=== PATIENT | male | born 1950 | race Caucasian/White ===

== ENCOUNTER 2024-06-23 07:50 | Day surgery (SDC) | payer MEDICARE, SELFPAY ==
--- NOTE | 2024-06-23 | HP_ITS ---
PREOPERATIVE HISTORY AND PHYSICAL ? Date:? 06/22/2024 ? HISTORY:? The patient is a 74-year-old white male with complaints of declining vision out of his left eye.? He states that this has been an ongoing issue over the last 2-3 years, since he had prior cataract surgery and it has been noticed.? He describes the severity as moderate in nature, gradually worsening in a progressive fashion over that time frame.? Notes his distance and near is affected.? Road signs at a distance have become more difficult.? Additionally, night time driving has become more difficult with the headlights creating glare and halos.? ? PAST OCULAR HISTORY:? Includes status post cataract extraction with intraocular lens placement for the right eye. ? PAST MEDICAL HISTORY:? A history of tremor and Parkinson?s. ? SOCIAL HISTORY:? Denies tobacco, alcohol or recreational drug abuse. ? SYSTEMIC MEDICATIONS:? Include B12, tramadol, carbidopa levodopa, Require, Alprazolam. ? ALLERGIES TO MEDICATIONS:? Denies. ? REVIEW OF SYSTEMS:? No pertinent positives. ? PHYSICAL EXAM: ? GENERAL:? In general, he is awake, alert and oriented x3, well developed, well nourished, with a resting tremor.? ? HEART:? Regular rate and rhythm. ? LUNGS:? Clear bilaterally. ? ABDOMEN:? Soft, non-tender, non-distended. ? EXTREMITIES:? No pitting edema. ? OPHTHALMIC EXAM:? Revealed a visual acuity of 20/60 bilaterally that glared to 20/200 bilaterally.? Pupils motility, muscle balance and confrontational visual johnson within normal limits bilaterally.??? Slit lamp exam revealed blepharitis with a severe decrease in tear film bilaterally.? Conjunctiva, cornea, anterior chamber and iris were within normal limits bilaterally.? Lens status demonstrated a well centered posterior chamber intraocular lens in the right eye and 3+ nuclear sclerosis, 2+ cortical changes and 1+ PSC in the left eye. ? FUNDUS EXAM:? Revealed good view with good dilation bilaterally.? Optic discs, macula, vessels, periphery and vitreous were within normal limits bilaterally.? ? ASSESSMENT AND PLAN:? Visually significant cataract, left eye.? After the risks, benefits, and alternatives as well as expectations were delivered to the patient, he elected to go forward with cataract removal.? He understands those risks to include but not limited to infection, bleeding, loss of vision or loss of the eye itself.? Secondly, he understands that postoperatively he is likely to require spectacle correction for her best visual acuity.? Finally, a complete ophthalmic exam was performed and there was not determined to be any other source of vision decline other than that of cataract.? ? After understanding all risks as well as expectations, he elected to go forward with the procedure as listed above and will be doing so in the near future. SCAR
--- NOTE | 2024-06-23 | OP_ITS ---
OPERATION DATE: 06/23/2024 SURGEON: Sage Strauss D.O. PREOPERATIVE DIAGNOSIS: Nuclear sclerotic cataract left eye POSTOPERATIVE DIAGNOSIS: Nuclear sclerotic cataract left eye. PROCEDURE NAME: Cataract extraction with intraocular lens placement of the left eye. ANESTHESIA: Topical ESTIMATED BLOOD LOSS: Zero. COMPLICATIONS: None. PROCEDURE: The patient was brought to the Operating Room in supine position. After proper identification, the left eye was prepped and draped in a sterile ophthalmic fashion. A paracentesis was created at the 5 o'clock position. Approximately 1 cc of unpreserved Xylocaine was injected into the anterior chamber followed by Amvisc Plus. Using a 2.6 mm Keratome blade, a clear corneal incision was created at the 2 o'clock limbus. A cystotome was then used to begin a curvilinear capsulorrhexis that was continued for 360 degrees with the Utrata forceps. BSS on a 26 gauge cannula was injected beneath the anterior capsule to hydrodissect as well as hydrodelineate the lens. After ensuring mobility, phacoemulsification was performed in a [id number]-type fashion. After all nuclear material had been removed from the eye, IA was introduced and all residual cortical material was cleaned up. Additional Amvisc Plus was injected into the posterior bag and a lens model MX60, 20.5 diopters was injected and dialed into position. After ensuring centration, IA was re- introduced into the anterior chamber and all residual Amvisc Plus was removed from the eye. BSS on a 30 gauge cannula was injected into the stroma of both the clear corneal incision as well as paracentesis to hydrate the wounds. Additional BSS was injected into the anterior chamber to pressurize the eye at approximately 20 to 22 mmHg by finger tension. 0.1 cc of antibiotic was injected into the anterior chamber, and Weck-Martita sponges were used to check the wounds to be watertight. One drop of apraclonidine and one drop of prednisolone acetate were placed into the eye and a shield was placed over top. The patient was sent to the postoperative area in satisfactory condition to follow up the following day for postoperative care. SCAR
[2024-06-23 08:03] VITALS: BP 105/73; PULSE 81; O2SAT 98
[2024-06-23] MEDS: DIAZEPAM 5 MG TABLET PO (08:08)
[2024-06-23] MEDS: TROPICAMIDE 1% OP SOL 300 DROP/15 ML BOTTLE OP ×4 (08:09→08:38)
[2024-06-23] MEDS: CYCLOPENTOLATE HCL 1% OP SOL 40 DROP/2 ML BOTTLE OP ×4 (08:09→08:38)
[2024-06-23] MEDS: PHENYLEPHRINE HCL 2.5% OP SOL 40 DROP/2 ML BOTTLE OP ×4 (08:09→08:38)
[2024-06-23] MEDS: BESIFLOXACIN HCL 100 DROP DROPS.SUSP OP ×4 (08:09→08:38)
[2024-06-23] MEDS: BETADINE POVIDONE-IODINE 5% OP SOL 30 ML BOTTLE OP (09:33)
[2024-06-23] MEDS: PROPARACAINE HCL 0.5% 300 DROP/15 ML BOTTLE OP (09:33)
[2024-06-23] MEDS: LIDOCAINE 2% JELLY 10 ML TOPICAL (09:33)
[2024-06-23 09:41] VITALS: BP 113/73; PULSE 66; O2SAT 95
[2024-06-23 09:46] VITALS: BP 116/69; PULSE 63; O2SAT 98
[2024-06-23] MEDS: APRACLONIDINE HCL 0.5% SOL 100 DROP/5 ML BOTTLE OP (09:48)
[2024-06-23] MEDS: LIDOCAINE HCL 1% PF 20 MG/2 ML VIAL INJ (09:49)
[2024-06-23] MEDS: PHENYLEPHRINE/KETOROLAC 1-0.3% ML VIAL 4 ML IRR (09:49)
[2024-06-23] MEDS: HYALURONATE SODIUM 16 MG/ML SYRINGE OP (09:49)
[2024-06-23] MEDS: TETRACAINE HCL 0.5% OP SOL 80 DROP/4 ML BOTTLE OP (09:50)
[2024-06-23] MEDS: PREDNISOLONE ACETATE OP 1% SUSP 100 DROPS/5 ML 1 DROP OP (09:50)
[2024-06-23] MEDS: CEFUROXIME SODIUM 750 MG, 0.9 % SODIUM CHLORIDE 16.3 ML OP (09:51)
== END 2024-06-23 10:14 | disposition home or self-care (01) ==
LOC: SURGOUT 07:52
PROVIDERS: Visit Provider Ophthalmology
PROC: (CPT 66984; principal; 2024-06-23 09:00)
DX: H25.12 Age-related nuclear cataract, left eye (principal); G20.A1 Parkinson's disease without dyskinesia, without mention of fluctuations
CPT/HCPCS: 66984; J0697; V2630

== ENCOUNTER 2025-07-17 19:13 | Emergency (ER) | payer MEDICARE, SELFPAY ==
--- OUTSIDE RECORDS SUMMARY | 2025-06-29 10:13 | XMS_ITS ---
Author Name Auto Generated Organization [facility] Care Team Providers [employer]ing [employer] Finance Instructor Name Role Phone URBANO BRO Attending Unavailable URBANO BRO Attending Unavailable URBANO BRO Attending Unavailable Kellie, CHANNEL MARKETING SPECIALIST Radha L Attending Unavailable Kellie, CHANNEL MARKETING SPECIALIST Radha L Attending Unavailable Kellie, CHANNEL MARKETING SPECIALIST Radha L Attending Unavailable Kellie, CHANNEL MARKETING SPECIALIST Radha L Attending Unavailable Kellie, CHANNEL MARKETING SPECIALIST Radha L Attending Unavailable Kellie, CHANNEL MARKETING SPECIALIST Radha L Attending Unavailable Kellie, CHANNEL MARKETING SPECIALIST Radha L Attending Unavailable Kellie, CHANNEL MARKETING SPECIALIST Radha L Attending Unavailable Kellie, CHANNEL MARKETING SPECIALIST Radha L Admitting Unavailable Kellie, CHANNEL MARKETING SPECIALIST Radha L Attending Unavailable Kellie, CHANNEL MARKETING SPECIALIST Radha L Admitting Unavailable Kellie, CHANNEL MARKETING SPECIALIST Radha L Attending Unavailable Kellie, CHANNEL MARKETING SPECIALIST Radha L Admitting Unavailable Kellie, CHANNEL MARKETING SPECIALIST Radha L Attending Unavailable Kellie, CHANNEL MARKETING SPECIALIST Radha L Admitting Unavailable Kellie, CHANNEL MARKETING SPECIALIST Radha L Attending Unavailable MARTIN LAMAR Attending Unavailable PROBLEMS DATE TYPE CONDITION / CODE ATTENDING STATUS [facility] 03/02/2025 Active Parkinson's dise ase without dyskinesia or fluctuating manifestations (HCC) / G20.A1(ICD-10) MARTIN LAMAR Active [facility] 03/02/2025 Active Disturbance in s leep behavior / G47.9(ICD-10) MARTIN LAMAR Active [facility] 03/02/2025 Active Chronic prescrip tion benzodiazepine use / Z79.899(ICD-10) MARTIN LAMAR Active [facility] PROCEDURES No Procedure Records Found RESULTS REMINDERS Observed: 06/30/2025 1:10 PM Status: C Source: [facility] Reminders From: Radha Poole To: [facility] - Clinical; Sent: 06/30/2025 13:10:26 EDT Show up: 06/30/2025 13:10:00 EDT Subject: Ambulatory Reminder Due Date/Time: 07/01/2025 13:09:00 EDT prostate cancer screen lab was just slightly elevated. I would like to repeat that lab in 3 months when he comes back to office for follow up appointment Results: Date Result Name Ind Value Ref Range 06/29/2025 10:57 WBC 7.6 E9/L (4.0 - 11.0) 06/29/2025 10:57 RBC 5.2 E12/L (4.3 - 5.9) 06/29/2025 10:57 HGB 16.0 gm/dL (13.5 - 17.5) 06/29/2025 10:57 Hct 46.9 % (37.7 - 49.0) 06/29/2025 10:57 MCV 90.0 fL (80.0 - 100.0) 06/29/2025 10:57 MCH 30.7 pg (27.0 - 34.0) 06/29/2025 10:57 MCHC 34.1 gm/dL (31.4 - 36.0) 06/29/2025 10:57 RDW 13.8 % (10.9 - 14.2) 06/29/2025 10:57 Platelet (L) 145.0 E9/L (150.0 - 500.0) 06/29/2025 10:57 MPV 10.6 fL (6.4 - 10.8) 06/29/2025 10:57 Neutro Auto 68.4 % (36.0 - 75.0) 06/29/2025 10:57 Lymph Auto 20.6 % (14.0 - 50.0) 06/29/2025 10:57 [place] Auto 8.7 % (4.0 - 14.0) 06/29/2025 10:57 Eos Auto 1.7 % (0.0 - 8.0) 06/29/2025 10:57 Basophil Auto 0.6 % (0.0 - 2.0) 06/29/2025 10:57 Neutro Absolute 5.2 E9/L (2.0 - 7.5) 06/29/2025 10:57 Lymph Absolute 1.6 E9/L (1.0 - 4.0) 06/29/2025 10:57 [place] Absolute 0.7 E9/L (0.2 - 1.0) 06/29/2025 10:57 Eos Absolute 0.1 E9/L (0.0 - 0.5) 06/29/2025 10:57 Basophil Absolute 0.0 E9/L (0.0 - 0.2) 06/29/2025 10:57 Glucose Lvl 98 mg/dL (55 - 199) 06/29/2025 10:57 BUN (H) 22 mg/dL (5 - 21) 06/29/2025 10:57 Creatinine 1.0 mg/dL (0.5 - 1.3) 06/29/2025 10:57 eGFR 79 mL/min/1.73 m2 (>=59 - ) 06/29/2025 10:57 BUN/Creat Ratio (H) 22 (10 - 20) 06/29/2025 10:57 Sodium Lvl 139 mmol/L (135 - 145) 06/29/2025 10:57 Potassium Lvl 4.5 mmol/L (3.5 - 5.3) 06/29/2025 10:57 Chloride 108 mmol/L (101 - 111) 06/29/2025 10:57 CO2 25 mmol/L (21 - 31) 06/29/2025 10:57 AGAP 11 mEq/L (6 - 16) 06/29/2025 10:57 Calcium Lvl 9.6 mg/dL (8.9 - 11.1) 06/29/2025 10:57 Alk Phos 57 Int._Unit/L (21 - 98) 06/29/2025 10:57 ALT (L) 4 Int._Unit/L (6 - 46) 06/29/2025 10:57 AST 21 Int._Unit/L (5 - 43) 06/29/2025 10:57 Total Protein 7.1 gm/dL (6.0 - 7.8) 06/29/2025 10:57 Albumin Lvl 4.8 gm/dL (3.3 - 5.0) 06/29/2025 10:57 Globulin 2.3 gm/dL (1.4 - 4.0) 06/29/2025 10:57 A/G Ratio 2.1 (1.1 - 2.2) 06/29/2025 10:57 Bili Total 1.0 mg/dL (0.0 - 1.1) 06/29/2025 10:57 TSH 0.99 mcIU/mL (0.34 - 5.60) 06/29/2025 10:57 Vitamin B12 Lvl 444 pg/mL (50 - 1,500) 06/29/2025 10:57 PSA Scrn Tot. (H) 3.9 ng/mL (0.1 - 3.5) left message to return our call, relay below message Patient notified with a clear understanding. CBC W/ AUTO DIFF Collected: 10:57 AM Status: F Source: [facility] TYPE CODE TESTS RESULT OUT OF RANGE REFERENCE UNITS LAB [id number](LOINC) WBC 7.6 Normal 4.0-11.0 E9/L Result Comment: Peripheral s mear review performed. LAB [id number](LOINC) RBC 5.2 Normal 4.3-5.9 E12/L LAB [id number](LOINC) HGB 16.0 Normal 13.5-17.5 gm/dL LAB [id number](LOINC) Hct 46.9 Normal 37.7-49.0 % LAB [id number](LOINC) RDW 13.8 Normal 10.9-14.2 % LAB [id number](LOINC) MCH 30.7 Normal 27.0-34.0 pg LAB [id number](LOINC) MCHC 34.1 Normal 31.4-36.0 gm/dL LAB [id number](LOINC) MCV 90.0 Normal 80.0-100.0 fL LAB [id number](LOINC) MPV 10.6 Normal 6.4-10.8 fL LAB [id number](LOINC) Platelet 145.0 Low 150.0-500.0 E9/ L LAB [id number](LOINC) Neutro Auto 68.4 Normal 36.0-75.0 % LAB [id number](LOINC) Lymph Auto 20.6 Normal 14.0-50.0 % LAB [id number](LOINC) [place] Auto 8.7 Normal 4.0-14.0 % LAB [id number](LOINC) Eos Auto 1.7 Normal 0.0-8.0 % LAB [id number](LOINC) Basophil Auto 0.6 Normal 0.0-2.0 % LAB [id number](LOINC) Neutro Absolute 5.2 Normal 2.0-7.5 E9/L LAB [id number](LOINC) Lymph Absolute 1.6 Normal 1.0-4.0 E9/L LAB [id number](LOINC) [place] Absolute 0.7 Normal 0.2-1.0 E9 /L LAB [id number](LOINC) Eos Absolute 0.1 Normal 0.0-0.5 E9/ L LAB [id number](LOINC) Basophil Absolute 0.0 Normal 0.0-0.2 E9/L Performed By: #### [id number] # ### [facility] [address] [place] [address] PSA SCREEN, TOTAL Collected: 5 10:57 AM Status: F Source: [facility] TYPE CODE TESTS RESULT OUT OF RANGE REFERENCE UNITS LAB [id number](LOINC) PSA Scrn Tot. 3.9 High 0.1-3.5 ng/mL Result Comment: The concentr ation of PSA determined by different manufacturers can vary due to differences in assay methods and reagent specificity. Values obtained from different assay methods cannot be used interchangeably. The methodology used for this result was chemiluminescence using [employer]'s Access Hybritech PSA reagent. Performed By: #### [id number] #### [facility] [address] [place] [address] TSH Collected: 5 10:57 AM Status: F Source: [facility] TYPE CODE TESTS RESULT OUT OF RANGE REFERENCE UNITS LAB [id number](LOINC) TSH 0.99 Normal 0.34-5.60 mcIU/m L Performed By: #### [id number] # ### [facility] [address] [place] [address] VIT B12 Collected: 10:57 AM Status: F Source: [facility] TYPE CODE TESTS RESULT OUT OF RANGE REFERENCE UNITS LAB [id number]([facility]) Vitamin B12 Lvl 444 Normal 50-1500 pg/mL Performed By: #### [id number] # ### [facility] [address] [place] [address] EGFR Collected: 10:57 AM Status: F Source: [facility] TYPE CODE TESTS RESULT OUT OF RANGE REFERENCE UNITS LAB [id number]([facility]) eGFR 79 Normal >=59 mL/min/1 .7 3 m2 Performed By: #### [id number] #### [facility] [address] [place] [address] CMP Collected: 06/29/2025 10:57 AM Status: F Source: [facility] TYPE CODE TESTS RESULT OUT OF RANGE REFERENCE UNITS LAB [id number]([facility]) Glucose Lvl 98 Normal 55-199 mg/d L LAB [id number]([facility]) BUN 22 High 5-21 mg/dL LAB [id number]([facility]) Creatinine 1.0 Normal 0.5-1.3 mg/dL LAB [id number](INC) Calcium Lvl 9.6 Normal 8.9-11.1 mg/ dL LAB [id number](INC) Sodium Lvl 139 Normal 135-145 mmol/ L LAB [id number](INC) Potassium Lvl 4.5 Normal 3.5-5.3 mm ol/L LAB [id number](INC) Chloride 108 Normal 101-111 mmol/L LAB [id number]([facility]) CO2 25 Normal 21-31 mmol/L LAB [id number]([facility]) Alk Phos 57 Normal 21-98 Int._Un it /L LAB 25438337(INC) Bili Total 1.0 Normal 0.0-1.1 mg/dL LAB [id number](INC) Albumin Lvl 4.8 Normal 3.3-5.0 gm/d L LAB [id number](INC) Total Protein 7.1 Normal 6.0-7.8 gm /dL LAB [id number](LOINC) ALT 4 Low 6-46 Int._Uni t /L LAB [id number](LOINC) AST 21 Normal 5-43 Int._Uni t /L LAB [id number](LOINC) BUN/Creat Ratio 22 High 10-20 No Units LAB [id number](LOINC) AGAP 11 Normal 6-16 mEq/L LAB [id number](LOINC) Globulin 2.3 Normal 1.4-4.0 gm/dL LAB [id number](LOINC) A/G Ratio 2.1 Normal 1.1-2.2 Performed By: #### [id number] # ### [facility] [address] [place] [address] FAMILY MEDICINE OFFICE/CLINI C NOTE Observed: 06/29/2025 9:27 AM Status: F Source: [facility] Family Medicine Office/Clini c Note HPI Staff Quinten is a 75 year old male presenting with 3 month f/u Taking Alprazolam for anxiety/insomnia/tremors Follow up for Mental Status: Medication adherence- Yes, takes medication as prescribed Medication refill needed: _ Suicidal thoughts-Not at this time Most recent SHADI: 7 Most recent PHQ: 11 Helps a little bit He has been taking NyQuil with Alprazolam seems to help better Refills needed: none at this time History of Present Illness pt presents today for 3 month follow up Review of Systems PHQ Score Initial Depression Screen Score: 4 SCORE Detailed Depression Screen Score: 7 Total Depression Screen Score: 11 Physical Exam Vitals & Measurements T: 36.4 ???C(Temporal Artery) HR: 76(Peripheral) RR: 18 BP: 96/68 SpO2: 98% HT: 67 in HT: 169.0 cm WT: 142.198 lb WT: 64.5 kg BMI: 22.58 General: alert, no acute distress ENMT: oral mucosa moist, no pharyngeal erythema or exudate Cardiovascular: regular rate and rhythm, normal peripheral perfusion Respiratory: Lungs CTA, respirations non labored Extremities: no deformity, no trauma Neurological: oriented x 4, LOC appropriate for age, CN II-XII intact, motor strength equal & normal bilaterally, speech normal Assessment/Plan 1. Generalized anxiety disorder (F41.1: Generalized anxiety disorder) doing well with the increase of alprazolam to BID. med agreement and UDS are up to date. RTC 3 months Ordered: CBC w/ Auto Diff Comprehensive Metabolic Panel PSA Screen, Total Thyroid Stimulating Hormone Vitamin B12 Level 2. Fatigue (R53.83: Other fatigue) will check labs today Ordered: CBC w/ Auto Diff Comprehensive Metabolic Panel PSA Screen, Total Thyroid Stimulating Hormone Vitamin B12 Level 3. Insomnia (G47.00: Insomnia, unspecified) continue current regimine Ordered: CBC w/ Auto Diff Comprehensive Metabolic Panel PSA Screen, Total Thyroid Stimulating Hormone Vitamin B12 Level 4. Prostate cancer screening (Z12.5: Encounter for screening for malignant neoplasm of prostate) PSA ordered Ordered: CBC w/ Auto Diff Comprehensive Metabolic Panel PSA Screen, Total Thyroid Stimulating Hormone Vitamin B12 Level 5. BMI 23.0-23.9, adult (Z68.23: Body mass index [BMI] 23.0-23.9, adult) samples of ensure provided Orders: alprazolam, 1 mg = 1 tab(s), Oral, BID, PRN for anxiety, # 60 tab(s), Refills(s) 0, Pharmacy: [facility], 169, cm, 03/29/25 11:10:00 EDT, Height/Length Dosing, 66.4, kg, 03/29/25 11:10:00 EDT, Weight Dosing alprazolam, 1 mg = 1 tab(s), Oral, BID, PRN for anxiety, # 60 tab(s), Refills(s) 0, Pharmacy: [facility], 169, cm, 06/29/25 9:57:00 EDT, Height/Length Dosing, 64.5, kg, 06/29/25 9:57:00 EDT, Weight Dosing Follow-up No qualifying data available Problem List/Past Medical History Ongoing BMI 23.0-23.9, adult Fatigue Generalized anxiety disorder Insomnia Long-term current use of opiate analgesic drug Parkinson's disease Prostate cancer screening Pure hypercholesterolemia Slow transit constipation Thrombocytopenia Tubular adenoma of colon Weakness Historical No qualifying data Procedure/Surgical History Colonoscopy (12/17/2022), Cataract Extraction with IOL placement - OD. (02/24/2017), Colonoscopy (02/20/2011), Vasectomy. Medications alprazolam 1 mg Tab, 1 mg= 1 tab(s), Oral, BID, PRN carbidopa-levodopa 25 mg-100 mg Tab, 1 tab(s), Oral, TID LORazepam 0.5 mg Tab, See Instructions LORazepam 0.5 mg Tab, See Instructions organic helena Benito Stool Softener, 100 mg, Oral, Daily ropinirole 0.25 mg Tab, 0.25 mg= 1 tab(s), Oral, TID Allergies No Known Allergies No Known Medication Allergies Social History Alcohol - Denies Alcohol Use, 11/18/2022 Never, 12/22/2024 Substance Abuse - Denies Substance Abuse, 11/18/2022 Never, 12/22/2024 Tobacco - No Risk, 12/23/2023 Never (less than 100 in lifetime) Tobacco Use:., 06/29/2025 Family History Brain tumor: Sister. Cardiac arrest: Mother. Heart disease: Brother. Primary malignant neoplasm of lung: Father. Immunizations Vaccine Date Status Comments zoster vaccine, inactivated 01/22/2025 Recorded influenza virus vaccine, inactivated - Not Given Patient Refuses influenza virus vaccine, inactivated - Not Given Patient Refuses SARS-CoV-2 (COVID-19) mRNA BNT-162b2 vax 10/06/2021 Recorded SARS-CoV-2 (COVID-19) mRNA BNT-162b2 vax 01/20/2021 Recorded SARS-CoV-2 (COVID-19) mRNA BNT-162b2 vax 12/28/2020 Recorded 2022-11-18: TPV65 pneumococcal 13-valent vaccine 09/20/2020 Recorded Result Comment: Electronical ly Signed By: Radha Poole\.br\Date and Time Signed: 06/29/25 10:26 EDT AMBULATORY VISIT SUMMARY Observed: 06/29 9:27 AM Status: F Source: [facility] Ambulatory Visit Summary QUINTEN HUITRON :1950 Visit Date:06/29/2025 Ambulatory Visit Instructions Your Diagnosis Generalized anxiety disorder Fatigue Insomnia Prostate cancer screening BMI 23.0-23.9, adult Your Care Team Attending Physician - Radha Poole Primary Care Physician - Radha Poole This Is Your Medications List Non-Formulary Medication (organic limartha mendez) alprazolam (alprazolam 1 mg Tab) carbidopa-levodopa (carbidopa-levodopa 25 mg-100 mg Tab) docusate (Benito Stool Softener) lorazepam (LORazepam 0.5 mg Tab) lorazepam (LORazepam 0.5 mg Tab) ropinirole (ropinirole 0.25 mg Tab) Procedures Performed Colonoscopy (12/17/2022), Cataract Extraction with IOL placement - OD. (02/24/2017), Colonoscopy (02/20/2011), Vasectomy. Discharge Vitals Temperature (Temporal Artery) 36.4 ???C Heart Rate (Peripheral) 76 Respiratory Rate 18 Blood Pressure 96/68 Height 169.0 cm Height 67 in Weight 64.5 kg Weight 142.198 lb BMI 22.58 What to do next Scheduled Follow-Up Appointments 2024 10:20 AM EST With: Radha Poole Where: [address] [address]- Thursday2025 11:00 AM EDT With: Where: [address] [address]- Medications What How Much When Why Instructions New alprazolam (alprazolam 1 mg Tab) 1 Tablets By Mouth 2 times a day as needed for for anxiety Pickup at [facility] Unchanged carbidopa-levodopa (carbidopa-levodopa 25 mg-100 mg Tab) 1 Tablets By Mouth 3 times a day Unchanged docusate (Benito Stool Softener) 100 Milligram By Mouth Every day Unchanged lorazepam (LORazepam 0.5 mg Tab) See instructions Insomnia 3 tab(s) 30 minutes prior to procedure or appointment Unchanged lorazepam (LORazepam 0.5 mg Tab) See instructions Insomnia 3 tab(s) 30 minutes prior to procedure or appointment Unchanged Non-Formulary Medication (organic lions louis) Unchanged ropinirole (ropinirole 0.25 mg Tab) 1 Tablets By Mouth 3 times a day Pharmacy Information [facility]: [address] [place], [place] [id number] [phone] Allergies No Known Allergies No Known Medication Allergies Problems Ongoing - Any problem that you are currently receiving treatment for. BMI 23.0-23.9, adult Fatigue Generalized anxiety disorder Insomnia Long-term current use of opiate analgesic drug Parkinson's disease Prostate cancer screening Pure hypercholesterolemia Slow transit constipation Thrombocytopenia Tubular adenoma of colon Weakness Patient Survey You may receive a survey via text or e-mail asking about your office visit. Please share your experience with us by completing your survey. We appreciate your feedback and thank you for choosing us for your care. Patient Portal You may access all of your results and other medical record information on our secure patient portal. If you are not signed up for this yet, please contact [employer] at [phone] to get signed up today. Language Information Language assistance services are available as needed. AMBULATORY VISIT SUMMARY Observed: 03/29 10:53 AM Status: F Source: [facility] Ambulatory Visit Summary QUINTEN HUITRON :1950 Visit Date:03/29/2025 Ambulatory Visit Instructions Your Diagnosis BMI 23.0-23.9, adult Your Care Team Attending Physician - Radha Poole Primary Care Physician - Radha Poole This Is Your Medications List Non-Formulary Medication (organic lions louis) alprazolam (alprazolam 1 mg Tab) carbidopa-levodopa (carbidopa-levodopa 25 mg-100 mg Tab) docusate (Benito Stool Softener) lorazepam (LORazepam 0.5 mg Tab) lorazepam (LORazepam 0.5 mg Tab) psyllium (Metamucil 3.4 g/5.2 g oral powder) ropinirole (ropinirole 0.25 mg Tab) Procedures Performed Colonoscopy (12/17/2022), Cataract Extraction with IOL placement - OD. (02/24/2017), Colonoscopy (02/20/2011), Vasectomy. Discharge Vitals Heart Rate (Peripheral) 73 Respiratory Rate 16 Blood Pressure 110/68 Height 169 cm Height 67 in Weight 66.4 kg Weight 146.387 lb BMI 23.25 What to do next Scheduled Follow-Up Appointments 2024 9:40 AM EDT With: Radha Poole Where: [facility] [address]- Thursday2025 11:00 AM EDT With: Where: [address] [address]- Medications What How Much When Why Instructions Unchanged alprazolam (alprazolam 1 mg Tab) 1 Tablets By Mouth 2 times a day as needed for for anxiety Unchanged carbidopa-levodopa (carbidopa-levodopa 25 mg-100 mg Tab) 1 Tablets By Mouth 3 times a day Unchanged docusate (Benito Stool Softener) 100 Milligram By Mouth Every day Unchanged lorazepam (LORazepam 0.5 mg Tab) 1.5 Milligram As Directed prn Unchanged lorazepam (LORazepam 0.5 mg Tab) See instructions Insomnia 3 tab(s) 30 minutes prior to procedure or appointment Unchanged Non-Formulary Medication (organic lions louis) Unchanged psyllium (Metamucil 3.4 g/ 5.2 g oral powder) 1.7 Gram By Mouth 3 times a day as needed for for constipation Unchanged ropinirole (ropinirole 0.25 mg Tab) 1 Tablets By Mouth 3 times a day Allergies No Known Allergies No Known Medication Allergies Problems Ongoing - Any problem that you are currently receiving treatment for. BMI 23.0-23.9, adult Fatigue Generalized anxiety disorder Insomnia Long-term current use of opiate analgesic drug Parkinson's disease Pure hypercholesterolemia Slow transit constipation Thrombocytopenia Tubular adenoma of colon Weakness Patient Survey You may receive a survey via text or e-mail asking about your office visit. Please share your experience with us by completing your survey. We appreciate your feedback and thank you for choosing us for your care. FAMILY MEDICINE OFFICE/CLINI C NOTE Observed: 03/29/2025 10:53 AM Status: F Source: [facility] Medicine Office/Clini c Note HPI Staff 3mth fu to Insomnia, Anxiety. Alprazolam BID PRN and Lorazepam PRN therapy. Recent of son. Sleeping 6-7 hours very little appetite History of Present Illness pt presents for 3 month follow up Review of Systems PHQ Score Initial Depression Screen Score: 0 SCORE Physical Exam Vitals & Measurements HR: 73(Peripheral) RR: 16 BP: 110/68 SpO2: 94% HT: 169 cm HT: 67 in WT: 146.387 lb WT: 66.4 kg BMI: 23.25 General: alert, no acute distress ENMT: oral mucosa moist, no pharyngeal erythema or exudate Cardiovascular: regular rate and rhythm, normal peripheral perfusion Respiratory: Lungs CTA, respirations non labored Extremities: no deformity, no trauma Neurological: oriented x 4, LOC appropriate for age, CN II-XII intact, motor strength equal & normal bilaterally, speech normal Assessment/Plan 1. Insomnia (G47.00: Insomnia, unspecified) pt is taking alprazolam BID for anxiety/insomnia/tremors. medication agreement up to date. will do drug screen at next visit. denies needs. RTC 3 months Ordered: lorazepam, See Instructions, 3 tab(s) 30 minutes prior to procedure or appointment, # 21 tab(s), Refills(s) 0, Pharmacy: [facility], 169, cm, 03/29/25 11:10:00 EDT, Height/Length Dosing, 66.4, kg, 03/29/25 11:10:00 EDT, Weight Dosing lorazepam, See Instructions, 3 tab(s) 30 minutes prior to procedure or appointment, # 12 tab(s), Refills(s) 0, Pharmacy: [facility], 169, cm, 12/22/24 14:54:00 EST, Height/Length Dosing, 67.5, kg, 12/22/24 14:54:00 EST, Weight Dosing 2. Generalized anxiety disorder (F41.1: Generalized anxiety disorder) see above 3. BMI 23.0-23.9, adult (Z68.23: Body mass index [BMI] 23.0-23.9, adult) BMI education given Ordered: 1126F Pain severity quantified; no pain present Current tobacco non-user 1036F Depression Screening Negative 3352F Functional status assessed 1170F Medication list documented in medical record 1159F Most recent diastolic blood pressure <80 mm Hg 3078F Patient screen for fall risk: no falls in last year or 1 fall with no injury in last year 1101F Systolic BP <130 mm Hg (Most Recent) 3074F Follow-up No qualifying data available Problem List/Past Medical History Ongoing BMI 23.0-23.9, adult Fatigue Generalized anxiety disorder Insomnia Long-term current use of opiate analgesic drug Parkinson's disease Pure hypercholesterolemia Slow transit constipation Thrombocytopenia Tubular adenoma of colon Weakness Historical No qualifying data Procedure/Surgical History Colonoscopy (12/17/2022), Cataract Extraction with IOL placement - OD. (02/24/2017), Colonoscopy (02/20/2011), Vasectomy. Medications alprazolam 1 mg Tab, 1 mg= 1 tab(s), Oral, BID, PRN carbidopa-levodopa 25 mg-100 mg Tab, 1 tab(s), Oral, TID LORazepam 0.5 mg Tab, 1.5 mg, As Directed LORazepam 0.5 mg Tab, See Instructions Metamucil 3.4 g/5.2 g oral powder, 1.7 gm, Oral, TID, PRN organic lions louis Benito Stool Softener, 100 mg, Oral, Daily ropinirole 0.25 mg Tab, 0.25 mg= 1 tab(s), Oral, TID Allergies No Known Allergies No Known Medication Allergies Social History Alcohol - Denies Alcohol Use, 11/18/2022 Never, 12/22/2024 Substance Abuse - Denies Substance Abuse, 11/18/2022 Never, 12/22/2024 Tobacco - No Risk, 12/23/2023 Never (less than 100 in lifetime) Tobacco Use:., 03/29/2025 Family History Brain tumor: Sister. Cardiac arrest: Mother. Heart disease: Brother. Primary malignant neoplasm of lung: Father. Immunizations Vaccine Date Status Comments zoster vaccine, inactivated 01/22/2025 Recorded influenza virus vaccine, inactivated - Not Given Patient Refuses influenza virus vaccine, inactivated - Not Given Patient Refuses SARS-CoV-2 (COVID-19) mRNA BNT-162b2 vax 10/06/2021 Recorded SARS-CoV-2 (COVID-19) mRNA BNT-162b2 vax 01/20/2021 Recorded SARS-CoV-2 (COVID-19) mRNA BNT-162b2 vax 12/28/2020 Recorded 2022-11-18: TPV65 pneumococcal 13-valent vaccine 09/20/2020 Recorded Result Comment: Electronical ly Signed By: Radha Poole\.br\Date and Time Signed: 03/29/25 15:29 EDT PRE-VISIT PLANNING Observed: 03/21/2025 2:04 PM Status: C Source: [facility] Pre-Visit Planning From: Carmen Fortune RN To: Radha Poole; Sent: 03/21/2025 14:04:30 EDT Subject: Pre-Visit Planning Due Date/Time: 03/21/2025 14:04:00 EDT Caller Name: QUINTEN HUITRON; Caller Number: Kari , Nayan Kevin Garcia, *Based on your response below, can you please update the chronic problem list and address during this visit if appropriate?* During a pre-visit planning chart review, I noted the following documentation in the medical record: Problem list: Anxiety (Anxiety disorder, unspecified) Home medications- Alprazolam, Lorazepam 06/10/2024 office note-BOB 03/30/24- Increased Xanax to .5 mg (Med agreement updated) taking this to help him sleep Neurologist said he can not take the ativan prior to appointments they are not sure why 09/09/2024 office note-Quinten is a 74 year old male presenting with 3 month followup to taking Xanax QHS & prior to Neuro appts. Pt states he is still taking the Ativan before dental appts )once every 3m) States the Xanax does not work for his tremors prior to appt. Does take the Xanax prior to bed. Would like to discuss possible stronger. States he needs refill of lorazepam. 09/28/2024 office note-They have questions for the Alprazolam not working either, patient says the dose is not strong enough 2. Anxiety (F41.9: Anxiety disorder, unspecified) will order lorazepam 3 times 30 minutes prior to dental procedures. they will call 2 weeks prior to next dental visit for refill. 12/22/2024 office note- 2. Anxiety (F41.9: Anxiety disorder, unspecified) pt feels if he takes alprazolam at lunch time it help with his anxiety and tremors. will order it to be taken BID. 12/22/2024 office note- 3. Anxiety (F41.9: Anxiety disorder, unspecified) Patient takes alprazolam daily as directed, voices effectiveness of medication. SHADI-7 screening completed today with a score of 2. Follows with PCP as directed for management and symptom control. Denies any suicidal ideations at this time. Education provided, stress management and relaxation techniques reviewed. Will continue to follow with PCP and communicate any changes of increased anxiety. Reviewed additional signs/symptoms to monitor for and report to provider. Based on your medical judgment, can you please further specify the anxiety listed on the problem list? Anxiety with depression ??? Generalized anxiety disorder ??? Generalized anxiety with panic attacks ??? Anxiety reaction ??? Specified NEC ??? Other (Please Specify): I can update the problem list with your specified response if you would like. In responding to this request, please exercise your independent professional judgement. The fact that a question is asked does not imply that any particular answer is desired or expected. If you have any questions, please feel free to contact me at extension [phone]. Thank you! ARTIS Caba, RN, CCM, CCDS, CCDS-O CDI Alteration Specialist [place] [address] P: [phone] F: [phone] [email or web address] From: Radha Poole To: Devika AMARO, Carmen; Sent: 03/22/2025 11:40:20 EDT Subject: RE: Pre-Visit Planning Caller Name: QUINTEN HUITRON; Caller Number: Kari , M He was a no show today. But Generalized anxiety disorder, tremors and insomnia PROGRESS Observed: 03/02/2025 9:41 AM Status: COMPLETED Source: [facility] ID: [id number] Author: MARTIN LAMAR, DO Service: ? Author Type: Physician Type: Progress Notes Filed: 03/09/2025 14:57 Note Text: [facility] - NEW PATIENT EVALUATION Recording using ambient AI software for draft documentation of the visit was discussed with the patient/authorized tax representative; all questions welcomed and answered. Patient/authorized tax representative agreed to proceed I had the pleasure of evaluating Mr. Huitron in our clinic today. He is a 74 year old male who presents for evaluation of since . Subjective HISTORY OF PRESENT ILLNESS: Quinten is a 74-year-old male with a history of Parkinson's disease presenting for evaluation of tremors. He is accompanied by his , who provides additional history. Quinten was diagnosed with Parkinson's disease 8-9 years ago, with initial symptoms of tremors in the left hand. He was started on carbidopa-levodopa (Sinemet) by his neurologist, Dr. Wali Esparza, and later managed by Dr. Mann Bro. His current regimen includes Sinemet, one tablet three times daily, and Requip, 0.5 mg three times daily, taken at 8-9 AM, 12-1 PM, and 5-6 PM. He also takes alprazolam nightly for sleep. He reports that the medications were initially effective but have become less so over time. He has not increased his Sinemet dosage beyond three tablets daily, as advised by his neurologist. He experiences sleepiness in the afternoons, which he attributes to Requip, but does not report hallucinations or impulse control issues. He has not experienced any falls and continues to drive and perform daily activities. Quinten does not endorse hallucinations or impulse control issues. He has not experienced any falls and continues to drive and perform daily activities. He does not endorse any issues with tripping or balance. He experiences difficulty with fine motor tasks, which has impacted his ability to engage in hobbies such as working in his shop. He does not exercise regularly but occasionally uses a stationary bike and hand weights. He has not participated in physical therapy for Parkinson's disease. 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 He takes alprazolam nightly for sleep and occasionally uses cough medicine to aid sleep. He reports a decreased appetite and has been using nutritional supplements like Ensure to maintain his weight. He has expressed interest in less invasive procedures for tremor management, such as ultrasound, but is hesitant about invasive treatments. He is currently taking a supplement called Lion's Louis, which he believes has been beneficial. Past Diagnostic Results: Imaging and labs not discussed. Movement Disorders Medications Schedule - as of the start of the visit: Medications 8-9A 12-1P 5-6P Sinemet 25/100 1 1 1 Requip 0.5mg 1 1 1 Questionnaires ALLERGIES Not on File Current Outpatient Medications Medication Sig LORazepam (ATIVAN) 0.5 mg Take 0.5 mg by mouth as directed. TAKE 3 TABLETS BY MOUTH 30 MINUTES prior to procedure or appointmen OTC NUTRITIONAL SUPPLEMENT Take 1 capsule by mouth once daily. Lo[place] [place] Vitamin 1 capsule per mouth daily. carbidopa-levodopa (SINEMET 25-100) 25-100 mg per tablet Take 2 tablets by mouth three times a day. No current facility-administered medications for this visit. Past Medical and Surgical History: has no past medical history on file. has no past surgical history on file. Social History Tobacco Use Smoking status: Never Passive exposure: Never Smokeless tobacco: Never Substance Use Topics Alcohol use: Never Drug use: Never Family History: family history is not on file. Objective Vital Signs: BP 104/62 (BP Site: Left Arm, BP Position: Sitting, BP Cuff Size: Regular Adult) Pulse 60 Orthostatic Vitals: None for this encounter No LMP for male patient. There is no height or weight on file to calculate BMI. - Neurological: - Coordination: Mild dysmetria on uvazqe-ai-[id number] testing. - Motor: Rigidity noted. - Strength: - Arms: - Deltoids: Left: 4/5, Right: 4/5 - Biceps: Left: 4/5, Right: 4/5 - Triceps: Left: 4/5, Right: 4/5 - Wrist extensors: Left: 4/5, Right: 4/5 - Wrist flexors: Left: 4/5, Right: 4/5 - Dorsal interossei: Left: 4/5, Right: 4/5 - Lower Extremities: - Hip Flexors: Left: 4/5, Right: 4/5 - Hip Extensors: Left: 4/5, Right: 4/5 - Knee Flexion: Left: 4/5, Right: 4/5 - Knee Extension: Left: 4/5, Right: 4/5 - Ankle Dorsiflexion: Left: 4/5, Right: 4/5 - Ankle Plantarflexion: Left: 4/5, Right: 4/5 - Gait: Decreased arm swing, shuffling steps, difficulty with turns, decreased balance on the left side. Movement Disorders Scales Performed: MDS-UPDRS Motor subscale condition of exam Medication Off/On/Naiive ON Time of UPDRS 1001 Time of Last Medication Last Medication Taken DBS Right DBS Left MDS-UPDRS Motor subscale scores Speech 0-Normal. No speech problems. Facial Expression 2-Mild. In addition to decreased eye-blink frequency, Masked facies present in the lower face as well, namely fewer movements around the mouth, such as less spontaneous smiling, but lips not parted. Rigidity Neck 3-Moderate. Rigidity detected without the activation maneuver. Full range of motion is achieved with effort. Rigidity Right Upper Extremity 2-Mild. Rigidity detected without the activation maneuver, but full range of motion is easily achieved. Rigidity Left Upper Extremity 2-Mild. Rigidity detected without the activation maneuver, but full range of motion is easily achieved. Rigidity Right Lower Extremity 2-Mild. Rigidity detected without the activation maneuver, but full range of motion is easily achieved. Rigidity Left Lower Extremity 2-Mild. Rigidity detected without the activation maneuver, but full range of motion is easily achieved. Finger Taps Right 2-Mild. a) 3 to 5 interruptions during tapping, b) mild slowing, c) the amplitude decrements midway in the 10-tap sequence. Finger Taps Left 3-Moderate. a) more than 5 interruptions during tapping or at least one longer arrest (freeze) in ongoing movement, b) moderate slowing, c) the amplitude decrements starting after the 1st tap. Hand Movements Right 2-Mild. a) 3 to 5 interruptions during the movements, b) mild slowing, c) the amplitude decrements midway in the task. Hand Movements Left 2-Mild. a) 3 to 5 interruptions during the movements, b) mild slowing, c) the amplitude decrements midway in the task. Arm Movements Right 2-Mild. a) 3 to 5 interruptions during the movements, b) mild slowing, c) the amplitude decrements midway in the sequence. Arm Movements Left 3-Moderate. a) more than 5 interruptions during the movement or at least one longer arrest (freeze) in ongoing movement, b) moderate slowing, c) the amplitude decrements starting after the 1st supination-pronation sequence. Toe Taps Right 3-Moderate. a) more than 5 interruptions during the tapping movements or at least one longer arrest (freeze) in ongoing movement, b) moderate slowing, c) the amplitude decrements starting after the first tap. Toe Taps Left 3-Moderate. a) more than 5 interruptions during the tapping movements or at least one longer arrest (freeze) in ongoing movement, b) moderate slowing, c) the amplitude decrements starting after the first tap. Leg Agility Right 3-Moderate. a) more than 5 interruptions during the movement or at least one longer arrest (freeze) in ongoing movement, b) moderate slowing in speed, c) amplitude decrements after the first tap. Leg Agility Left 4-Severe. Cannot or can only barely perform the task because of slowing, interruptions or decrements. Arise From Chair 0-Normal. No problems. Able to arise quickly without hesitation. Gait 1-Slight. Independent walking with minor gait impairment. Gait Freezing 0-Normal. No freezing. Posture Stability 3-Moderate. Stands safely, but with absence of postural response, falls if not caught by examiner. Posture 1-Slight. Not quite erect, but posture could be normal for older person. Body Bradykinesia 1-Slight. Slight global slowness and poverty of spontaneous movements. Postural Tremor Hand Right 0-Normal. No tremor. Postural Tremor Hand Left 1-Slight. Tremor is present but less than 1cm in amplitude. Kinetic Tremor Right 1-Slight. Tremor is present but less than 1cm in amplitude. Kinetic Tremor Left 0-Normal. No tremor. Rest Tremor Amplitude Right Upper Extremity 1-Slight. < 1 cm in maximal amplitude. Rest Tremor Amplitude Left Upper Extremity 2-Mild. > 1 cm but < 3 cm in maximal amplitude. Rest Tremor Amplitude Right Lower Extremity 0-Normal. No tremor. Rest Tremor Amplitude Left Lower Extremity 0-Normal. No tremor. Rest Tremor Amplitude Lip/Jaw 1-Slight. < 1 cm in maximal amplitude. Rest Tremor Constancy 4-Severe. Tremor at rest is present > 75% of the entire examination period. MDS-UPDRS Motor subscale totals Left Total 22 Right Total 18 Midline Total 12 Tremor Total / 10 10 PIGD Total / 3 4 Overall Total 56 Change Better/Worse % Change Compared to Last Filed Total Assessment and Plan: Assessment Mr. Huitron is a 74 year old year old male with IPD (idiopathic Parkinson's disease) The following are the current problems noted and addressed during this visit: Parkinson's disease without dyskinesia or fluctuating manifestations (hcc) (primary encounter diagnosis) Disturbance in sleep behavior Chronic prescription benzodiazepine use Plan 03/02/2025 Visit: 1. Parkinson's disease without dyskinesia or fluctuating manifestations (HCC) (G20.A1) - Diagnosed 8-9 years ago, initially presenting with tremors in the left hand. - Currently on Sinemet (carbidopa-levodopa) 1 tablet TID and Requip 0.5 mg TID. - Sinemet dosage increased to 2 tablets TID; advised to take on an empty stomach, 30 minutes before or 60 minutes after meals. - Gradual tapering of Requip, reducing by one pill every two weeks. - Discussed Deep Brain Stimulation (DBS) as a more effective and less invasive long-term treatment option compared to ultrasound thalamotomy. - Referral to physical therapy for Parkinson's-specific exercises, including the big method. - Follow-up in 6 months to assess response to medication adjustments and physical therapy. 2. Disturbance in sleep behavior (G47.9) - Experiencing sleep disturbances, possibly related to Parkinson's disease. - Discontinue alprazolam; gradual tapering recommended, taking every other day for a couple of weeks. - Initiate melatonin for sleep regulation. - Advised against using cough medicine for sleep. 3. Chronic prescription benzodiazepine use (Z79.899) - Currently using alprazolam for sleep. - Discussed risks of chronic benzodiazepine use, including addiction and potential side effects. - Gradual tapering plan initiated to discontinue use. Updated Movement Disorders Medication Schedule: Medications 8-9A 12-1P 5-6P 1hr before bed Sinemet 25/100 2 2 2 0 melatonin 5mg 0 0 0 1 Return at or around: 09/02/25 Martin Lamar DO Senior Staff Neurologist - [facility] CNOV Observed: 03/02/2025 9:00 AM Status: COMPLETED Source: [facility] Office Visit (NRESAV) QUINTEN [id number]) 1950 M Date Time Provider Department 03/02/25 9:00 AM MARTIN LAMAR NRESAV During your visit today, we recorded the following information about you: Pulse Blood pressure 60/minute 104/62 Martin Lamar, DO 03/09/2025 2:57 PM Signed [facility] - NEW PATIENT EVALUATION Recording using Acrolinx software for draft documentation of the visit was discussed with the patient/authorized tax representative; all questions welcomed and answered. Patient/authorized tax representative agreed to proceed I had the pleasure of evaluating Mr. Huitron in our clinic today. He is a 74 year old male who presents for evaluation of since . Subjective HISTORY OF PRESENT ILLNESS: Quinten is a 74-year-old male with a history of Parkinson's disease presenting for evaluation of tremors. He is accompanied by his , who provides additional history. Quinten was diagnosed with Parkinson's disease 8-9 years ago, with initial symptoms of tremors in the left hand. He was started on carbidopa-levodopa (Sinemet) by his neurologist, Dr. Wali Esparza, and later managed by Dr. Mann Bro. His current regimen includes Sinemet, one tablet three times daily, and Requip, 0.5 mg three times daily, taken at 8-9 AM, 12-1 PM, and 5-6 PM. He also takes alprazolam nightly for sleep. He reports that the medications were initially effective but have become less so over time. He has not increased his Sinemet dosage beyond three tablets daily, as advised by his neurologist. He experiences sleepiness in the afternoons, which he attributes to Requip, but does not report hallucinations or impulse control issues. He has not experienced any falls and continues to drive and perform daily activities. Quinten does not endorse hallucinations or impulse control issues. He has not experienced any falls and continues to drive and perform daily activities. He does not endorse any issues with tripping or balance. He experiences difficulty with fine motor tasks, which has impacted his ability to engage in hobbies such as working in his shop. He does not exercise regularly but occasionally uses a stationary bike and hand weights. He has not participated in physical therapy for Parkinson's disease. 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 He takes alprazolam nightly for sleep and occasionally uses cough medicine to aid sleep. He reports a decreased appetite and has been using nutritional supplements like Ensure to maintain his weight. He has expressed interest in less invasive procedures for tremor management, such as ultrasound, but is hesitant about invasive treatments. He is currently taking a supplement called [employer], which he believes has been beneficial. Past Diagnostic Results: Imaging and labs not discussed. Movement Disorders Medications Schedule - as of the start of the visit: Medications 8-9A 12-1P 5-6P Sinemet 25/100 1 1 1 Requip 0.5mg 1 1 1 Questionnaires ALLERGIES Not on File Current Outpatient Medications Medication Sig LORazepam (ATIVAN) 0.5 mg Take 0.5 mg by mouth as directed. TAKE 3 TABLETS BY MOUTH 30 MINUTES prior to procedure or appointmen OTC NUTRITIONAL SUPPLEMENT Take 1 capsule by mouth once daily. [employer] [place] Vitamin 1 capsule per mouth daily. carbidopa-levodopa (SINEMET 25-100) 25-100 mg per tablet Take 2 tablets by mouth three times a day. No current facility-administered medications for this visit. Past Medical and Surgical History: has no past medical history on file. has no past surgical history on file. Social History Tobacco Use Smoking status: Never Passive exposure: Never Smokeless tobacco: Never Substance Use Topics Alcohol use: Never Drug use: Never Family History: family history is not on file. Objective Vital Signs: BP 104/62 (BP Site: Left Arm, BP Position: Sitting, BP Cuff Size: Regular Adult) Pulse 60 Orthostatic Vitals: None for this encounter No LMP for male patient. There is no height or weight on file to calculate BMI. - Neurological: - Coordination: Mild dysmetria on [id number] testing. - Motor: Rigidity noted. - Strength: - Arms: - Deltoids: Left: 4/5, Right: 4/5 - Biceps: Left: 4/5, Right: 4/5 - Triceps: Left: 4/5, Right: 4/5 - Wrist extensors: Left: 4/5, Right: 4/5 - Wrist flexors: Left: 4/5, Right: 4/5 - Dorsal interossei: Left: 4/5, Right: 4/5 - Lower Extremities: - Hip Flexors: Left: 4/5, Right: 4/5 - Hip Extensors: Left: 4/5, Right: 4/5 - Knee Flexion: Left: 4/5, Right: 4/5 - Knee Extension: Left: 4/5, Right: 4/5 - Ankle Dorsiflexion: Left: 4/5, Right: 4/5 - Ankle Plantarflexion: Left: 4/5, Right: 4/5 - Gait: Decreased arm swing, shuffling steps, difficulty with turns, decreased balance on the left side. Movement Disorders Scales Performed: MDS-UPDRS Motor subscale condition of exam Medication Off/On/Naiive ON Time of UPDRS 1001 Time of Last Medication Last Medication Taken DBS Right DBS Left MDS-UPDRS Motor subscale scores Speech 0-Normal. No speech problems. Facial Expression 2-Mild. In addition to decreased eye-blink frequency, Masked facies present in the lower face as well, namely fewer movements around the mouth, such as less spontaneous smiling, but lips not parted. Rigidity Neck 3-Moderate. Rigidity detected without the activation maneuver. Full range of motion is achieved with effort. Rigidity Right Upper Extremity 2-Mild. Rigidity detected without the activation maneuver, but full range of motion is easily achieved. Rigidity Left Upper Extremity 2-Mild. Rigidity detected without the activation maneuver, but full range of motion is easily achieved. Rigidity Right Lower Extremity 2-Mild. Rigidity detected without the activation maneuver, but full range of motion is easily achieved. Rigidity Left Lower Extremity 2-Mild. Rigidity detected without the activation maneuver, but full range of motion is easily achieved. Finger Taps Right 2-Mild. a) 3 to 5 interruptions during tapping, b) mild slowing, c) the amplitude decrements midway in the 10-tap sequence. Finger Taps Left 3-Moderate. a) more than 5 interruptions during tapping or at least one longer arrest (freeze) in ongoing movement, b) moderate slowing, c) the amplitude decrements starting after the 1st tap. Hand Movements Right 2-Mild. a) 3 to 5 interruptions during the movements, b) mild slowing, c) the amplitude decrements midway in the task. Hand Movements Left 2-Mild. a) 3 to 5 interruptions during the movements, b) mild slowing, c) the amplitude decrements midway in the task. Arm Movements Right 2-Mild. a) 3 to 5 interruptions during the movements, b) mild slowing, c) the amplitude decrements midway in the sequence. Arm Movements Left 3-Moderate. a) more than 5 interruptions during the movement or at least one longer arrest (freeze) in ongoing movement, b) moderate slowing, c) the amplitude decrements starting after the 1st supination-pronation sequence. Toe Taps Right 3-Moderate. a) more than 5 interruptions during the tapping movements or at least one longer arrest (freeze) in ongoing movement, b) moderate slowing, c) the amplitude decrements starting after the first tap. Toe Taps Left 3-Moderate. a) more than 5 interruptions during the tapping movements or at least one longer arrest (freeze) in ongoing movement, b) moderate slowing, c) the amplitude decrements starting after the first tap. Leg Agility Right 3-Moderate. a) more than 5 interruptions during the movement or at least one longer arrest (freeze) in ongoing movement, b) moderate slowing in speed, c) amplitude decrements after the first tap. Leg Agility Left 4-Severe. Cannot or can only barely perform the task because of slowing, interruptions or decrements. Arise From Chair 0-Normal. No problems. Able to arise quickly without hesitation. Gait 1-Slight. Independent walking with minor gait impairment. Gait Freezing 0-Normal. No freezing. Posture Stability 3-Moderate. Stands safely, but with absence of postural response, falls if not caught by examiner. Posture 1-Slight. Not quite erect, but posture could be normal for older person. Body Bradykinesia 1-Slight. Slight global slowness and poverty of spontaneous movements. Postural Tremor Hand Right 0-Normal. No tremor. Postural Tremor Hand Left 1-Slight. Tremor is present but less than 1cm in amplitude. Kinetic Tremor Right 1-Slight. Tremor is present but less than 1cm in amplitude. Kinetic Tremor Left 0-Normal. No tremor. Rest Tremor Amplitude Right Upper Extremity 1-Slight. < 1 cm in maximal amplitude. Rest Tremor Amplitude Left Upper Extremity 2-Mild. > 1 cm but < 3 cm in maximal amplitude. Rest Tremor Amplitude Right Lower Extremity 0-Normal. No tremor. Rest Tremor Amplitude Left Lower Extremity 0-Normal. No tremor. Rest Tremor Amplitude Lip/Jaw 1-Slight. < 1 cm in maximal amplitude. Rest Tremor Constancy 4-Severe. Tremor at rest is present > 75% of the entire examination period. MDS-UPDRS Motor subscale totals Left Total 22 Right Total 18 Midline Total 12 Tremor Total / 10 10 PIGD Total / 3 4 Overall Total 56 Change Better/Worse % Change Compared to Last Filed Total Assessment and Plan: Assessment Mr. Huitron is a 74 year old year old male with IPD (idiopathic Parkinson's disease) The following are the current problems noted and addressed during this visit: Parkinson's disease without dyskinesia or fluctuating manifestations (hcc) (primary encounter diagnosis) Disturbance in sleep behavior Chronic prescription benzodiazepine use Plan 03/02/2025 Visit: 1. Parkinson's disease without dyskinesia or fluctuating manifestations (HCC) (G20.A1) - Diagnosed 8-9 years ago, initially presenting with tremors in the left hand. - Currently on Sinemet (carbidopa-levodopa) 1 tablet TID and Requip 0.5 mg TID. - Sinemet dosage increased to 2 tablets TID; advised to take on an empty stomach, 30 minutes before or 60 minutes after meals. - Gradual tapering of Requip, reducing by one pill every two weeks. - Discussed Deep Brain Stimulation (DBS) as a more effective and less invasive long-term treatment option compared to ultrasound thalamotomy. - Referral to physical therapy for Parkinson's-specific exercises, including the big method. - Follow-up in 6 months to assess response to medication adjustments and physical therapy. 2. Disturbance in sleep behavior (G47.9) - Experiencing sleep disturbances, possibly related to Parkinson's disease. - Discontinue alprazolam; gradual tapering recommended, taking every other day for a couple of weeks. - Initiate melatonin for sleep regulation. - Advised against using cough medicine for sleep. 3. Chronic prescription benzodiazepine use (Z79.899) - Currently using alprazolam for sleep. - Discussed risks of chronic benzodiazepine use, including addiction and potential side effects. - Gradual tapering plan initiated to discontinue use. Updated Movement Disorders Medication Schedule: Medications 8-9A 12-1P 5-6P 1hr before bed Sinemet 25/100 2 2 2 0 melatonin 5mg 0 0 0 1 Return at or around: 09/02/25 Martin Lamar DO Senior Staff Neurologist - [facility] Martin Lamar DO 03/02/2025 10:13 AM Addendum 2 weeks 8- 12-1P 5-6P Sinemet 25/100 2 1 1 Requip 0.5mg 0 1 1 2 weeks 8- 12-1P 5-6P Sinemet 25/100 2 2 1 Requip 0.5mg 0 0 1 Continue 12-1P 5-6P Sinemet 25/100 2 2 2 Wean off XANAX Take one(1) tablet every other day for 2 weeks and then STOP! Allergies As of Date: 03/02/2025 (Not on File) Date Reviewed: 03/02/2025 Reviewed by: Soila Moulton LPN - Fully Assessed Reason for Visit: New Patient Evaluation [154] New Patient [172] Tremor [758] Gait Problem [139] Primary Visit Diagnosis:Parkinson's disease without dyskinesia or fluctuating manifestations (HCC) [G20.A1] Other Visit Diagnoses:Disturbance in sleep behavior [G47.9] Chronic prescription benzodiazepine use [Z79.899] Order(s):CONSULT TO PHYSICAL THERAPY [9015] Order #: [id number]: 1 FUTURE PROVIDER ORDERED FOLLOW UP [[id number]] Order #: [id number]: 1 FUTURE carbidopa-levodopa (SINEMET 25-100) 25-100 mg per tabletTake 2 tablets by mouth three times a day.Disp: 540 tabletRfl: 3 Prescriptions as of 03/09/2025 - LORazepam (ATIVAN) 0.5 mg Take 0.5 mg by mouth as directed. TAKE 3 TABLETS BY MOUTH 30 MINUTES prior to procedure or appointmen - OTC NUTRITIONAL SUPPLEMENT Take 1 capsule by mouth once daily. [place] Vitamin 1 capsule per mouth daily. - carbidopa-levodopa (SINEMET 25-100) 25-100 mg per tablet Take 2 tablets by mouth three times a day. Problem List As Of Date: 03/02/2025 (None) Other instructions from your clinician: 2 weeks 8- 12-1P 5-6P Sinemet 25/100 2 1 1 Requip 0.5mg 0 1 1 2 weeks 8- 12-1P 5-6P Sinemet 25/100 2 2 1 Requip 0.5mg 0 0 1 Continue - 12-1P 5-6P Sinemet 25/100 2 2 2 Wean off XANAX Take one(1) tablet every other day for 2 weeks and then STOP! Prescriptions ordered this encounter Disp Refills Start End CARBIDOPA 25 MG-LEVODOPA 100 MG TABL* 540 * 3 03/02/2025 03/02/2026 Route: ORAL Sig: Take 2 tablets by mouth three times a day. Medications Discontinued During This Encounter Prescriptions - rOPINIRole (REQUIP) 0.5 mg tablet (Discontinued) Take 0.5 mg by mouth three times a day. - ALPRAZolam (XANAX) 1 mg tablet (Discontinued) Take 1 mg by mouth two times a day as needed. - carbidopa-levodopa (SINEMET 25-100) 25-100 mg per tablet (Discontinued) Take 2 tablets by mouth three times a day. Level of Service: OFFICE/OUTPATIENT [facility] 30 MINUTES [76123] Additional E/M codes: VISIT CPLX INHERENT EANDM ASSOC WITH MED * Disposition: Return in about 6 months (around 09/02/2025). Follow-up and Disposition History for Encounter Date Provider Department Center 03/02/2025 [id number] LAMAR TNRESAV Rej Encounter Status:Closed by MARTIN LAMAR on 03/09/25 LIPID PANEL Collected: 11:14 AM Status: F Source: [facility] TYPE CODE TESTS RESULT OUT OF RANGE REFERENCE UNITS LAB 2092-([facility]) CHOLESTEROL:M CNC:PT:SER/PL :QN: 185 Normal 120-200 mg/dL LAB 2084-([facility]) CHOLESTEROL.I N HDL:MCNC:PT:S ER/PLAS:QN: 33 Unknown mg/dL Result Comment: '>= 60 LOW R ISK' '<= 40 HIGH RISK' LAB 2088-([facility]) CHOLESTEROL.I N LDL:MCNC:PT:S ER/PLAS:QN: 135 High <=129 mg/dL [facility] TRIGLYCERIDE: MCNC:PT:SER/P LAS:QN: 175 High <=149 mg/dL [facility] 03786[facility] CHOLESTEROL.I N VLDL:MCNC:PT: SER/PLAS:QN:C ALCULATED 35 Normal 7-40 mg/dL Performed By: #### [id number] # ### [facility] [address] [place] [address] AMBULATORY VISIT SUMMARY Observed: 12/22 3:59 PM Status: F Source: [facility] Ambulatory Visit Summary QUINTEN HUITRON :1950 Visit Date:12/22/2024 Ambulatory Visit Instructions Your Diagnosis Encounter for subsequent annual wellness visit (AWV) in Medicare patient Pure hypercholesterolemia Anxiety Advanced directives, counseling/discussion Flu vaccine refused Your Care Team Attending Physician - Radha Poole Primary Care Physician - Radha Poole This Is Your Medications List Non-Formulary Medication (organic [place]) alprazolam (alprazolam 1 mg Tab) carbidopa-levodopa (carbidopa-levodopa 25 mg-100 mg Tab) docusate (Benito Stool Softener) lorazepam (LORazepam 0.5 mg Tab) lorazepam (LORazepam 0.5 mg Tab) psyllium (Metamucil 3.4 g/5.2 g oral powder) ropinirole (ropinirole 0.25 mg Tab) Procedures Performed Colonoscopy (12/17/2022), Cataract Extraction with IOL placement - OD. (02/24/2017), Colonoscopy (02/20/2011), Vasectomy. Discharge Vitals Heart Rate (Peripheral) 60 Respiratory Rate 18 Blood Pressure 116/84 Height 169 cm Height 67 in Weight 67.53 kg Weight 148.878 lb BMI 23.64 What to do next Scheduled Follow-Up Appointments Thursday 10:00 AM EDT With: Where: [address] [address]- Thursday 9:40 AM EDT With: Radha Poole Where: [address] [address]- Thursday2025 11:00 AM EDT With: Where: [address] [address]- You Need to Complete the Following Lipid Panel, Blood, Routine collect, 12/22/24, Order for future visit, Lab Collect, Pure hypercholesterolemia, Required & Missing, Print Label By Order Location Medications What How Much When Why Instructions Changed alprazolam (alprazolam 1 mg Tab) 1 Tablets By Mouth 2 times a day as needed for for anxiety Changed lorazepam (LORazepam 0.5 mg Tab) 1.5 Milligram As Directed prn Changed lorazepam (LORazepam 0.5 mg Tab) See instructions Insomnia 3 tab(s) 30 minutes prior to procedure or appointment Unchanged carbidopa-levodopa (carbidopa-levodopa 25 mg-100 mg Tab) 1 Tablets By Mouth 3 times a day Unchanged docusate (Benito Stool Softener) 100 Milligram By Mouth Every day Unchanged Non-Formulary Medication (organic [place]) Unchanged psyllium (Metamucil 3.4 g/ 5.2 g oral powder) 1.7 Gram By Mouth 3 times a day as needed for for constipation Unchanged ropinirole (ropinirole 0.25 mg Tab) 1 Tablets By Mouth 3 times a day Medications and Immunizations Administered Not Given influenza virus vaccine, inactivated, Patient Refuses Allergies No Known Allergies No Known Medication Allergies Problems Ongoing - Any problem that you are currently receiving treatment for. Anxiety BMI 23.0-23.9, adult Fatigue Insomnia Long-term current use of opiate analgesic drug Parkinson's disease Pure hypercholesterolemia Slow transit constipation Thrombocytopenia Tubular adenoma of colon Weakness Patient Survey You may receive a survey via text or e-mail asking about your office visit. Please share your experience with us by completing your survey. We appreciate your feedback and thank you for choosing us for your care. Education Materials Preventive Care 65 Years and Older, Male Preventive care refers to lifestyle choices and visits with your health care provider that can promote health and wellness. Preventive care visits are also called wellness exams. What can I expect for my preventive care visit? Counseling During your preventive care visit, your health care provider may ask about your: ??? Medical history, including: ? Past medical problems. ? Family medical history. ? History of falls. ??? Current health, including: ? Emotional well-being. ? Home life and relationship well-being. ? Sexual activity. ? Memory and ability to understand (cognition). ??? Lifestyle, including: ? Alcohol, nicotine or tobacco, and drug use. ? Access to firearms. ? Diet, exercise, and sleep habits. ? Work and work environment. ? Sunscreen use. ? Safety issues such as seatbelt and bike helmet use. Physical exam Your health care provider will check your: ??? Height and weight. These may be used to calculate your BMI (body mass index). BMI is a measurement that tells if you are at a healthy weight. ??? Waist circumference. This measures the distance around your waistline. This measurement also tells if you are at a healthy weight and may help predict your risk of certain diseases, such as type 2 diabetes and high blood pressure. ??? Heart rate and blood pressure. ??? Body temperature. ??? Skin for abnormal spots. What immunizations do I need? Vaccines are usually given at various ages, according to a schedule. Your health care provider will recommend vaccines for you based on your age, medical history, and lifestyle or other factors, such as travel or where you work. What tests do I need? Screening Your health care provider may recommend screening tests for certain conditions. This may include: ??? Lipid and cholesterol levels. ??? Diabetes screening. This is done by checking your blood sugar (glucose) after you have not eaten for a while (fasting). ??? Hepatitis C test. ??? Hepatitis B test. ??? HIV (human immunodeficiency virus) test. ??? STI (sexually transmitted infection) testing, if you are at risk. ??? Lung cancer screening. ??? Colorectal cancer screening. ??? Prostate cancer screening. ??? Abdominal aortic aneurysm (AAA) screening. You may need this if you are a current or former smoker. Talk with your health care provider about your test results, treatment options, and if necessary, the need for more tests. Follow these instructions at home: Eating and drinking ??? Eat a diet that includes fresh fruits and vegetables, whole grains, lean protein, and low-fat dairy products. Limit your intake of foods with high amounts of sugar, saturated fats, and salt. ??? Take vitamin and mineral supplements as recommended by your health care provider. ??? Do not drink alcohol if your health care provider tells you not to drink. ??? If you drink alcohol: ? Limit how much you have to 0???2 drinks a day. ? Know how much alcohol is in your drink. In the [place] one drink equals one 12 oz bottle of beer (355 mL), one 5 oz glass of wine (148 mL), or one 1??? oz glass of hard liquor (44 mL). Lifestyle ??? Reading your teeth every morning and night with fluoride toothpaste. Floss one time each day. ??? Exercise for at least 30 minutes 5 or more days each week. ??? Do not use any products that contain nicotine or tobacco. These products include cigarettes, chewing tobacco, and vaping devices, such as e-cigarettes. If you need help quitting, ask your health care provider. ??? Do not use drugs. ??? If you are sexually active, practice safe sex. Use a condom or other form of protection to prevent STIs. ??? Take aspirin only as told by your health care provider. Make sure that you understand how much to take and what form to take. Work with your health care provider to find out whether it is safe and beneficial for you to take aspirin daily. ??? Ask your health care provider if you need to take a cholesterol-lowering medicine (statin). ??? Find healthy ways to manage stress, such as: ? Meditation, yoga, or listening to music. ? Journaling. ? Talking to a trusted person. ? Spending time with friends and family. Safety ??? Always wear your seat belt while driving or riding in a vehicle. ??? Do not drive: ? If you have been drinking alcohol. Do not ride with someone who has been drinking. ? When you are tired or distracted. ? While texting. ? If you have been using any mind-altering substances or drugs. ??? Wear a helmet and other protective equipment during sports activities. ??? If you have firearms in your house, make sure you follow all gun safety procedures. ??? Minimize exposure to UV radiation to reduce your risk of skin cancer. What's next? Visit your health care provider once a year for an annual wellness visit. ??? Ask your health care provider how often you should have your eyes and teeth checked. ??? Stay up to date on all vaccines. This information is not intended to replace advice given to you by your health care provider. Make sure you discuss any questions you have with your health care provider. Document Revised: 04/02/2022 Document Reviewed: 04/02/2022 Elsevier Patient Education ??? 2023 [employer] Preventive Care 65 Years and Older, Male Preventive care refers to lifestyle choices and visits with your health care provider that can promote health and wellness. Preventive care visits are also called wellness exams. What can I expect for my preventive care visit? Counseling During your preventive care visit, your health care provider may ask about your: ??? Medical history, including: ? Past medical problems. ? Family medical history. ? History of falls. ??? Current health, including: ? Emotional well-being. ? Home life and relationship well-being. ? Sexual activity. ? Memory and ability to understand (cognition). ??? Lifestyle, including: ? Alcohol, nicotine or tobacco, and drug use. ? Access to firearms. ? Diet, exercise, and sleep habits. ? Work and work environment. ? Sunscreen use. ? Safety issues such as seatbelt and bike helmet use. Physical exam Your health care provider will check your: ??? Height and weight. These may be used to calculate your BMI (body mass index). BMI is a measurement that tells if you are at a healthy weight. ??? Waist circumference. This measures the distance around your waistline. This measurement also tells if you are at a healthy weight and may help predict your risk of certain diseases, such as type 2 diabetes and high blood pressure. ??? Heart rate and blood pressure. ??? Body temperature. ??? Skin for abnormal spots. What immunizations do I need? Vaccines are usually given at various ages, according to a schedule. Your health care provider will recommend vaccines for you based on your age, medical history, and lifestyle or other factors, such as travel or where you work. What tests do I need? Screening Your health care provider may recommend screening tests for certain conditions. This may include: ??? Lipid and cholesterol levels. ??? Diabetes screening. This is done by checking your blood sugar (glucose) after you have not eaten for a while (fasting). ??? Hepatitis C test. ??? Hepatitis B test. ??? HIV (human immunodeficiency virus) test. ??? STI (sexually transmitted infection) testing, if you are at risk. ??? Lung cancer screening. ??? Colorectal cancer screening. ??? Prostate cancer screening. ??? Abdominal aortic aneurysm (AAA) screening. You may need this if you are a current or former smoker. Talk with your health care provider about your test results, treatment options, and if necessary, the need for more tests. Follow these instructions at home: Eating and drinking ??? Eat a diet that includes fresh fruits and vegetables, whole grains, lean protein, and low-fat dairy products. Limit your intake of foods with high amounts of sugar, saturated fats, and salt. ??? Take vitamin and mineral supplements as recommended by your health care provider. ??? Do not drink alcohol if your health care provider tells you not to drink. ??? If you drink alcohol: ? Limit how much you have to 0???2 drinks a day. ? Know how much alcohol is in your drink. In the [place] one drink equals one 12 oz bottle of beer (355 mL), one 5 oz glass of wine (148 mL), or one 1??? oz glass of hard liquor (44 mL). Lifestyle ??? Reading your teeth every morning and night with fluoride toothpaste. Floss one time each day. ??? Exercise for at least 30 minutes 5 or more days each week. ??? Do not use any products that contain nicotine or tobacco. These products include cigarettes, chewing tobacco, and vaping devices, such as e-cigarettes. If you need help quitting, ask your health care provider. ??? Do not use drugs. ??? If you are sexually active, practice safe sex. Use a condom or other form of protection to prevent STIs. ??? Take aspirin only as told by your health care provider. Make sure that you understand how much to take and what form to take. Work with your health care provider to find out whether it is safe and beneficial for you to take aspirin daily. ??? Ask your health care provider if you need to take a cholesterol-lowering medicine (statin). ??? Find healthy ways to manage stress, such as: ? Meditation, yoga, or listening to music. ? Journaling. ? Talking to a trusted person. ? Spending time with friends and family. Safety ??? Always wear your seat belt while driving or riding in a vehicle. ??? Do not drive: ? If you have been drinking alcohol. Do not ride with someone who has been drinking. ? When you are tired or distracted. ? While texting. ? If you have been using any mind-altering substances or drugs. ??? Wear a helmet and other protective equipment during sports activities. ??? If you have firearms in your house, make sure you follow all gun safety procedures. ??? Minimize exposure to UV radiation to reduce your risk of skin cancer. What's next? Visit your health care provider once a year for an annual wellness visit. ??? Ask your health care provider how often you should have your eyes and teeth checked. ??? Stay up to date on all vaccines. This information is not intended to replace advice given to you by your health care provider. Make sure you discuss any questions you have with your health care provider. Document Revised: 04/02/2022 Document Reviewed: 04/02/2022 [employer] Patient Education ??? 2023 [employer]. Healthy Eating, Adult Healthy eating may help you get and keep a healthy body weight, reduce the risk of chronic disease, and live a long and productive life. It is important to follow a healthy eating pattern. Your nutritional and calorie needs should be met mainly by different nutrient-rich foods. What are tips for following this plan? Reading food labels ??? Read labels and choose the following: ? Reduced or low sodium products. ? Juices with 100% fruit juice. ? Foods with low saturated fats (<3 g per serving) and high polyunsaturated and monounsaturated fats. ? Foods with whole grains, such as whole wheat, cracked wheat, brown rice, and wild rice. ? Whole grains that are fortified with folic acid. This is recommended for females who are or who want to become . ??? Read labels and do not eat or drink the following: ? Foods or drinks with added sugars. These include foods that contain brown sugar, corn sweetener, corn syrup, dextrose, fructose, glucose, high-fructose corn syrup, honey, invert sugar, lactose, malt syrup, maltose, molasses, raw sugar, sucrose, trehalose, or turbinado sugar. ? Limit your intake of added sugars to less than 10% of your total daily calories. Do not eat more than the following amounts of added sugar per day: ??? 6 teaspoons (25 g) for females. ??? 9 teaspoons (38 g) for males. ? Foods that contain processed or refined starches and grains. ? Refined grain products, such as white flour, degermed cornmeal, white bread, and white rice. Shopping ??? Choose nutrient-rich snacks, such as vegetables, whole fruits, and nuts. Avoid high-calorie and high-sugar snacks, such as potato chips, fruit snacks, and candy. ??? Use oil-based dressings and spreads on foods instead of solid fats such as butter, margarine, sour cream, or cream cheese. ??? Limit pre-made sauces, mixes, and instant products such as flavored rice, instant noodles, and ready-made pasta. ??? Try more plant-protein sources, such as tofu, tempeh, black beans, edamame, lentils, nuts, and seeds. ??? Explore eating plans such as the Mediterranean diet or vegetarian diet. ??? Try heart-healthy dips made with beans and healthy fats like hummus and guacamole. Vegetables go great with these. Cooking ??? Use oil to saut??? or stir-owen foods instead of solid fats such as butter, margarine, or lard. ??? Try baking, boiling, grilling, or broiling instead of frying. ??? Remove the fatty part of meats before cooking. ??? Steam vegetables in water or broth. Meal planning ??? At meals, imagine dividing your plate into fourths: ? One-half of your plate is fruits and vegetables. ? One-fourth of your plate is whole grains. ? One-fourth of your plate is protein, especially lean meats, poultry, eggs, tofu, beans, or nuts. ??? Include low-fat dairy as part of your daily diet. Lifestyle ??? Choose healthy options in all settings, including home, work, school, restaurants, or stores. ??? Prepare your food safely: ? Wash your hands after handling raw meats. ? Where you prepare food, keep surfaces clean by regularly washing with hot, soapy water. ? Keep raw meats separate from wxmja-nz-jxw foods, such as fruits and vegetables. ? associate biological sales, meat, poultry, and eggs to the recommended temperature. Get a food thermometer. ? Store foods at safe temperatures. In general: ? Keep cold foods at 40???F (4.4???C) or below. ? Keep hot foods at 140???F (60???C) or above. ? Keep your freezer at 0???F (-17.8???C) or below. ? Foods are not safe to eat if they have been between the temperatures of 40???140???F (4.4???60???C) for more than 2 hours. What foods should I eat? Fruits Aim to eat 1?2??? cups of fresh, canned (in natural juice), or frozen fruits each day. One cup of fruit equals 1 small apple, 1 large banana, 8 large strawberries, 1 cup (237 g) canned fruit, ??? cup (82 g) dried fruit, or 1 cup (240 mL) 100% juice. Vegetables Aim to eat 2???4 cups of fresh and frozen vegetables each day, including different varieties and colors. One cup of vegetables equals 1 cup (91 g) broccoli or cauliflower florets, 2 medium carrots, 2 cups (150 g) raw, leafy greens, 1 large tomato, 1 large paiz pepper, 1 large sweet potato, or 1 medium white potato. Grains Aim to eat 5???10 ounce-equivalents of whole grains each day. Examples of 1 ounce-equivalent of grains include 1 slice of bread, 1 cup (40 g) ngarz-bl-svq cereal, 3 cups (24 g) popcorn, or ??? cup (93 g) cooked rice. Meats and other proteins Try to eat 5???7 ounce-equivalents of protein each day. Examples of 1 ounce-equivalent of protein include 1 egg, ??? oz nuts (12 almonds, 24 pistachios, or 7 walnut halves), 1/4 cup (90 g) cooked beans, 6 tablespoons (90 g) hummus or 1 tablespoon (16 g) peanut butter. A cut of meat or fish that is the size of a deck of cards is about 3???4 ounce-equivalents (85 g). ??? Of the protein you eat each week, try to have at least 8 sounce (227 g) of seafood. This is about 2 servings per week. This includes salmon, trout, mcfarlane, sardines, and anchovies. Dairy Aim to eat 3 cup-equivalents of fat-free or low-fat dairy each day. Examples of 1 cup-equivalent of dairy include 1 cup (240 mL) milk, 8 ounces (250 g) yogurt, 1??? ounces (44 g) natural cheese, or 1 cup (240 mL) fortified soy milk. Fats and oils ??? Aim for about 5 teaspoons (21 g) of fats and oils per day. Choose monounsaturated fats, such as canola and olive oils, mayonnaise made with olive oil or avocado oil, avocados, peanut butter, and most nuts, or polyunsaturated fats, such as sunflower, corn, and soybean oils, walnuts, pine nuts, sesame seeds, sunflower seeds, and flaxseed. Beverages ??? Aim for 6 eight-ounce glasses of water per day. Limit coffee to 3???5 eight- ounce cups per day. ??? Limit caffeinated beverages that have added calories, such as soda and energy drinks. ??? If you drink alcohol: ? Limit how much you have to: ? 0???1 drink a day if you are female. ? 0???2 drinks a day if you are male. ? Know how much alcohol is in your drink. In the [place] one drink is one 12 oz bottle of beer (355 mL), one 5 oz glass of wine (148 mL), or one 1??? oz glass of hard liquor (44 mL). Seasoning and other foods ??? Try not to add too much salt to your food. Try using herbs and spices instead of salt. ??? Try not to add sugar to food. This information is based on [place] nutrition guidelines. To learn more, visit [employer] ASAplate.gov. Exact amounts may vary. You may need different amounts. This information is not intended to replace advice given to you by your health care provider. Make sure you discuss any questions you have with your health care provider. Document Revised: 07/06/2023 Document Reviewed: 07/06/2023 [employer] Patient Education ??? 2023 [employer] Managing Anxiety, Adult After being diagnosed with anxiety, you may be relieved to know why you have felt or behaved a certain way. You may also feel overwhelmed about the treatment ahead and what it will mean for your life. With care and support, you can manage your anxiety. How to manage lifestyle changes Understanding the difference between stress and anxiety Although stress can play a role in anxiety, it is not the same as anxiety. Stress is your body's reaction to life changes and events, both good and bad. Stress is often caused by something external, such as a deadline, test, or competition. It normally goes away after the event has ended and will last just a few hours. But, stress can be ongoing and can lead to more than just stress. Anxiety is caused by something internal, such as imagining a terrible outcome or worrying that something will go wrong that will greatly upset you. Anxiety often does not go away even after the event is over, and it can become a long-term (chronic) worry. Lowering stress and anxiety Talk with your health care provider or a counselor to learn more about lowering anxiety and stress. They may suggest tension-reduction techniques, such as: ??? Music. Spend time creating or listening to music that you enjoy and that inspires you. ??? Mindfulness-based meditation. Practice being aware of your normal breaths while not trying to control your breathing. It can be done while sitting or walking. ??? Centering prayer. Focus on a word, phrase, or sacred image that means something to you and brings you peace. ??? Deep breathing. Expand your stomach and inhale slowly through your nose. Hold your breath for 3???5 seconds. Then breathe out slowly, letting your stomach muscles relax. ??? Self-talk. Learn to notice and spot thought patterns that lead to anxiety reactions. Change those patterns to thoughts that feel peaceful. ??? Muscle relaxation. Take time to tense muscles and then relax them. Choose a tension-reduction technique that fits your lifestyle and personality. These techniques take time and practice. Set aside 5???15 minutes a day to do them. Specialized therapists can offer counseling and training in these techniques. The training to help with anxiety may be covered by some insurance plans. Other things you can do to manage stress and anxiety include: ??? Keeping a stress diary. This can help you learn what triggers your reaction and then learn ways to manage your response. ??? Thinking about how you react to certain situations. You may not be able to control everything, but you can control your response. ??? Making time for activities that help you relax and not feeling guilty about spending your time in this way. ??? Doing visual imagery. This involves imagining or creating mental pictures to help you relax. ??? Practicing yoga. Through yoga poses, you can lower tension and relax. Medicines Medicines for anxiety include: ??? Antidepressant medicines. These are usually prescribed for long-term daily control. ??? Anti-anxiety medicines. These may be added in severe cases, especially when panic attacks occur. When used together, medicines, psychotherapy, and tension-reduction techniques may be the most effective treatment. Relationships Relationships can play a big part in helping you recover. Spend more time connecting with trusted friends and family members. Think about going to couples counseling if you have a partner, taking family education classes, or going to family therapy. Therapy can help you and others better understand your anxiety. How to recognize changes in your anxiety Everyone responds differently to treatment for anxiety. Recovery from anxiety happens when symptoms lessen and stop interfering with your daily life at home or work. This may mean that you will start to: ??? Have better concentration and focus. Worry will interfere less in your daily thinking. ??? Sleep better. ??? Be less irritable. ??? Have more energy. ??? Have improved memory. Try to recognize when your condition is getting worse. Contact your provider if your symptoms interfere with home or work and you feel like your condition is not improving. Follow these instructions at home: Activity ??? Exercise. Adults should: ? Exercise for at least 150 minutes each week. The exercise should increase your heart rate and make you sweat (moderate-intensity exercise). ? Do strengthening exercises at least twice a week. ??? Get the right amount and quality of sleep. Most adults need 7???9 hours of sleep each night. Lifestyle ??? Eat a healthy diet that includes plenty of vegetables, fruits, whole grains, low-fat dairy products, and lean protein. ? Do not eat a lot of foods that are high in fats, added sugars, or salt (sodium). ??? Make choices that simplify your life. ??? Do not use any products that contain nicotine or tobacco. These products include cigarettes, chewing tobacco, and vaping devices, such as e-cigarettes. If you need help quitting, ask your provider. ??? Avoid caffeine, alcohol, and certain acre-lwf-tdhgcsx cold medicines. These may make you feel worse. Ask your pharmacist which medicines to avoid. General instructions ??? Take eibn-cou-incxwij and prescription medicines only as told by your provider. ??? Keep all follow-up visits. This is to make sure you are managing your anxiety well or if you need more support. Where to find support You can get help and support from: ??? Self-help groups. ??? Online and community organizations. ??? A trusted spiritual leader. ??? Couples counseling. ??? Family education classes. ??? Family therapy. Where to find more information You may find that joining a support group helps you deal with your anxiety. The following sources can help you find counselors or support groups near you: ??? Mental Health [place]: mentalhealthamerica.net ??? Anxiety and Depression Association of [place] (ADAA): adaa.org ??? National [place] on Mental Illness (GRADY): grady.org Contact a health care provider if: ??? You have a hard time staying focused or finishing tasks. ??? You spend many hours a day feeling worried about everyday life. ??? You are very tired because you cannot stop worrying. ??? You start to have headaches or often feel tense. ??? You have chronic nausea or diarrhea. Get help right away if: ??? Your heart feels like it is racing. ??? You have shortness of breath. ??? You have thoughts of hurting yourself or others. Get help right away if you feel like you may hurt yourself or others, or have thoughts about taking your own life. Go to your nearest emergency room or: ??? Call 691. ??? Call the National Suicide Prevention Lifeline at or 988. This is open 24 hours a day. ??? Text the Crisis Text Line at 503740. This information is not intended to replace advice given to you by your health care provider. Make sure you discuss any questions you have with your health care provider. Document Revised: 07/14/2023 Document Reviewed: 01/26/2022 [employer] Patient Education ??? 2023 [employer]. High Cholesterol High cholesterol is a condition in which the blood has high levels of a white, waxy substance similar to fat (cholesterol). The liver makes all the cholesterol that the body needs. The human body needs small amounts of cholesterol to help build cells. A person gets extra or excess cholesterol from the food that he or she eats. The blood carries cholesterol from the liver to the rest of the body. If you have high cholesterol, deposits (plaques) may build up on the ching of your arteries. Arteries are the blood vessels that carry blood away from your heart. These plaques make the arteries narrow and stiff. Cholesterol plaques increase your risk for heart attack and stroke. Work with your health care provider to keep your cholesterol levels in a healthy range. What increases the risk? The following factors may make you more likely to develop this condition: ??? Eating foods that are high in animal fat (saturated fat) or cholesterol. ??? Being overweight. ??? Not getting enough exercise. ??? A family history of high cholesterol (familial hypercholesterolemia). ??? Use of tobacco products. ??? Having diabetes. What are the signs or symptoms? In most cases, high cholesterol does not usually cause any symptoms. In severe cases, very high cholesterol levels can cause: ??? Fatty bumps under the skin (xanthomas). ??? A white or howell ring around the black center (pupil) of the eye. How is this diagnosed? This condition may be diagnosed based on the results of a blood test. ??? If you are older than 20 years of age, your health care provider may check your cholesterol levels every 4???6 years. ??? You may be checked more often if you have high cholesterol or other risk factors for heart disease. The blood test for cholesterol measures: ??? Bad cholesterol, or LDL cholesterol. This is the main type of cholesterol that causes heart disease. The desired level is less than 100 mg/dL (2.59 mmol/L). ??? Good cholesterol, or HDL cholesterol. HDL helps protect against heart disease by cleaning the arteries and carrying the LDL to the liver for processing. The desired level for HDL is 60 mg/dL (1.55 mmol/L) or higher. ??? Triglycerides. These are fats that your body can store or burn for energy. The desired level is less than 150 mg/dL (1.69 mmol/L). ??? Total cholesterol. This measures the total amount of cholesterol in your blood and includes LDL, HDL, and triglycerides. The desired level is less than 200 mg/dL (5.17 mmol/L). How is this treated? Treatment for high cholesterol starts with lifestyle changes, such as diet and exercise. ??? Diet changes. You may be asked to eat foods that have more fiber and less saturated fats or added sugar. ??? Lifestyle changes. These may include regular exercise, maintaining a healthy weight, and quitting use of tobacco products. ??? Medicines. These are given when diet and lifestyle changes have not worked. You may be prescribed a statin medicine to help lower your cholesterol levels. Follow these instructions at home: Eating and drinking ??? Eat a healthy, balanced diet. This diet includes: ? Daily servings of a variety of fresh, frozen, or canned fruits and vegetables. ? Daily servings of whole grain foods that are rich in fiber. ? Foods that are low in saturated fats and trans fats. These include poultry and fish without skin, lean cuts of meat, and low-fat dairy products. ? A variety of fish, especially oily fish that contain omega-3 fatty acids. Aim to eat fish at least 2 times a week. ??? Avoid foods and drinks that have added sugar. ??? Use healthy cooking methods, such as roasting, grilling, broiling, baking, poaching, steaming, and stir-frying. Do not owen your food except for stir-frying. ??? If you drink alcohol: ? Limit how much you have to: ? 0???1 drink a day for women who are not . ? 0???2 drinks a day for men. ? Know how much alcohol is in a drink. In the [place] one drink equals one 12 oz bottle of beer (355 mL), one 5 oz glass of wine (148 mL), or one 1??? oz glass of hard liquor (44 mL). Lifestyle ??? Get regular exercise. Aim to exercise for a total of 150 minutes a week. Increase your activity level by doing activities such as gardening, walking, and taking the stairs. ??? Do not use any products that contain nicotine or tobacco. These products include cigarettes, chewing tobacco, and vaping devices, such as e-cigarettes. If you need help quitting, ask your health care provider. General instructions ??? Take xach-exa-jnbcvsp and prescription medicines only as told by your health care provider. ??? Keep all follow-up visits. This is important. Where to find more information ??? [place] Heart Association: www.heart.org ??? National Heart, Lung, and Blood [place]: www.nhlbi.nih.gov Contact a health care provider if: ??? You have trouble achieving or maintaining a healthy diet or weight. ??? You are starting an exercise program. ??? You are unable to stop smoking. Get help right away if: ??? You have chest pain. ??? You have trouble breathing. ??? You have discomfort or pain in your jaw, neck, back, shoulder, or arm. ??? You have any symptoms of a stroke. BE FAST is an easy way to remember the main warning signs of a stroke: ? B - Balance. Signs are dizziness, sudden trouble walking, or loss of balance. ? E - Eyes. Signs are trouble seeing or a sudden change in vision. ? F - Face. Signs are sudden weakness or numbness of the face, or the face or eyelid drooping on one side. ? A - Arms. Signs are weakness or numbness in an arm. This happens suddenly and usually on one side of the body. ? S - Speech. Signs are sudden trouble speaking, slurred speech, or trouble understanding what people say. ? T - Time. Time to call emergency services. Write down what time symptoms started. ??? You have other signs of a stroke, such as: ? A sudden, severe headache with no known cause. ? Nausea or vomiting. ? Seizure. These symptoms may represent a serious problem that is an emergency. Do not wait to see if the symptoms will go away. Get medical help right away. Call your local emergency services (911 in the [place] Do not drive yourself to the hospital. Summary ??? Cholesterol plaques increase your risk for heart attack and stroke. Work with your health care provider to keep your cholesterol levels in a healthy range. ??? Eat a healthy, balanced diet, get regular exercise, and maintain a healthy weight. ??? Do not use any products that contain nicotine or tobacco. These products include cigarettes, chewing tobacco, and vaping devices, such as e-cigarettes. ??? Get help right away if you have any symptoms of a stroke. This information is not intended to replace advice given to you by your health care provider. Make sure you discuss any questions you have with your health care provider. Document Revised: 05/08/2023 Document Reviewed: 12/09/2021 [employer] Patient Education ??? 2023 [employer] Heart Attack A heart attack occurs when blood and oxygen supply to the heart is cut off. A heart attack can cause damage to the heart that cannot be fixed. A heart attack is also called a myocardial infarction, or MT. If you think you are having a heart attack, do not wait to see if the symptoms will go away. Get medical help right away. What are the causes? This condition may be caused by: ??? A fatty substance (plaque) in the blood vessels (arteries). This can block the flow of blood to the heart. ??? A blood clot in the blood vessels that go to the heart. The blood clot blocks blood flow. ??? An abnormal heartbeat. ??? Some diseases, such as problems in red blood cells (anemia)orproblems in breathing (respiratory failure). ??? Tightening (spasm) of a blood vessel that cuts off blood to the heart. ??? A tear in a blood vessel of the heart. Other causes may include: ??? Using drugs such as cocaine or methamphetamine. ??? Low blood pressure. What increases the risk? Aging. The risk gets higher as you get older. ??? Having a personal or family history of chest pain, heart attack, stroke, or narrowing of the arteries in the legs, arms, head, or stomach (peripheral vascular disease). ??? Having taken chemotherapy or immune-suppressing medicines. ??? Being male. ??? Being overweight or obese. ??? Having any of these conditions: ? High blood pressure. ? High cholesterol. ? Diabetes. ??? Making lifestyle choices such as: ? Drinking too much alcohol. ? Not getting regular exercise. ? Smoking. What are the signs or symptoms? Chest pain. It may feel like: ? Crushing or squeezing. ? Tightness, pressure, fullness, or heaviness. ??? Pain in the arm, neck, jaw, back, or upper body. ??? Heartburn. ??? Upset stomach (indigestion). ??? Shortness of breath. ??? Feeling like you may vomit (nauseous). ??? Cold sweats. ??? Sudden light-headedness, dizziness, or passing out. ??? Feeling tired. How is this treated? A heart attack must be treated as soon as possible. Treatment may include: ??? Medicines to: ? Break up or dissolve blood clots. ? Thin your blood and help prevent blood clots. ? Treat blood pressure. ? Improve blood flow to the heart. ? Reduce pain. ? Reduce cholesterol. ??? Procedures to widen a blocked artery and keep it open. ??? Open heart surgery. ??? Making your heart strong again (cardiac rehabilitation) through exercise, education, and counseling. Follow these instructions at home: Medicines ??? Take hgtz-hgg-hsqhmxx and prescription medicines only as told by your doctor. ??? Do not take these medicines unless your doctor says it is okay: ? NSAIDs, such as ibuprofen, naproxen, or celecoxib. ? Any vitamins or supplements. ? Hormone replacement therapy that has estrogen with or without progestin. ??? If you are taking blood thinners: ? Talk with your doctor before taking any medicines that have aspirin or NSAIDs, such as ibuprofen. ? Take medicines exactly as told. Take them at the same time each day. ? Avoid doing things that could hurt or bruise you. Take action to prevent falls. ? Wear an alert bracelet or carry a card that shows you are taking blood thinners. Lifestyle ??? Do not smoke or use any products that contain nicotine or tobacco. If you need help quitting, ask your doctor. ??? Avoid secondhand smoke. ??? Exercise regularly. Ask your doctor about a cardiac rehab program. ??? Eat heart-healthy foods. Your doctor will tell you what foods to eat. ??? Stay at a healthy weight. ??? Learn ways to lower your stress level. ??? Do not use illegal drugs. Alcohol use ??? Do not drink alcohol if: ? Your doctor tells you not to drink. ? You are , may be , or are planning to become . ??? If you drink alcohol: ? Limit how much you have to: ? 0???1 drink a day for women. ? 0???2 drinks a day for men. ? Know how much alcohol is in your drink. In the [place] one drink equals one 12 oz bottle of beer (355 mL), one 5 oz glass of wine (148 mL), or one 1??? oz glass of hard liquor (44 mL). General instructions ??? Work with your doctor to treat other problems you may have, such as diabetes or high blood pressure. ??? Get screened for depression. Get treatment if needed. ??? Keep your vaccines up to date. Get the flu shot (influenza vaccine) every year. ??? Keep all follow-up visits. Contact a doctor if: ??? You feel very sad. ??? You have trouble doing your daily activities. ??? You get light-headed or dizzy. Get help right away if: ??? You have sudden, unexplained discomfort in your chest, arms, back, neck, jaw, or upper body. ??? You have shortness of breath. ??? You have sudden sweating or clammy skin. ??? You feel like you may vomit or you vomit. ??? You feel tired or weak. ??? You feel your heart beating fast. ??? You feel your heart skipping beats. ??? You have blood pressure that is higher than 180/120. These symptoms may be an emergency. Get help right away. Call your local emergency services (911 in the [place] ??? Do not wait to see if the symptoms will go away. ??? Do not drive yourself to the hospital. Summary ??? A heart attack occurs when blood and oxygen supply to the heart is cut off. ??? Do not take NSAIDs unless your doctor says it is okay. ??? Do not smoke. Avoid secondhand smoke. ??? Exercise regularly. Ask your doctor about a cardiac rehab program. This information is not intended to replace advice given to you by your health care provider. Make sure you discuss any questions you have with your health care provider. Document Revised: 03/27/2022 Document Reviewed: 03/27/2022 [employer] Patient Education ??? 2023 [employer]. FAMILY MEDICINE OFFICE/CLINI C NOTE Observed: 12/22/2024 3:58 PM Status: F Source: [facility] Family Medicine Office/Clini c Note Chief Complaint Subsequent Medicare Wellness Review of Systems PHQ Score Initial Depression Screen Score: 1 SCORE Physical Exam Vitals & Measurements HR: 60(Peripheral) RR: 18 BP: 116/84 SpO2: 97% HT: 169 cm HT: 67 in WT: 67.53 kg WT: 148.878 lb BMI: 23.64 Assessment/Plan 1. Encounter for subsequent annual wellness visit (AWV) in Medicare patient (Z00.00: Encounter for general adult medical examination without abnormal findings) The patient was given a customized and personalized print out of all the current AHRQ USPSTF???s recommendations for preventative services and all current CDC recommended immunizations, relevant risk recommendations and the following patient brochures were given. Reviewed Medicare Prevention Services checklist. CDC-Falls Prevention and home safety screening reviewed. Patient denies any falls in last 12 months, voices no worry about falling. Exhibits no problems with sitting, standing or ambulation. Patient aware with keeping walk way area free of clutter to prevent tripping and/or falling. [place] Advance Directives reviewed. See #4. Patient denies any problems with ADL???s and Instrumental ADL???s. Cognitive screening completed with memory and clock face drawing. No deficits noted. Immunization record reviewed, discussed Shingrix vaccine with educational handout and availability. 2 COVID vaccines have been administered, with 1 Booster received. Allergies and medications reviewed and up to date. No concerns with taking medication as prescribed. Reviewed OTC medications, medication list up to date. Blood tests were reviewed: Discussed what tests need to be updated. Labs were ordered, will have completed prior to next PCP visit. Labs to be completed with [facility]. No concerns with bowel/ bladder. Colonoscopy last completed 12/17/[address] Nill. Repeat 5 years. Reviewed pain symptoms: Patient denies pain. Reviewed all outside providers that patient follows. Last visit summary notes available in chart and/or have been requested. Patient declines any signs or symptoms of depression at this time. 8 minutes spent with screening and documentation. PHQ2 screening score 1. Patient denies alcohol use. 8 minutes spent with screening and documentation. Audit score 0. Follow up scheduled with PCP, today after AWV AWV has been scheduled, 12/26/2025 Medicare provides yearly screening for alcohol and depression concerns. This is completed during our Medicare wellness visit for those who do not have a current diagnosis of depression or concerns with alcohol use. I spent a total of 17 minutes on this date of service which included preparing to see the patient, face to face patient care, completing clinical documentation, obtaining and/or reviewing separately obtained history, counseling and educating the patient with handouts. Explanations were provided with reviewing questionnaires. AUDIT risk assessment screening completed, risk score 0 with patient denying concerns with use. Completed PHQ-2 risk assessment for depression with risk score 1, negative findings. Patient has been reminded to notify the provider if there would be a change or concerns with symptoms with fear, unable to sleep, worrying too much or feeling down and/or sad with lost of interest with daily activities. Will continue to monitor with screening yearly during Medicare wellness visits. 2. Pure hypercholesterolemia (E78.00: Pure hypercholesterolemia, unspecified) Reviewed healthy lifestyle with low fat diet and exercise regimen. When you are overweight our body produces more lipids. Risk also increases with family history of hyperlipidemia and with monitoring alcohol use and avoid smoking. Pt voices understanding with importance of monitoring dietary intake to reduce risk factors associated with CVA. Taking statin medications daily as directed. Will continue to follow up with office visits with updated labs as directed. 3. Anxiety (F41.9: Anxiety disorder, unspecified) Patient takes alprazolam daily as directed, voices effectiveness of medication. SHADI-7 screening completed today with a score of 2. Follows with PCP as directed for management and symptom control. Denies any suicidal ideations at this time. Education provided, stress management and relaxation techniques reviewed. Will continue to follow with PCP and communicate any changes of increased anxiety. Reviewed additional signs/symptoms to monitor for and report to provider. 4. Advanced directives, counseling/discussion (Z71.89: Other specified counseling) Spent 15 minutes with patient. An explanation of [employer] PLANNING for end of life reviewed. Discussion included handout Planning for Important Health Care Decisions with explanations regarding different decisions to discuss with their chosen representatives. Explained the role each tax representative would play, encouraged patient to select 2 people with one being the primary and the other for an alternate. Discussed importance of reviewing forms with his family so that they are aware of his decision. This would be the time to implement plans to ensure specific wishes are honored and if there would be questions from the family these could be discussed for a better understanding. Patient does voice understanding that these forms would be effective if the patient is unable to speak, types of medical care and desired comfort level that is preferred to improve care at the end of life . Reminded patient the these forms may be revoked at any time and in any manner. Offer to assist patient with completing these forms during today's visit. Patient would like to take home and discuss with family before completing. Reminded patient upon completion to bring copy into the office and we will scan them into their medical chart. Once scanned into medical chart, forms are returned to patient and reminded to give a copy to selected representatives. ID card provided for patient to fill out with their name as well as their representatives information. Check off which forms they have in place and where they have it on file. 5. Flu vaccine refused (Z28.21: Immunization not carried out because of patient refusal) Influenza vaccines declined with today's visit. Advised all appropriate vaccines available in office if ever she may chose. Follow-up No qualifying data available Patient Education Preventive Care 65 Years and Older, Male Preventive Care 65 Years and Older, Male Healthy Eating, Adult Managing Anxiety, Adult High Cholesterol Heart Attack, Lhgs-nd-Ommk Problem List/Past Medical History Ongoing Anxiety BMI 23.0-23.9, adult Fatigue Insomnia Long-term current use of opiate analgesic drug Parkinson's disease Pure hypercholesterolemia Slow transit constipation Thrombocytopenia Tubular adenoma of colon Weakness Historical No qualifying data Procedure/Surgical History Colonoscopy (12/17/2022), Cataract Extraction with IOL placement - OD. (02/24/2017), Colonoscopy (02/20/2011), Vasectomy. Medications alprazolam 1 mg Tab, 1 mg= 1 tab(s), Oral, BID, PRN carbidopa-levodopa 25 mg-100 mg Tab, 1 tab(s), Oral, TID LORazepam 0.5 mg Tab, 1.5 mg, As Directed LORazepam 0.5 mg Tab, See Instructions Metamucil 3.4 g/5.2 g oral powder, 1.7 gm, Oral, TID, PRN organic helena Benito Stool Softener, 100 mg, Oral, Daily ropinirole 0.25 mg Tab, 0.25 mg= 1 tab(s), Oral, TID Allergies No Known Allergies No Known Medication Allergies Social History Alcohol - Denies Alcohol Use, 11/18/2022 Never, 12/22/2024 Substance Abuse - Denies Substance Abuse, 11/18/2022 Never, 12/22/2024 Tobacco - No Risk, 12/23/2023 Never (less than 100 in lifetime) Tobacco Use:., 12/22/2024 Family History Brain tumor: Sister. Cardiac arrest: Mother. Heart disease: Brother. Primary malignant neoplasm of lung: Father. Immunizations Vaccine Date Status Comments influenza virus vaccine, inactivated - Not Given Patient Refuses influenza virus vaccine, inactivated - Not Given Patient Refuses SARS-CoV-2 (COVID-19) mRNA BNT-162b2 vax 10/06/2021 Recorded SARS-CoV-2 (COVID-19) mRNA BNT-162b2 vax 01/20/2021 Recorded SARS-CoV-2 (COVID-19) mRNA BNT-162b2 vax 12/28/2020 Recorded 2022-11-18: TPV65 pneumococcal 13-valent vaccine 09/20/2020 Recorded Result Comment: Electronical ly Signed By: Radha Poole\.br\Date and Time Signed: 12/26/24 13:04 EDT\.br\Electronically Co-Signed By: Ling Champagne\.br\Date and Time Co-Signed: 12/22/24 15:58 EST PATIENT EDUCATION Observed: 12/22/2024 3:57 PM Status: C Source: [facility] Patient Education Preventive Care 65 Years and Older, Male Preventive care refers to lifestyle choices and visits with your health care provider that can promote health and wellness. Preventive care visits are also called wellness exams. What can I expect for my preventive care visit? Counseling During your preventive care visit, your health care provider may ask about your: ??? Medical history, including: ? Past medical problems. ? Family medical history. ? History of falls. ??? Current health, including: ? Emotional well-being. ? Home life and relationship well-being. ? Sexual activity. ? Memory and ability to understand (cognition). ??? Lifestyle, including: ? Alcohol, nicotine or tobacco, and drug use. ? Access to firearms. ? Diet, exercise, and sleep habits. ? Work and work environment. ? Sunscreen use. ? Safety issues such as seatbelt and bike helmet use. Physical exam Your health care provider will check your: ??? Height and weight. These may be used to calculate your BMI (body mass index). BMI is a measurement that tells if you are at a healthy weight. ??? Waist circumference. This measures the distance around your waistline. This measurement also tells if you are at a healthy weight and may help predict your risk of certain diseases, such as type 2 diabetes and high blood pressure. ??? Heart rate and blood pressure. ??? Body temperature. ??? Skin for abnormal spots. What immunizations do I need? Vaccines are usually given at various ages, according to a schedule. Your health care provider will recommend vaccines for you based on your age, medical history, and lifestyle or other factors, such as travel or where you work. What tests do I need? Screening Your health care provider may recommend screening tests for certain conditions. This may include: ??? Lipid and cholesterol levels. ??? Diabetes screening. This is done by checking your blood sugar (glucose) after you have not eaten for a while (fasting). ??? Hepatitis C test. ??? Hepatitis B test. ??? HIV (human immunodeficiency virus) test. ??? STI (sexually transmitted infection) testing, if you are at risk. ??? Lung cancer screening. ??? Colorectal cancer screening. ??? Prostate cancer screening. ??? Abdominal aortic aneurysm (AAA) screening. You may need this if you are a current or former smoker. Talk with your health care provider about your test results, treatment options, and if necessary, the need for more tests. Follow these instructions at home: Eating and drinking ??? Eat a diet that includes fresh fruits and vegetables, whole grains, lean protein, and low-fat dairy products. Limit your intake of foods with high amounts of sugar, saturated fats, and salt. ??? Take vitamin and mineral supplements as recommended by your health care provider. ??? Do not drink alcohol if your health care provider tells you not to drink. ??? If you drink alcohol: ? Limit how much you have to 0?2 drinks a day. ? Know how much alcohol is in your drink. In the [place] one drink equals one 12 oz bottle of beer (355 mL), one 5 oz glass of wine (148 mL), or one 1? oz glass of hard liquor (44 mL). Lifestyle ??? Reading your teeth every morning and night with fluoride toothpaste. Floss one time each day. ??? Exercise for at least 30 minutes 5 or more days each week. ??? Do not use any products that contain nicotine or tobacco. These products include cigarettes, chewing tobacco, and vaping devices, such as e-cigarettes. If you need help quitting, ask your health care provider. ??? Do not use drugs. ??? If you are sexually active, practice safe sex. Use a condom or other form of protection to prevent STIs. ??? Take aspirin only as told by your health care provider. Make sure that you understand how much to take and what form to take. Work with your health care provider to find out whether it is safe and beneficial for you to take aspirin daily. ??? Ask your health care provider if you need to take a cholesterol-lowering medicine (statin). ??? Find healthy ways to manage stress, such as: ? Meditation, yoga, or listening to music. ? Journaling. ? Talking to a trusted person. ? Spending time with friends and family. Safety ??? Always wear your seat belt while driving or riding in a vehicle. ??? Do not drive: ? If you have been drinking alcohol. Do not ride with someone who has been drinking. ? When you are tired or distracted. ? While texting. ? If you have been using any mind-altering substances or drugs. ??? Wear a helmet and other protective equipment during sports activities. ??? If you have firearms in your house, make sure you follow all gun safety procedures. ??? Minimize exposure to UV radiation to reduce your risk of skin cancer. What's next? Visit your health care provider once a year for an annual wellness visit. ??? Ask your health care provider how often you should have your eyes and teeth checked. ??? Stay up to date on all vaccines. This information is not intended to replace advice given to you by your health care provider. Make sure you discuss any questions you have with your health care provider. Document Revised: 04/02/2022 Document Reviewed: 04/02/2022 [employer] Patient Education ? 2023 [employer].Emergency Medicine Heart Attack A heart attack occurs when blood and oxygen supply to the heart is cut off. A heart attack can cause damage to the heart that cannot be fixed. A heart attack is also called a myocardial infarction, or MT. If you think you are having a heart attack, do not wait to see if the symptoms will go away. Get medical help right away. What are the causes? This condition may be caused by: ??? A fatty substance (plaque) in the blood vessels (arteries). This can block the flow of blood to the heart. ??? A blood clot in the blood vessels that go to the heart. The blood clot blocks blood flow. ??? An abnormal heartbeat. ??? Some diseases, such as problems in red blood cells (anemia)orproblems in breathing (respiratory failure). ??? Tightening (spasm) of a blood vessel that cuts off blood to the heart. ??? A tear in a blood vessel of the heart. Other causes may include: ??? Using drugs such as cocaine or methamphetamine. ??? Low blood pressure. What increases the risk? Aging. The risk gets higher as you get older. ??? Having a personal or family history of chest pain, heart attack, stroke, or narrowing of the arteries in the legs, arms, head, or stomach (peripheral vascular disease). ??? Having taken chemotherapy or immune-suppressing medicines. ??? Being male. ??? Being overweight or obese. ??? Having any of these conditions: ? High blood pressure. ? High cholesterol. ? Diabetes. ??? Making lifestyle choices such as: ? Drinking too much alcohol. ? Not getting regular exercise. ? Smoking. What are the signs or symptoms? Chest pain. It may feel like: ? Crushing or squeezing. ? Tightness, pressure, fullness, or heaviness. ??? Pain in the arm, neck, jaw, back, or upper body. ??? Heartburn. ??? Upset stomach (indigestion). ??? Shortness of breath. ??? Feeling like you may vomit (nauseous). ??? Cold sweats. ??? Sudden light-headedness, dizziness, or passing out. ??? Feeling tired. How is this treated? A heart attack must be treated as soon as possible. Treatment may include: ??? Medicines to: ? Break up or dissolve blood clots. ? Thin your blood and help prevent blood clots. ? Treat blood pressure. ? Improve blood flow to the heart. ? Reduce pain. ? Reduce cholesterol. ??? Procedures to widen a blocked artery and keep it open. ??? Open heart surgery. ??? Making your heart strong again (cardiac rehabilitation) through exercise, education, and counseling. Follow these instructions at home: Medicines ??? Take dznq-jen-pvgjhrd and prescription medicines only as told by your doctor. ??? Do not take these medicines unless your doctor says it is okay: ? NSAIDs, such as ibuprofen, naproxen, or celecoxib. ? Any vitamins or supplements. ? Hormone replacement therapy that has estrogen with or without progestin. ??? If you are taking blood thinners: ? Talk with your doctor before taking any medicines that have aspirin or NSAIDs, such as ibuprofen. ? Take medicines exactly as told. Take them at the same time each day. ? Avoid doing things that could hurt or bruise you. Take action to prevent falls. ? Wear an alert bracelet or carry a card that shows you are taking blood thinners. Lifestyle ??? Do not smoke or use any products that contain nicotine or tobacco. If you need help quitting, ask your doctor. ??? Avoid secondhand smoke. ??? Exercise regularly. Ask your doctor about a cardiac rehab program. ??? Eat heart-healthy foods. Your doctor will tell you what foods to eat. ??? Stay at a healthy weight. ??? Learn ways to lower your stress level. ??? Do not use illegal drugs. Alcohol use ??? Do not drink alcohol if: ? Your doctor tells you not to drink. ? You are , may be , or are planning to become . ??? If you drink alcohol: ? Limit how much you have to: ? 0?1 drink a day for women. ? 0?2 drinks a day for men. ? Know how much alcohol is in your drink. In the [place] one drink equals one 12 oz bottle of beer (355 mL), one 5 oz glass of wine (148 mL), or one 1? oz glass of hard liquor (44 mL). General instructions ??? Work with your doctor to treat other problems you may have, such as diabetes or high blood pressure. ??? Get screened for depression. Get treatment if needed. ??? Keep your vaccines up to date. Get the flu shot (influenza vaccine) every year. ??? Keep all follow-up visits. Contact a doctor if: ??? You feel very sad. ??? You have trouble doing your daily activities. ??? You get light-headed or dizzy. Get help right away if: ??? You have sudden, unexplained discomfort in your chest, arms, back, neck, jaw, or upper body. ??? You have shortness of breath. ??? You have sudden sweating or clammy skin. ??? You feel like you may vomit or you vomit. ??? You feel tired or weak. ??? You feel your heart beating fast. ??? You feel your heart skipping beats. ??? You have blood pressure that is higher than 180/120. These symptoms may be an emergency. Get help right away. Call your local emergency services (911 in the [place] ??? Do not wait to see if the symptoms will go away. ??? Do not drive yourself to the hospital. Summary ??? A heart attack occurs when blood and oxygen supply to the heart is cut off. ??? Do not take NSAIDs unless your doctor says it is okay. ??? Do not smoke. Avoid secondhand smoke. ??? Exercise regularly. Ask your doctor about a cardiac rehab program. This information is not intended to replace advice given to you by your health care provider. Make sure you discuss any questions you have with your health care provider. Document Revised: 03/27/2022 Document Reviewed: 03/27/2022 Elsevier Patient Education ? 2023 [employer].Mental and Behavioral Health Managing Anxiety, Adult After being diagnosed with anxiety, you may be relieved to know why you have felt or behaved a certain way. You may also feel overwhelmed about the treatment ahead and what it will mean for your life. With care and support, you can manage your anxiety. How to manage lifestyle changes Understanding the difference between stress and anxiety Although stress can play a role in anxiety, it is not the same as anxiety. Stress is your body's reaction to life changes and events, both good and bad. Stress is often caused by something external, such as a deadline, test, or competition. It normally goes away after the event has ended and will last just a few hours. But, stress can be ongoing and can lead to more than just stress. Anxiety is caused by something internal, such as imagining a terrible outcome or worrying that something will go wrong that will greatly upset you. Anxiety often does not go away even after the event is over, and it can become a long-term (chronic) worry. Lowering stress and anxiety Talk with your health care provider or a counselor to learn more about lowering anxiety and stress. They may suggest tension-reduction techniques, such as: ??? Music. Spend time creating or listening to music that you enjoy and that inspires you. ??? Mindfulness-based meditation. Practice being aware of your normal breaths while not trying to control your breathing. It can be done while sitting or walking. ??? Centering prayer. Focus on a word, phrase, or sacred image that means something to you and brings you peace. ??? Deep breathing. Expand your stomach and inhale slowly through your nose. Hold your breath for 3?5 seconds. Then breathe out slowly, letting your stomach muscles relax. ??? Self-talk. Learn to notice and spot thought patterns that lead to anxiety reactions. Change those patterns to thoughts that feel peaceful. ??? Muscle relaxation. Take time to tense muscles and then relax them. Choose a tension-reduction technique that fits your lifestyle and personality. These techniques take time and practice. Set aside 5?15 minutes a day to do them. Specialized therapists can offer counseling and training in these techniques. The training to help with anxiety may be covered by some insurance plans. Other things you can do to manage stress and anxiety include: ??? Keeping a stress diary. This can help you learn what triggers your reaction and then learn ways to manage your response. ??? Thinking about how you react to certain situations. You may not be able to control everything, but you can control your response. ??? Making time for activities that help you relax and not feeling guilty about spending your time in this way. ??? Doing visual imagery. This involves imagining or creating mental pictures to help you relax. ??? Practicing yoga. Through yoga poses, you can lower tension and relax. Medicines Medicines for anxiety include: ??? Antidepressant medicines. These are usually prescribed for long-term daily control. ??? Anti-anxiety medicines. These may be added in severe cases, especially when panic attacks occur. When used together, medicines, psychotherapy, and tension-reduction techniques may be the most effective treatment. Relationships Relationships can play a big part in helping you recover. Spend more time connecting with trusted friends and family members. Think about going to couples counseling if you have a partner, taking family education classes, or going to family therapy. Therapy can help you and others better understand your anxiety. How to recognize changes in your anxiety Everyone responds differently to treatment for anxiety. Recovery from anxiety happens when symptoms lessen and stop interfering with your daily life at home or work. This may mean that you will start to: ??? Have better concentration and focus. Worry will interfere less in your daily thinking. ??? Sleep better. ??? Be less irritable. ??? Have more energy. ??? Have improved memory. Try to recognize when your condition is getting worse. Contact your provider if your symptoms interfere with home or work and you feel like your condition is not improving. Follow these instructions at home: Activity ??? Exercise. Adults should: ? Exercise for at least 150 minutes each week. The exercise should increase your heart rate and make you sweat (moderate-intensity exercise). ? Do strengthening exercises at least twice a week. ??? Get the right amount and quality of sleep. Most adults need 7?9 hours of sleep each night. Lifestyle ??? Eat a healthy diet that includes plenty of vegetables, fruits, whole grains, low-fat dairy products, and lean protein. ? Do not eat a lot of foods that are high in fats, added sugars, or salt (sodium). ??? Make choices that simplify your life. ??? Do not use any products that contain nicotine or tobacco. These products include cigarettes, chewing tobacco, and vaping devices, such as e-cigarettes. If you need help quitting, ask your provider. ??? Avoid caffeine, alcohol, and certain rkyv-mht-jqwuxko cold medicines. These may make you feel worse. Ask your pharmacist which medicines to avoid. General instructions ??? Take vrtz-aqw-ctbnquz and prescription medicines only as told by your provider. ??? Keep all follow-up visits. This is to make sure you are managing your anxiety well or if you need more support. Where to find support You can get help and support from: ??? Self-help groups. ??? Online and community organizations. ??? A trusted spiritual leader. ??? Couples counseling. ??? Family education classes. ??? Family therapy. Where to find more information You may find that joining a support group helps you deal with your anxiety. The following sources can help you find counselors or support groups near you: ??? Mental Health [place]: mentalhealthamerica.net ??? Anxiety and Depression Association of [place] (ADAA): adaa.org ??? National [place] on Mental Illness (GRADY): grady.org Contact a health care provider if: ??? You have a hard time staying focused or finishing tasks. ??? You spend many hours a day feeling worried about everyday life. ??? You are very tired because you cannot stop worrying. ??? You start to have headaches or often feel tense. ??? You have chronic nausea or diarrhea. Get help right away if: ??? Your heart feels like it is racing. ??? You have shortness of breath. ??? You have thoughts of hurting yourself or others. Get help right away if you feel like you may hurt yourself or others, or have thoughts about taking your own life. Go to your nearest emergency room or: ??? Call 911. ??? Call the National Suicide Prevention Lifeline at or 618. This is open 24 hours a day. ??? Text the Crisis Text Line at 623262. This information is not intended to replace advice given to you by your health care provider. Make sure you discuss any questions you have with your health care provider. Document Revised: 07/14/2023 Document Reviewed: 01/26/2022 [employer] Patient Education ? 2023 [employer]Nutrition Healthy Eating, Adult Healthy eating may help you get and keep a healthy body weight, reduce the risk of chronic disease, and live a long and productive life. It is important to follow a healthy eating pattern. Your nutritional and calorie needs should be met mainly by different nutrient-rich foods. What are tips for following this plan? Reading food labels ??? Read labels and choose the following: ? Reduced or low sodium products. ? Juices with 100% fruit juice. ? Foods with low saturated fats (<3 g per serving) and high polyunsaturated and monounsaturated fats. ? Foods with whole grains, such as whole wheat, cracked wheat, brown rice, and wild rice. ? Whole grains that are fortified with folic acid. This is recommended for females who are or who want to become . ??? Read labels and do not eat or drink the following: ? Foods or drinks with added sugars. These include foods that contain brown sugar, corn sweetener, corn syrup, dextrose, fructose, glucose, high-fructose corn syrup, honey, invert sugar, lactose, malt syrup, maltose, molasses, raw sugar, sucrose, trehalose, or turbinado sugar. ? Limit your intake of added sugars to less than 10% of your total daily calories. Do not eat more than the following amounts of added sugar per day: ??? 6 teaspoons (25 g) for females. ??? 9 teaspoons (38 g) for males. ? Foods that contain processed or refined starches and grains. ? Refined grain products, such as white flour, degermed cornmeal, white bread, and white rice. Shopping ??? Choose nutrient-rich snacks, such as vegetables, whole fruits, and nuts. Avoid high-calorie and high-sugar snacks, such as potato chips, fruit snacks, and candy. ??? Use oil-based dressings and spreads on foods instead of solid fats such as butter, margarine, sour cream, or cream cheese. ??? Limit pre-made sauces, mixes, and instant products such as flavored rice, instant noodles, and ready-made pasta. ??? Try more plant-protein sources, such as tofu, tempeh, black beans, edamame, lentils, nuts, and seeds. ??? Explore eating plans such as the Mediterranean diet or vegetarian diet. ??? Try heart-healthy dips made with beans and healthy fats like hummus and guacamole. Vegetables go great with these. Cooking ??? Use oil to saut? or stir-owen foods instead of solid fats such as butter, margarine, or lard. ??? Try baking, boiling, grilling, or broiling instead of frying. ??? Remove the fatty part of meats before cooking. ??? Steam vegetables in water or broth. Meal planning ??? At meals, imagine dividing your plate into fourths: ? One-half of your plate is fruits and vegetables. ? One-fourth of your plate is whole grains. ? One-fourth of your plate is protein, especially lean meats, poultry, eggs, tofu, beans, or nuts. ??? Include low-fat dairy as part of your daily diet. Lifestyle ??? Choose healthy options in all settings, including home, work, school, restaurants, or stores. ??? Prepare your food safely: ? Wash your hands after handling raw meats. ? Where you prepare food, keep surfaces clean by regularly washing with hot, soapy water. ? Keep raw meats separate from esxfl-hf-ufe foods, such as fruits and vegetables. ? associate biological sales, meat, poultry, and eggs to the recommended temperature. Get a food thermometer. ? Store foods at safe temperatures. In general: ? Keep cold foods at 40?F (4.4?C) or below. ? Keep hot foods at 140?F (60?C) or above. ? Keep your freezer at 0?F (-17.8?C) or below. ? Foods are not safe to eat if they have been between the temperatures of 40?140?F (4.4?60?C) for more than 2 hours. What foods should I eat? Fruits Aim to eat 1??2? cups of fresh, canned (in natural juice), or frozen fruits each day. One cup of fruit equals 1 small apple, 1 large banana, 8 large strawberries, 1 cup (237 g) canned fruit, ? cup (82 g) dried fruit, or 1 cup (240 mL) 100% juice. Vegetables Aim to eat 2?4 cups of fresh and frozen vegetables each day, including different varieties and colors. One cup of vegetables equals 1 cup (91 g) broccoli or cauliflower florets, 2 medium carrots, 2 cups (150 g) raw, leafy greens, 1 large tomato, 1 large paiz pepper, 1 large sweet potato, or 1 medium white potato. Grains Aim to eat 5?10 ounce-equivalents of whole grains each day. Examples of 1 ounce-equivalent of grains include 1 slice of bread, 1 cup (40 g) vcvzu-cx-jsi cereal, 3 cups (24 g) popcorn, or ? cup (93 g) cooked rice. Meats and other proteins Try to eat 5?7 ounce-equivalents of protein each day. Examples of 1 ounce- equivalent of protein include 1 egg, ? oz nuts (12 almonds, 24 pistachios, or 7 walnut halves), 1/4 cup (90 g) cooked beans, 6 tablespoons (90 g) hummus or 1 tablespoon (16 g) peanut butter. A cut of meat or fish that is the size of a deck of cards is about 3?4 ounce-equivalents (85 g). ??? Of the protein you eat each week, try to have at least 8 sounce (227 g) of seafood. This is about 2 servings per week. This includes salmon, trout, mcfarlane, sardines, and anchovies. Dairy Aim to eat 3 cup-equivalents of fat-free or low-fat dairy each day. Examples of 1 cup-equivalent of dairy include 1 cup (240 mL) milk, 8 ounces (250 g) yogurt, 1? ounces (44 g) natural cheese, or 1 cup (240 mL) fortified soy milk. Fats and oils ??? Aim for about 5 teaspoons (21 g) of fats and oils per day. Choose monounsaturated fats, such as canola and olive oils, mayonnaise made with olive oil or avocado oil, avocados, peanut butter, and most nuts, or polyunsaturated fats, such as sunflower, corn, and soybean oils, walnuts, pine nuts, sesame seeds, sunflower seeds, and flaxseed. Beverages ??? Aim for 6 eight-ounce glasses of water per day. Limit coffee to 3?5 eight- ounce cups per day. ??? Limit caffeinated beverages that have added calories, such as soda and energy drinks. ??? If you drink alcohol: ? Limit how much you have to: ? 0?1 drink a day if you are female. ? 0?2 drinks a day if you are male. ? Know how much alcohol is in your drink. In the [place] one drink is one 12 oz bottle of beer (355 mL), one 5 oz glass of wine (148 mL), or one 1? oz glass of hard liquor (44 mL). Seasoning and other foods ??? Try not to add too much salt to your food. Try using herbs and spices instead of salt. ??? Try not to add sugar to food. This information is based on [place] nutrition guidelines. To learn more, visit [email or web address]. Exact amounts may vary. You may need different amounts. This information is not intended to replace advice given to you by your health care provider. Make sure you discuss any questions you have with your health care provider. Document Revised: 07/06/2023 Document Reviewed: 07/06/2023 [employer] Patient Education ? 2023 [employer].High Cholesterol High cholesterol is a condition in which the blood has high levels of a white, waxy substance similar to fat (cholesterol). The liver makes all the cholesterol that the body needs. The human body needs small amounts of cholesterol to help build cells. A person gets extra or excess cholesterol from the food that he or she eats. The blood carries cholesterol from the liver to the rest of the body. If you have high cholesterol, deposits (plaques) may build up on the ching of your arteries. Arteries are the blood vessels that carry blood away from your heart. These plaques make the arteries narrow and stiff. Cholesterol plaques increase your risk for heart attack and stroke. Work with your health care provider to keep your cholesterol levels in a healthy range. What increases the risk? The following factors may make you more likely to develop this condition: ??? Eating foods that are high in animal fat (saturated fat) or cholesterol. ??? Being overweight. ??? Not getting enough exercise. ??? A family history of high cholesterol (familial hypercholesterolemia). ??? Use of tobacco products. ??? Having diabetes. What are the signs or symptoms? In most cases, high cholesterol does not usually cause any symptoms. In severe cases, very high cholesterol levels can cause: ??? Fatty bumps under the skin (xanthomas). ??? A white or howell ring around the black center (pupil) of the eye. How is this diagnosed? This condition may be diagnosed based on the results of a blood test. ??? If you are older than 20 years of age, your health care provider may check your cholesterol levels every 4?6 years. ??? You may be checked more often if you have high cholesterol or other risk factors for heart disease. The blood test for cholesterol measures: ??? Bad cholesterol, or LDL cholesterol. This is the main type of cholesterol that causes heart disease. The desired level is less than 100 mg/dL (2.59 mmol/L). ??? Good cholesterol, or HDL cholesterol. HDL helps protect against heart disease by cleaning the arteries and carrying the LDL to the liver for processing. The desired level for HDL is 60 mg/dL (1.55 mmol/L) or higher. ??? Triglycerides. These are fats that your body can store or burn for energy. The desired level is less than 150 mg/dL (1.69 mmol/L). ??? Total cholesterol. This measures the total amount of cholesterol in your blood and includes LDL, HDL, and triglycerides. The desired level is less than 200 mg/dL (5.17 mmol/L). How is this treated? Treatment for high cholesterol starts with lifestyle changes, such as diet and exercise. ??? Diet changes. You may be asked to eat foods that have more fiber and less saturated fats or added sugar. ??? Lifestyle changes. These may include regular exercise, maintaining a healthy weight, and quitting use of tobacco products. ??? Medicines. These are given when diet and lifestyle changes have not worked. You may be prescribed a statin medicine to help lower your cholesterol levels. Follow these instructions at home: Eating and drinking ??? Eat a healthy, balanced diet. This diet includes: ? Daily servings of a variety of fresh, frozen, or canned fruits and vegetables. ? Daily servings of whole grain foods that are rich in fiber. ? Foods that are low in saturated fats and trans fats. These include poultry and fish without skin, lean cuts of meat, and low-fat dairy products. ? A variety of fish, especially oily fish that contain omega-3 fatty acids. Aim to eat fish at least 2 times a week. ??? Avoid foods and drinks that have added sugar. ??? Use healthy cooking methods, such as roasting, grilling, broiling, baking, poaching, steaming, and stir-frying. Do not owen your food except for stir- frying. ??? If you drink alcohol: ? Limit how much you have to: ? 0?1 drink a day for women who are not . ? 0?2 drinks a day for men. ? Know how much alcohol is in a drink. In the [place] one drink equals one 12 oz bottle of beer (355 mL), one 5 oz glass of wine (148 mL), or one 1? oz glass of hard liquor (44 mL). Lifestyle ??? Get regular exercise. Aim to exercise for a total of 150 minutes a week. Increase your activity level by doing activities such as gardening, walking, and taking the stairs. ??? Do not use any products that contain nicotine or tobacco. These products include cigarettes, chewing tobacco, and vaping devices, such as e-cigarettes. If you need help quitting, ask your health care provider. General instructions ??? Take jerv-cum-agpfcwo and prescription medicines only as told by your health care provider. ??? Keep all follow-up visits. This is important. Where to find more information ??? [place] [employer]: www.heart.org ??? National Heart, Lung, and Blood [place]: www.nhlbi.nih.gov Contact a health care provider if: ??? You have trouble achieving or maintaining a healthy diet or weight. ??? You are starting an exercise program. ??? You are unable to stop smoking. Get help right away if: ??? You have chest pain. ??? You have trouble breathing. ??? You have discomfort or pain in your jaw, neck, back, shoulder, or arm. ??? You have any symptoms of a stroke. BE FAST is an easy way to remember the main warning signs of a stroke: ? B - Balance. Signs are dizziness, sudden trouble walking, or loss of balance. ? E - Eyes. Signs are trouble seeing or a sudden change in vision. ? F - Face. Signs are sudden weakness or numbness of the face, or the face or eyelid drooping on one side. ? A - Arms. Signs are weakness or numbness in an arm. This happens suddenly and usually on one side of the body. ? S - Speech. Signs are sudden trouble speaking, slurred speech, or trouble understanding what people say. ? T - Time. Time to call emergency services. Write down what time symptoms started. ??? You have other signs of a stroke, such as: ? A sudden, severe headache with no known cause. ? Nausea or vomiting. ? Seizure. These symptoms may represent a serious problem that is an emergency. Do not wait to see if the symptoms will go away. Get medical help right away. Call your local emergency services (911 in the [place] Do not drive yourself to the hospital. Summary ??? Cholesterol plaques increase your risk for heart attack and stroke. Work with your health care provider to keep your cholesterol levels in a healthy range. ??? Eat a healthy, balanced diet, get regular exercise, and maintain a healthy weight. ??? Do not use any products that contain nicotine or tobacco. These products include cigarettes, chewing tobacco, and vaping devices, such as e-cigarettes. ??? Get help right away if you have any symptoms of a stroke. This information is not intended to replace advice given to you by your health care provider. Make sure you discuss any questions you have with your health care provider. Document Revised: 05/08/2023 Document Reviewed: 12/09/2021 Elsevier Patient Education ? 2023 [employer]Preventive Health Preventive Care 65 Years and Older, Male Preventive care refers to lifestyle choices and visits with your health care provider that can promote health and wellness. Preventive care visits are also called wellness exams. What can I expect for my preventive care visit? Counseling During your preventive care visit, your health care provider may ask about your: ??? Medical history, including: ? Past medical problems. ? Family medical history. ? History of falls. ??? Current health, including: ? Emotional well-being. ? Home life and relationship well-being. ? Sexual activity. ? Memory and ability to understand (cognition). ??? Lifestyle, including: ? Alcohol, nicotine or tobacco, and drug use. ? Access to firearms. ? Diet, exercise, and sleep habits. ? Work and work environment. ? Sunscreen use. ? Safety issues such as seatbelt and bike helmet use. Physical exam Your health care provider will check your: ??? Height and weight. These may be used to calculate your BMI (body mass index). BMI is a measurement that tells if you are at a healthy weight. ??? Waist circumference. This measures the distance around your waistline. This measurement also tells if you are at a healthy weight and may help predict your risk of certain diseases, such as type 2 diabetes and high blood pressure. ??? Heart rate and blood pressure. ??? Body temperature. ??? Skin for abnormal spots. What immunizations do I need? Vaccines are usually given at various ages, according to a schedule. Your health care provider will recommend vaccines for you based on your age, medical history, and lifestyle or other factors, such as travel or where you work. What tests do I need? Screening Your health care provider may recommend screening tests for certain conditions. This may include: ??? Lipid and cholesterol levels. ??? Diabetes screening. This is done by checking your blood sugar (glucose) after you have not eaten for a while (fasting). ??? Hepatitis C test. ??? Hepatitis B test. ??? HIV (human immunodeficiency virus) test. ??? STI (sexually transmitted infection) testing, if you are at risk. ??? Lung cancer screening. ??? Colorectal cancer screening. ??? Prostate cancer screening. ??? Abdominal aortic aneurysm (AAA) screening. You may need this if you are a current or former smoker. Talk with your health care provider about your test results, treatment options, and if necessary, the need for more tests. Follow these instructions at home: Eating and drinking ??? Eat a diet that includes fresh fruits and vegetables, whole grains, lean protein, and low-fat dairy products. Limit your intake of foods with high amounts of sugar, saturated fats, and salt. ??? Take vitamin and mineral supplements as recommended by your health care provider. ??? Do not drink alcohol if your health care provider tells you not to drink. ??? If you drink alcohol: ? Limit how much you have to 0?2 drinks a day. ? Know how much alcohol is in your drink. In the [place] one drink equals one 12 oz bottle of beer (355 mL), one 5 oz glass of wine (148 mL), or one 1? oz glass of hard liquor (44 mL). Lifestyle ??? Reading your teeth every morning and night with fluoride toothpaste. Floss one time each day. ??? Exercise for at least 30 minutes 5 or more days each week. ??? Do not use any products that contain nicotine or tobacco. These products include cigarettes, chewing tobacco, and vaping devices, such as e-cigarettes. If you need help quitting, ask your health care provider. ??? Do not use drugs. ??? If you are sexually active, practice safe sex. Use a condom or other form of protection to prevent STIs. ??? Take aspirin only as told by your health care provider. Make sure that you understand how much to take and what form to take. Work with your health care provider to find out whether it is safe and beneficial for you to take aspirin daily. ??? Ask your health care provider if you need to take a cholesterol-lowering medicine (statin). ??? Find healthy ways to manage stress, such as: ? Meditation, yoga, or listening to music. ? Journaling. ? Talking to a trusted person. ? Spending time with friends and family. Safety ??? Always wear your seat belt while driving or riding in a vehicle. ??? Do not drive: ? If you have been drinking alcohol. Do not ride with someone who has been drinking. ? When you are tired or distracted. ? While texting. ? If you have been using any mind-altering substances or drugs. ??? Wear a helmet and other protective equipment during sports activities. ??? If you have firearms in your house, make sure you follow all gun safety procedures. ??? Minimize exposure to UV radiation to reduce your risk of skin cancer. What's next? Visit your health care provider once a year for an annual wellness visit. ??? Ask your health care provider how often you should have your eyes and teeth checked. ??? Stay up to date on all vaccines. This information is not intended to replace advice given to you by your health care provider. Make sure you discuss any questions you have with your health care provider. Document Revised: 04/02/2022 Document Reviewed: 04/02/2022 [employer] Patient Education ? 2023 [employer]. FAMILY MEDICINE OFFICE/CLINI C NOTE Observed: 12/22/2024 3:38 PM Status: F Source: [facility] Medicine Office/Clini c Note HPI Staff Quinten is a 74 year old male presenting for 3 month follow up BOB 09/28/24 D/c lorazepam and restarted alprazolam 1mg Insomnia: pt states he is sleeping very well no refill needed at this time History of Present Illness pt presents today for 3 month follow up med check Physical Exam General: alert, no acute distress ENMT: oral mucosa moist, no pharyngeal erythema or exudate Cardiovascular: regular rate and rhythm, normal peripheral perfusion Respiratory: Lungs CTA, respirations non labored Extremities: no deformity, no trauma Neurological: oriented x 4, LOC appropriate for age, CN II-XII intact, motor strength equal & normal bilaterally, speech normal Assessment/Plan 1. Insomnia (G47.00: Insomnia, unspecified) pt doing well with taking alprazolam before bed. denies needs. RTC 3 months Ordered: lorazepam, See Instructions, 3 tab(s) 30 minutes prior to procedure or appointment, # 12 tab(s), Refills(s) 0, Pharmacy: [id number], 169, cm, 12/22/24 14:54:00 EST, Height/Length Dosing, 67.5, kg, 12/22/24 14:54:00 EST, Weight Dosing 2. Anxiety (F41.9: Anxiety disorder, unspecified) pt feels if he takes alprazolam at lunch time it help with his anxiety and tremors. will order it to be taken BID. 3. BMI 23.0-23.9, adult (Z68.23: Body mass index [BMI] 23.0-23.9, adult) BMI education Orders: alprazolam, See Instructions, PRN for anxiety, 1 tab(s) Oral at bedtime and as needed for anxiety, # 40 tab(s), Refills(s) 0, Pharmacy: [id number], 169, cm, 09/28/24 10:16:00 EST, Height/Length Dosing, 65.7, kg, 09/28/24 10:16:00 EST, Weight Dosing alprazolam, 1 mg = 1 tab(s), Oral, BID, PRN for anxiety, # 60 tab(s), Refills(s) 0, Pharmacy: [id number], 169, cm, 12/22/24 14:54:00 EST, Height/Length Dosing, 67.5, kg, 12/22/24 14:54:00 EST, Weight Dosing Lipid Panel Follow-up No qualifying data available Problem List/Past Medical History Ongoing Anxiety BMI 23.0-23.9, adult Fatigue Insomnia Long-term current use of opiate analgesic drug Parkinson's disease Pure hypercholesterolemia Slow transit constipation Thrombocytopenia Tubular adenoma of colon Weakness Historical No qualifying data Procedure/Surgical History Colonoscopy (12/17/2022), Cataract Extraction with IOL placement - OD. (02/24/2017), Colonoscopy (02/20/2011), Vasectomy. Medications alprazolam 1 mg Tab, 1 mg= 1 tab(s), Oral, BID, PRN carbidopa-levodopa 25 mg-100 mg Tab, 1 tab(s), Oral, TID LORazepam 0.5 mg Tab, 1.5 mg, As Directed LORazepam 0.5 mg Tab, See Instructions Metamucil 3.4 g/5.2 g oral powder, 1.7 gm, Oral, TID, PRN organic helena Benito Stool Softener, 100 mg, Oral, Daily ropinirole 0.25 mg Tab, 0.25 mg= 1 tab(s), Oral, TID Allergies No Known Allergies No Known Medication Allergies Social History Alcohol - Denies Alcohol Use, 11/18/2022 Never, 12/22/2024 Substance Abuse - Denies Substance Abuse, 11/18/2022 Never, 12/22/2024 Tobacco - No Risk, 12/23/2023 Never (less than 100 in lifetime) Tobacco Use:., 12/22/2024 Family History Brain tumor: Sister. Cardiac arrest: Mother. Heart disease: Brother. Primary malignant neoplasm of lung: Father. Immunizations Vaccine Date Status Comments influenza virus vaccine, inactivated - Not Given Patient Refuses influenza virus vaccine, inactivated - Not Given Patient Refuses SARS-CoV-2 (COVID-19) mRNA BNT-162b2 vax 10/06/2021 Recorded SARS-CoV-2 (COVID-19) mRNA BNT-162b2 vax 01/20/2021 Recorded SARS-CoV-2 (COVID-19) mRNA BNT-162b2 vax 12/28/2020 Recorded 2022-11-18: [id number] pneumococcal 13-valent vaccine 09/20/2020 Recorded Result Comment: Electronical ly Signed By: Radha Poole\.br\Date and Time Signed: 12/22/24 15:38 EST AMBULATORY VISIT SUMMARY Observed: 12/22 3:34 PM Status: F Source: [facility] Ambulatory Visit Summary QUINTEN HUITRON :1950 Visit Date:12/22/2024 Ambulatory Visit Instructions Your Diagnosis Insomnia Your Care Team Attending Physician - Radha Poole Primary Care Physician - Radha Poole This Is Your Medications List Non-Formulary Medication (organic lions louis) alprazolam (alprazolam 1 mg Tab) carbidopa-levodopa (carbidopa-levodopa 25 mg-100 mg Tab) docusate (Benito Stool Softener) lorazepam (LORazepam 0.5 mg Tab) psyllium (Metamucil 3.4 g/5.2 g oral powder) ropinirole (ropinirole 0.25 mg Tab) Procedures Performed Colonoscopy (12/17/2022), Cataract Extraction with IOL placement - OD. (02/24/2017), Colonoscopy (02/20/2011), Vasectomy. What to do next Scheduled Follow-Up Appointments Thursday 10:00 AM EDT With: Where: [address] [id number]- Thursday 9:40 AM EDT With: Radha Poole Where: [address] [id number]- [id number] 11:00 AM EDT With: Where: [address] [id number]- You Need to Complete the Following Lipid Panel, Blood, Routine collect, 12/22/24, Order for future visit, Lab Collect, Pure hypercholesterolemia, Required & Missing, Print Label By Order Location Medications What How Much When Instructions New alprazolam (alprazolam 1 mg Tab) 1 Tablets By Mouth 2 times a day as needed for for anxiety Pickup at [facility] Unchanged carbidopa-levodopa (carbidopa-levodopa 25 mg-100 mg Tab) 1 Tablets By Mouth 3 times a day Unchanged docusate (Benito Stool Softener) 100 Milligram By Mouth Every day Unchanged lorazepam (LORazepam 0.5 mg Tab) 1.5 Milligram As Directed prn Unchanged Non-Formulary Medication (organic lions louis) Unchanged psyllium (Metamucil 3.4 g/ 5.2 g oral powder) 1.7 Gram By Mouth 3 times a day as needed for for constipation Unchanged ropinirole (ropinirole 0.25 mg Tab) 1 Tablets By Mouth 3 times a day Pharmacy Information [id number]: [address] [place], [place] [id number] [phone] Allergies No Known Allergies No Known Medication Allergies Problems Ongoing - Any problem that you are currently receiving treatment for. Anxiety BMI 23.0-23.9, adult Fatigue Insomnia Long-term current use of opiate analgesic drug Parkinson's disease Pure hypercholesterolemia Slow transit constipation Thrombocytopenia Tubular adenoma of colon Weakness Patient Survey You may receive a survey via text or e-mail asking about your office visit. Please share your experience with us by completing your survey. We appreciate your feedback and thank you for choosing us for your care. PHU Observed: 11/17/2024 12:00 AM Status: COMPLETED Source: [facility] Telephone ([id number]) QUINTEN HUITRON ([id number]) 1950 M Date Time Provider Department 11/17/24 MARIAH [id number] During your visit today, we recorded the following information about you: Paula Franklin 11/17/2024 12:02 PM Signed Patient has been referred from an outside provider for DBS evaluation clinic. Medical records need to be triaged. Records have been uploaded to the chart under scanned documents. Ayaan Paula RN 11/17/2024 1:12 PM Signed Triaged, based off available medical records, diagnosis looks relatively new and consult with movement disorders recommended. 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 Last night he did not to sleep until 6 am this morning woke up 7 a.m. They have questions for the Alprazolam not working either, patient says the dose is not strong enough History of Present Illness pt presents today with continued insomnia, anxiety. Review of Systems PHQ Score Initial Depression Screen Score: 1 SCORE Physical Exam Vitals & Measurements T: 36.7 ???C(Oral) HR: 78(Peripheral) RR: 18 BP: 116/74 SpO2: 97% HT: 67 in HT: 169.0 cm WT: 65.7 kg WT: 144.844 lb BMI: 23 General: alert, no acute distress ENMT: oral mucosa moist, no pharyngeal erythema or exudate Cardiovascular: regular rate and rhythm, normal peripheral perfusion Respiratory: Lungs CTA, respirations non labored Extremities: no deformity, no trauma Neurological: oriented x 4, LOC appropriate for age, CN II-XII intact, motor strength equal & normal bilaterally, speech normal tremors Assessment/Plan 1. Insomnia (G47.00: Insomnia, unspecified) at last visit patient stated the alprazolam was not helping his sleep issue. we discontinued that, and started lorazepam at bedtime and as needed for dental procedures. pt states the lorazepam is not helping his sleep at all. it has made it worse. will d/c lorazepam at bedtime. and restart alprazolam 1mg at bedtime and as needed for anxiety. new medication agreement signed in office today. RTC 3 months 2. Anxiety (F41.9: Anxiety disorder, unspecified) will order lorazepam 3 times 30 minutes prior to dental procedures. they will call 2 weeks prior to next dental visit for refill. 3. Non-smoker (Z78.9: Other specified health status) continue not smking Ordered: Body Mass Index (BMI) documented 3008F Current tobacco non-user 1036F Depression Screening Negative 3352F Influenza immunization status assessed 1030F Most recent diastolic blood pressure <80 mm Hg 3078F Patient screen for fall risk: no falls in last year or 1 fall with no injury in last year 1101F Systolic BP <130 mm Hg (Most Recent) 3074F 4. BMI 23.0-23.9, adult (Z68.23: Body mass index [BMI] 23.0-23.9, adult) BMI education Ordered: Body Mass Index (BMI) documented 3008F Current tobacco non-user 1036F Depression Screening Negative 3352F Influenza immunization status assessed 1030F Most recent diastolic blood pressure <80 mm Hg 3078F Patient screen for fall risk: no falls in last year or 1 fall with no injury in last year 1101F Systolic BP <130 mm Hg (Most Recent) 3074F Orders: alprazolam, See Instructions, PRN for anxiety, 1 tab(s) Oral at bedtime and as needed for anxiety, # 40 tab(s), Refills(s) 0, Pharmacy: [facility], 169, cm, 09/28/24 10:16:00 EST, Height/Length Dosing, 65.7, kg, 09/28/24 10:16:00 EST, Weight Dosing lorazepam, See Instructions, 3 tabs 30 minutes prior to procedure., # 6 tab(s), Refills(s) 0, Pharmacy: [facility], 169, cm, 09/28/24 10:16:00 EST, Height/Length Dosing, 65.7, kg, 09/28/24 10:16:00 EST, Weight Dosing lorazepam, 0.5 mg = 1 tab(s), Oral, Bedtime, also can be taken 30 minutes prior to procedure, # 40 tab(s), Refills(s) 0, Pharmacy: [facility], 169, cm, 09/09/24 11:27:00 EST, Height/Length Dosing, 66, kg, 09/09/24 11:27:00 EST, Weight Dosing Follow-up No qualifying data available Problem List/Past Medical History Ongoing Anxiety BMI 23.0-23.9, adult BMI 24.0-24.9, adult Fatigue Insomnia Long-term current use of opiate analgesic drug Parkinson's disease Pure hypercholesterolemia Slow transit constipation Thrombocytopenia Tubular adenoma of colon Weakness Historical No qualifying data Procedure/Surgical History Colonoscopy (12/17/2022), Cataract Extraction with IOL placement - OD. (02/24/2017), Colonoscopy (02/20/2011), Vasectomy. Medications alprazolam 1 mg Tab, See Instructions, PRN carbidopa-levodopa 25 mg-100 mg Tab, 1 tab(s), Oral, TID LORazepam 0.5 mg Tab, See Instructions Metamucil 3.4 g/5.2 g oral powder, 1.7 gm, Oral, TID, PRN Benito Stool Softener, 100 mg, Oral, Daily ropinirole 0.25 mg Tab, 0.25 mg= 1 tab(s), Oral, TID Allergies No Known Allergies No Known Medication Allergies Social History Alcohol - Denies Alcohol Use, 11/18/2022 Never., 09/28/2024 Substance Abuse - Denies Substance Abuse, 11/18/2022 Never., 09/28/2024 Tobacco - No Risk, 12/23/2023 Never (less than 100 in lifetime) Tobacco Use:., 09/28/2024 Family History Brain tumor: Sister. Cardiac arrest: Mother. Heart disease: Brother. Primary malignant neoplasm of lung: Father. Immunizations Vaccine Date Status Comments influenza virus vaccine, inactivated - Not Given Patient Refuses SARS-CoV-2 (COVID-19) mRNA BNT-162b2 vax 10/06/2021 Recorded SARS-CoV-2 (COVID-19) mRNA BNT-162b2 vax 01/20/2021 Recorded SARS-CoV-2 (COVID-19) mRNA BNT-162b2 vax 12/28/2020 Recorded 2022-11-18: TPV65 pneumococcal 13-valent vaccine 09/20/2020 Recorded Result Comment: Electronical ly Signed By: Radha Poole\.br\Date and Time Signed: 09/28/24 12:56 EST AMBULATORY VISIT SUMMARY Observed: 09/28 10:59 AM Status: F Source: [facility] Ambulatory Visit Summary QUINTEN HUITRON :1950 Visit Date:09/28/2024 Ambulatory Visit Instructions Your Diagnosis Non-smoker BMI 23.0-23.9, adult Your Care Team Attending Physician - Radha Poole Primary Care Physician - Radha Poole This Is Your Medications List carbidopa-levodopa (carbidopa-levodopa 25 mg-100 mg Tab) docusate (Benito Stool Softener) lorazepam (LORazepam 0.5 mg Tab) psyllium (Metamucil 3.4 g/5.2 g oral powder) ropinirole (ropinirole 0.25 mg Tab) Procedures Performed Colonoscopy (12/17/2022), Cataract Extraction with IOL placement - OD. (02/24/2017), Colonoscopy (02/20/2011), Vasectomy. Discharge Vitals Temperature (Oral) 36.7 ???C Heart Rate (Peripheral) 78 Respiratory Rate 18 Blood Pressure 116/74 Height 169.0 cm Height 67 in Weight 65.7 kg Weight 144.844 lb BMI 23 What to do next Scheduled Follow-Up Appointments 2024 2:30 PM EST With: Where: [address] [address]- 2024 3:20 PM EST With: Radha Poole Where: [address] [address]- Medications What How Much When Instructions Unchanged carbidopa-levodopa (carbidopa-levodopa 25 mg-100 mg Tab) 1 Tablets By Mouth 3 times a day Unchanged docusate (Benito Stool Softener) 100 Milligram By Mouth Every day Unchanged lorazepam (LORazepam 0.5 mg Tab) 1 Tablets By Mouth At bedtime also can be taken 30 minutes prior to procedure Unchanged psyllium (Metamucil 3.4 g/ 5.2 g oral powder) 1.7 Gram By Mouth 3 times a day as needed for for constipation Unchanged ropinirole (ropinirole 0.25 mg Tab) 1 Tablets By Mouth 3 times a day Allergies No Known Allergies No Known Medication Allergies Problems Ongoing - Any problem that you are currently receiving treatment for. BMI 23.0-23.9, adult BMI 24.0-24.9, adult Fatigue Insomnia Long-term current use of opiate analgesic drug Parkinson's disease Pure hypercholesterolemia Slow transit constipation Thrombocytopenia Tubular adenoma of colon Weakness Patient Survey You may receive a survey via text or e-mail asking about your office visit. Please share your experience with us by completing your survey. We appreciate your feedback and thank you for choosing us for your care. FAMILY MEDICINE OFFICE/CLINI C NOTE Observed: 09/09/2024 12:42 PM Status: F Source: [facility] Medicine Office/Clini c Note Chief Complaint follow up meds HPI Staff Quinten is a 74 year old male presenting with 3 month followup to taking Xanax QHS & prior to Neuro appts. Pt states he is still taking the Ativan before dental appts )once every 3m) States the Xanax does not work for his tremors prior to appt. Does take the Xanax prior to bed. Would like to discuss possible stronger. States he needs refill of lorazepam. Updated Med agreement signed today. History of Present Illness pt presents today for 3 month follow up. Review of Systems PHQ Score Initial Depression Screen Score: 0 SCORE Physical Exam Vitals & Measurements T: 36.8 ???C(Tympanic) HR: 81(Peripheral) RR: 18 BP: 110/70 SpO2: 99% HT: 67 in HT: 169 cm WT: 65.95 kg WT: 145.395 lb BMI: 23.09 General: alert, no acute distress ENMT: oral mucosa moist, no pharyngeal erythema or exudate Cardiovascular: regular rate and rhythm, normal peripheral perfusion Respiratory: Lungs CTA, respirations non labored Extremities: no deformity, no trauma Neurological: oriented x 4, LOC appropriate for age, CN II-XII intact, motor strength equal & normal bilaterally, speech normal Assessment/Plan 1. Insomnia (G47.00: Insomnia, unspecified) pt still having trouble sleeping is asking to increase Xanax. discussed stopping Xanax and just taking the Ativan at bedtime. pt is agreeable to this plan. all question answered. RTC 3 months 2. Parkinson's disease (G20.A1: Parkinson's disease without dyskinesia, without mention of fluctuations) followed by neurology 3. BMI 23.0-23.9, adult (Z68.23: Body mass index [BMI] 23.0-23.9, adult) BMI education given 4. Non-smoker (Z78.9: Other specified health status) continue not smoking Orders: lorazepam, 0.5 mg = 1 tab(s), Oral, Bedtime, also can be taken 30 minutes prior to procedure, # 40 tab(s), Refills(s) 0, Pharmacy: [facility], 169, cm, 09/09/24 11:27:00 EST, Height/Length Dosing, 66, kg, 09/09/24 11:27:00 EST, Weight Dosing lorazepam, See Instructions, TAKE 3 TABLETS BY MOUTH 30 MINUTES PRIOR TO PROCEDURE, # 6 tab(s), Refills(s) 0, Pharmacy: [facility], 169, cm, 06/10/24 8:35:00 EDT, Height/Length Dosing, 61.9, kg, 06/10/24 8:35:00 EDT, Weight Dosing Follow-up No qualifying data available Problem List/Past Medical History Ongoing BMI 23.0-23.9, adult BMI 24.0-24.9, adult Fatigue Insomnia Long-term current use of opiate analgesic drug Parkinson's disease Pure hypercholesterolemia Slow transit constipation Thrombocytopenia Tubular adenoma of colon Weakness Historical No qualifying data Procedure/Surgical History Colonoscopy (12/17/2022), Cataract Extraction with IOL placement - OD. (02/24/2017), Colonoscopy (02/20/2011), Vasectomy. Medications carbidopa-levodopa 25 mg-100 mg Tab, 1 tab(s), Oral, TID entacapone 200 mg Tab LORazepam 0.5 mg Tab, 0.5 mg= 1 tab(s), Oral, Bedtime Metamucil 3.4 g/5.2 g oral powder, 1.7 gm, Oral, TID, PRN Benito Stool Softener, 100 mg, Oral, Daily ropinirole 0.25 mg Tab, 0.25 mg= 1 tab(s), Oral, TID Allergies No Known Allergies No Known Medication Allergies Social History Alcohol - Denies Alcohol Use, 11/18/2022 Household alcohol concerns: No., 12/23/2023 Substance Abuse - Denies Substance Abuse, 11/18/2022 Tobacco - No Risk, 12/23/2023 Never (less than 100 in lifetime) Tobacco Use:. Never Smokeless Tobacco Use:. Cigarettes, Household tobacco concerns: No. Yes, 09/09/2024 Family History Brain tumor: Sister. Cardiac arrest: Mother. Heart disease: Brother. Primary malignant neoplasm of lung: Father. Immunizations Vaccine Date Status Comments influenza virus vaccine, inactivated - Not Given Patient Refuses SARS-CoV-2 (COVID-19) mRNA BNT-162b2 vax 10/06/2021 Recorded SARS-CoV-2 (COVID-19) mRNA BNT-162b2 vax 01/20/2021 Recorded SARS-CoV-2 (COVID-19) mRNA BNT-162b2 vax 12/28/2020 Recorded 2022-11-18: TPV65 pneumococcal 13-valent vaccine 09/20/2020 Recorded Result Comment: Electronical ly Signed By: Radha Poole\.nichole\Date and Time Signed: 09/09/24 12:42 EST ALLERGIES DATE TYPE / CODE NAME / CODE REACTION SEVERITY SOURCE [id number](SNOME D CT) No Known Allergies [facility] [id number](SNOME D CT) No Known Medication Allergies [facility] ENCOUNTERS ADMIT/DISCHARGE ACCOUNT NUMBER ADMITTING ENCOUNTER CLASS LOCATION SOURCE 06/29/2025 [id number] Kellie, CHANNEL MARKETING SPECIALIST Radha L Ambulatory [facility] 06/29/2025/06/29/20 [id number] Kellie, CHANNEL MARKETING SPECIALIST Radha L Ambulatory FTBuilding :[facility] 06/29/2025/06/29/20 [id number] Ambulatory [place]FT [facility] 03/29/2025/03/29/20 25 [id number] Ambulatory FT [facility] [place] : [id number] [facility] 03/22/2025/03/22/20 25 [id number] Ambulatory FT [facility] [place]:FT [facility] 03/02/2025/03/02/20 [id number] [facility] 12/26/2024 [id number] Kellie, CHANNEL MARKETING SPECIALIST Radha L Ambulatory FTBuilding :[facility] 12/26/2024/12/27/19 25 [id number] Kellie, CHANNEL MARKETING SPECIALIST Radha L Ambulatory FTBuilding :[facility] 12/26/2024/12/27/19 [id number] Ambulatory FT [facility] [place]:FT [facility] 12/22/2024/12/23/19 25 [id number] Ambulatory FT [facility] [place]:FT [facility] : [id number] [facility] 12/22/2024/12/23/19 25 [id number] Ambulatory FT [facility] [place]:FT [facility] 11/16/2024/11/16/19 25 [id number] Ambulatory Building:[facility] 09/28/2024/09/28/20 24 [id number] Ambulatory FT [facility] [place]:FT [facility] [place] : [id number] [facility] 09/26/2024/09/26/20 24 [id number] Ambulatory Building:[facility] 09/09/2024/09/09/20 24 [id number] Ambulatory FT SANTOSH Marino ding:SCOTT Garcia : CD:[id number] [facility] 08/31/2024/08/31/20 24 [id number] Ambulatory Building:[facility] EPIC PAYERS ENCOUNTER GUARANTOR PAYER SUBSCRIBER SOURCE 06/29/2025 QUINTEN PANDEYLuis Miguel: N MAIN STTel: ~([phone] (HP) Primary Insurance:HUMANAPolicy Number: [id number] Date:[id number] [address]HE: [facility]/29/2025 QUINTEN PANDEYB: N MAIN STTel: ~([phone] (HP) Primary Insurance:HUMANAPolicy Number: [id number] Date:[id number] [address]HX: QUINTEN SUAREZ [facility] 06/29/2025 QUINTEN PANDEYB: [id number] N MAIN STTel: ~([phone] (HP) Primary Insurance:HUMANAPolicy Number: [id number] Date:8995-78-17OO [address] [address]DX: QUINTEN SUAREZ [facility] 03/29/2025 QUINTEN PANDEYB: [id number] N MAIN STTel: ~([phone] (HP) Primary Insurance:HUMANAPolicy Number: [id number] Date:4046-42-18DF [address] [address]FG: [facility] M [facility] 03/22/2025 QUINTEN RAYA: N MAIN STTel: ~([phone] (HP) Primary Insurance:HUMANAPolicy Number: [id number] Date:2997-77-94IQ [address] [address]KH: QUINTEN SUAREZ [facility] 03/02/2025 Primary Insurance:HUMANA MEDICARE PPOPolicy Number: [id number] Date:[id number] Name:Hector RAYA: [id number] [place] [address] [facility] 12/26/2024 QUINTEN RAYA: N MAIN STTel: ~([phone] (HP) Primary Insurance:HUMANAPolicy Number: [id number] Date:5611-61-50HK [address] [address]CC: QUINTEN SUAREZ [facility] 12/26/2024 QUINTEN PANDEYB: N MAIN STTel: ~([phone] (HP) Primary Insurance:HUMANAPolicy Number: [id number] Date:[id number] [address]LP: QUINTEN SUAREZ [facility] 12/22/2024 QUINTEN PANDEYB: N MAIN STTel: ~([phone] (HP) Primary Insurance:HUMANAPolicy Number: [id number] Date:3829-98-39KI [address] [address]NE: QUINTEN SUAREZ [facility] 12/22/2024 QUINTEN PANDEYB: [id number] N MAIN STTel: ~([phone] (HP) Primary Insurance:HUMANAPolicy Number: [id number] Date:0375-14-63VE [address] [address]OF: QUINTEN SUAREZ [facility] 11/16/2024 QUINTEN PANDEYB: [place] [address]Nsz: (HP) Primary Insurance:HUMANA MEDICARE ADVANTAGEPolicy Number: [id number] Date:2023-10-19 QUINTEN PANDEYB: [id number] NGinny [facility] [address] [facility] 09/28/2024 QUINTEN PANDEYB: N MAIN STTel: ~([phone] (HP) Primary Insurance:HUMANAPolicy Number: [id number] Date:1022-07-68BK [address] [address]UU: [facility] 09/26/2024 QUINTEN PANDEYB: NGinny [facility] [place]MarisLA [place], [place] [address]Qkk: (HP) Primary Insurance:HUMANA MEDICARE ADVANTAGEPolicy Number: [id number] Date:2023-10-19 QUINTEN PANDEYB: [id number] [place] [address] [facility] 09/09/2024 QUINTEN PANDEYB: N MAIN STTel: ~[phone] (HP) Primary Insurance:HUMANAPolicy Number: [id number] Date:[id number] [address]QB: [facility] 08/31/2024 QUINTEN HUITRONB: NGinny [place], [place] [address]Zio: () Primary Insurance:HUMANA MEDICARE ADVANTAGEPolicy Number: [id number] Date:2023-10-19 QUINTEN RAYA: [id number] [place] [address] [facility] EPIC
[2025-07-17 19:31] VITALS: BP 135/83; PULSE 82; TEMP 36.4; O2SAT 95; BMI 21.9
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
[2025-07-17] MEDS: MORPHINE SULFATE 4 MG/ML VIAL IM (19:58)
[2025-07-17] MEDS: ONDANSETRON 4 MG RAPDIS TABLET SL (19:59)
[2025-07-17 20:47] VITALS: BP 132/78; O2SAT 95
== END 2025-07-17 20:50 | disposition home or self-care (01) ==
PROVIDERS: Emergency Provider Emergency Medicine
DX: S32.591A Other specified fracture of right pubis, initial encounter for closed fracture (principal); W18.39XA Other fall on same level, initial encounter; G20.A1 Parkinson's disease without dyskinesia, without mention of fluctuations; Y92.008 Other place in unspecified non-institutional (private) residence as the place of occurrence of the external cause; N40.0 Benign prostatic hyperplasia without lower urinary tract symptoms; N21.0 Calculus in bladder
CPT/HCPCS: 73700; 76376; 96372; 99285; J2270; Q0162

== ENCOUNTER 2025-07-21 15:48 | Inpatient (IN) | payer MEDICARE, SELFPAY ==
[2025-07-21] VITALS (7 sets, daily range): BP systolic 120–144; BP diastolic 70–80; PULSE 60–96; TEMP 36.5–37.4; O2SAT 92–96; BMI 21.9; BMI 22.3
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
[2025-07-21] MEDS: MORPHINE SULFATE 4 MG/ML VIAL IV (16:18)
[2025-07-21] MEDS: KETOROLAC TROMETHAMINE 30 MG/ML VIAL 15 MG IVP (16:18)
[2025-07-21 16:20] LABS: Hematocrit 44.0 % (42.0-54.0); Hemoglobin 15.2 g/dL (14.0-18.0); Immature Granulocytes Abs Auto 0.04 10^3/uL (0.00-0.03); Immature Granulocytes Pct Auto 0.4 % (0.0-0.5); Lymphocytes Absolute Auto 1.1 10^3/uL (1.2-3.8); Mean Corpuscular HGB Conc 34.5 g/dL (29.9-35.2); Mean Corpuscular Hemoglobin 31.6 pg (25.9-34.0); Mean Corpuscular Volume 91.5 fL (80.0-94.0); Platelet Count 118 10^3/uL (150-450); Red Blood Count 4.81 10^6/uL (4.70-6.10); White Blood Count 9.6 10^3/uL (4.0-11.0)
--- OUTSIDE RECORDS SUMMARY | 2025-07-21 16:27 | XMS_ITS | CCD ---
Author Organization [facility] Care Team Providers Care 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 Name Role Phone DIANELYS GRANT Admitting Unavailable NILL, DIANELYS Attending Unavailable VILLARREAL ., DR JOSE Pollock Primary Care Unavailable DIANELYS GRANT Consulting Unavailable THERESAMAIDA Consulting Unavailable CHELO II, NISHANT Consulting Unavailable VILLARREAL ., DR JOSE Pollock Admitting Unavailable VILLARREAL ., DR JOSE Pollock Attending Unavailable VILLARREAL ., DR JOSE Pollock Primary Care Unavailable VILLARREAL ., DR JOSE Pollock Consulting Unavailable JOSE VILLARREAL Primary Care Physician [phone] Torey Diaz Primary Care Physician Apoorva OD, Murphy Unavailable Dieudonne FARM ASSISTANT, Urbano Unavailable Wesly Schwartz DO Unavailable [phone] Radha Hopkins MD Unavailable Unallocated , Noms Provider Primary Care Provi sagar Dieudonne MELENDEZ, Urbano Unavailable URBANO BRO Attending Unavailable SHERYL HAM Attending Unavailable URBANO BRO Attending Unavailable URBANO BRO Attending Unavailable URBANO BRO Attending Unavailable Radha Hopkins Primary Care Physician Radha Hopkins Attending Unavailable Kellie, Radha Hernandez Attending Unavailable Kellie, Radha Hernandez Attending Unavailable Kellie, Radha Hernandez Attending Unavailable Kellie, Radha Hernandez Admitting Unavailable Kellie, Radha Hernandez Attending Unavailable MARTIN LAMAR Attending Unavailable Kellie, Radha Hernandez Attending Unavailable Kellie, Radha Hernandez Attending Unavailable Kellie, Radha Hernandez Attending Unavailable Kellie, Radha Hernandez Attending Unavailable Kellie, Radha Hernandez Admitting Unavailable Kellie, Radha Hernandez Attending Unavailable Kellie, Radha Hernandez Attending Unavailable Kellie, Radha Hernandez Admitting Unavailable Kellie, Radha L Attending Unavailable Kellie, Radha L Attending Unavailable Kellie, CHANGE AGENT Radha L Attending Unavailable Kellie, CHANGE AGENT Radha L Admitting Unavailable Kellie, CHANGE AGENT Radha L Attending Unavailable Kellie, CHANGE AGENT Radha L Attending Unavailable Kellie, CHANGE AGENT Radha L Attending Unavailable Kellie, CHANGE AGENT Radha L Admitting Unavailable Kellie, CHANGE AGENT Radha L Attending Unavailable Kellie, Radha L Attending Unavailable Kellie, Radha L Admitting Unavailable Allergies Allergy Classification Reported Allergen(s) Allergy Type Date of Onset Reaction(s) Facility (4 sources) No Known Medication Allergies; Translations: [No Known Medication Allergies] Propensity to adverse reactions (disorder) [facility] Repository Medications Current Medications Medication Drug Class(es) Dates Sig (Normalized) Sig (Original) ALPRAZolam 1 mg oral tablet (13 sources) Benzodiazepine Start: 12-22-2024 take 1 tablet by mouth twice daily as needed for anxiety alprazolam 1 mg Tab 1 mg = 1 tab(s), Oral, BID, PRN for anxiety, # 60 tab(s), Refills(s) 0, Pharmacy: [id number], 169, cm, 12/22/24 14:54:00 EST, Height/Length Dosing, 67.5, kg, 12/22/24 14:54:00 EST, Weight Dosing Start Date: 12/22/24 Status: Ordered Start: 11-03-2024 take 1 tablet by bubba th once daily at bedtime as needed for anxiety ALPRAZolam (Xanax) 1 MG tablet TAKE 1 TABLET BY MOUTH ONCE DAILY AT BEDTIME and NEEDED FOR ANXIETY 11/03/2024 Active Start: 05-23-2024 take 1 tablet by bubba th three times daily as needed for anxiety ALPRAZolam (Xanax) 0.5 MG tablet Take 0.5 mg by mouth 3 (three) times a day as needed for anxiety 05/23/2024 Active Start: 03-30-2024 take 1 tablet by bubba th three times daily as needed for anxiety alprazolam 0.5 mg Tab 0.5 mg = 1 tab(s), Oral, TID, PRN for anxiety, # 30 tab(s), Refills(s) 0, Pharmacy: [id number], 169, cm, 03/30/24 10:19:00 EDT, Height/Length Dosing, 62.4, kg, 03/30/24 10:19:00 EDT, Weight Dosing Start Date: 03/30/24 Status: Ordered carbidopa 25 mg / levodopa 100 mg oral tablet (15 sources) Aromatic Amino Acid Decarboxylation Inhibitor, Aromatic Amino Acid Start: 11-12-2022 End: 09-26-2024 carbidopa-levodopa (Sinemet) 25-100 MG tablet Indications: Parkinson's disease without dyskinesia or fluctuating manifestations (CMS/HCC) Take 2 tablets by mouth 3 times per day (8 am, 12 pm, and 4 pm) 540 tablet 1 09/26/2024 Active docusate sodium 100 mg oral tablet (2 sources) Start: 03-30-2024 take 100 mg by mouth once daily Benito Stool Softener 100 mg, Oral, Daily, Refills(s) 0 Start Date: 03/30/24 Status: Ordered entacapone 200 mg oral tablet (8 sources) Kodpbxvg-H-Swssjeuzo nsferase Inhibitor Start: 08-31-2024 take 1 tablet by mouth once daily entacapone (Comtan) 200 MG tablet Indications: Parkinson's disease without dyskinesia or fluctuating manifestations (CMS/HCC) Take 1 tablet (200 mg) by mouth Daily 30 tablet 2 08/31/2024 Active LORazepam 0.5 mg oral tablet (7 sources) Benzodiazepine Start: 12-22-2024 LORazepam 0.5 mg Tab See Instructions, 3 tab(s) 30 minutes prior to procedure or appointment, # 12 tab(s), Refills(s) 0, Pharmacy: [id number], 169, cm, 12/22/24 14:54:00 EST, Height/Length Dosing, 67.5, kg, 12/22/24 14:54:00 EST, Weight Dosing Start Date: 12/22/24 Status: Ordered Start: 09-09-2024 take 1 tablet by bubba th at bedtime LORazepam (Ativan) 0.5 MG tablet TAKE 1 TABLET BY MOUTH AT BEDTIME also can be taken 30 MINUTES ptp 09/09/2024 Active organic [place] (1 source) Start: 12-22-2024 organic [place] organic [place]is Start Date: 12/22/24 Status: Ordered Miralax (2 sources) Osmotic Laxative Start: 11-12-2022 take 17 g by mouth once daily MiraLax 17 gm, Oral, Daily, Refill(s) 0 Start Date: 11/12/22 Status: Ordered psyllium 3400 mg powder for oral suspension (2 sources) Start: 03-30-2024 Metamucil 3.4 g/5.2 g oral powder 1.7 gram, Oral, TID, PRN for constipation, # 1,042 gram, Refills(s) 0 Start Date: 03/30/24 Status: Ordered rOPINIRole 0.5 mg oral tablet (13 sources) Nonergot Dopamine Agonist Start: 04-18-2024 rOPINIRole (Requip) 0.5 MG tablet Indications: Parkinson's disease without fluctuating manifestations, unspecified whether dyskinesia present (CMS/HCC) TAKE 1 TABLET THREE TIMES DAILY 270 tablet 3 04/18/2024 Active Start: 11-12-2022 take 1 tablet by bubba th three times daily ropinirole 0.25 mg Tab 0.25 mg = 1 tab(s), Oral, TID, Refills(s) 0 Start Date: 11/12/22 Status: Ordered traMADol hydrochloride 50 mg oral tablet (9 sources) Opioid Agonist take 1 tablet by mouth once daily traMADol (Ultram) 50 MG tablet Take 50 mg by mouth Daily Active traZODone hydrochloride 100 mg oral tablet (10 sources) Serotonin Reuptake Inhibitor Start: take 1 tablet by mouth at bedtime traZODone (Desyrel) 100 MG tablet Take 100 mg by mouth at bedtime 09/19/2023 Active Start: 11-12-2022 take 1 tablet by bubba th once daily at bedtime traZODONE 100 mg Tab 100 mg = 1 tab(s), Oral, Once a day (at bedtime), Refills(s) 0 Start Date: 11/12/22 Status: Ordered vitamin B12 (9 sources) Vitamin B12 Cyanocobalamin ( B-12 PO) Take by mouth Active Completed/Discontinued Medications Medication Drug Class(es) Dates Sig (Normalized) Sig (Original) amantadine hydrochloride 100 mg oral tablet (3 sources) Influenza A M2 Protein Inhibitor Start: 06-02-2024 End: 08-31-2024 take 1 tablet by mouth once daily amantadine (Symmetrel) 100 MG tablet Indications: Parkinson's disease without dyskinesia or fluctuating manifestations (CMS/HCC) Take 1 tablet (100 mg) by mouth Daily 30 tablet 1 06/02/2024 08/31/2024 Discontinued (Ineffective) Problems Active Problems Problem Classification Problem Date Documented Da te Episodic/Chronic Anxiety disorders (1 source) Anxiety 09-28-2024 Chronic Cataract (18 sources) Age-related nuclear cataract of left eye; Translations: [Age-related nuclear cataract, left eye] Onset: 4 05-31-2024 Chronic Coagulation and hemorrhagic disorders (1 source) Thrombocytopenic disorder 06-09-2024 Chronic Comment on above: added per 06/09/2024 query response. Disorders of lipid metabolism (5 sources) Pure hypercholesterolemia, unspecified; Translations: [Pure hypercholesterolemia] Onset: 3 11-12-2022 Chronic Gastrointestinal hemorrhage (7 sources) Hemorrhage of anus and rectum; Translations: [Rectal hemorrhage] Onset: 3 Episodic Malaise and fatigue (8 sources) Other fatigue; Translations: [Asthenia] Onset: 3 Episodic Other aftercare (2 sources) Other snf (current) drug therapy; Translations: [OTH FOREIGN AGENT CURRENT DRUG THERAPY] Onset: 3 Episodic Other and unspecified benign neoplasm (1 source) Benign neoplasm of ascending colon; Translations: [BENIGN NEOPLASM OF ASCENDING COLON] Onset: 3 Episodic Other and unspecified benign neoplasm (5 sources) Benign neoplasm of ascending colon; Translations: [Benign neoplasm of ascending colon] Onset: 3 Episodic Other gastrointestinal disorders (1 source) Slow transit constipation; Translations: [SLOW TRANSIT CONSTIPATION] Onset: 3 Episodic Other gastrointestinal disorders (4 sources) Slow transit constipation 11-12-2022 Episodic Other gastrointestinal disorders (13 sources) Dysphagia; Translations: [Dysphagia, unspecified] Onset: 4 05-26-2024 Episodic Other nutritional; endocrine; and metabolic disorders (4 sources) Weight loss; Translations: [Abnormal weight loss] 08-31-2024 Episodic Parkinson`s disease (7 sources) Parkinson's disease; Translations: [Parkinson's disease] Onset: 3 11-12-2022 Chronic Parkinson`s disease (1 source) Parkinson`s disease; Translations: [Parkinson's disease without dyskinesia or fluctuating manifestations (HCC)] Onset: 5 Residual codes; unclassified (1 source) Insomnia, unspecified; Translations: [INSOMNIA UNSPECIFIED] Onset: 3 Episodic Residual codes; unclassified (4 sources) Insomnia 11-12-2022 Episodic Residual codes; unclassified (1 source) Sleep disorder, unspecified; Translations: [Disturbance in sleep behavior] Onset: 5 Episodic Unclassified (9 sources) Parkinsonism; Translations: [Parkinsonism] Onset: 4 05-26-2024 Chronic Unclassified (15 sources) Parkinson's disease; Translations: [Parkinson disease] Onset: 4 05-26-2024 Chronic Unclassified (4 sources) Body mass index 20-24 - normal 11-18-2022 Unclassified (1 source) Long-term current use of opiate analgesic drug Onset: 4 09-09-2024 Comment on above: Added secondary to c urrent Opioid Treatment Agreement Past or Other Problems Problem Classification Problem Date Documented Da te Episodic/Chronic Other nervous system disorders (9 sources) Tremor; Translations: [Tremor, unspecified] Onset: 05-26-2024 05-26-2024 Episodic Results Test Name Value Interpretation Reference Range Facility Reminderson 07-03-2025 Reminders Reminders From: Radha Poole To: [facility] - [...] 20.6 % (14.0 - 50.0) 06/29/2025 10:57 Miner Auto 8.7 % (4.0 - 14.0) 06/29/2025 10:57 Eos Auto 1.7 % (0.0 - 8.0) 06/29/2025 10:57 Basophil Auto 0.6 % (0.0 - 2.0) 06/29/2025 10:57 Neutro Absolute 5.2 E9/L (2.0 - 7.5) 06/29/2025 10:57 Lymph Absolute 1.6 E9/L (1.0 - 4.0) 06/29/2025 10:57 Miner Absolute 0.7 E9/L (0.2 - 1.0) 06/29/2025 [...] message Patient notified with a clear understanding. Normal [facility] Ambulatory Visit Summaryon 0 06-29-2025 Ambulatory Visit Summary Ambulatory Visit Summary QUINTEN HUITRON :1950 Visit [...] 10:20 AM EST With: Radha Poole Where: [address] [id number] 11:00 AM EDT With: Where: [address] [address]- Medications What How Much When Why Instructions New alprazolam (alprazolam 1 mg Tab) 1 Tablets By Mouth 2 times a day as needed for for anxiety Pickup at [id number] Unchanged carbidopa-levodopa (carbidopa-levodopa 25 mg-100 mg [...] Mouth 3 times a day Pharmacy Information [id number]: [address] [place] [id number] [phone] Allergies No Known Allergies No Known Medication [...] signed up for this yet, please contact [employer] at [phone] to get signed up today. Language Information Language assistance services are available as needed. Normal [facility] CBC w/ Auto Diffon 5 Basophil Absolute 0.0 E9/L Normal 0.0-0.2 [facility] Comment on above: Performed By: #### 2 [id number] #### [facility] [address] [place] [address] Basophils/100 WBC (Bld) 0.6 % Normal 0.0-2.0 [facility] Comment on above: Performed By: #### 2 [id number] #### [facility] [address] [place] [address] Eos Absolute 0.1 E9/L Normal 0.0-0.5 [facility] Comment on above: Performed By: #### 2 [id number] #### [facility] [address] [place] [address] Eosinophils/100 WBC (Bld) 1.7 % Normal 0.0-8.0 [facility] Comment on above: Performed By: #### 2 [id number] #### [facility] [address] [place] [address] Erythrocyte distribution width (RBC) [Ratio] 13.8 % Normal 10.9-14.2 [facility] Comment on above: Performed By: #### 2 [id number] #### [facility] [address] [place] [address] Hematocrit (Bld) [Volume fraction] 46.9 % Normal 37.7-49.0 [facility] Comment on above: Performed By: #### 2 [id number] #### [facility] [address] [place] [address] Hemoglobin (Bld) [Mass/Vol] 16.0 g/dL Normal 13.5-17.5 [facility] Comment on above: Performed By: #### 2 [id number] #### [facility] [address] [place] [address] Lymph Absolute 1.6 E9/L Normal 1.0-4.0 [facility] Comment on above: Performed By: #### 2 [id number] #### [facility] [address] [place] [address] Lymphocytes/100 WBC (Bld) 20.6 % Normal 14.0-50.0 [facility] Comment on above: Performed By: #### 2 [id number] #### [facility] [address] [place] [address] MCH (RBC) [Entitic mass] 30.7 pg Normal 27.0-34.0 [facility] Comment on above: Performed By: #### 2 [id number] #### [facility] [address] [place] [address] MCHC (RBC) [Mass/Vol] 34.1 g/dL Normal 31.4-36.0 [facility] Comment on above: Performed By: #### 2 [id number] #### [facility] [address] [place] [address] MCV (RBC) [Entitic vol] 90.0 fL Normal 80.0-100.0 [facility] Comment on above: Performed By: #### 2 [id number] #### [facility] [address] [place] [address] Miner Absolute 0.7 E9/L Normal 0.2-1.0 [facility] Comment on above: Performed By: #### 2 379649 #### [facility] [address] [place] [address] Monocytes/100 WBC (Bld) 8.7 % Normal 4.0-14.0 [facility] Comment on above: Performed By: #### 2 [id number] #### [facility] [address] [place] [address] Neutro Absolute 5.2 E9/L Normal 2.0-7.5 [facility] Comment on above: Performed By: #### 2 [id number] #### [facility] [address] [place] [address] Neutro Auto 68.4 % Normal 36.0-75.0 [facility] Comment on above: Performed By: #### 2 [id number] #### [facility] [address] [place] [address] Platelet 145.0 E9/L Low 150.0-500.0 [facility] Comment on above: Performed By: #### 2 [id number] #### [facility] [address] [place] [address] Platelet mean volume (Bld) [Entitic vol] 10.6 fL Normal 6.4-10.8 [facility] Comment on above: Performed By: #### 2 [id number] #### [facility] [address] [place] [address] RBC 5.2 E12/L Normal 4.3-5.9 [facility] Comment on above: Performed By: #### 2 [id number] #### [facility] [address] [place] [address] WBC 7.6 E9/L Normal 4.0-11.0 [facility] Comment on above: Result Comment: Henna pheral smear review performed. Performed By: #### 2 [id number] #### [facility] [address] [place] [address] CMPon 06-29-2025 Albumin [Mass/Vol] 4.8 g/dL Normal 3.3-5.0 [facility] Comment on above: Performed By: #### 2 100529 #### [facility] [address] [place] [address] Albumin/Globulin [Mass ratio] 2.1 {ratio} Normal 1.1-2.2 [facility] Comment on above: Performed By: #### 2 [id number] #### [facility] [address] [place] [address] Alk Phos 57 Int._Unit/L Normal 21-98 [facility] Comment on above: Performed By: #### 2 [id number] #### [facility] [address] [place] [address] ALT 4 Int._Unit/L Low 6-46 [facility] Comment on above: Performed By: #### 2 [id number] #### [facility] [address] [place] [address] Anion gap [Moles/Vol] 11 mmol/L Normal 6-16 [facility] Comment on above: Performed By: #### 2 [id number] #### [facility] [address] [place] [address] AST 21 Int._Unit/L Normal 5-43 [facility] Comment on above: Performed By: #### 2 [id number] #### [facility] [address] [place] [address] Bili Total 1.0 mg/dL Normal 0.0-1.1 [facility] Comment on above: Performed By: #### 2 [id number] #### [facility] [address] [place] [address] BUN/Creat Ratio 22 No Units High 10-20 [facility] Comment on above: Performed By: #### 2 [id number] #### [facility] [address] [place] [address] Calcium [Mass/Vol] 9.6 mg/dL Normal 8.9-11.1 [facility] Comment on above: Performed By: #### 2 520503 #### [facility] [address] [place] [address] Chloride [Moles/Vol] 108 mmol/L Normal 101-111 [facility] Comment on above: Performed By: #### 2 [id number] #### [facility] [address] [place] [address] CO2 [Moles/Vol] 25 mmol/L Normal 21-31 [facility] Comment on above: Performed By: #### 2 [id number] #### [facility] [address] [place] [address] Creatinine [Mass/Vol] 1.0 mg/dL Normal 0.5-1.3 [facility] Comment on above: Performed By: #### 2 [id number] #### [facility] [address] [place] [address] Globulin (S) [Mass/Vol] 2.3 g/dL Normal 1.4-4.0 [facility] Comment on above: Performed By: #### 2 540512 #### [facility] [address] [place] [address] Glucose [Mass/Vol] 98 mg/dL Normal 55-199 [facility] Comment on above: Performed By: #### 2 635836 #### [facility] [address] [place] [address] Potassium [Moles/Vol] 4.5 mmol/L Normal 3.5-5.3 [facility] Comment on above: Performed By: #### 2 [id number] #### [facility] [address] [place] [address] Protein [Mass/Vol] 7.1 g/dL Normal 6.0-7.8 [facility] Comment on above: Performed By: #### 2 [id number] #### [facility] [address] [place] [address] Sodium [Moles/Vol] 139 mmol/L Normal 135-145 [facility] Comment on above: Performed By: #### 2 [id number] #### [facility] [address] [place] [address] Urea nitrogen [Mass/Vol] 22 mg/dL High 5-21 [facility] Comment on above: Performed By: #### 2 [id number] #### [facility] [address] [place] [address] Family Medicine Office/Clini c Noteon 06-29-2025 Family Medicine Office/Clinic Note Family Medicine Office/Clinic Note HPI Staff Quinten is a 75 year old male presenting with 3 month f/u Taking Alprazolam for anxiety/insomnia/tremor s Follow up for Mental Status: Medication adherence- [...] anxiety, # 60 tab(s), Refills(s) 0, Pharmacy: [id number], 169, cm, 03/29/25 11:10:00 EDT, Height/Length Dosing, 66.4, kg, 03/29/25 11:10:00 EDT, Weight Dosing alprazolam, 1 mg = 1 tab(s), Oral, BID, PRN for anxiety, # 60 tab(s), Refills(s) 0, Pharmacy: [facility], 169, cm, 06/29/25 9:57:00 EDT, Height/Length [...] 2022-11-18: TPV65 pneumococcal 13-valent vaccine 09/20/2020 Recorded Normal [facility] Comment on above: Result Comment: Elec tronically Signed By: Radha Poole\.br\Date and Time Signed: 06/29/25 10:26 EDT PSA Screen, Totalon 06-29-20 25 PSA Scrn Tot. 3.9 ng/mL High 0.1-3.5 [facility] Comment on above: Result Comment: The concentration of PSA determined by different manufacturers can vary due to differences in assay methods and reagent specificity. Values obtained from different assay methods cannot be used interchangeably. The methodology used for this result was chemiluminescence using [employer]'s Collabera Hybritech PSA reagent. Performed By: #### 1 [id number] #### [facility] [address] [place] [address] TSHon 06-29-2025 TSH Qn 0.99 m[IU]/L Normal 0.34-5.60 [facility] Comment on above: Performed By: #### 2 [id number] #### [facility] [address] [place] [address] Vit B12on 06-29-2025 Cobalamin (Vitamin B12) [Mass/Vol] 444 pg/mL Normal 50-1500 [facility] Comment on above: Performed By: #### 2 [id number] #### [facility] [address] [place] [address] eGFRon 06-29-2025 eGFR 79 mL/min/1.73 m2 Normal >=59 [facility] Comment on above: Performed By: #### 1 [id number] #### [facility] [address] [place] [address] Ambulatory Visit Summaryon 0 03-29-2025 Ambulatory Visit Summary Ambulatory Visit Summary QUINTEN HUITRON :1950 Visit [...] 9:40 AM EDT With: Radha Poole Where: [address] [phone] 11:00 AM EDT With: Where: [address] [address]- Medications What How Much When Why Instructions [...] you for choosing us for your care. Normal [facility] Family Medicine Office/Clini c Noteon 03-29-2025 Family Medicine Office/Clinic Note Family Medicine Office/Clinic Note HPI Staff 3mth fu to Insomnia, [...] unspecified) pt is taking alprazolam BID for anxiety/insomnia/tremor s. medication agreement up to date. will do drug screen at next visit. denies needs. RTC 3 months Ordered: lorazepam, See Instructions, 3 tab(s) 30 minutes prior to procedure or appointment, # 21 tab(s), Refills(s) 0, Pharmacy: [id number], 169, cm, 03/29/25 11:10:00 EDT, Height/Length Dosing, 66.4, kg, 03/29/25 11:10:00 EDT, Weight Dosing lorazepam, See Instructions, 3 tab(s) 30 minutes prior to procedure or appointment, # 12 tab(s), Refills(s) 0, Pharmacy: [facility], 169, cm, 12/22/24 14:54:00 EST, Height/Length [...] 2022-11-18: TPV65 pneumococcal 13-valent vaccine 09/20/2020 Recorded Normal [facility] Comment on above: Result Comment: Elec tronically Signed By: Kellie ISBELL, Radha Hernandez\.br\Date and Time Signed: 03/29/25 15:29 EDT Pre-Visit Planningon 025 Pre-Visit Planning Pre-Visit Planning From: Carmen Fortune RN To: [...] feel free to contact me at extension [phone]. Thank you! ARTIS Caba, RN, CCM, CCDS, CCDS-O CDI Refractive Surgeon [place] [address] P: [phone] F: [phone] [email or web address] From: Radha Poole To: Devika AMARO, Carmen; Sent: 03/22/2025 11:40:20 EDT Subject: RE: Pre-Visit Planning Caller Name: QUINTEN HUITRON; Caller Number: Kari , M He was a no show today. But Generalized anxiety disorder, tremors and insomnia Normal [facility] CNOVon 03-02-2025 [facility] Office Visit (NRESAV ) QUINTEN HUITRON ([id number]) 1950 M Date Time Provider Department 03/02/25 9:00 AM MARTIN LAMAR NRESAV During your visit today, we recorded the following information about you: Pulse Blood pressure 60/minute 104/62 Martin Lamar, DO 03/09/2025 2:57 PM Signed [facility] - NEW PATIENT EVALUATION Recording using TVShow Time software for draft documentation of the visit was discussed with the patient/authorized associate financial representative; all questions welcomed and answered. Patient/authorized associate financial representative agreed to proceed I had the [...] Eden Vitamin 1 capsule per mouth daily. carbidopa-levodopa [...] - Neurological: - Coordination: Mild dysmetria on stgzpu-qa-bcxz testing. - Motor: Rigidity noted. - Strength: [...] arm swing, shuffling steps, difficulty with turns, dec (more content not included)... Normal [facility] Ambulatory Visit Summaryon 0 12-26-2024 Ambulatory Visit Summary Ambulatory Visit Summary QUINTEN HUITRON :1950 Visit [...] Appointments Thursday 10:00 AM EDT With: Where: [address] [address]- Thursday 9:40 AM EDT With: Radha Poole Where: [address] [address]- Thursday2025 11:00 AM EDT With: Where: [address] [address]- You Need to Complete the Following Lipid [...] abnormal spots. What immunizations do I need? Vacc (more content not included)... Normal [facility] CHEMISTRYOrdered By: SYSTEM SYSTEM on 12-26-2024 Cholesterol [Mass/Vol] 185 mg/dL Normal 120 - 200 mg/dL Remisol Chem Cholesterol in HDL [Mass/Vol] 33 mg/dL Invalid Interpretation Code Remisol Chem Comment on above: Result Comment: '>= 60 LOW RISK' '<= 40 HIGH RISK' Cholesterol in LDL [Mass/Vol] 135 mg/dL High <=129mg/dL Remisol Chem Cholesterol in VLDL [Mass/Vol] 35 mg/dL Normal 7 - 40 mg/dL Remisol Chem Triglyceride [Mass/Vol] 175 mg/dL High <=149mg/dL Remisol Chem Family Medicine Office/Clini c Noteon 12-26-2024 Family Medicine Office/Clinic Note Family Medicine Office/Clinic Note Chief Complaint Subsequent Medicare Wellness Review [...] were given. Reviewed Medicare Prevention Services checklist. [facility]-F[facility] Prevention and home safety screening reviewed. Patient denies any falls in last 12 months, voices no worry about falling. Exhibits no problems with sitting, standing or ambulation. Patient aware with keeping walk way area free of clutter to prevent tripping and/or falling. [place] Advance Directives reviewed. See #4. Patient denies [...] PCP visit. Labs to be completed with [facility]. No concerns with bowel/ bladder. Colonoscopy last completed 12/17/[address] Grant. Repeat 5 years. Reviewed pain symptoms: Patient [...] their chosen representatives. Explained the role each associate financial representative would play, encouraged patient to select 2 people with one being the primary and the other for an alternate. Discussed importa (more content not included)... Normal [facility] Comment on above: Result Comment: Elec tronically Signed By: Radha Poole\.br\Date and Time Signed: 12/26/24 13:04 EDT\.br\Electronically Co-Signed By: Ling Champagne\.br\Date and Time Co-Signed: 12/22/24 15:58 EST Lipid Panelon 12-26-2024 Cholesterol [Mass/Vol] 185 mg/dL Normal 120-200 [facility] Comment on above: Performed By: #### 2 [id number] #### [facility] [address] [place] [address] Cholesterol in HDL [Mass/Vol] 33 mg/dL Invalid Interpretation Code [facility] Comment on above: Result Comment: '>= 60 LOW RISK' '<= 40 HIGH RISK' Performed By: #### 2 [id number] #### [facility] [address] [place] [address] Cholesterol in LDL [Mass/Vol] 135 mg/dL High <=129 [facility] Comment on above: Performed By: #### 2 [id number] #### [facility] [address] [place] [address] Cholesterol in VLDL [Mass/Vol] 35 mg/dL Normal 7-40 [facility] Comment on above: Performed By: #### 2 [id number] #### [facility] [address] [place] [address] Triglyceride [Mass/Vol] 175 mg/dL High <=149 [facility] Comment on above: Performed By: #### 2 [id number] #### [facility] [address] [facility] [place] [address] Ambulatory Visit Summaryon 0 12-22-2024 Ambulatory Visit Summary Ambulatory Visit Summary QUINTEN HUITRON Nayan :1950 Visit Date:12/22/2024 Ambulatory Visit Instructions Your [...] Appointments Thursday 10:00 AM EDT With: Where: [address] [address]- Thursday 9:40 AM EDT With: Radha Poole Where: [address] [address]- Thursday2025 11:00 AM EDT With: Where: [address] [address]- You Need to Complete the Following Lipid Panel, Blood, Routine collect, 12/22/24, Order for future visit, Lab Collect, Pure hypercholesterolemia, Required & Missing, Print Label By Order Location Medications What How Much When Instructions New alprazolam (alprazolam 1 mg Tab) 1 Tablets By Mouth 2 times a day as needed for for anxiety Pickup at [facility] Unchanged carbidopa-levodopa (carbidopa-levodopa 25 mg-100 mg [...] Mouth 3 times a day Pharmacy Information [facility]: [address] [place] [id number] [phone] Allergies No Known Allergies No Known Medication [...] you for choosing us for your care. Normal [facility] Medicine Office/Clini c Noteon 12-22-2024 Family Medicine Office/Clinic Note Family Medicine Office/Clinic Note HPI Staff Quinten is a 74 [...] appointment, # 12 tab(s), Refills(s) 0, Pharmacy: [facility], 169, cm, 12/22/24 14:54:00 EST, Height/Length [...] anxiety, # 40 tab(s), Refills(s) 0, Pharmacy: [facility], 169, cm, 09/28/24 10:16:00 EST, Height/Length Dosing, 65.7, kg, 09/28/24 10:16:00 EST, Weight Dosing alprazolam, 1 mg = 1 tab(s), Oral, BID, PRN for anxiety, # 60 tab(s), Refills(s) 0, Pharmacy: [facility], 169, cm, 12/22/24 14:54:00 EST, Height/Length [...] 2022-11-18: TPV65 pneumococcal 13-valent vaccine 09/20/2020 Recorded Normal [facility] Comment on above: Result Comment: Elec tronically Signed By: Radha Poole\.br\Date and Time Signed: 12/22/24 15:38 EST Vicky 11-17-2024 CNPN Telephone (NREUS2) QUINTEN HUITRON ([id number]) 1950 M Date Time Provider Department 11/17/24 MARIAH DUMONT NREUS2 During your visit today, we recorded the following information about you: Jeronimo Franklin 11/17/2024 12:02 PM Signed Patient has [...] Never Reviewed Reason for Visit: RNS/DBS Visit [7230] Problem List As Of Date: 11/17/2024 (None) Encounter Status:Closed by JERONIMO FRANKLIN on 11/17/24 Normal [facility] Ambulatory Visit Summaryon 11-29-2023 Ambulatory Visit Summary Ambulatory Visit Summary QUINTEN HUITRON :1950 Visit [...] Appointments 2024 2:30 PM EST With: Where: [address] [phone]- 2024 3:20 PM EST With: Radha Poole Where: [address] [address]- Medications What How Much When Instructions Unchanged [...] you for choosing us for your care. 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- states he hard [...] anxiety, # 40 tab(s), Refills(s) 0, Pharmacy: [facility], 169, cm, 09/28/24 10:16:00 EST, Height/Length Dosing, 65.7, kg, 09/28/24 10:16:00 EST, Weight Dosing lorazepam, See Instructions, 3 tabs 30 minutes prior to procedure., # 6 tab(s), Refills(s) 0, Pharmacy: [facility], 169, cm, 09/28/24 10:16:00 EST, Height/Length Dosing, 65.7, kg, 09/28/24 10:16:00 EST, Weight Dosing lorazepam, 0.5 mg = 1 tab(s), Oral, Bedtime, also can be taken 30 minutes prior to procedure, # 40 tab(s), Refills(s) 0, Pharmacy: [facility], 169, cm, 09/09/24 11:27:00 EST, Height/Length [...] 10/06/2021 Recorded SARS-CoV-2 (COVID-19) mRNA BNT-162b2 vax 04 (more content not included)... Normal [facility] Comment on above: Result Comment: Elec tronically Signed By: Radha Poole\.br\Date and Time Signed: 09/28/24 12:56 EST Family Medicine Office/Clini c Noteon 09-09-2024 Family Medicine Office/Clinic Note Family Medicine Office/Clinic Note Chief Complaint follow up meds HPI [...] procedure, # 40 tab(s), Refills(s) 0, Pharmacy: [facility], 169, cm, 09/09/24 11:27:00 EST, Height/Length Dosing, 66, kg, 09/09/24 11:27:00 EST, Weight Dosing lorazepam, See Instructions, TAKE 3 TABLETS BY MOUTH 30 MINUTES PRIOR TO PROCEDURE, # 6 tab(s), Refills(s) 0, Pharmacy: [facility], 169, cm, 06/10/24 8:35:00 EDT, Height/Length [...] 2022-11-18: TPV65 pneumococcal 13-valent vaccine 09/20/2020 Recorded Normal [facility] Comment on above: Result Comment: Elec tronically Signed By: Radha Poole\.br\Date and Time Signed: 09/09/24 12:42 EST Ambulatory Visit Summaryon 0 06-10-2024 Ambulatory Visit Summary Ambulatory Visit Summary QUINTEN HUITRON :1950 Visit Date:06/10/2024 Ambulatory Visit Instructions Your Diagnosis Thrombocytopenia Non-smoker BMI 21.0-21.9, adult Your Care Team Attending Physician - Radha Poole Primary Care Physician - Torey Diaz MD This Is Your Medications List alprazolam (alprazolam 0.5 mg Tab) carbidopa-levodopa (carbidopa-levodopa 25 mg-100 mg Tab) docusate (Benito Stool Softener) psyllium (Metamucil 3.4 g/5.2 g oral powder) ropinirole (ropinirole 0.25 mg Tab) Procedures Performed Colonoscopy (12/17/2022), Cataract Extraction with IOL placement - OD. (02/24/2017), Colonoscopy (02/20/2011), Vasectomy. Discharge Vitals Temperature (Oral) 36.7 ?C Heart Rate (Peripheral) 70 Respiratory Rate 18 Blood Pressure 110/76 Height 169.0 cm Height 67 in Weight 61.9 kg Weight 136.18 lb BMI 21.67 What to do next Scheduled Follow-Up Appointments Thursday 8:40 AM EST With: Radha Poole Where: [address] [id number]- 2024 11:00 AM EST With: Where: [address] [address]- Medications What How Much When Instructions New alprazolam (alprazolam 0.5 mg Tab) 1 Tablets By Mouth At bedtime as needed for for anxiety Pickup at [facility] Unchanged carbidopa-levodopa (carbidopa-levodopa 25 mg-100 mg Tab) 1 Tablets By Mouth 3 times a day Unchanged docusate (Benito Stool Softener) 100 Milligram By Mouth Every day Unchanged psyllium (Metamucil 3.4 g/ 5.2 g oral powder) 1.7 Gram By Mouth 3 times a day as needed for for constipation Unchanged ropinirole (ropinirole 0.25 mg Tab) 1 Tablets By Mouth 3 times a day Pharmacy Information [facility]: [address] [place], [place] [id number] [phone] Allergies No Known Allergies No Known Medication Allergies Problems Ongoing - Any problem that you are currently receiving treatment for. BMI 24.0-24.9, adult Fatigue Insomnia Parkinson's disease Pure hypercholesterolemia Slow transit constipation Thrombocytopenia Tubular adenoma of colon Weakness Patient Survey You may receive a survey via text or e-mail asking about your office visit. Please share your experience with us by completing your survey. We appreciate your feedback and thank you for choosing us for your care. Normal [facility] Family Medicine Office/Clini c Noteon 06-10-2024 Family Medicine Office/Clinic Note Family Medicine Office/Clinic Note HPI Staff Quinten is a 73 year old female presenting with follow up BOB 03/30/24- Increased Xanax to .5 mg (Med agreement updated) taking this to help him sleep Neurologist said he can not take the ativan prior to appointments they are not sure why History of Present Illness pt presents today to discuss ativan/xanax Review of Systems PHQ Score Initial Depression Screen Score: 0 SCORE Physical Exam Vitals & Measurements T: 36.7 ?C(Oral) HR: 70(Peripheral) RR: 18 BP: 110/76 SpO2: 98% HT: 67 in HT: 169.0 cm WT: 61.9 kg WT: 136.18 lb BMI: 21.67 General: alert, no acute distress ENMT: oral mucosa moist, no pharyngeal erythema or exudate Cardiovascular: regular rate and rhythm, normal peripheral perfusion Respiratory: Lungs CTA, respirations non labored Extremities: no deformity, no trauma Neurological: oriented x 4, LOC appropriate for age, CN II-XII intact, motor strength equal & normal bilaterally, speech normal Assessment/Plan 1. Parkinson's disease (G20.A1: Parkinson's disease without dyskinesia, without mention of fluctuations) pt presents today to discuss ativan/xanax. he was told by neurologist that because he is taking xanax at night to help him sleep, he should like to Ativan prior to his appointment. he has been taking ativan prior to appointments since 2021. Discussed that these meds are very similar and encouraged him to take the xanax before his next appointment instead of the ativan. pt is very upset and can not understand why he can't keep taking the ativan. all questions answered. RTC 3 months 2. Thrombocytopenia (D69.6: Thrombocytopenia, unspecified) will repeat labs at next appointment 3. Non-smoker (Z78.9: Other specified health status) continue not s moking 4. BMI 21.0-21.9, adult (Z68.21: Body mass index [BMI] 21.0-21.9, adult) BMI education gvien Orders: alprazolam, 0.5 mg = 1 tab(s), Oral, Bedtime, PRN for anxiety, # 90 tab(s), Refills(s) 0, Pharmacy: [facility], 169, cm, 06/10/24 8:35:00 EDT, Height/Length Dosing, 61.9, kg, 06/10/24 8:35:00 EDT, Weight Dosing alprazolam, 0.5 mg = 1 tab(s), Oral, TID, PRN for anxiety, # 30 tab(s), Refills(s) 0, Pharmacy: [facility], 169, cm, 03/30/24 10:19:00 EDT, Height/Length Dosing, 62.4, kg, 03/30/24 10:19:00 EDT, Weight Dosing Follow-up No qualifying data available Problem List/Past Medical History Ongoing BMI 24.0-24.9, adult Fatigue Insomnia Parkinson's disease Pure hypercholesterolemia Slow transit constipation Thrombocytopenia Tubular adenoma of colon Weakness Historical No qualifying data Procedure/Surgical History Colonoscopy (12/17/2022), Cataract Extraction with IOL placement - OD. (02/24/2017), Colonoscopy (02/20/2011), Vasectomy. Medications alprazolam 0.5 mg Tab, 0.5 mg= 1 tab(s), Oral, Bedtime, PRN carbidopa-levodopa 25 mg-100 mg Tab, 1 tab(s), Oral, TID Metamucil 3.4 g/5.2 g oral powder, 1.7 [...] Smokeless Tobacco Use:. Cigarettes, Household tobacco concerns: No., 06/10/2024 Family History Brain tumor: Sister. Cardiac arrest: Mother. Heart disease: Brother. Primary malignant neoplasm of lung: Father. Immunizations Vaccine Date Status Comments influenza virus vaccine, inactivated - Not Given Patient Refuses SARS-CoV-2 (COVID-19) mRNA BNT-162b2 vax 10/06/2021 Recorded SARS-CoV-2 (COVID-19) mRNA BNT-162b2 vax 01/20/2021 Recorded SARS-CoV-2 (COVID-19) mRNA BNT-162b2 vax 12/28/2020 Recorded 2022-11-18: TPV65 pneumococcal 13-valent vaccine 09/20/2020 Recorded Normal [facility] Comment on above: Result Comment: Elec tronically Signed By: Radha Poole\.br\Date and Time Signed: 06/10/24 09:10 EDT Pre-Visit Planningon 024 Pre-Visit Planning Pre-Visit Planning From: Katlin Reese To: Radha Poole; Sent: 06/09/2024 12:05:05 EDT Subject: Pre-Visit Planning Due Date/Time: 06/09/2024 12:05:00 EDT Caller Name: QUINTEN HUITRON; Caller Number: Kari , M Kevin Garcia. During a pre-visit planning chart review, I noted the following abnormal lab value documented in the medical record: Platelets =136. In response to this query, please document the significance of the abnormal lab or clarify which diagnosis or condition this result may be associated with. I can update the Chronic Problem List with your response if you would like. -Thrombocytopenia -Additional Comments: __ In responding to this request, please exercise your independent professional judgment. The fact that a question is asked does not imply that any particular answer is desired or expected. If you have any questions, please feel free to contact me at extension [phone]. Thank you! Katlin Reese LPN Clinical Wildlife Refuge Specialist [place] [address] Extension: [phone] [email or web address] From: Radha Poole To: Katlin Reese; Sent: 06/09/2024 12:55:57 EDT Subject: RE: Pre-Visit Planning Caller Name: QUINTEN HUITRON; Caller Number: Kari , M thrombocytopenia Normal [facility] Coding Summary.on 04-08-2024 Coding Summary. EMOZXpny99JAn5vTx+PG hlY WQ+KL3BZGDsL68ueBQssW8e Z6PGFJxRAzatAIOXNGmGCsD eqgDtCN2qeBZeFQEz IC8+FR8dLQElLuspfTJvy7S 8kOV3R05urh3oZIqumEK9GE XzAwNwraaim2ogaVx1KDxbT mluOyBt BMXtjZ24SSC7qJ23Hy73tAY bwKAld2xgaLz0XnKcWBFgPE R6lAbtXSkub6NeNYKcR17my NMfm6A9 WCCtxMosnXUfFqTmrBJ7dP2 sYRuhfpvbo5hoibxcMho0hf 95jEAxa4Z7yDF7W1EzhxD1I GJvbGQg JuiudGRDyD3opvyuu7opwob yKmXcONIxVUy0CBu9XSFzjE msTwNqUG93OBS0EZVyesSwM 2FsLWFs gJveJiS9p0U8Wq9GK9TDYac yI6KZSAPTEUotsOE+PC90cj 43I7KrPltcEdh5VGTaSRS3c AT8jI2t QPBgVIcuf3W2bRH2R4EvofG kpg3fr7qhUKVpYYshI77vsF Ths5H2OFKueWM0NMKwnYlsG iBzaG93 Oyc+FNNwmUxnx9GrTjges0o rh6rhaDq1JmxxDAVkrvMrrP beJQZ8z6ZdUp9xOBJhjDV7n GD1xG1f RpDbHqA0OJlkN791RaMjyXE wMdeyG63tH3FhjOG+PHRyPj l6DBHsrBhkZS8kQ9CiMWWfv mctbGVm jKlcEV5eSOElkldnATKxtV2 oQWYwM0u1EqErFpN0UOirX4 GsHYIcqkukRg71qU9nFyPkD rF6MQfg D8VzjhQ7KGXlsYSsMDjmSSQ 2J58oo2G1KNDjHTUaTYN9gQ L4vL8rbBvykyrlhEFflIvfr mVydGlj ROuvNEzmE397SVYehAgrCpS vZGluZyBEYXRlOiAgMDYvMj EvMjAyNDwvdGQ+GKKxMVH1n WxlPSAn fXToLJfrGx0jbAzehQphXY1 rWIBgydglCFMsgR6oVVZuzP NdsEdzJW2gGJIkqngnx156K iAxMHB0 CQKwaIRsH3HrpT8rGbTpAHS uWUUtG7WupZPqNZtlM531ER jwCsU0WNGwyxUuS8FfSYHpq WduOiB0 v9U5Di1To1NlrieoC5IphLA rZuPmXmpvTIl4J1OrNmweiO I+RG55VKDfHG93QDv2RSX9t WxlPSdi WFSjR7EgdV7oPePoJBNbPSP kOyc+PHRhYmxlIHdpZHRoPS tpWFNsDkYptAeySU8fLl7yE GVyLWNv pIvorGRtWnXfy5aePKAsOAy sVU2taMhfB6CemLC1SGRas4 y4Ex80S54aR3GzbFH+PGNvb GO3fPJ1 eC4vLwTjYaQ7KGlqU139EiL qiOZiIlgeg1tze1ahsDk6Kb X2FNDsbpJrcKjjPLB7t5DuT z85H55x IHdpZHRoPSIxNSUiIHZhbGl twd6vhQ2gKf4+EMJpxIH4tM K2zB7lOqQoKzS7SOoyF902I nRvcCIv Udqlb8ofo1notNq4FoDjMNV tfsVleGwbUBY9r2UxIs53J4 ZghOgyn1EzEka0mk03cNMcm 8Z6yCO8 K6CrINXgqhpphHUfjZjxJO1 pOHTowydjQYYfeZ7nJWUmL8 y1EwAoDvQ2QTeeW2KnvbV6X GJvbGQg ZUDzjHPBbR1oqakek8sfzla kRsOrSIXsOZd1NGi0YKCzqC jlUvVlIBE4PyJ5UXS3yHKar L1pbXha ksfmwL8sGyr+DRZ0fYUugAA XSM7yKazkaOG+CEUmNAQ9kE sdHEjzCVYzmE8pWNWzN5q3C iAwLjA1 IMydR9PbkvZ0NBZngHVjLBZ giFQJzK5dkrbug4hgkksrDw XmVJCkBBs8UXq8SGWxjVkrB iBsZWZ0 JtT8BSU9wLDzqW0llEtqith tyA9mXzz+JgxxcFalSKN5YF w3U0WfNgh7DDSoqPnhZS3kq GFkZGlu Ab5frUxgpGgnSL1lUJYkwhu ga941PmKba3oyABWvcYKoEF lvEDZ1O60bs6A5KSOgDTTsS PL7vAY0 qS2bzDhqzyrheEHemApdwaH kgJijQXjhUZwvT814CGKdvO aeNnWgYYa0I7AoNiw5ROXil RqzFV6k qMCpMKfpDw2vcGtnbHtgPL7 hEDGqjsvci092NnXhc4btYG BxdRLjBWlqTOU1G52zq7T8L CMwMDAw UOL8bWZ4rD8rnBxqnnzksAA mdDsgdmVydGljYWwtYWxpZ2 52DSYbzVlvCzSgpRl8H2AbV fa5BUCc lNzgCM4vmGKdOBzyGr2zvRb ofMpiQO3hMRAogrdor885Rx Dds2pxDFLroUMzSJufIHK5T 26gd0V2 BYZdEEQlTMP6lCL9vN6tvBa nbjogbGVmdDsgdmVydGljYW pyMIgzG267APRmkAdcXmByz GllbnQg YVihZPj3S0InBzvphCT+PC9 8YBCuJB56yDZynOWtr3pmiJ m9KeJeDXOfQFT2uFqsJFklb 3JkZXIt X56ktMCzx4K4YUVekIifyTS yGpNenFD6vY7hHNwgilxtn4 fmkvsuGykbo5nmry20yW01Y 29sIHdp ZHRoPSIzMCUiIHZhbGlnbj0 tiJ7bTu2+LGFklVL7bPJ2cM 3cVLBeTkZ0GEfhS431CpFxm CIvPjxj z9ylm4kfjCn8ItH1PYFedsU mqJgjZTM9r7TnGs70C83gUX dpZHRoPSIyMCUiIHZhbGlnb o9krI4p Ii8+JGYsjCL2bYD1kQ0vFuK lVlZ3BStrY869NaLuvPKwVf zrW69pF3JlbGZ+HMUlSss9T CBzdHls XV4soJQiQQvgVf4eRGL3JlL jZvOkFKmiR6LdBOQiaecwoe ntaEE4EQNdDDYadP60Gi0sg DogMTBw jPRYkJ9frscgw6fzohilGyE vEWObCVp4YUf0VOWflQrhLp PzWLE6QuN7EQJ2mRUlaN9ar Glnbjog fH7wJ1JhTJZczufzRn37cJ4 vFzSnAlF8NMejIud+SEVOTk DMSYTIIEHMZGTHKR89MA03s QNjp6D4 kMF9W6XpIIEihsblyzqkmHM 8RTNvBIQluU18uAZmGZwhAc 7iu0B7j582ACGfXYTxbZ94P c6cxAvl CNPkfDKYzJ5sxotdt0inhyz gXrUoGBPjDAm8UCt2SKQdoD emZuZdSGM3KqK4XVM9jEZxe I2bhMnj adtzsR6dKlf+MDgvMjUvMTk 1MTwvdGQ+LWOyPKF3rHmzDY heMMEifX2dYRIrL8o5MjKcC nB4QKkt V9WmAXRpukeyAe69zD8sTaA iToH9TBrpY3RqzyD3OESakD ZpRXdgFOM9Q15am4X2HLOvT DAwMDA7 rUV5vF0ktOonhhvckIFylDs tzwUwwIxbUUfaKCvaL914GY IqqUbyAdyrJVtuEIZoFB04T J86cDSd t9H6lOH3Y9VlAOKraepnqns zvGD6FERwLDOweR81kZYrOE wiLn8zd4K5c789EHQcVOIwq S45Xs6a fQxqDENakBTUbI0ywbcqk2h wpzsdLeWsXPTtLSt6KDz2NH VcnXsoZnUuKEP0WoI7LCI5p LUyfO0h bFiehqsdpL2qHor+TWFsZTw vdGQ+HQZqDCW5fPjpDFogQA LgsR6pQQLbJ6y5IaOqYjY5M HbsI1Sm XFNeufgoAg74iP2tYtPtCdB 6JPcvP5MezoK1EYQmnHZaAW hdXWU7B70to3Z0JSZrJKEyE MI8fYE9 vY8zwRnpysyvfLIdgQvtnlN ifJlnUTcsQHjlH648WPFyvZ gqIyheEqXSls5wFU8cIvdta GQ+PC90 ph82B9AcEuabJki4LMHdFYB 6hKZ8yD1kUVQwYNajs8H6bV C6D7XejaEvxm0jz0hqUFAbH TqeP45t jHChv8C3OAZxpFI7EJAlkLe kAlQxrM82Wyf+PGNvbGdyb3 AmSvxgj5lkn0ligSv4CdJsE SIgdmFs gDntCKU8v3VwBr83X95aDLm pZHRoPSIzMCUiIHZhbGlnbj 9lfJ6zUf0+XHZaaBS2gEF1u P0xEhLq PsH1RMvsQ404QjHmcWPfMcr fa1srz7qzbJn0PnKaVPPaic YbkMdyQBA9e0JoAr67V5Rls Tccx3Me Oej8fw24xLEzy2X9aZD8N5S yVOShhgegkXBrmArtKW0mHR JrnxttWKIqbS0oNKVtW3m5J iAwLjA1 DRbxI8OcttR2RBAaoKAvFAY vjLAMhO6hbamwg1eqxljhDm DhEXVhFKr1BHf5SYTbtJhrP iBsZWZ0 BbS4QSA2gQKagF8euTzruda qmH3uChk+VBk1w1qgzJBcTI 7uoET6KY52JS17uCNnt2D0q MQ5L2Ov UBWzbtrroblutNQ6TWHpEZE uhI61Ss3raJdwSw1lFAQqIY B7BERvaTIzT4FlcS5mHmNgL DAwMDAw K5JhjXDbOOpsE316GMfaBvH 5XCPmsgAdM9WvMZFjpQahSj G4u7E3Ff6KXQ28PS90IL14r GYno0X9 jMN9I7NkJIPihkwsvxtjnDW 4HCXeIRZcgJ50Uq3voEosQe 5iVFWpCJL4RTLbiWVeY8Jfr N9bNpPt KCDcBDKsY7JkrHGbLHibA00 0LVdxVvK0IDMilxXrA5LdKA HmfVuaIhS7z7O6Fj5BNz80Q T11KX52 rHWlc9E5qFQ7E8GbCTLjlcl gkswsqUY0JBWvOMOwkU19Oj 5kfVtaGq8vORAeAEX8VBLsu XHdY6Cr bV0nHbKpMURySEXzL4ZxkNS wPRmkB780FDpgEeV6OUMnzs BxQ7GyDGGooCmhWdK6t5D3G e9HTUsl ztd7E4QdVumkjSC+XM65NQG jOR56gYQxoKPcq3dgzKw6Fj MoKJCyJWG6uKscBMazr1MtA RFuX26j lFYwy8D5JGJxi (more content not included)... Normal [facility] Reminderson 03-31-2024 Reminders - From: Radha Poole To: [facility] - Clinical; Sent: 03/31/2024 09:21:46 EDT Show up: 03/31/2024 09:22:00 EDT Subject: Ambulatory Reminder Due Date/Time: 04/01/2024 09:21:00 EDT Labs look good. Vitamin B12 is pretty high so he does not meet requirements for B12 injections Results: Date Result Name Ind Value Ref Range 03/30/2024 10:51 WBC 6.9 E9/L (4.0 - 11.0) 03/30/2024 10:51 RBC 4.9 E12/L (4.3 - 5.9) 03/30/2024 10:51 HGB 15.5 gm/dL (13.5 - 17.5) 03/30/2024 10:51 Hct 44.8 % (37.7 - 49.0) 03/30/2024 10:51 MCV 90.8 fL (80.0 - 100.0) 03/30/2024 10:51 MCH 31.3 pg (27.0 - 34.0) 03/30/2024 10:51 MCHC 34.5 gm/dL (31.4 - 36.0) 03/30/2024 10:51 RDW 14.1 % (10.9 - 14.2) 03/30/2024 10:51 Platelet ((L)) 136.0 E9/L (150.0 - 500.0) 03/30/2024 10:51 MPV 10.3 fL (6.4 - 10.8) 03/30/2024 10:51 Neutro Auto 69.2 % (36.0 - 75.0) 03/30/2024 10:51 Lymph Auto 20.0 % (14.0 - 50.0) 03/30/2024 10:51 Miner Auto 8.4 % (4.0 - 14.0) 03/30/2024 10:51 Eos Auto 1.7 % (0.0 - 8.0) 03/30/2024 10:51 Basophil Auto 0.7 % (0.0 - 2.0) 03/30/2024 10:51 Neutro Absolute 4.8 E9/L (2.0 - 7.5) 03/30/2024 10:51 Lymph Absolute 1.4 E9/L (1.0 - 4.0) 03/30/2024 10:51 Miner Absolute 0.6 E9/L (0.2 - 1.0) 03/30/2024 10:51 Eos Absolute 0.1 E9/L (0.0 - 0.5) 03/30/2024 10:51 Basophil Absolute 0.0 E9/L (0.0 - 0.2) 03/30/2024 10:51 Iron 133 mcg/dL (35 - 153) 03/30/2024 10:51 TSH 1.49 mcIU/mL (0.34 - 5.60) 03/30/2024 10:51 Vitamin B12 Lvl >1500 pg/mL (50 - 1,500) 03/30/2024 10:51 Vitamin D 25 Hydroxy 34.5 ng/mL (30.0 - 100.0) pt notified of message below Normal [facility] CBC w/ Auto Diffon 4 Basophils/100 WBC (Bld) 0.7 % Normal 0.0-2.0 [facility] Comment on above: Performed By: #### 2 [id number] #### [facility] [address] [place] [address] Basophils/Leukocytes Auto (Bld) [Pure # fraction] 0.0 E9/L Normal 0.0-0.2 [facility] Comment on above: Performed By: #### 2 [id number] #### [facility] [address] [place] [address] Eosinophils (Bld) [#/Vol] 0.1 E9/L Normal 0.0-0.5 [facility] Comment on above: Performed By: #### 2 [id number] #### [facility] [address] [place] [address] Eosinophils/100 WBC (Bld) 1.7 % Normal 0.0-8.0 [facility] Comment on above: Performed By: #### 2 [id number] #### [facility] [address] [place] [address] Erythrocyte distribution width (RBC) [Ratio] 14.1 % Normal 10.9-14.2 [facility] Comment on above: Performed By: #### 2 [id number] #### [facility] [address] [place] [address] Hematocrit (Bld) [Volume fraction] 44.8 % Normal 37.7-49.0 [facility] Comment on above: Performed By: #### 2 [id number] #### [facility] [address] [place] [address] Hemoglobin (Bld) [Mass/Vol] 15.5 g/dL Normal 13.5-17.5 [facility] Comment on above: Performed By: #### 2 [id number] #### [facility] [address] [place] [address] Lymphocytes (Bld) [#/Vol] 1.4 E9/L Normal 1.0-4.0 [facility] Comment on above: Performed By: #### 2 [id number] #### [facility] [address] [place] [address] Lymphocytes/100 WBC (Bld) 20.0 % Normal 14.0-50.0 [facility] Comment on above: Performed By: #### 2 [id number] #### [facility] [address] [place] [address] MCH (RBC) [Entitic mass] 31.3 pg Normal 27.0-34.0 [facility] Comment on above: Performed By: #### 2 [id number] #### [facility] [address] [place] [address] MCHC (RBC) [Mass/Vol] 34.5 g/dL Normal 31.4-36.0 [facility] Comment on above: Performed By: #### 2 [id number] #### [facility] [address] [place] [address] MCV (RBC) [Entitic vol] 90.8 fL Normal 80.0-100.0 [facility] Comment on above: Performed By: #### 2 [id number] #### [facility] [address] [place] [address] Monocytes (Bld) [#/Vol] 0.6 E9/L Normal 0.2-1.0 [facility] Comment on above: Performed By: #### 2 [id number] #### [facility] [address] [place] [address] Neutrophils (Bld) [#/Vol] 4.8 E9/L Normal 2.0-7.5 [facility] Comment on above: Performed By: #### 2 [id number] #### [facility] [address] [place] [address] Neutrophils/100 WBC (Bld) 69.2 % Normal 36.0-75.0 [facility] Comment on above: Performed By: #### 2 [id number] #### [facility] [address] [place] [address] Platelet 136.0 E9/L Low 150.0-500.0 [facility] Comment on above: Performed By: #### 2 [id number] #### [facility] [address] [place] [address] Platelet mean volume (Bld) [Entitic vol] 10.3 fL Normal 6.4-10.8 [facility] Comment on above: Performed By: #### 2 [id number] #### [facility] [address] [place] [address] RBC (Bld) [#/Vol] 4.9 E12/L Normal 4.3-5.9 [facility] Comment on above: Performed By: #### 2 [id number] #### [facility] [address] [place] [address] WBC corrected for nucl RBC Auto (Bld) [#/Vol] 6.9 E9/L Normal 4.0-11.0 [facility] Comment on above: Performed By: #### 2 [id number] #### [facility] [address] [place] [address] CHEMISTRYOrdered By: SYSTEM SYSTEM on 03-30-2024 25-hydroxyvitamin D3 [Mass/Vol] 34.5 ng/mL Normal 30.0 - 100.0 ng/mL [facility] Chem Cobalamin (Vitamin B12) [Mass/Vol] pg/mL Normal 50 - 1500 pg/mL [facility] Iron [Mass/Vol] 133 ug/dL Normal 35 - 153 mcg/dL [facility] Chem TSH Qn 1.49 m[IU]/L Normal 0.34 - 5.60 mcIU/mL Remisol Chem Family Medicine Office/Clini c Noteon 03-30-2024 Family Medicine Office/Clinic Note HPI Staff Quinten is a 73 year old male presenting for 3 month follow up BOB 12/30/23 started xanax Insomnia: Medication agreement UTD Pt states the Xanax hasn't helped him with sleeping. He has also tried nyqil sleep its still taking him 1-2 hours before he can fall asleep. Pt continues to have constipation he has been doing Metamucil daily with sometimes forget to take it. He currently now is going on 5 days without bowel movement. When he does have go to have a BM his stool is very hard and usually large amount. Also taking 2 tablets stool softener. Pt had colonoscopy in 1 year ago and is to repeat in 5 years. Would like to discuss B12 injections, states she has been giving him b12 drops. History of Present Illness pt presents today for 3 month med check. starting taking xanax to help him sleep Review of Systems PHQ Score Initial Depression Screen Score: 0 SCORE Physical Exam Vitals & Measurements HR: 80(Peripheral) RR: 16 BP: 110/68 SpO2: 96% HT: 67 in HT: 169.0 cm WT: 62.4 kg WT: 137.28 lb BMI: 21.85 General: alert, no acute distress ENMT: oral mucosa moist, no pharyngeal erythema or exudate Cardiovascular: regular rate and rhythm, normal peripheral perfusion Respiratory: Lungs CTA, respirations non labored Extremities: no deformity, no trauma Neurological: oriented x 4, LOC appropriate for age, CN II-XII intact, motor strength equal & normal bilaterally, speech normal Assessment/Plan 1. Insomnia (G47.00: Insomnia, unspecified) pt still not sleeping well. takes a couple hours to fall asleep. will increase xanax to .5mg. medication agreement updated. RTC 3 months Ordered: alprazolam, 0.25 mg = 1 tab(s), Oral, Bedtime, # 30 tab(s), Refills(s) 0, Pharmacy: [id number], 169, cm, 12/30/23 10:56:00 EDT, Height/Length Dosing, 66, kg, 12/30/23 10:56:00 EDT, Weight Dosing Lab Specimen Collect [id number] 2. Fatigue (R53.83: Other fatigue) c/o fatigue. has been giving him B12 and wonders if we could order injections. will check labs today Ordered: CBC w/ Auto Diff Iron Level Lab Specimen Collect [id number] Thyroid Stimulating Hormone Vitamin B12 Level Vitamin D 25 Hydroxy 3. Weakness (R53.1: Weakness) feeling more weak and tired. will check labs today Ordered: CBC w/ Auto Diff Iron Level Lab Specimen Collect [id number] Thyroid Stimulating Hormone Vitamin B12 Level Vitamin D 25 Hydroxy 4. BMI 21.0-21.9, adult (Z68.21: Body mass index [BMI] 21.0-21.9, adult) BMI education complete Ordered: CBC w/ Auto Diff Iron Level Lab Specimen Collect [id number] Thyroid Stimulating Hormone Vitamin B12 Level Vitamin D 25 Hydroxy 5. Non-smoker (Z78.9: Other specified health status) continue not smoking Ordered: alprazolam, 0.25 mg = 1 tab(s), Oral, Bedtime, # 30 tab(s), Refills(s) 0, Pharmacy: [id number], 169, cm, 12/30/23 10:56:00 EDT, Height/Length Dosing, 66, kg, 12/30/23 10:56:00 EDT, Weight Dosing CBC w/ Auto Diff Iron Level Lab Specimen Collect [id number] Thyroid Stimulating Hormone Vitamin B12 Level Vitamin D 25 Hydroxy Orders: alprazolam, 0.5 mg = 1 tab(s), Oral, TID, PRN for anxiety, # 30 tab(s), Refills(s) 0, Pharmacy: [id number], 169, cm, 03/30/24 10:19:00 EDT, Height/Length Dosing, 62.4, kg, 03/30/24 10:19:00 EDT, Weight Dosing Follow-up No qualifying data available Problem List/Past Medical History Ongoing BMI 24.0-24.9, adult Fatigue Insomnia Parkinson's disease Pure hypercholesterolemia Rectal bleeding Slow transit constipation Tubular adenoma of colon Weakness Historical No qualifying data Procedure/Surgical History Colonoscopy (12/17/2022), Cataract Extraction with IOL placement - OD. (02/24/2017), Colonoscopy (02/20/2011), Vasectomy. Medications alprazolam 0.5 mg Tab, 0.5 mg= 1 tab(s), Oral, TID, PRN carbidopa-levodopa 25 mg-100 mg Tab, 1 tab(s), Oral, TID Metamucil 3.4 g/5.2 g oral powder, 1.7 [...] lifetime) Tobacco Use:. Never Smokeless Tobacco Use:. Household tobacco concerns: No., 03/30/2024 Family History Brain tumor: Sister. Cardiac arrest: Mother. Heart disease: Brother. Primary malignant neoplasm of lung: Father. Immunizations Vaccine Date Status Comments influenza virus vaccine, inactivated - Not Given Patient Refuses SARS-CoV-2 (COVID-19) mRNA BNT-162b2 vax 10/06/2021 Recorded SARS-CoV-2 (COVID-19) mRNA BNT-162b2 vax 01/20/2021 Recorded SARS-CoV-2 (COVID-19) mRNA BNT-162b2 vax 12/28/2020 Recorded 2022-11-18: [id number] Normal [facility] Comment on above: Result Comment: Elec tronically Signed By: Radha Poole\.nichole\Date and Time Signed: 03/30/24 12:41 EDT HEMATOLOGYOrdered By: SYSTEM SYSTEM on 03-30-2024 Basophils/100 WBC (Bld) 0.7 % Normal 0.0 - 2.0 % Remisol Heme Basophils/Leukocytes Auto (Bld) [Pure # fraction] 0.0 E9/L Normal 0.0 - 0.2 E9/L [facility] Heme Eosinophils (Bld) [#/Vol] 0.1 E9/L Normal 0.0 - 0.5 E9/L [facility] Heme Eosinophils/100 WBC (Bld) 1.7 % Normal 0.0 - 8.0 % [facility] Heme Erythrocyte distribution width (RBC) [Ratio] 14.1 % Normal 10.9 - 14.2 % [facility] Hematocrit (Bld) [Volume fraction] 44.8 % Normal 37.7 - 49.0 % [facility] Hemoglobin (Bld) [Mass/Vol] 15.5 g/dL Normal 13.5 - 17.5 gm/dL [facility] Lymphocytes (Bld) [#/Vol] 1.4 E9/L Normal 1.0 - 4.0 E9/L [facility] Lymphocytes/100 WBC (Bld) 20.0 % Normal 14.0 - 50.0 % [facility] MCH (RBC) [Entitic mass] 31.3 pg Normal 27.0 - 34.0 pg Rem[facility] Heme MCHC (RBC) [Mass/Vol] 34.5 g/dL Normal 31.4 - 36.0 gm/dL [facility] MCV (RBC) [Entitic vol] 90.8 fL Normal 80.0 - 100.0 fL [facility] Monocytes (Bld) [#/Vol] 0.6 E9/L Normal 0.2 - 1.0 E9/L [facility]e Monocytes/100 WBC (Bld) 8.4 % Normal 4.0 - 14.0 % [facility] Neutrophils (Bld) [#/Vol] 4.8 E9/L Normal 2.0 - 7.5 E9/L [facility]e Neutrophils/100 WBC (Bld) 69.2 % Normal 36.0 - 75.0 % [facility] Platelet 136.0 E9/L Low 150.0 - 500.0 E9/L [facility] Heme Platelet mean volume (Bld) [Entitic vol] 10.3 fL Normal 6.4 - 10.8 fL [facility] Heme RBC (Bld) [#/Vol] 4.9 E12/L Normal 4.3 - 5.9 E12/L [facility]e WBC corrected for nucl RBC Auto (Bld) [#/Vol] 6.9 E9/L Normal 4.0 - 11.0 E9/L [facility] Heme Ironon 03-30-2024 Iron [Mass/Vol] 133 microgram/dL Normal 35-[address] [facility] Comment on above: Performed By: #### 2 [id number] #### [facility] [address] [place] [address] Medication Consenton 024 Medication Consent [phone] [id number] IFF Normal [facility] TSHon 03-30-2024 TSH Qn 1.49 m[IU]/L Normal 0.34-5.60 [facility] Comment on above: Performed By: #### 2 [id number] #### [facility] [address] [place] [address] Vit B12on 03-30-2024 Cobalamin (Vitamin B12) [Mass/Vol] pg/mL Normal 50-1500 [facility] Comment on above: Performed By: #### 2 [id number] #### [facility] [address] [place] [address] Vitamin D 25 Hydroxyon 03-30 25-hydroxyvitamin D3 [Mass/Vol] 34.5 ng/mL Normal 30.0-100.0 [facility] Comment on above: Performed By: #### 5 [id number] #### [facility] [address] [place] [address] Ambulatory Visit Summaryon 0 12-30-2023 Ambulatory Visit Summary QUINTEN HUITRON :1950 Visit Date:12/30/2023 Ambulatory Visit Instructions Your Diagnosis Insomnia BMI 22.0-22.9, adult Non-smoker Your Care Team Attending Physician - Radha Poole Primary Care Physician - Torey Diaz MD This Is Your Medications List alprazolam (alprazolam 0.25 mg Tab) carbidopa-levodopa (carbidopa-levodopa 25 mg-100 mg Tab) polyethylene glycol 3350 (MiraLax) ropinirole (ropinirole 0.25 mg Tab) Procedures Performed Colonoscopy (12/17/2022), Cataract Extraction with IOL placement - OD. (02/24/2017), Colonoscopy (02/20/2011), Vasectomy. Discharge Vitals Heart Rate (Peripheral) 68 Respiratory Rate 18 Blood Pressure 104/64 Height 169 cm Height 67 in Weight 66.0 kg Weight 145.2 lb BMI 23.11 What to do next Scheduled Follow-Up Appointments Thursday 10:20 AM EDT With: Radha Poole Where: [facility] Medicine [place] Normal [address] [place] [address]- \.br\ Medications\.b r\ What How Much When Why Instructions\. br\ New alprazolam (alprazolam 0.25 mg Tab) 1 Tablets By Mouth At bedtime Insomnia BMI 22.0-22.9, adult Non-smoker Pickup at [id number]\.br\ Unchanged carbidopa-levo dopa (carbidopa-lev odopa 25 mg-100 mg Tab) 1 Tablets By Mouth 3 times a day\.br\ Unchanged polyethylene glycol 3350 (MiraLax) 17 Gram By Mouth Every day\.br\ Unchanged ropinirole (ropinirole 0.25 mg Tab) 1 Tablets By Mouth 3 times a day\.br\ Pharmacy Information\.b r\ [id number]: [address] [place], [place] [id number] [phone]\.br\ Allergies\.br\ No Known Allergies\.br\ No Known Medication Allergies\.br\ Problems\.br\ Ongoing - Any problem that you are currently receiving treatment for.\.br\ BMI 24.0-24.9, adult\.br\ Insomnia\.br\ Parkinson's disease\.br\ Pure hypercholester olemia\.br\ Rectal bleeding\.br\ Slow transit constipation\. br\ Tubular adenoma of colon\.br\ Patient Survey\.br\ You may receive a survey via text or e-mail asking about your office visit. Please share your experience with us by completing your survey. We appreciate your feedback and thank you for choosing us for your care.\.br\ \.br\ [facility] Family Medicine Office/Clini c [place] 12-30-2023 Family Medicine Office/Clinic Note HPI Staff Quinten is a 73 year old male presenting to establish care Establish Care: History: Any previous diagnosis: Insomnia, Parkinson's, hypercholesterolemia History of seeing any specialist: Dr Pollard Nurse practitioner seen every 3 months When was your last doctors visit: Last provider: Dr villarreal Any recent labs: 12/23/23 Health Maintenance UTD: Colonoscopy: 2022 normal PSA: PSA Scrn Tot.: 3 ng/mL (12/23/23 11:37:00) Acute: Current issues/complaints: For insomnia pt use to use Trazodone and would make him extremely constipated. Pt states his sister take Alprazolam 0.25mg at bedtime to help her sleep and he would like to try that. History of Present Illness pt presents today to establish care. has c/o insomnia Review of Systems PHQ Score Initial Depression Screen Score: 0 SCORE Physical Exam Vitals & Measurements HR: 68(Peripheral) RR: 18 BP: 104/64 SpO2: 94% HT: 67 in HT: 169 cm WT: 66.0 kg WT: 145.2 lb BMI: 23.11 General: alert, no acute distress ENMT: oral mucosa moist, no pharyngeal erythema or exudate Cardiovascular: regular rate and rhythm, normal peripheral perfusion Respiratory: Lungs CTA, respirations non labored Extremities: no deformity, no trauma Neurological: oriented x 4, LOC appropriate for age, CN II-XII intact, motor strength equal & normal bilaterally, speech normal Assessment/Plan 1. Insomnia (G47.00: Insomnia, unspecified) pt c/o worsening insomnia. trialed trazadone but it caused severe constipation. will order xanax 0.25mg at bedtime. pt is up to date on labs. does not need refills on meds. medication agreement signed. RTC 3 months 2. BMI 22.0-22.9, adult (Z68.22: Body mass index [BMI] 22.0-22.9, adult) BMI education complete 3. Non-smoker (Z78.9: Other specified health status) continue not smoking Follow-up No qualifying data available Problem List/Past Medical History Ongoing BMI 24.0-24.9, adult Insomnia Parkinson's disease Pure hypercholesterolemia Rectal bleeding Slow transit constipation Tubular adenoma of colon Historical No qualifying data Procedure/Surgical History Colonoscopy (12/17/2022), Cataract Extraction with IOL placement - OD. (02/24/2017), Colonoscopy (02/20/2011), Vasectomy. Medications carbidopa-levodopa 25 mg-100 mg Tab, 1 tab(s), Oral, TID MiraLax, 17 gm, Oral, Daily ropinirole 0.25 mg Tab, 0.25 mg= 1 tab(s), Oral, TID Allergies No Known Allergies No Known Medication Allergies Social History Alcohol - Denies Alcohol Use, 11/18/2022 Household alcohol concerns: No., 12/23/2023 Substance Abuse - Denies Substance Abuse, 11/18/2022 Tobacco - No Risk, 12/23/2023 Never (less than 100 in lifetime) Tobacco Use:. Never Smokeless Tobacco Use:. Household tobacco concerns: No., 12/30/2023 Family History Brain tumor: Sister. Cardiac arrest: Mother. Heart disease: Brother. Primary malignant neoplasm of lung: Father. Immunizations Vaccine Date Status Comments influenza virus vaccine, inactivated - Not Given Patient Refuses SARS-CoV-2 (COVID-19) mRNA BNT-162b2 vax 10/06/2021 Recorded SARS-CoV-2 (COVID-19) mRNA BNT-162b2 vax 01/20/2021 Recorded SARS-CoV-2 (COVID-19) mRNA BNT-162b2 vax 12/28/2020 Recorded 2022-11-18: [id number] Normal [facility] Comment on above: Result Comment: Elec tronically Signed By: Radha Poole\.br\Date and Time Signed: 12/30/23 11:13 EDT Medication Consenton 024 Medication Consent [id number] IFF Normal [facility] CHEMISTRYOrdered By: SYSTEM SYSTEM on 12-23-2023 Albumin [Mass/Vol] 4.6 g/dL Normal 3.3 - 5.0 gm/dL Remisol Chem Albumin/Globulin [Mass ratio] 2.2 {ratio} Normal 1.1 - 2.2 [facility] Chem ALP [Catalytic activity/Vol] 52 [iU]/d Normal 21 - 98 Int._Unit/L [facility] Chem ALT No additional P-5'-P [Catalytic activity/Vol] [iU]/d Low 6 - 46 Int._Unit/L [facility] Chem Anion gap [Moles/Vol] 11 mmol/L Normal 6 - 16 mEq/L [facility] Chem AST [Catalytic activity/Vol] 15 [iU]/d Normal 5 - 43 Int._Unit/L [facility] Chem Bilirubin [Mass/Vol] 1.0 mg/dL Normal 0.0 - 1 .1 mg/dL [facility] Chem Calcium [Mass/Vol] 9.5 mg/dL Normal 8.9 - 11. 1 mg/dL [facility] Chloride [Moles/Vol] 108 mmol/L Normal 101 - 1 11 mmol/L [facility] Cholesterol [Mass/Vol] 200 mg/dL Normal 120 - 200 mg/dL [facility] Chem Cholesterol in HDL [Mass/Vol] 40 mg/dL Invalid Interpretation Code [facility] Comment on above: Result Comment: '>= 60 LOW RISK' '<= 40 HIGH RISK' Cholesterol in LDL [Mass/Vol] 143 mg/dL High <=129mg/dL [facility] Cholesterol in VLDL [Mass/Vol] 21 mg/dL Normal 7 - 40 mg/dL [facility] CO2 [Moles/Vol] 26 mmol/L Normal 21 - 31 mmol/L Remis ol Chem Creatinine [Mass/Vol] 1.0 mg/dL Normal 0.5 - 1.3 mg/dL [facility] Chem eGFR 80 mL/min/1.73 m2 Normal >=59mL/min /1.7 3 m2 [facility] Globulin (S) [Mass/Vol] 2.1 g/dL Normal 1.4 - 4.0 gm/dL [facility] Glucose [Mass/Vol] 98 mg/dL Normal 55 - 199 mg/dL Re misol Chem Potassium [Moles/Vol] 4.3 mmol/L Normal 3.5 - 5.3 mmol/L [facility] Prostate specific Ag [Mass/Vol] 3.0 ng/mL Normal 0.1 - 3.5 ng/mL [facility] Comment on above: Interpretive Data: T he concentration of PSA determined by different manufacturers can vary due to differences in assay methods and reagent specificity. Values obtained from different assay methods cannot be used interchangeably. The methodology used for this result was chemiluminescence using [email or web address]'s [employer] Hybritech PSA reagent. Protein [Mass/Vol] 6.7 g/dL Normal 6.0 - 7.8 gm/dL [facility] Sodium [Moles/Vol] 141 mmol/L Normal 135 - 145 mmol/L [facility] Triglyceride [Mass/Vol] 104 mg/dL Normal <=149mg/dL [facility] Urea nitrogen [Mass/Vol] 17 mg/dL Normal 5 - 21 mg/dL [facility] Urea nitrogen/Creatinine [Mass ratio] 17 mg/mg Normal 10 - 20 [facility] Chem CBC AUTO DIFFon 10-31-2022 BASO # 0.1 103/ul Normal 0.0-0.1 [facility] Comment on above: Performed By: #### C BC #### [facility] [address] [place] [address] Dr. Abdoulaye Carey Basophils/100 WBC (Bld) 0.7 % Normal 0.2-2.0 [facility] Comment on above: Performed By: #### C BC #### [facility] [address] [place] [address] Dr. Abdoulaye Carey EO # 0.2 103/ul Normal 0.0-0.7 [facility] Comment on above: Performed By: #### C BC #### [facility] [address] [place] [address] Dr. Abdoulaye Carey Eosinophils/100 WBC (Bld) 1.7 % Normal 0.9-7.0 [facility] Comment on above: Performed By: #### C BC #### [facility] [address] [place] [address] Dr. Abdoulaye Carey Erythrocyte distribution width (RBC) [Ratio] 13.4 % Normal 11.0-15.[address] [facility] Comment on above: Performed By: #### C BC #### [facility] [address] [place] [address] Dr. Abdoulaye Carey Hematocrit (Bld) [Volume fraction] 50.6 % Normal 42.0-54.0 [facility] Comment on above: Performed By: #### C BC #### [facility] [address] [place] [address] Dr. Abdoulaye Carey Hemoglobin (Bld) [Mass/Vol] 16.3 g/dL Normal 14.0-18.0 [facility] Comment on above: Performed By: #### C BC #### [facility] [address] [place] [address] Dr. Abdoulaye Carey IG # 0.04 10e3/ul Critically high 0.00-0.03 [facility] Comment on above: Performed By: #### C BC #### [facility] [address] [place] [address] Dr. Abdoulaye Carey IG % 0.5 % Normal 0.0-0.5 [facility] Comment on above: Performed By: #### C BC #### [facility] [address] [place] [address] Dr. Abdoulaye Carey LYMPH # 1.8 103/ul Normal 1.2-3.8 [facility] Comment on above: Performed By: #### C BC #### [facility] [address] [place] [address] Dr. Abdoulaye Carey Lymphocytes/100 WBC (Bld) 21.0 % Normal 20.5-60.0 [facility] Comment on above: Performed By: #### C BC #### [facility] [address] [place] [address] Dr. Abdoulaye Carey MANUAL DIFF REQ NO Normal [facility] Comment on above: Performed By: #### C BC #### [facility] [address] [place] [address] Dr. Abdoulaye Carey MCH (RBC) [Entitic mass] 29.8 pg Normal 25.9-34.0 [facility] Comment on above: Performed By: #### C BC #### [facility] [address] [place] [address] Dr. Abdoulaey Carey MCHC (RBC) [Mass/Vol] 32.2 g/dL Normal 29.9-35.2 [facility] Comment on above: Performed By: #### C BC #### [facility] [address] [place] [address] Dr. Abdoulaye Carey MCV (RBC) [Entitic vol] 92.5 fL Normal 80.0-94.0 [facility] Comment on above: Performed By: #### C BC #### [facility] [address] [place] [address] Dr. Abdoulaye Carey MONO # 0.6 103/ul Normal 0.3-0.8 [facility] Comment on above: Performed By: #### C BC #### [facility] [address] [place] [address] Dr. Abdoulaye Carey Monocytes/100 WBC (Bld) 7.1 % Normal 1.7-12.0 [facility] Comment on above: Performed By: #### C BC #### [facility] [address] [place] [address] Dr. Abdoulaye Carey NEUT # 6.1 103/ul Normal 1.4-6.5 [facility] Comment on above: Performed By: #### C BC #### [facility] [address] [place] [address] Dr. Abdoulaye Carey Neutrophils/100 WBC (Bld) 69.0 % Normal 43.0-75.0 [facility] Comment on above: Performed By: #### C BC #### [facility] [address] [place] [address] Dr. Abdoulaye Carey Platelet mean volume (Bld) [Entitic vol] 11.5 fL Normal 9.5-13.5 [facility] Comment on above: Performed By: #### C BC #### [facility] [address] [place] [address] Dr. Abdoulaye Carey PLT 150 103/ul Normal 150-[address] [facility] Comment on above: Performed By: #### C BC #### [facility] [address] [place] [address] Dr. Abdoulaye Carey RBC 5.47 106/ul Normal 4.70-6.[address] [facility] Comment on above: Performed By: #### C BC #### [facility] [address] [place] [address] Dr. Abdoulaye Carey WBC 8.8 103/ul Normal 4.0-11.[address] [facility] Comment on above: Performed By: #### C BC #### [facility] [address] [address] [address] Abdoulaye Carey LIPID PROFILEon 10-31-2022 CHOL-HDL RATIO NORM SEE BELOW Normal [facility] Comment on above: Result Comment: 3.3 - 4.4 LOW RISK 4.4 - 7.1 AVERAGE RISK 7.1 - 11.0 MODERATE RISK >11.0 HIGH RISK Performed By: #### C MP, LIPID #### [facility] [address] [address] [address] Abdoulaye Carey Cholesterol [Mass/Vol] 199 mg/dL Normal <=[address] [facility] Comment on above: Performed By: #### C MP, LIPID #### [facility] [address] [address] [address] Abdoulaye Carey Cholesterol in HDL [Mass/Vol] 37 mg/dL Critically low 40-60 [facility] Comment on above: Performed By: #### C MP, LIPID #### [facility] [address] [address] [address] Abdoulaye Carey Cholesterol in LDL [Mass/Vol] 136.2 mg/dL Normal [facility] Comment on above: Performed By: #### C MP, LIPID #### [facility] [address] [address] [address] Abdoulaye Carey Cholesterol.total/Ch olesterol in HDL [Mass ratio] 5.4 {ratio} Normal [facility] Comment on above: Performed By: #### C MP, LIPID #### [facility] [address] [address] [address] Abdoulaye Carey HDL NORMAL > or = 60 mg/dl - LO W CARDIOVASCULAR RISK <40 mg/dl - HIGH CARDIOVASCULAR RISK Normal [facility] Comment on above: Performed By: #### C MP, LIPID #### [facility] [address] [address] [address] Abdoulaye Carey LDL CALC NORMAL SEE BELOW Normal [facility] Comment on above: Result Comment: <100 mg/dl OPTIMAL 100 - 129 mg/dl NEAR OR ABOVE OPTIMAL 130 - 159 mg/dl BORDERLINE HIGH 160 - 189 mg/dl HIGH >190 mg/dl VERY HIGH Performed By: #### C MP, LIPID #### [facility] [address] [place] [address] Dr. Abdoulaye Carey Triglyceride [Mass/Vol] 129 mg/dL Normal <=[address] [facility] Comment on above: Performed By: #### C MP, LIPID #### [facility] [address] [address] [address] Abdoulaye Carey VLDL CALC 25.8 mg/dL Normal [facility] Comment on above: Performed By: #### C MP, LIPID #### [facility] [address] [address] [address] Abdoulaye Carey PROF 14(COMP METB)on 023 Albumin [Mass/Vol] 4.5 g/dL Normal 3.4-5.0 [facility] Comment on above: Performed By: #### C MP, LIPID #### [facility] [address] [place] [address] Dr. Abdoulaye Carey Albumin/Globulin [Mass ratio] 1.6 {ratio} Normal [facility] Comment on above: Performed By: #### C MP, LIPID #### [facility] [address] [place] [address] Dr. Abdoulaye Carey ALP [Catalytic activity/Vol] 68 U/L Normal 46-[address] [facility] Comment on above: Performed By: #### C MP, LIPID #### [facility] [address] [place] [address] Dr. Abdoulaye Carey ALT [Catalytic activity/Vol] 6 U/L Critically low 16-[address] [facility] Comment on above: Performed By: #### C MP, LIPID #### [facility] [address] [place] [address] Dr. Abdoulaye Carey Anion gap [Moles/Vol] 14.2 mmol/L Normal [facility] Comment on above: Performed By: #### C MP, LIPID #### [facility] [address] [address] [address] Abdoulaye Carey AST [Catalytic activity/Vol] 18 U/L Normal 15-37 [facility] Comment on above: Performed By: #### C MP, LIPID #### [facility] [address] [place] [address] Dr. Abdoulaye Carey Bilirubin [Mass/Vol] 0.8 mg/dL Normal 0.2-1.0 [facility] Comment on above: Performed By: #### C MP, LIPID #### [facility] [address] [address] [address] Abdoulaye Carey Calcium [Mass/Vol] 9.3 mg/dL Normal 8.5-10.[address] [facility] Comment on above: Performed By: #### C MP, LIPID #### [facility] [address] [place] [address] Dr. Abdoulaye Carey Chloride [Moles/Vol] 106 mmol/L Normal 98-[address] [facility] Comment on above: Performed By: #### C MP, LIPID #### [facility] [address] [place] [address] Dr. Abdoulaye Carey CO2 [Moles/Vol] 26.6 mmol/L Normal 21.0-32.0 [facility] Comment on above: Performed By: #### C MP, LIPID #### [facility] [address] [place] [address] Dr. Abdoulaye Carey Creatinine [Mass/Vol] 1.08 mg/dL Normal 0.70-1.30 [facility] Comment on above: Performed By: #### C MP, LIPID #### [facility] [address] [place] [address] Dr. Abdoulaye Carey EGFR-AF LUXEMBOURGER >60 Normal >=[address] [facility] Comment on above: Performed By: #### C MP, LIPID #### [facility] [address] [place] [address] Dr. Abdoulaye Carey EGFR-NON AF LUXEMBOURGER >60 Normal >=[address] [facility] Comment on above: Performed By: #### C MP, LIPID #### [facility] [address] [place] [address] Dr. Abdoulaye aCrey Globulin (S) [Mass/Vol] 2.9 g/dL Normal [facility] Comment on above: Performed By: #### C MP, LIPID #### [facility] [address] [address] [address] Abdoulaye Carey Glucose [Mass/Vol] 109 mg/dL Critically high 74-106 T [facility] Comment on above: Performed By: #### C MP, LIPID #### [facility] [address] [address] [address] Abdoulaye Carey Potassium [Moles/Vol] 3.8 mmol/L Normal 3.5-5.1 [facility] Comment on above: Performed By: #### C MP, LIPID #### [facility] [address] [address] [address] Abdoulaye Carey Protein [Mass/Vol] 7.4 g/dL Normal 6.4-8.2 [facility] Comment on above: Performed By: #### C MP, LIPID #### [facility] [address] [address] [address] Abdoulaye Carey Sodium [Moles/Vol] 143 mmol/L Normal 136-145 [facility] Comment on above: Performed By: #### C MP, LIPID #### [facility] [address] [address] [address] Abdoulaye Carey Urea nitrogen [Mass/Vol] 22.0 mg/dL Critically high 7.0-18.0 [facility] Comment on above: Performed By: #### C MP, LIPID #### [facility] [address] [address] [address] Abdoulaye Carey Urea nitrogen/Creatinine [Mass ratio] 20.4 mg/mg Normal [facility] Comment on above: Performed By: #### C MP, LIPID #### [facility] [address] [address] [address] Abdoulaye Carey Vital Signs Date Time Vital Sign Value Performing Clinician Sultanai shell 11-16-2024 09:24-0500 Body mass index (BMI) [Ratio] 23.49 kg/m2 Urbano Bro FARM ASSISTANT Work Phone: [facility] 11-16-2024 09:24-0500 Body weight 68.04 kg Urbano Bro FARM ASSISTANT Work Phone: [facility] 11-16-2024 09:24-0500 Diastolic blood pressure 66 mm[Hg] Urbano Bro FARM ASSISTANT Work Phone: [facility] 11-16-2024 09:24-0500 Heart rate 71 /min Urbano Bro FARM ASSISTANT Work Phone: [facility] 11-16-2024 09:24-0500 Systolic blood pressure 120 mm[Hg] Urbano Dieudonne FARM ASSISTANT Work Phone: [facility] 09-26-2024 09:11-0500 Body mass index (BMI) [Ratio] 22.71 kg/m2 Urbano Bro FARM ASSISTANT Work Phone: [facility] 09-26-2024 09:11-0500 Body weight 65.77 kg Urbano Bro FARM ASSISTANT Work Phone: [facility] 09-26-2024 09:11-0500 Diastolic blood pressure 86 mm[Hg] Urbano Dieudonne FARM ASSISTANT Work Phone: [facility] 09-26-2024 09:11-0500 Heart rate 79 /min Urbano Bro FARM ASSISTANT Work Phone: [facility] 09-26-2024 09:11-0500 Systolic blood pressure 139 mm[Hg] Urbano Dieudonne FARM ASSISTANT Work Phone: [facility] 08-31-2024 08:57-0500 Body height 170.2 cm Urbano Dieudonne FARM ASSISTANT Work Phone: [facility] 08-31-2024 08:57-0500 Body mass index (BMI) [Ratio] 21.77 kg/m2 Urbano Bro FARM ASSISTANT Work Phone: [facility] 08-31-2024 08:57-0500 Body weight 63.05 kg Urbano Bro FARM ASSISTANT Work Phone: [facility] 08-31-2024 08:57-0500 Diastolic blood pressure 70 mm[Hg] Urbano Dieudonne FARM ASSISTANT Work Phone: [facility] 08-31-2024 08:57-0500 Systolic blood pressure 114 mm[Hg] Urbano Dieudonne FARM ASSISTANT Work Phone: [facility] Healthcare Encounters Encounter Date Encounter Type Care Provider Facility Start: 12-25-2025 ambulatory Radha L Kellie Facility: [facility] [place] Start: 09-28-2025 ambulatory CHANGE AGENT Radha L Kellie Facil ity: [facility] [place] Start: 06-29-2025 End: 06-29-2025 ambulatory CHANGE AGENT Radha L Kellie Facility: [facility] [place] Start: 03-29-2025 End: 03-29-2025 ambulatory CHANGE AGENT Radha L [place] Facility: [facility] [place] Start: 03-22-2025 End: 03-22-2025 ambulatory Radha L Kellie Facility: [facility] [place] Start: 03-02-2025 End: 03-02-2025 ambulatory MARTIN DIEGO Facility:[facility] Start: 12-26-2024 End: 12-26-2024 Lab Drop off Radha L Kellie [facility] Start: 12-26-2024 End: 12-26-2024 ambulatory Radha L Kellie Facility: [facility] [place] Start: 12-22-2024 End: 12-22-2024 ambulatory Radha L Kellie Facility: [facility] [place] Start: 11-17-2024 End: 11-17-2024 Telephone encounter Mariah Dumont MD Work Phone: [facility] Comment on above: RNS/DBS Visit Start: 11-16-2024 End: 11-16-2024 Saroj Bro NP Work Phone: [place] [facility] Start: 11-16-2024 End: 11-16-2024 Bamraheelo janet Bro FARM ASSISTANT Work Phone: [place] [facility] Start: 11-16-2024 End: 11-16-2024 Office outpatient visit 25 minutes Urbano Bro NP Work Phone: [place] [facility] Comment on above: Parkinson's disease without dyskinesia or fluctuating manifestations (CMS/HCC) (Primary Dx); Dysphagia, unspecified type; Weight loss Start: 11-16-2024 End: 11-16-2024 ambulatory URBANO BRO Not Available Start: 09-28-2024 End: 09-28-2024 ambulatory Radha L Kellie Facility:[facility] Start: 09-26-2024 End: 09-26-2024 Bamboo flowsheet Urbano Bro FARM ASSISTANT Work Phone: [facility] [address] Start: 09-26-2024 End: 09-26-2024 Bamboo flowsheet Urbano Bor FARM ASSISTANT Work Phone: [facility] [address] [facility] Start: 09-26-2024 End: 09-26-2024 Office outpatient visit 25 minutes Urbano Bro FARM ASSISTANT Work Phone: [facility] [address] Comment on above: Parkinson's disease without dyskinesia or fluctuating manifestations (CMS/HCC) Start: 09-26-2024 End: 09-26-2024 ambulatory URBANO DIEUDONNE Not Available Start: 09-09-2024 End: 09-09-2024 ambulatory Radha L [place] Facility:[facility] Start: 08-31-2024 End: 08-31-2024 Bamboo flowsheet Urbano Bro FARM ASSISTANT Work Phone: [facility] [address] Start: 08-31-2024 End: 08-31-2024 Bamboo flowsheet Urbano Bro FARM ASSISTANT Work Phone: [facility] [address] Start: 08-31-2024 End: 08-31-2024 Office outpatient visit 25 minutes Urbano Bro FARM ASSISTANT Work Phone: [facility] [address] [facility] Comment on above: Parkinson's disease without dyskinesia or fluctuating manifestations (CMS/HCC) (Primary Dx); Dysphagia, unspecified type; Weight loss Start: 08-31-2024 End: 08-31-2024 ambulatory URBANO DIEUDONNE Not Available Start: 06-10-2024 End: 06-10-2024 ambulatory Radha L Kellie Facility: [facility] Start: 06-02-2024 End: 06-02-2024 ambulatory URBANO DIEUDONNE Not Available Start: 05-31-2024 End: 05-31-2024 ambulatory SHERYL HAM Not Available Start: 03-30-2024 End: 03-30-2024 Lab Drop off Radha L Kellie [facility] Start: 03-30-2024 End: 03-30-2024 ambulatory Radha L Kellie Facility:[facility] [place] Start: 12-30-2023 End: 12-30-2023 ambulatory Radha L Kellie Facility:[facility] [place] Start: 12-23-2023 End: 12-23-2023 Lab Drop off Radha L Kellie [facility] Start: 12-26-2022 End: 12-26-2022 Patient encounter procedure Dianelys GRANT [facility] Start: 12-17-2022 End: 12-17-2022 ambulatory DIANELYS GRANT Facility: Start: 10-31-2022 End: 11-01-[address] JOSE VILLARREAL . Facility: Procedures Date Procedure Procedure Detail Performing Clinician Start: 12-17-2022 Colonoscopy Dianelys NI LL Start: 02-24-2017 Cataract Extraction with IOL placement - OD. Dianelys GRANT Start: 02-20-2011 Colonoscopy Dianelys NI LL Vasectomy Dianelys GRANT Plan of Treatment Date Care Activity Detail Author Start: 01-10-2025 End: 01-10-2025 Patient encounter procedure 01/10/2025 1:20 PM EDT Office Visit [facility] [address] [place] [address] Urbano Bro NP [address] [place] [address] [facility] Start: 11-16-2024 End: 11-16-2024 Patient encounter procedure [facility] [address] [facility] Comment on above: Arrived Start: 09-26-2024 End: 09-26-2024 Patient encounter procedure 09/26/2024 9:20 AM EST [facility] [address] [place] [id number] Urbano Bro NP [address] [place], [place] [id number] Arrived [facility] [address] Comment on above: Arrived Start: 09-22-2024 End: 09-22-2024 Patient encounter procedure 09/22/2024 11:20 AM EST Office [facility] [address] [place] [address] Urbano Bro NP [address] [place], [place] [id number] [facility] [address] Start: 06-19-2024 Influenza vaccination Influenza Vacc ine (#1) [facility] Start: 09-20-2021 Pneumococcal Vaccine : 65+ Years (2 of 2 - PPSV23 or PCV20) Pneumococcal Vaccine: 65+ Years (2 of 2 - PPSV23 or PCV20) [facility] Start: 1950 Screening for malign ant neoplasm of colon [facility] Immunizations Immunization Date Immunization Notes Care Provider Fa [facility] 10-06-2021 SARS-CoV-2 (COVID-19 ) mRNA BNT-162b2 vax Dianelys GRANT [facility] [place] 01-20-2021 SARS-CoV-2 (COVID-19 ) mRNA BNT-162b2 vax Dianelys TYL [facility] [place] 12-28-2020 SARS-CoV-2 (COVID-19 ) mRNA BNT-162b2 vax Dianelys TYL [facility] [place] Comment on above: Result Comment: 2022: [id number] 09-20-2020 pneumococcal conjugate vaccine, 13 valent Urbano Bro NP Work Phone: [facility] NEGATED: Highlighted row has not occurred!12-22-2024 influenza virus vaccine, unspecified formulation [facility] [place] NEGATED: Highlighted row has not occurred!11-18-2022 influenza virus vaccine, unspecified formulation Dianelys CHAO [facility] [place] Payers Date Payer Category Payer Medicare (Managed Care) [employer] M EDICARE ADVANTAGE [id number] 2017 Medicare HU[employer]NA MEDICARE HU[employer] MEDICARE PPO [id number] 2017-Present [phone] [address] [place] [id number] PPO [id number] 1959 Medicare [id number] 1950 Unknown [id number] 2.840.1.436522.3.579. 2.593 1951 Unknown [id number] .840.1.632017.3.579. 2.593 1951 Unknown [id number] 2.840.1.521182.3.579. 2.1259 1951 Unknown [id number] 2.16840.1.252058.3.579. 2.1259 1951 Unknown [id number] 2.840.1.013329.3.579. 2.1259 1951 Unknown [id number] 2.840.1.948044.3.579. 2.1259 1951 Unknown [id number] 2.16.840.1.326939.3.579. 2.1259 1951 Unknown [id number] 2.16.840.1.289472.3.579. 2.727 1951 Unknown [id number] 2.16.840.1.348758.3.579. 2.727 1951 Unknown [id number] 2.16.840.1.736991.3.579. 2.72 1951 Unknown [id number] 2.16.840.1.106608.3.579. 2.72 1951 Unknown [id number] 2.16.840.1.671251.3.579. 2.72 1951 Unknown [id number] 2.840.1.991980.3.579. 2.72 1951 Unknown [id number] 2.840.1.721018.3.579. 2.72 1951 Unknown [id number] 2.840.1.307169.3.579. 2.72 1951 Unknown [id number] 2.16840.1.597444.3.579. 2.72 1951 Unknown [id number] 2.840.1.506635.3.579. 2.72 1951 Unknown [id number] 2.16.840.1.934568.3.579. 2.72 1951 Unknown [id number] 2.16.840.1.061536.3.579. 2.72 1951 Unknown [id number] 2.16.840.1.097295.3.579. 2.72 1951 Unknown [id number] 2.16.840.1.009480.3.579. 2.727 1951 Unknown [id number] 2.16.840.1.611149.3.579. 2.727 1951 Unknown [id number] 2.16.840.1.920043.3.579. 2.727 1950 Unknown [id number] 2.16.840.1.573296.3.579. 2.727 Social History Date Type Detail Facility Start: 11-18-2022 End: 12-22-2024 Tobacco smoking status Never smoked tobacco (finding) [facility] [place] Comment on above: never in lifetime denies use. Tobacco smoking status Never [facility] [place] Comment on above: never in lifetime Start: 05-31-2024 Sex Assigned At Male F [facility] Start: 06-02-2024 End: 11-16-2024 Alcoholic beverage intake Lifetime non-drinker (finding) [facility] Start: 05-31-2024 History of Social function [facility] Start: 1950 Sex assigned at Not on file [facility] Tobacco smoking stat [facility] Tobacco smoking consumption unknown [facility] Clinical Notes 12-17-2022 to 03-02-2025 Telephone Encounter - Ayaan Paula RN - 11/17/2024 1:12 PM ESTTelephone Encounter - Ayaan Paula RN - 11/17/2024 1:12 PM ESTTelephone Encounter - Jeronimo Franklin - 11/17/2024 11:50 AM EST Note Date & Type Note Facility 03-02-2025 Note HNO ID: [id number] Author: MARTIN LAMAR, DO Service: ? Author Type: Physician Type: Progress Notes Filed: 03/09/2025 14:57 Note Text: [facility] - NEW PATIENT EVALUATION Recording using TVShow Time software for draft documentation of the visit was discussed with the patient/authorized associate financial representative; all questions welcomed and answered. Patient/authorized associate financial representative agreed to proceed I had the [...] 1 capsule by mouth once daily. [employer] [place] Vitamin 1 capsule per mouth daily. carbidopa-levodopa [...] - Neurological: - Coordination: Mild dysmetria on [id number]-[id number] testing. - Motor: Rigidity noted. - Strength: [...] Last Medication Taken DBS Right DBS Left (more content not included)... [facility] 12-22-2024 Note Patient Education Preventive Care 65 Years and [...] of hard liquor (44 mL). Lifestyle ??? Reedy your teeth every morning and night with [...] annual wellness visit. ??? Ask your health c (more content not included)... [facility] 11-17-2024 Telephone encounter Note Triaged, based off available medical records, diagnosis looks relatively new and consult with movement disorders recommended. Ayaan Paula RN [facility] Work Phone: 11-17-2024 Miscellaneous Notes Triaged, based off available medical records, diagnosis looks relatively new and consult with movement disorders recommended. Ayaan Paula RN Patient has been referred from an outside provider for DBS evaluation clinic. Medical records need to be triaged. Records have been uploaded to the chart under scanned documents. documented in this encounter [facility] 11-17-2024 Telephone encounter Note Patient has been referred from an outside provider for DBS evaluation clinic. Medical records need to be triaged. Records have been uploaded to the chart under scanned documents. [facility] 11-16-2024 History of Presen t illness Narrative Images from the original note were not included. Chief Complaint Patient presents with Parkinson's Disease Weight Loss Subjective Quinten Huitron, 74 y.o., male The patient is seen today to follow-up on Parkinson's Disease and dysphagia. He is accompanied by his . His Sinemet was increased which he has tolerated well. Denies noticing a difference in tremor symptoms. He states he has been doing better with sleep, uses Xanax The patient states his mood is well overall, but he does have some anxiety. The patient denies nightmares, denies vivid dreams. He denies both visual and auditory hallucinations. He denies imbalance and falls since his previous appointment. He states the swallowing difficulty has not worsened, he has been drinking water with food which helps. His has been preparing softer foods. Weight is improving. Denies further concern and feels he has been doing well overall. Review of Systems Constitutional: Positive for appetite change and unexpected weight change. Negative for fatigue and fever. HENT: Positive for difficulty with swallowing - improved. Negative for choking. Respiratory: Negative for cough, shortness of breath and wheezing. Cardiovascular: Negative for chest pain, palpitations and leg swelling. Gastrointestinal: Negative for abdominal pain, constipation, diarrhea and nausea. Musculoskeletal: Negative for arthralgias, gait problem and myalgias. Neurological: Positive for tremors. Negative for dizziness, numbness and headaches. Positive for slowness of movement Past Medical History: Diagnosis Date Cataract Parkinsonism (CMS/HCC) Tremor Unspecified visual disturbance Weight loss Past Surgical History: Procedure Laterality Date CATARACT EXTRACTION Right VASECTOMY Family History Problem Relation Name Age of Onset Heart disease Mother Social History Tobacco Use Smoking status: Never Smokeless tobacco: Not on file Substance Use Topics Alcohol use: Never Allergies: Patient has no known allergies. Vitals: 11/16/24 0924 BP: 120/66 Pulse: 71 Body mass index is 23.49 kg/m . weight: 150 lb Neurologic exam: Mental status: Well nourished, well developed and in no acute distress. Grossly oriented to person, place and time. Recent and remote memory are intact. Language is fluent without aphasia. Attention and concentration are normal. Fund of knowledge is appropriate for level of education. Cranial nerves: CN II: Visual acuity is normal. Visual johnson full to confrontation. CN III, IV, : pupils equal round and reactive to light. Extraocular movements intact. No ptosis present. CN V: Facial sensation is normal. CN VII: Full and symmetric facial movement. CN VIII: Hearing is intact. CN IX and X: Palate elevates symmetrically. CN XI: Shoulder shrug is normal bilaterally. CN XII: Tongue is midline without atrophy or fasciculation. Motor: RUE Strength deltoid , biceps , triceps , wrist extensors , wrist flexor , cover stripper strength 5/5. LUE Strength deltoid , biceps , triceps , wrist extensors , wrist flexor , cover stripper strength 5/5. RLE Strength illopsoas, quadriceps, tibialis anterior, and gastrocnemius strength 5/5. LLE Strength illopsoas, quadriceps, tibialis anterior, and gastrocnemius strength 5/5. Increased tone in the BUE with mild-moderate cogwheel rigidity bilaterally. Mild-moderate resting tremor of the BUE, L>R. Sensory: Sensation is intact to light touch throughout distal extremities. Reflexes: RUE biceps reflex 2+ , brachioradialis reflex 2+. LUE biceps reflex 2+ , brachioradialis reflex 2+. RLE knee reflex 0. LLE knee reflex 0. Leone's Sign negative. Coordination: Cwepdn-eh-ewez testing is normal Moderate bradykinesia bilaterally with rapid hand alternations and finger tapping. Gait: Slightly decreased stride; En bloc turning is appreciated. Mild shuffling. Review and summary of old records: MRI of the brain without contrast on 09/11/15: No mass, hydrocephalus or infarction. Assessment/Plan Diagnoses and all orders for this visit: Parkinson's disease without dyskinesia or fluctuating manifestations (CMS/HCC) It is my impression that the patient has Parkinson's disease. He meets major criteria as evident on clinical examination. Brain MRI in 2014 was generally unremarkable. The patient did have a beneficial response to dopaminergic therapy initially. However, his symptoms have seemed to be more refractory to treatment recently. Entacapone was initiated due to some concerns with wearing off but this did not seem to provide any meaningful benefit nor did further increase in his sinemet dosing. Given his young age and seemingly refractory response I believe a second opinion at a tertiary movement clinic to be reasonable. PLAN: - Referral to the [facility] movement clinic for consideration of DBS - Continue Sinemet 25/100 mg IR 2 tablets by mouth three times a day (at 8 AM, noon, and 4 PM). - Continue entacapone 200 mg PO daily for now (take with am sinemet dose); currently tolerating without side effects though without symptom benefit per patient. - Continue ropinirole 0.5 mg by mouth three times a day (at 8 AM, noon, and 4 pm) - Stopped amantadine (ineffective) - Patient has declined referral to PT though he does admit to increasing physical activity at home - The patient is currently taking alprazolam by another provider and we have discussed in detail that further prescription of benzos will need to be from that provider. (Previously providing pre-procedure lorazepam). Dysphagia, unspecified type The patient reports mild difficulty swallowing without choking. This is potentially related to his Parkinson's disease. PLAN: - Recommended referral to speech therapy, but this has been declined by the patient. Overall he feels this is improved. We again discussed the potential risks including aspiration, pneumonia, and even . He verbalizes understanding and declines ST or additional work up. Weight loss The patient has lost approximately 10-15 pounds within the past 2 years (as confirmed by office weights). His weight loss is unintentional but not unexplained given his decreased appetite and overall intake. He denies depression. He and his admits that he does withhold meals for fear of bathroom needs when out in public which is likley contributing. Overall improved since last visit and he has had mild weight gain. PLAN: - We have discussed nutritional needs in great detail and I have recommended the continued use of Boost/Ensure between meals - Recommended appealing and easy to swallow foods/liquids - Will continue to monitor - I recommended weight loss be further discussed with PCP at next weeks visit and recommended routine cancer screening. Follow up in 2-3 months following [facility] movement clinic consult or sooner if symptoms worsen, fail to improve, or should a new neurological concern arise. Pt has been fully educated on their diagnosis, treatment options, follow up plan, and return instructions documented in this encounter [facility] 09-26-2024 History of Presen t illness Narrative Images from the original note were not included. Chief Complaint Patient presents with Parkinson's Disease Dysphagia Weight Loss Subjective Quinten Huitron, 74 y.o., male The patient is seen today to follow-up on Parkinson's Disease and dysphagia. He is accompanied by his . He was started on Entacapone at his last visit and has tolerated this well. Denies noticing a difference in tremor symptoms. He states he has been having more trouble sleeping. Upon questioning he does admit that he has been taking a 4th dose of his sinemet prior to bedtime. The patient states his mood is well overall, but he does have some anxiety. The patient denies nightmares, denies vivid dreams. He denies both visual and auditory hallucinations. He denies imbalance and falls since his previous appointment. He states the swallowing difficulty has not worsened, he has been drinking water with food which helps. His has been preparing softer foods. Denies any choking. Review of Systems Constitutional: Positive for appetite change and unexpected weight change. Negative for fatigue and fever. HENT: Positive for difficulty with swallowing - improved. Negative for choking. Respiratory: Negative for cough, shortness of breath and wheezing. Cardiovascular: Negative for chest pain, palpitations and leg swelling. Gastrointestinal: Negative for abdominal pain, constipation, diarrhea and nausea. Musculoskeletal: Negative for arthralgias, gait problem and myalgias. Neurological: Positive for tremors. Negative for dizziness, numbness and headaches. Positive for slowness of movement Past Medical History: Diagnosis Date Cataract Parkinsonism (CMS/HCC) Tremor Unspecified visual disturbance Weight loss Past Surgical History: Procedure Laterality Date CATARACT EXTRACTION Right VASECTOMY Family History Problem Relation Name Age of Onset Heart disease Mother Social History Tobacco Use Smoking status: Never Smokeless tobacco: Not on file Substance Use Topics Alcohol use: Never Allergies: Patient has no known allergies. Vitals: 09/26/24 0911 BP: 139/86 Pulse: 79 Body mass index is 22.71 kg/m . weight: 145 lb Neurologic exam: Mental status: Well nourished, well developed and in no acute distress. Grossly oriented to person, place and time. Recent and remote memory are intact. Language is fluent without aphasia. Attention and concentration are normal. Fund of knowledge is appropriate for level of education. Cranial nerves: CN II: Visual acuity is normal. Visual johnson full to confrontation. CN III, IV, : pupils equal round and reactive to light. Extraocular movements intact. No ptosis present. CN V: Facial sensation is normal. CN VII: Full and symmetric facial movement. CN VIII: Hearing is intact. CN IX and X: Palate elevates symmetrically. CN XI: Shoulder shrug is normal bilaterally. CN XII: Tongue is midline without atrophy or fasciculation. Motor: RUE Strength deltoid , biceps , triceps , wrist extensors , wrist flexor , cover stripper strength 5/5. LUE Strength deltoid , biceps , triceps , wrist extensors , wrist flexor , cover stripper strength 5/5. RLE Strength illopsoas, quadriceps, tibialis anterior, and gastrocnemius strength 5/5. LLE Strength illopsoas, quadriceps, tibialis anterior, and gastrocnemius strength 5/5. Increased tone in the BUE with mild-moderate cogwheel rigidity bilaterally. Mild-moderate resting tremor of the BUE, L>R. Sensory: Sensation is intact to light touch throughout distal extremities. Reflexes: RUE biceps reflex 2+ , brachioradialis reflex 2+. LUE biceps reflex 2+ , brachioradialis reflex 2+. RLE knee reflex 0. LLE knee reflex 0. Leone's Sign negative. Coordination: Cjbbpp-wu-fwan testing is normal Moderate bradykinesia bilaterally with rapid hand alternations and finger tapping. Gait: Slightly decreased stride; En bloc turning is appreciated. Mild shuffling. Review and summary of old records: MRI of the brain without contrast on 09/11/15: No mass, hydrocephalus or infarction. Assessment/Plan Diagnoses and all orders for this visit: Parkinson's disease without dyskinesia or fluctuating manifestations (CMS/HCC) It is my impression that the patient has Parkinson's disease. He meets major criteria as evident on clinical examination. Brain MRI in 2015 was generally unremarkable. The patient has had a beneficial response to dopaminergic therapy. He presents today with what seems to be some worsening of symptoms especially his tremor which he reports is functionally limiting for him and states that his medication seems to wear off between doses. Although tolerated, the addition of entacapone has not seemed to provide any meaningful benefit thus far. PLAN: - Increase Sinemet 25/100 mg IR to 2 tablets by mouth three times a day (at 8 AM, noon, and 4 PM). We have discussed dose timing and I have recommended the patient not take a dose just prior to bed as this may be interfering with his sleep. - Continue entacapone 200 mg PO daily for now (take with am sinemet dose); currently tolerating without side effects though without symptom benefit per patient. - If suboptimal response to the above may consider referral to the movement clinic for consideration of DBS in the future and this was discussed with the patient/family today. The patient states he will continue to consider this. - Continue ropinirole 0.5 mg by mouth three times a day (at 8 AM, noon, and 4 pm) - Stopped amantadine (ineffective) - Patient has declined referral to PT though he does admit to increasing physical activity at home - The patient is currently taking alprazolam by another provider and we have discussed in detail that further prescription of benzos will need to be from that provider. (Previously providing pre-procedure lorazepam). Dysphagia, unspecified type The patient reports mild difficulty swallowing without choking. This is potentially related to his Parkinson's disease. PLAN: - Recommended referral to speech therapy, but this has been declined by the patient. Overall he feels this is improved. We again discussed the potential risks including aspiration, pneumonia, and even . He verbalizes understanding and declines ST or additional work up. Weight loss The patient has lost approximately 10-15 pounds within the past 2 years (as confirmed by office weights). His weight loss is unintentional but not unexplained given his decreased appetite and overall intake. He denies depression. He and his admits that he does withhold meals for fear of bathroom needs when out in public which is likley contributing. PLAN: - We have discussed nutritional needs in great detail and I have recommended the continued use of Boost/Ensure between meals - Recommended appealing and easy to swallow foods/liquids - Will continue to monitor - I recommended weight loss be further discussed with PCP at next weeks visit and recommended routine cancer screening. Follow up in 1-2 months or sooner if symptoms worsen, fail to improve, or should a new neurological concern arise. Pt has been fully educated on their diagnosis, treatment options, follow up plan, and return instructions documented in this encounter [facility] 08-31-2024 History of Presen t illness Narrative Images from the original note were not included. Chief Complaint Patient presents with Parkinson's Disease Dysphagia Subjective Quinten Huitron, 74 y.o., male The patient is seen today to follow-up on Parkinson's Disease and dysphagia. He was started on amantadine at his last visit. The patient states the amantadine did not make much of a difference. He ran out of this about a week ago. The patient states his tremor is doing the same since his last visit. He states that it feels like his medications work for about 2 hours. He continues having weight loss, they are trying for him to gain or at least not lose any more weight. Admits he has a follow up with his PCP next week and they plan to further discuss this. The patient states his mood is well overall, but he does have some anxiety. The patient can panic at times. He has a hard time falling askeep, he hardly slept last night. Takes trazadone nightly. He was anxious about his appointment with us today. The patient denies nightmares, denies vivid dreams. He denies both visual and auditory hallucinations. He denies imbalance and falls since his previous appointment. He states the swallowing is no worse, he has been drinking water with food and it helps the food go down. His has been preparing softer foods. Denies any choking. Review of Systems Constitutional: Positive for appetite change and unexpected weight change. Negative for fatigue and fever. HENT: Positive for difficulty with swallowing - improved. Negative for choking. Respiratory: Negative for cough, shortness of breath and wheezing. Cardiovascular: Negative for chest pain, palpitations and leg swelling. Gastrointestinal: Negative for abdominal pain, constipation, diarrhea and nausea. Musculoskeletal: Negative for arthralgias, gait problem and myalgias. Neurological: Positive for tremors. Negative for dizziness, numbness and headaches. Positive for slowness of movement Past Medical History: Diagnosis Date Cataract Parkinsonism (CMS/HCC) Tremor Unspecified visual disturbance Weight loss Past Surgical History: Procedure Laterality Date CATARACT EXTRACTION Right VASECTOMY Family History Problem Relation Name Age of Onset Heart disease Mother Social History Tobacco Use Smoking status: Never Smokeless tobacco: Not on file Substance Use Topics Alcohol use: Never Allergies: Patient has no known allergies. Vitals: 08/31/24 0857 BP: 114/70 Body mass index is 21.77 kg/m . weight: 139 lb Neurologic exam: Mental status: Well nourished, well developed and in no acute distress. Grossly oriented to person, place and time. Recent and remote memory are intact. Language is fluent without aphasia. Attention and concentration are normal. Fund of knowledge is appropriate for level of education. Cranial nerves: CN II: Visual acuity is normal. Visual johnson full to confrontation. CN III, IV, : pupils equal round and reactive to light. Extraocular movements intact. No ptosis present. CN V: Facial sensation is normal. CN VII: Full and symmetric facial movement. CN VIII: Hearing is intact. CN IX and X: Palate elevates symmetrically. CN XI: Shoulder shrug is normal bilaterally. CN XII: Tongue is midline without atrophy or fasciculation. Motor: RUE Strength deltoid , biceps , triceps , wrist extensors , wrist flexor , cover stripper strength 5/5. LUE Strength deltoid , biceps , triceps , wrist extensors , wrist flexor , cover stripper strength 5/5. RLE Strength illopsoas, quadriceps, tibialis anterior, and gastrocnemius strength 5/5. LLE Strength illopsoas, quadriceps, tibialis anterior, and gastrocnemius strength 5/5. Increased tone in the BUE with mild-moderate cogwheel rigidity bilaterally. Mild-moderate resting tremor of the BUE, L>R. Sensory: Sensation is intact to light touch throughout distal extremities. Reflexes: RUE biceps reflex 2+ , brachioradialis reflex 2+. LUE biceps reflex 2+ , brachioradialis reflex 2+. RLE knee reflex 0. LLE knee reflex 0. Leone's Sign negative. Coordination: Sbwank-yi-lcjo testing is normal Moderate bradykinesia bilaterally with rapid hand alternations and finger tapping. Gait: Slightly decreased stride; En bloc turning is appreciated. Mild shuffling. Review and summary of old records: MRI of the brain without contrast on 09/11/15: No mass, hydrocephalus or infarction. Assessment/Plan Diagnoses and all orders for this visit: Parkinson's disease without dyskinesia or fluctuating manifestations (CMS/HCC) It is my impression that the patient has Parkinson's disease. He meets major criteria as evident on clinical examination. Brain MRI in 2014 was generally unremarkable. The patient has had a beneficial response to dopaminergic therapy. He presents today with what seems to be some worsening of symptoms especially his tremor which he reports is functionally limiting for him and states that his medication seems to wear off between doses. PLAN: - Start entacapone 200 mg PO daily (take with am sinemet dose); side effects were discussed in detail and the patient would like to proceed. - Stopped amantadine (ineffective) - If suboptimal response to the above may consider referral to the movement clinic for consideration of DBS in the future and this was discussed with the patient/family today. The patient states he will continue to consider this. - Continue Sinemet 1.5 tablets by mouth three times a day (at 8 AM, noon, and 4 PM). - Continue ropinirole 0.5 mg by mouth three times a day (at 8 AM, noon, and 4 pm) - Patient has declined referral to PT though he does admit to increasing physical activity at home - The patient is currently taking alprazolam by another provider and we have discussed in detail that further prescription of benzos will need to be from that provider. (Previously providing pre-procedure lorazepam). Dysphagia, unspecified type The patient reports mild difficulty swallowing without choking. This is potentially related to his Parkinson's disease. PLAN: - Recommended referral to speech therapy, but this has been declined by the patient. Overall he feels this is improved. We again discussed the potential risks including aspiration, pneumonia, and even . He verbalizes understanding and declines ST or additional work up. Weight loss The patient has lost approximately 10-15 pounds within the past 2 years (as confirmed by office weights). His weight loss is unintentional but not unexplained given his decreased appetite and overall intake. He denies depression. He and his admits that he does withhold meals for fear of bathroom needs when out in public which is likley contributing. PLAN: - We have discussed nutritional needs in great detail and I have recommended the continued use of Boost/Ensure between meals - Recommended appealing and easy to swallow foods/liquids - Will continue to monitor - I recommended weight loss be further discussed with PCP at next weeks visit and recommended routine cancer screening. Follow up in 4 weeks or sooner if symptoms worsen, fail to improve, or should a new neurological concern arise. Pt has been fully educated on their diagnosis, treatment options, follow up plan, and return instructions documented in this encounter [facility] 12-17-2022 Note OPERATIVE NOTE OPERATION DATE: 12/17/2022 PREOPERATIVE DIAGNOSIS: Intermittent rectal bleeding. POSTOPERATIVE DIAGNOSIS: Ascending colon polyp. PROCEDURE: Colonoscopy to cecum with cold snare polypectomy x1. SURGEON: Dianelys Grant M.D. ANESTHESIA: Monitored anesthesia care. INDICATIONS AND CONSENT: Patient is a 72-year-old male with history of intermittent rectal bleeding. Indications, risks, benefits, alternatives of proceeding with colonoscopy were explained extensively to the patient, including the risks of bleeding, colon perforation or anesthetic complications. All of his questions were answered. Informed consent was obtained. PROCEDURE: Patient brought to the operating room, placed in the left lateral decubitus position. Monitored anesthesia care was provided. Rectal exam was performed which revealed no masses or blood. The scope was inserted into the anal canal. Under direct visualization was advanced. It was advanced to the cecum where cecal markings were clearly identified. There was noted to be a good prep. Upon withdrawal of the scope, mucosal surfaces were carefully examined. Within the ascending colon, there was noted to be a 5 mm sessile polyp that was removed with cold snare with good hemostasis. There were no other mass lesions or polyps. No significant diverticulosis. The scope was retroflexed in the anal canal. There was no to be some prominent rectal veins. No significant hemorrhoidal disease. No old or new blood. The scope was then withdrawn. Patient tolerated procedure well, was sent to recovery room in good condition. Follow up colonoscopy should be in five years, but may change depending on the pathology results. CC: Jose Villarreal M.D. [facility] Evaluation + Plan note No data available for this section General Surgery [place] Evaluation + Plan note Future Appointments Appointment Date:12/30/2023 11:20:00 AM Scheduled Provider:Radha Poole Location:[facility] Appointment Type: Open Appointment Date:12/22/2024 11:00:00 AM Scheduled Provider: Location:[facility] Appointment Type:FM Medicare Wellness Subsequent Diagnostic Tests PendingHCV Antibody RFX to Quant PCR 12/23/23 [facility] Evaluation + Plan note Future Appointments Appointment Date:06/29/2024 11:20:00 AM Scheduled Provider:Radha Poole Location:[facility] Appointment Type: Open Appointment Date:12/22/2024 11:00:00 AM Scheduled Provider: Location:[facility] Appointment Type:FM Medicare Wellness Subsequent [facility] Evaluation + Plan note Future Appointments Appointment Date:03/22/2025 09:40:00 AM Scheduled Provider:Radha Poole Location:[facility] Appointment Type: Open Appointment Date:12/25/2025 11:00:00 AM Scheduled Provider: Location:[facility] Appointment Type:FM Medicare Wellness Subsequent [facility] Evaluation note Diagnosis Parkinson's disease without dyskinesia or fluctuating manifestations (CMS/HCC)- Primary Dysphagia, unspecified type Weight loss [facility] of [facility] Diagnosis Parkinson's disease without dyskinesia or fluctuating manifestations (CMS/HCC) [facility] Diagnosis Parkinson's disease without dyskinesia or fluctuating manifestations (CMS/HCC)- Primary Dysphagia, unspecified type Weight loss Loss of [facility] No data available for this section General Surgery [facility] note No data available for this section General Surgery [place] Summary Purpose Family History No Family History Records Found No data available for this section No data available for this section No Family History Records FoundNo Family History Records FoundNo Family History Records FoundNo Family History Records FoundNo Family History Records Found No data available for this section No Family History Records FoundNo Family History Records FoundNo Family History Records FoundNo Family History Records FoundNo Family History Records FoundNo Family History Records FoundNo Family History Records FoundNo Family History Records FoundNo Family History Records FoundNo Family History Records Found Advance Directives No Advanced Directives Records FoundNo Advanced Directives Records FoundNo Advanced Directives Records FoundNo Advanced Directives Records FoundNo Advanced Directives Records FoundNo Advanced Directives Records FoundNo Advanced Directives Records FoundNo Advanced Directives Records FoundNo Advanced Directives Records FoundNo Advanced Directives Records FoundNo Advanced Directives Records FoundNo Advanced Directives Records FoundNo Advanced Directives Records FoundNo Advanced Directives Records FoundNo Advanced Directives Records FoundNo Advanced Directives Records Found Additional Source Comments (unrecognized sect ion and content) No Status Records FoundNo Status Records FoundNo Status Records FoundNo Status Records FoundNo Status Records FoundNo Status Records FoundNo Status Records FoundNo Status Records FoundNo Status Records FoundNo Status Records FoundNo Status Records FoundNo Status Records FoundNo Status Records FoundNo Status Records FoundNo Status Records FoundNo Status Records Found INFORMATION SOURCE (unrecogn ized section and content) DATE CREATED AUTHOR 12/26/2022 [facility] DATE CREATED AUTHOR AUTHOR'S ORGANIZ ATION 04/01/2024 [facility] [facility] DATE CREATED AUTHOR AUTHOR'S ORGANIZ ATION 11/18/2024 [facility] DATE CREATED AUTHOR AUTHOR'S ORGANIZ ATION 12/28/2024 [facility] DATE CREATED AUTHOR AUTHOR'S ORGANIZ ATION 03/16/2025 [facility] DATE CREATED AUTHOR AUTHOR'S ORGANIZ ATION 03/24/2025 [facility] DATE CREATED AUTHOR AUTHOR'S ORGANIZ ATION 06/30/2025 [facility] DATE CREATED AUTHOR AUTHOR'S ORGANIZ ATION 07/02/2025 [facility] DATE CREATED AUTHOR AUTHOR'S ORGANIZ ATION 07/08/2025 [facility] Patient Care team informatio n (unrecognized section and content) 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 Specialty Start Date End Date Unallocated, Elder Jarvis MD [address] [place] [id number] PCP - General Family Medicine 11/16/24 Murphy Guerin OD [address] [phone] Referring Physician Optometry 05/31/24 Urbano Bro NP [address] [phone] Nurse Practitioner Neurology 08/29/24 Wesly Schwartz DO [address] [phone] Referring Physician Neurology 08/29/24 Radha Hopkins MD [address] [place] [phone] Referring Physician Family Medicine 08/31/24 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 Specialty Start Date End Date Unallocated, Elder Jarvis MD [address] [place] [phone] PCP - General Family Medicine 11/16/24 Murphy Guerin OD [facility] [phone] Referring Physician Optometry 05/31/24 Urbano Bro NP [address] [place] [address] Nurse Practitioner Neurology 08/29/24 Wesly Schwartz DO [address] [phone] Referring Physician Neurology 08/29/24 Radha Hopkins MD [address] [place], [place] [phone] Referring Physician Family Medicine 08/31/24 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 Specialty Start Date End Date Urbano Bro CNP [address] [phone] Referring Family Medicine 11/16/24 Reason for Visit (unrecogniz ed section and content) Reason Comments Parkinson's Disease Dysphagia Reason Comments Parkinson's Disease Dysphagia Weight Loss Reason Comments Parkinson's Disease Weight Loss Reason Comments RNS/DBS Visit Source Comments (unrecognize d section and content) In the event this informatio n is protected by the Federal Confidentiality of Alcohol and Drug Abuse Patient Records regulations: The Federal rules restrict any use of the information to criminally investigate or prosecute any alcohol or drug abuse patient.[facility] FOR RECORDS PERTAINING TO PATIENTS WHO ARE OR HAVE BEEN ENROLLED IN A CHEMICAL DEPENDENCY/SUBSTANCEABUSE PROGRAM, SOME INFORMATION MAY BE OMITTED. This clinical summary was aggregated from multiple sources. Caution should be exercised in using it in the provision of clinical care. This summary normalizes information from multiple sources, and as a consequence, information in this document may materially change the coding, format and clinical context of patient data. In addition, data may be omitted in some cases. CLINICAL DECISIONS SHOULD BE BASED ON THE PRIMARY CLINICAL RECORDS. [facility]. provides no warranty or guarantee of the accuracy or completeness of information in this document.
[2025-07-21 16:32] LABS: Alanine Aminotransferase 14 U/L (16-63); Albumin Globulin Ratio 1.3; Albumin Level 4.0 g/dL (3.4-5.0); Alkaline Phosphatase 64 U/L (46-116); Anion Gap 14.3; Aspartate Amino Transferase 18 U/L (15-37); Blood Urea Nitrogen 24.0 mg/dL (7.0-18.0); Calcium 9.2 mg/dL (8.5-10.1); Carbon Dioxide 27.0 mmol/L (21.0-32.0); Chloride 104 mmol/L (98-107); Estimated GFR (African America >60 (>=60 mL/min/1.73m^2); Estimated GFR (Non-African Ame >60 (>=60 mL/min/1.73m^2); Globulin 3.1 g/dL; Glucose 147 mg/dL (74-106); Potassium 4.3 mmol/L (3.5-5.1); Sodium 141 mmol/L (136-145); Total Protein 7.1 g/dL (6.4-8.2)
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
--- OUTSIDE RECORDS SUMMARY | 2025-07-21 18:36 | XMS_ITS | CCD ---
Author Organization [facility] [employer] Care Team Providers Care Pizza Chef Name Role Phone DIANELYS GRANT Admitting Unavailable [...] Consulting Unavailable JOSE VILLARREAL Primary Care Physician Torey Diaz Primary Care Physician [phone] Apoorva OD, Murphy Unavailable Dieudonne AIR ANTISUBMARINE OFFICER, Urbano Unavailable Wesly Schwartz DO Unavailable Radha Hopkins MD Unavailable Unallocated , Noms [...] Unavailable Kellie, Radha L Attending Unavailable Kellie, NEUROLOGY TECHNOLOGIST Radha L Attending Unavailable Kellie, NEUROLOGY TECHNOLOGIST Radha L Admitting Unavailable Kellie, NEUROLOGY TECHNOLOGIST Radha L Attending Unavailable Kellie, NEUROLOGY TECHNOLOGIST Radha L Attending Unavailable Kellie, NEUROLOGY TECHNOLOGIST Radha L Attending Unavailable Kellie, NEUROLOGY TECHNOLOGIST Radha L Admitting Unavailable Kellie, NEUROLOGY TECHNOLOGIST Radha L Attending Unavailable Kellie, Radha L Attending Unavailable Kellie, Radha L Admitting Unavailable Allergies Allergy Classification Reported Allergen(s) Allergy Type Date of Onset Reaction(s) Facility (4 sources) No Known Medication Allergies; Translations: [No Known Medication Allergies] Propensity to adverse reactions (disorder) [facility] Repository Medications Current Medications Medication Drug Class(es) Dates Sig (Normalized) Sig (Original) ALPRAZolam 1 mg oral tablet (13 sources) Benzodiazepine Start: 12-22-2024 take 1 tablet by mouth twice daily as needed for anxiety alprazolam 1 mg Tab 1 mg = 1 tab(s), Oral, BID, PRN for anxiety, # 60 tab(s), Refills(s) 0, Pharmacy: [email or web address], 169, cm, 12/22/24 14:54:00 EST, Height/Length [...] anxiety, # 30 tab(s), Refills(s) 0, Pharmacy: [email or web address], 169, cm, 03/30/24 10:19:00 EDT, Height/Length [...] entacapone 200 mg oral tablet (8 sources) Fsdlvybt-B-Xlrufobfw nsferase Inhibitor Start: 08-31-2024 take 1 tablet [...] appointment, # 12 tab(s), Refills(s) 0, Pharmacy: [facility] #72, 169, cm, 12/22/24 14:54:00 EST, Height/Length [...] 3 Episodic Other aftercare (2 sources) Other correction (current) drug therapy; Translations: [OTH WELFARE ANALYST CURRENT DRUG THERAPY] Onset: 3 Episodic Other [...] 20.6 % (14.0 - 50.0) 06/29/2025 10:57 Island Auto 8.7 % (4.0 - 14.0) 06/29/2025 10:57 Eos Auto 1.7 % (0.0 - 8.0) 06/29/2025 10:57 Basophil Auto 0.6 % (0.0 - 2.0) 06/29/2025 10:57 Neutro Absolute 5.2 E9/L (2.0 - 7.5) 06/29/2025 10:57 Lymph Absolute 1.6 E9/L (1.0 - 4.0) 06/29/2025 10:57 Island Absolute 0.7 E9/L (0.2 - 1.0) 06/29/2025 [...] Patient notified with a clear understanding. Normal [facility] Ambulatory Visit Summaryon 0 06-29-2025 [...] 10:20 AM EST With: Radha Poole Where: [address] [id number]- Thursday2025 11:00 AM EDT With: Where: [address] [address]- Medications What How Much When Why Instructions New alprazolam (alprazolam 1 mg Tab) 1 Tablets By Mouth 2 times a day as needed for for anxiety Pickup at [email or web address] Unchanged carbidopa-levodopa (carbidopa-levodopa 25 mg-100 mg [...] Mouth 3 times a day Pharmacy Information [email or web address]: [address] [place] [id number] [phone] Allergies No Known Allergies No Known Medication [...] signed up for this yet, please contact [employer] at [phone] to get signed up today. Language Information Language assistance services are available as needed. Normal [facility] CBC w/ Auto Diffon 5 Basophil Absolute 0.0 E9/L Normal 0.0-0.2 [facility] Comment on above: Performed By: #### 2 [id number] #### [facility] [address] [place] [address] Basophils/100 WBC (Bld) 0.6 % Normal 0.0-2.0 [facility] Comment on above: Performed By: #### 2 [id number] #### [facility] [address] [place] [address] Eos Absolute 0.1 E9/L Normal 0.0-0.5 [facility] Comment on above: Performed By: #### 2 [id number] #### [facility] [address] [place] [address] Eosinophils/100 WBC (Bld) 1.7 % Normal 0.0-8.0 [facility] Comment on above: Performed By: #### 2 659262 #### [facility] [address] [place] [address] Erythrocyte distribution width (RBC) [Ratio] 13.8 % Normal 10.9-14.2 [facility] Comment on above: Performed By: #### 2 404326 #### [facility] [address] [place] [address] Hematocrit (Bld) [Volume fraction] 46.9 % Normal 37.7-49.0 [facility] Comment on above: Performed By: #### 2 810731 #### [facility] [address] [place] [address] Hemoglobin (Bld) [Mass/Vol] 16.0 g/dL Normal 13.5-17.5 [facility] Comment on above: Performed By: #### 2 869569 #### [facility] [address] [place] [address] Lymph Absolute 1.6 E9/L Normal 1.0-4.0 [facility] Comment on above: Performed By: #### 2 [id number] #### [facility] [address] [place] [address] Lymphocytes/100 WBC (Bld) 20.6 % Normal 14.0-50.0 [facility] Comment on above: Performed By: #### 2 584723 #### [facility] [address] [place] [address] MCH (RBC) [Entitic mass] 30.7 pg Normal 27.0-34.0 [facility] Comment on above: Performed By: #### 2 016326 #### [facility] [address] [place] [address] MCHC (RBC) [Mass/Vol] 34.1 g/dL Normal 31.4-36.0 [facility] Comment on above: Performed By: #### 2 995528 #### [facility] [address] [place] [address] MCV (RBC) [Entitic vol] 90.0 fL Normal 80.0-100.0 [facility] Comment on above: Performed By: #### 2 747786 #### [facility] [address] [place] [address] Island Absolute 0.7 E9/L Normal 0.2-1.0 [facility] Comment on above: Performed By: #### 2 878230 #### [facility] [address] [place] [address] Monocytes/100 WBC (Bld) 8.7 % Normal 4.0-14.0 [facility] Comment on above: Performed By: #### 2 800869 #### [facility] [address] [place] [address] Neutro Absolute 5.2 E9/L Normal 2.0-7.5 [facility] Comment on above: Performed By: #### 2 079098 #### [facility] [address] [place] [address] Neutro Auto 68.4 % Normal 36.0-75.0 [facility] Comment on above: Performed By: #### 2 817663 #### [facility] [address] [place] [address] Platelet 145.0 E9/L Low 150.0-500.0 [facility] Comment on above: Performed By: #### 2 427006 #### [facility] [address] [place] [address] Platelet mean volume (Bld) [Entitic vol] 10.6 fL Normal 6.4-10.8 [facility] Comment on above: Performed By: #### 2 383785 #### [facility] [address] [place] [address] RBC 5.2 E12/L Normal 4.3-5.9 [facility] Comment on above: Performed By: #### 2 032132 #### [facility] [address] [place] [address] WBC 7.6 E9/L Normal 4.0-11.0 [facility] Comment on above: Result Comment: Henna pheral smear review performed. Performed By: #### 2 475154 #### [facility] [address] [place] [address] CMPon 06-29-2025 Albumin [Mass/Vol] 4.8 g/dL Normal 3.3-5.0 [facility] Comment on above: Performed By: #### 2 576189 #### [facility] [address] [place] [address] Albumin/Globulin [Mass ratio] 2.1 {ratio} Normal 1.1-2.2 [facility] Comment on above: Performed By: #### 2 601984 #### [facility] [address] [place] [address] Alk Phos 57 Int._Unit/L Normal 21-98 [facility] Comment on above: Performed By: #### 2 997892 #### [facility] [address] [place] [address] ALT 4 Int._Unit/L Low 6-46 [facility] Comment on above: Performed By: #### 2 304147 #### [facility] [address] [place] [address] Anion gap [Moles/Vol] 11 mmol/L Normal 6-16 [facility] Comment on above: Performed By: #### 2 252425 #### [facility] [address] [place] [address] AST 21 Int._Unit/L Normal 5-43 [facility] Comment on above: Performed By: #### 2 135370 #### [facility] [address] [place] [address] Bili Total 1.0 mg/dL Normal 0.0-1.1 [facility] Comment on above: Performed By: #### 2 262883 #### [facility] [address] [place] [address] BUN/Creat Ratio 22 No Units High 10-20 [facility] Comment on above: Performed By: #### 2 577477 #### [facility] [address] [place] [address] Calcium [Mass/Vol] 9.6 mg/dL Normal 8.9-11.1 [facility] Comment on above: Performed By: #### 2 765299 #### [facility] [address] [place] [address] Chloride [Moles/Vol] 108 mmol/L Normal 101-111 [facility] Comment on above: Performed By: #### 2 149750 #### [facility] [address] [place] [address] CO2 [Moles/Vol] 25 mmol/L Normal 21-31 [facility] Comment on above: Performed By: #### 2 988810 #### [facility] [address] [place] [address] Creatinine [Mass/Vol] 1.0 mg/dL Normal 0.5-1.3 [facility] Comment on above: Performed By: #### 2 410510 #### [facility] [address] [place] [address] Globulin (S) [Mass/Vol] 2.3 g/dL Normal 1.4-4.0 [facility] Comment on above: Performed By: #### 2 705628 #### [facility] [address] [place] [address] Glucose [Mass/Vol] 98 mg/dL Normal 55-199 [facility] Comment on above: Performed By: #### 2 654586 #### [facility] [address] [place] [address] Potassium [Moles/Vol] 4.5 mmol/L Normal 3.5-5.3 [facility] Comment on above: Performed By: #### 2 394897 #### [facility] [address] [place] [address] Protein [Mass/Vol] 7.1 g/dL Normal 6.0-7.8 [facility] Comment on above: Performed By: #### 2 812920 #### [facility] [address] [place] [address] Sodium [Moles/Vol] 139 mmol/L Normal 135-145 [facility] Comment on above: Performed By: #### 2 601316 #### [facility] [address] [place] [address] Urea nitrogen [Mass/Vol] 22 mg/dL High 5-21 [facility] Comment on above: Performed By: #### 2 611217 #### [facility] [address] [place] [address] Family Medicine Office/Clini c Noteon 06-29-2025 Family [...] anxiety, # 60 tab(s), Refills(s) 0, Pharmacy: [email or web address], 169, cm, 03/29/25 11:10:00 EDT, Height/Length Dosing, 66.4, kg, 03/29/25 11:10:00 EDT, Weight Dosing alprazolam, 1 mg = 1 tab(s), Oral, BID, PRN for anxiety, # 60 tab(s), Refills(s) 0, Pharmacy: [email or web address], 169, cm, 06/29/25 9:57:00 EDT, Height/Length [...] TPV65 pneumococcal 13-valent vaccine 09/20/[address] [facility] Comment on above: Result Comment: Elec tronically Signed By: Radha Poole\.br\Date and Time Signed: 06/29/25 10:26 EDT PSA Screen, Totalon 06-29-20 25 PSA Scrn Tot. 3.9 ng/mL High 0.1-3.5 [facility] Comment on above: Result Comment: The concentration of PSA determined by different manufacturers can vary due to differences in assay methods and reagent specificity. Values obtained from different assay methods cannot be used interchangeably. The methodology used for this result was chemiluminescence using [employer]'s Tugende Hybritech PSA reagent. Performed By: #### 1 [id number] #### [facility] [address] [place] [address] TSHon 06-29-2025 TSH Qn 0.99 m[IU]/L Normal 0.34-5.60 [facility] Comment on above: Performed By: #### 2 284772 #### [facility] [address] [place] [address] Vit B12on 06-29-2025 Cobalamin (Vitamin B12) [Mass/Vol] 444 pg/mL Normal 50-1500 [facility] Comment on above: Performed By: #### 2 683995 #### [facility] [address] [place] [address] eGFRon 06-29-2025 eGFR 79 mL/min/1.73 m2 Normal >=59 [facility] Comment on above: Performed By: #### 1 [id number] #### [facility] [address] [place] [address] Ambulatory Visit Summaryon 0 03-29-2025 Ambulatory Visit [...] 9:40 AM EDT With: Radha Poole Where: [address] [address]- Thursday2025 11:00 AM EDT With: Where: [address] [address]- Medications What How Much When Why Instructions [...] for choosing us for your care. Normal [facility] Family Medicine Office/Clini c Noteon [...] appointment, # 21 tab(s), Refills(s) 0, Pharmacy: [email or web address], 169, cm, 03/29/25 11:10:00 EDT, Height/Length Dosing, 66.4, kg, 03/29/25 11:10:00 EDT, Weight Dosing lorazepam, See Instructions, 3 tab(s) 30 minutes prior to procedure or appointment, # 12 tab(s), Refills(s) 0, Pharmacy: [email or web address], 169, cm, 12/22/24 14:54:00 EST, Height/Length [...] pneumococcal 13-valent vaccine 09/20/2020 Recorded Normal [facility] Comment on above: Result Comment: Elec tronically [...] feel free to contact me at extension [phone]. Thank you! ARTIS Caba, RN, CCM, CCDS, CCDS-O CDI Return Clerk [place] [address] P: [phone] F: [phone] [email or web address] From: Radha Poole To: Devika AMARO, Carmen; Sent: 03/22/2025 11:40:20 EDT Subject: RE: Pre-Visit Planning Caller Name: QUINTEN HUITRON; Caller Number: Kari , M He was a no show today. But Generalized anxiety disorder, tremors and insomnia Normal [facility] ) QUINTEN HUITRON ([id number]) 1950 M Date Time Provider Department 03/02/25 9:00 AM MARTIN LAMAR NRESAV During your visit today, we recorded the following information about you: Pulse Blood pressure 60/minute 104/62 Martin Lamar, DO 03/09/2025 2:57 PM Signed [facility] - NEW PATIENT EVALUATION Recording using [employer] software for draft documentation of the visit was discussed with the patient/authorized account executive sales representative; all questions welcomed and answered. Patient/authorized account executive sales representative agreed to proceed I had the [...] - Neurological: - Coordination: Mild dysmetria on zwwcxe-vh-[id number] testing. - Motor: Rigidity noted. - Strength: [...] turns, dec (more content not included)... Normal [facility] Ambulatory Visit Summaryon 0 12-26-2024 Ambulatory [...] Appointments Thursday 10:00 AM EDT With: Where: [address] [address]- Thursday 9:40 AM EDT With: Radha Poole Where: [address] [address]- Thursday2025 11:00 AM EDT With: Where: [address] [address]- You Need to Complete the Following Lipid [...] need? Vacc (more content not included)... Normal [facility] CHEMISTRYOrdered By: SYSTEM SYSTEM on [...] were given. Reviewed Medicare Prevention Services checklist. [facility]-Falls Prevention and home safety screening reviewed. Patient denies any falls in last 12 months, voices no worry about falling. Exhibits no problems with sitting, standing or ambulation. Patient aware with keeping walk way area free of clutter to prevent tripping and/or falling. [place] Advance Directives reviewed. See #4. Patient denies [...] PCP visit. Labs to be completed with [facility]. No concerns with bowel/ bladder. Colonoscopy last [...] their chosen representatives. Explained the role each account executive sales representative would play, encouraged patient to select 2 people with one being the primary and the other for an alternate. Discussed importa (more content not included)... Normal [facility] Comment on above: Result Comment: Elec tronically Signed By: Radha Poole\.br\Date and Time Signed: 12/26/24 13:04 EDT\.br\Electronically Co-Signed By: Ling Champagne\.br\Date and Time Co-Signed: 12/22/24 15:58 EST Lipid Panelon 12-26-2024 Cholesterol [Mass/Vol] 185 mg/dL Normal 120-200 [facility] Comment on above: Performed By: #### 2 [id number] #### [facility] [address] [place] [address] Cholesterol in HDL [Mass/Vol] 33 mg/dL Invalid Interpretation Code [facility] Comment on above: Result Comment: '>= 60 LOW RISK' '<= 40 HIGH RISK' Performed By: #### 2 552509 #### [facility] [address] [place] [address] Cholesterol in LDL [Mass/Vol] 135 mg/dL High <=129 [facility] Comment on above: Performed By: #### 2 872089 #### [facility] [address] [place] [address] Cholesterol in VLDL [Mass/Vol] 35 mg/dL Normal 7-40 [facility] Comment on above: Performed By: #### 2 214349 #### [facility] [address] [place] [facility] [place] [address] Triglyceride [Mass/Vol] 175 mg/dL High <=149 [facility] Comment on above: Performed By: #### 2 469758 #### [facility] [address] [place] [facility] [place] [address] Ambulatory Visit Summaryon 0 12-22-2024 Ambulatory Visit [...] Appointments Thursday 10:00 AM EDT With: Where: [address] [address]- Thursday 9:40 AM EDT With: Radha Poole Where: [address] [address]- Thursday2025 11:00 AM EDT With: Where: [address] [address]- You Need to Complete the Following Lipid Panel, Blood, Routine collect, 12/22/24, Order for future visit, Lab Collect, Pure hypercholesterolemia, Required & Missing, Print Label By Order Location Medications What How Much When Instructions New alprazolam (alprazolam 1 mg Tab) 1 Tablets By Mouth 2 times a day as needed for for anxiety Pickup at [email or web address] Unchanged carbidopa-levodopa (carbidopa-levodopa 25 mg-100 mg [...] Mouth 3 times a day Pharmacy Information [facility]: [address] [place] [id number] [phone] Allergies No Known Allergies No Known Medication [...] choosing us for your care. Normal [facility] Medicine Office/Clini c Noteon 12-22-2024 Family Medicine [...] appointment, # 12 tab(s), Refills(s) 0, Pharmacy: [email or web address], 169, cm, 12/22/24 14:54:00 EST, Height/Length [...] anxiety, # 40 tab(s), Refills(s) 0, Pharmacy: [email or web address], 169, cm, 09/28/24 10:16:00 EST, Height/Length Dosing, 65.7, kg, 09/28/24 10:16:00 EST, Weight Dosing alprazolam, 1 mg = 1 tab(s), Oral, BID, PRN for anxiety, # 60 tab(s), Refills(s) 0, Pharmacy: [email or web address], 169, cm, 12/22/24 14:54:00 EST, Height/Length [...] pneumococcal 13-valent vaccine 09/20/2020 Recorded Normal [facility] Comment on above: Result Comment: Elec tronically Signed By: Radha Poole\.br\Date and Time Signed: 12/22/24 15:38 EST Vicky 11-17-2024 CNPN Telephone (NREUS2) QUINTEN HUITRON ([id number]) 1950 M Date Time Provider Department 11/17/24 [...] Never Reviewed Reason for Visit: RNS/DBS Visit [2480] Problem List As Of Date: 11/17/2024 (None) Encounter Status:Closed by JERONIMO FRANKLIN on 11/17/24 Normal [facility] Ambulatory Visit Summaryon 11-29-2023 Ambulatory Visit [...] Appointments 2024 2:30 PM EST With: Where: [address] [id number]- 2024 3:20 PM EST With: Radha Poole Where: [address] [address]- Medications What How Much When Instructions Unchanged [...] choosing us for your care. 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 him today- states he hard [...] anxiety, # 40 tab(s), Refills(s) 0, Pharmacy: [email or web address], 169, cm, 09/28/24 10:16:00 EST, Height/Length Dosing, 65.7, kg, 09/28/24 10:16:00 EST, Weight Dosing lorazepam, See Instructions, 3 tabs 30 minutes prior to procedure., # 6 tab(s), Refills(s) 0, Pharmacy: [email or web address], 169, cm, 09/28/24 10:16:00 EST, Height/Length Dosing, 65.7, kg, 09/28/24 10:16:00 EST, Weight Dosing lorazepam, 0.5 mg = 1 tab(s), Oral, Bedtime, also can be taken 30 minutes prior to procedure, # 40 tab(s), Refills(s) 0, Pharmacy: [email or web address], 169, cm, 09/09/24 11:27:00 EST, Height/Length [...] vax 04 (more content not included)... Normal [facility] Comment on above: Result Comment: [...] procedure, # 40 tab(s), Refills(s) 0, Pharmacy: [email or web address], 169, cm, 09/09/24 11:27:00 EST, Height/Length Dosing, 66, kg, 09/09/24 11:27:00 EST, Weight Dosing lorazepam, See Instructions, TAKE 3 TABLETS BY MOUTH 30 MINUTES PRIOR TO PROCEDURE, # 6 tab(s), Refills(s) 0, Pharmacy: [email or web address], 169, cm, 06/10/24 8:35:00 EDT, Height/Length [...] TPV65 pneumococcal 13-valent vaccine 09/20/[address] [facility] Comment on above: Result Comment: [...] 8:40 AM EST With: Radha Poole Where: [address] [id number]- 2024 11:00 AM EST With: Where: [address] [address]- Medications What How Much When Instructions New alprazolam (alprazolam 0.5 mg Tab) 1 Tablets By Mouth At bedtime as needed for for anxiety Pickup at [email or web address] Unchanged carbidopa-levodopa (carbidopa-levodopa 25 mg-100 mg [...] Mouth 3 times a day Pharmacy Information [facility]: [address] [place] [id number] [phone] Allergies No Known Allergies No Known Medication [...] choosing us for your care. Normal [facility] Family Medicine Office/Clini c Noteon 06-10-2024 Family [...] anxiety, # 90 tab(s), Refills(s) 0, Pharmacy: [email or web address], 169, cm, 06/10/24 8:35:00 EDT, Height/Length Dosing, 61.9, kg, 06/10/24 8:35:00 EDT, Weight Dosing alprazolam, 0.5 mg = 1 tab(s), Oral, TID, PRN for anxiety, # 30 tab(s), Refills(s) 0, Pharmacy: [email or web address], 169, cm, 03/30/24 10:19:00 EDT, Height/Length [...] TPV65 pneumococcal 13-valent vaccine 09/20/[address] [facility] Comment on above: Result Comment: [...] feel free to contact me at extension [phone]. Thank you! Katlin Reese LPN Clinical Back End Developer [place] [address] Extension: [phone] [email or web address] From: Radha Poole To: Katlin Reese; Sent: 06/09/2024 12:55:57 EDT Subject: RE: Pre-Visit Planning Caller Name: QUINTEN HUITRON; Caller Number: Kari , M thrombocytopenia Normal [facility] Coding Summary.on 04-08-2024 Coding Summary. MSUMKrpm47NJe2fNt+PG hlY WQ+TC3ODWJnF65xxZXydO6s S6CSNRoJFshvRMZFTDvKDpV vahRcQW9dhJBzAETl IC8+AR1sTUFhJhrstDVfw1T 5yYF8W26sef3oFTannCR1PN MvHsDkegbus9aclUb9JGigW mluOyBt JNJovD97ERT5eN51Ym58pSZ lwELpw0vfmQa8TjKyGAHxXM S7zPhbVFugz4GrXZGhR38sz EEpj1B8 YFHvxUglkRTrObEzuTA6eV7 sUYnlvidmw4czhrpmAju5aq 90eRDso5V5xAJ3J2HriiO9B GJvbGQg PgzajBRRkS9evapkh0iiqzx mBwGvUIQuFGe8YKl6DGAgqH yfFhBxZV98SKP3FICjtqVhS 2FsLWFs mZgkGfX6x5Y1Ta1HI5WYNch iW6AWHIYUOAzndPY+PC90cj 68C7EcFojqVtf8WGGxYOJ7i ZW4mR7r CFUwIQjqj0R7yDR2L0WiacC khz7wy8nuTLLuYMvxY39kjJ Pso8R6UOOfnNF3ILXqrFlnI iBzaG93 Oyc+UQWmvVaay6ScYgipi5w fr9vkrTn2MyurGUJyarLqmG bxRVT7n2DkBw4jZRUfiBS4z YA4iU0h DmTjNgJ3EOwkX589TcXqyKT wOopfO87gZ6QpbCD+PHRyPj l3JOUdbLwgIL8aK6GvMOIul mctbGVm jCfeRB5mSMZessqcVNWraU3 jYKHyD4a8XeDeIcI7COteZ7 DvSVCkelxsLs55xF4iHhYjI mX1YTuw X3TyavE8JAPrkBIkYVvmCYJ 1U44un7H0LPSzLHJpOID1aF O1yM9ibJdthotibPSvyDrqj mVydGlj BZezXHqgH252JDVddCagYnO vZGluZyBEYXRlOiAgMDYvMj EvMjAyNDwvdGQ+XBTzIOK5h WxlPSAn vYIqAXczBn7fxDewvUxmJI2 bHMMoxqxvEIYswV6nLEXinR XrhCelNI2tRTNztvpks991F iAxMHB0 HEFfnTIgW6XujJ4sZgHlZTK gXXYhU8NogGXuISohF087WY obScY3XECnupClC8CqBPPyv WduOiB0 a9B5Ov8Gm8XddzfvX1WonWS pXjAgVrddAPh2H8KbPzyafJ I+JM86XOUqXP80TQc0DEN6d WxlPSdi CNJgJ1PhdP4rPhRrAHSlYHN kOyc+PHRhYmxlIHdpZHRoPS cvXCDiSuUyoVcqKK5pMa7gL GVyLWNv pVmwkFDyVuZpw1qwIJKtXCk xON3qcZipB8PxqAW7OVNeh0 w6Oa75I08yW5ZnvWG+PGNvb XS7zNO3 eE1jUlPhCsU3MItbC921HhA qiYAdOyfvz6onx6ghrYv5Bj L9RBGozxUunDndBXP3x5JsX e97J43n IHdpZHRoPSIxNSUiIHZhbGl whq5dlM2aHz3+IJBxcIQ2sV A2eR8oNmRqOvY6USilT015H nRvcCIv Aelrw0jpk9fdmEl2IwYzYLE ggnFyvIddCQF7x3HpRa92W1 VznXwnu0YaKyv7et35fDOog 7V2xKW8 Z9AiRCRwreuogQMoxTiyBY5 zHOSriuegRCFpzD0sTLYnN5 r6UiPsXnG0ZNcmB5MlhwI5A GJvbGQg NHGjjLTJcO7keodus9jvuwv eHrSiYDHeLDu6KKa6WIIfnT ehWeBhIEE8MmQ6ZCK5dUQve H6ypBbh ocehjL9yNxj+TEG4tVSgwIX ZMI4oExormHD+JDJiQSF1fT mpZLqlMAQxzY1zUPZyJ1i0I iAwLjA1 CUifY2VitbZ9YXHxnDSjKTD nbBZUpN8ocsbtn1howljcIo VqXZYoWRw3WVt0BCYnlGfiC iBsZWZ0 CjM6DCW5zOKweJ6hdWlhmcb ylP4xOhm+VcwctLvhSUX1QL v3A1NiHlx8USBncOyqIC6wa GFkZGlu Uz3wdEpvzMibPB7jHNSgqxj jw225FpShh5ygDGNwxGWeZM waAUC1R19uz5V5PNSfJSWtD WY6qAV6 vL9asIynkyhprENscCercuF juJskIZwdKYzfR355BSNmvB kxAsKhRJd5A7DcPty3MUGus TywGT0m rQUmEFysNe1wbYaoyVzlWD1 lOOAkkzrey402HpIqe4ijWB XpxTSjKQwmBQC0K85di5G0X CMwMDAw FTN4fFQ5mJ6emWoazlxupIN mdDsgdmVydGljYWwtYWxpZ2 14AKNnoKhnDxDllYi8Q4YqA dk5WTPy yPyoNV7qqROrNGnoHx3cuNy yrJbsUN0gSCJgmnwsq080Bi Cwz7auSKFapZDbEPyiDVN4K 61ga1H1 VNQcSVVsOYG9vWQ6eG1aqOb nbjogbGVmdDsgdmVydGljYW ctJNciO795SINkbNwsGtZns GllbnQg LNboCUr7B4YuAwsquNL+PC9 1HMQaVN96oPUkeICre6jqkV t6DiHfNBFePLU1hIiyLUaea 3JkZXIt V24niILxd7R8WEGylAnuoQJ aMxTdtMM8gE7kMJlrgnqgb2 pjnictLgwyw4edra64cV20O 29sIHdp ZHRoPSIzMCUiIHZhbGlnbj0 ntH7vWj6+UHTflLR4dQV6iE 1bXEKiVcW9CArfB669PmZom CIvPjxj n5cvk2tetGu6IfQ4TFCfxdW acBugLXT7s5NgXl96D13tWO dpZHRoPSIyMCUiIHZhbGlnb i3eiB1d Ii8+XLIxqQK1hPT9yX2cOcT bHdV5KVltA774AaGwnGEbYo jkU38kE4BtcXL+QGMiIwu8O CBzdHls AC2wxXDhSHztEb6jYKG8ImV kAwAaUVlaT0HzEOUqvatche srrXC0AJPsFGPnhY34Uy3my DogMTBw fISFpC9rsqjhu6ffbtpjRaB gUAOxTZn7PCq5BVItvBfuDu OfYMQ1WyO6SOQ0nPUtaN7xv Glnbjog qH0nM9XuBNZdtepfFy26nV2 nVyNeNrP7LTazLvg+SEVOTk WQOBUNKHAFYHFSCV37QQ44t KPsr0O3 kGI7G9JdALMhelumcqkznCT 5OLAeRDAcyR79rWZlGOryWi 8sp3E5s027JKXyJMKdeJ35J s2rgSlh KGEswMDMkN7kaqbea2ufijs aWiYoUNUwVNx8ZXe6FAUgwC emVkHtGMT6KsG6RYG4eZVzh R0oeSyo opariH6yApf+MDgvMjUvMTk 1MTwvdGQ+AOEiVSL3jTwfCK pkIIAqkN2bSWSiW7i7DzPaD kU3DSky Q4TwJRPoqfqoEw85pM7vKxW oTkC3EEoaQ3BzsbP6XJLabM FcWUvyVVK1W95ry8M5YYWtJ DAwMDA7 zAV9vR3hhGphpbmfgRBclLg fbiYveIvvBZqxMJpyG540DS KawTcpBbbvZXoiOBKvLC38S M41dHOe r9C3lAO4G3FvSFRroroanam lvCH0SZMwDDPdyE53pYShGL ybUd5oy0H2s040IBUaBHRod W53Gh3e kDtuQFDpcAAJvK5nyrjer1o wbzwcElAoTOGdAAe7PMd0GC XyuRnkKnRvPJB5HvY2HPH9c BZxpN9u hIzkwpghnB9tFmq+TWFsZTw vdGQ+GGEeMPN9nPdeUQsrBR PvmM2yTERuU2p5LiFtYpJ2L YhbT5Fi GAVabbdfHz28rE8oNiDfBcH 2YVsrN8MpyoU3QVOquLIwMX azRFT9X52lm9D0SIYjUTGwZ EW7yNO1 vF8gpXyuronnpTDzrCnnzkF waWpdENjhLXwfJ763KNDihI voXzlaXtVJhr1rAO6dBedjv GQ+PC90 in91S8UrKdfvJnm5FIIvNNL 0dDD8jX8sPWVuPOjhb6O2iC O8U1QphhZwzc5bq7xxCGHvC IubW48i zHPta1H7ZEPvyGM7ZPLncCq xXeUlkV10Pya+PGNvbGdyb3 XsLrggo6mlr0uyuTd9LaHjX SIgdmFs wJunNGM2h8IzIf51H63oVKo pZHRoPSIzMCUiIHZhbGlnbj 7pvV1wNf8+RSIddGG5dQQ3x O9oLhQw WyG6WPazU688RmBlfFHcIyu mt9ryj2sniNp5RbCyRRGijy MmeMjvSRY8k7WvRy14B0Rxk Roxu5Ea Osk3lv61fKAut8W9wZL6W0Y oFKTltvpkeBDydOgzRR2gWU QfwhpsTQWxwX9eDGEkD9j4I iAwLjA1 FKkxG7BbxfY8WKDybEHxKBP ytKWQaX4kqkifc6xmqbnvZs QjFUVmRVn8INs3CTSbhMzdL iBsZWZ0 PyN3RUK3iNHiuK2otFbrmfb raC3kEze+DJy6v4wiwQLuFM 4iwCV3PV25TJ08pQDdl7Y1h RJ7T0Ww TIQpjphexypfzFS6EOAnNLW wnN07Zl5qwWjsAa4fGCItVJ Y5PRYyiLNbF7UvoV8fKuAdW DAwMDAw T8NbeEOdFGizL169CIfgMrR 8GVYziuKjF0QoRZRldOzxNp Y0c5K6Ta9FXB70BI93XT61j BRzn5C6 hYM4Y5PnIUHxksfctjqaoEK 2VXClHYPfqK75Pg3qsMihIb 6wFSVzIVO2WLEsrVKpT3Ogq N3qIiUg FOHhNVUgY5OarTFpRRrvQ80 1IHbaDoG3SAPhccAsU1TuMJ RsfTyvOgJ8v1R8Kk7VQy34X X80JJ64 bBMth5Q5xAK0O5NsUWNmsov lxlafnTN7KSPcTAAeoA03Dz 1mmQwsNa5qPMVnSOC7CIFmg NZiG1Lw kO1dJpKjNEWwUFDxO1GacRB yHNjrF706BQooUoQ0UMPsdj UmV2RuYALugDpcTeJ4u6Y5M r4URRkn uku6G4ObKkjehDP+LD95CZY pIR78aGWzwKLkz8rwcYm7Cc YaWYWjPMF8oNsqORoct5RiK SSiA82q wSEdt0U8BEXiu (more content not included)... Normal [facility] Reminderson 03-31-2024 Reminders - From: [...] 20.0 % (14.0 - 50.0) 03/30/2024 10:51 Island Auto 8.4 % (4.0 - 14.0) 03/30/2024 10:51 Eos Auto 1.7 % (0.0 - 8.0) 03/30/2024 10:51 Basophil Auto 0.7 % (0.0 - 2.0) 03/30/2024 10:51 Neutro Absolute 4.8 E9/L (2.0 - 7.5) 03/30/2024 10:51 Lymph Absolute 1.4 E9/L (1.0 - 4.0) 03/30/2024 10:51 Island Absolute 0.6 E9/L (0.2 - 1.0) 03/30/2024 [...] 100.0) pt notified of message below Normal [facility] CBC w/ Auto Diffon 4 Basophils/100 WBC (Bld) 0.7 % Normal 0.0-2.0 [facility] Comment on above: Performed By: #### 2 [id number] #### [facility] [address] [place] [address] Basophils/Leukocytes Auto (Bld) [Pure # fraction] 0.0 E9/L Normal 0.0-0.2 [facility] Comment on above: Performed By: #### 2 [id number] #### [facility] [address] [place] [address] Eosinophils (Bld) [#/Vol] 0.1 E9/L Normal 0.0-0.5 [facility] Comment on above: Performed By: #### 2 [id number] #### [facility] [address] [place] [address] Eosinophils/100 WBC (Bld) 1.7 % Normal 0.0-8.0 [facility] Comment on above: Performed By: #### 2 [id number] #### [facility] [address] [place] [address] Erythrocyte distribution width (RBC) [Ratio] 14.1 % Normal 10.9-14.2 [facility] Comment on above: Performed By: #### 2 [id number] #### [facility] [address] [place] [address] Hematocrit (Bld) [Volume fraction] 44.8 % Normal 37.7-49.0 [facility] Comment on above: Performed By: #### 2 [id number] #### [facility] [address] [place] [address] Hemoglobin (Bld) [Mass/Vol] 15.5 g/dL Normal 13.5-17.5 [facility] Comment on above: Performed By: #### 2 [id number] #### [facility] [address] [place] [address] Lymphocytes (Bld) [#/Vol] 1.4 E9/L Normal 1.0-4.0 [facility] Comment on above: Performed By: #### 2 [id number] #### [facility] [address] [place] [address] Lymphocytes/100 WBC (Bld) 20.0 % Normal 14.0-50.0 [facility] Comment on above: Performed By: #### 2 312657 #### [facility] [address] [place] [address] MCH (RBC) [Entitic mass] 31.3 pg Normal 27.0-34.0 [facility] Comment on above: Performed By: #### 2 [id number] #### [facility] [address] [place] [address] MCHC (RBC) [Mass/Vol] 34.5 g/dL Normal 31.4-36.0 [facility] Comment on above: Performed By: #### 2 [id number] #### [facility] [address] [place] [address] MCV (RBC) [Entitic vol] 90.8 fL Normal 80.0-100.0 [facility] Comment on above: Performed By: #### 2 [id number] #### [facility] [address] [place] [address] Monocytes (Bld) [#/Vol] 0.6 E9/L Normal 0.2-1.0 [facility] Comment on above: Performed By: #### 2 814140 #### [facility] [address] [place] [address] Neutrophils (Bld) [#/Vol] 4.8 E9/L Normal 2.0-7.5 [facility] Comment on above: Performed By: #### 2 [id number] #### [facility] [address] [place] [address] Neutrophils/100 WBC (Bld) 69.2 % Normal 36.0-75.0 [facility] Comment on above: Performed By: #### 2 427346 #### [facility] [address] [place] [address] Platelet 136.0 E9/L Low 150.0-500.0 [facility] Comment on above: Performed By: #### 2 [id number] #### [facility] [address] [place] [address] Platelet mean volume (Bld) [Entitic vol] 10.3 fL Normal 6.4-10.8 [facility] Comment on above: Performed By: #### 2 [id number] #### [facility] [address] [place] [address] RBC (Bld) [#/Vol] 4.9 E12/L Normal 4.3-5.9 [facility] Comment on above: Performed By: #### 2 [id number] #### [facility] [address] [place] [address] WBC corrected for nucl RBC Auto (Bld) [#/Vol] 6.9 E9/L Normal 4.0-11.0 [facility] Comment on above: Performed By: #### 2 [id number] #### [facility] [address] [place] [address] CHEMISTRYOrdered By: SYSTEM SYSTEM on 03-30-2024 25-hydroxyvitamin [...] Bedtime, # 30 tab(s), Refills(s) 0, Pharmacy: [email or web address], 169, cm, 12/30/23 10:56:00 EDT, Height/Length Dosing, 66, kg, 12/30/23 10:56:00 EDT, Weight Dosing Lab Specimen Collect [id number] 2. Fatigue (R53.83: Other fatigue) c/o fatigue. has been giving him B12 and wonders if we could order injections. will check labs today Ordered: CBC w/ Auto Diff Iron Level Lab Specimen Collect [id number] Thyroid Stimulating Hormone Vitamin B12 Level Vitamin D 25 Hydroxy 3. Weakness (R53.1: Weakness) feeling more weak and tired. will check labs today Ordered: CBC w/ Auto Diff Iron Level Lab Specimen Collect [id number] Thyroid Stimulating Hormone Vitamin B12 Level Vitamin D 25 Hydroxy 4. BMI 21.0-21.9, adult (Z68.21: Body mass index [BMI] 21.0-21.9, adult) BMI education complete Ordered: CBC w/ Auto Diff Iron Level Lab Specimen Collect [id number] Thyroid Stimulating Hormone Vitamin B12 Level Vitamin D 25 Hydroxy 5. Non-smoker (Z78.9: Other specified health status) continue not smoking Ordered: alprazolam, 0.25 mg = 1 tab(s), Oral, Bedtime, # 30 tab(s), Refills(s) 0, Pharmacy: [email or web address], 169, cm, 12/30/23 10:56:00 EDT, Height/Length Dosing, 66, kg, 12/30/23 10:56:00 EDT, Weight Dosing CBC w/ Auto Diff Iron Level Lab Specimen Collect 10331 Thyroid Stimulating Hormone Vitamin B12 Level Vitamin D 25 Hydroxy Orders: alprazolam, 0.5 mg = 1 tab(s), Oral, TID, PRN for anxiety, # 30 tab(s), Refills(s) 0, Pharmacy: [email or web address], 169, cm, 03/30/24 10:19:00 EDT, Height/Length [...] BNT-162b2 vax 12/28/2020 Recorded 2022-11-18: [id number] [address] [facility] Comment on above: Result Comment: [...] Iron [Mass/Vol] 133 microgram/dL Normal 35-153 [facility] Comment on above: Performed By: #### 2 [id number] #### [facility] [address] [place] [address] Medication Consenton 024 Medication Consent [id number]#1.00T IFF Normal [facility] TSHon 03-30-2024 TSH Qn 1.49 m[IU]/L Normal 0.34-5.60 [facility] Comment on above: Performed By: #### 2 [id number] #### [facility] [address] [place] [address] Vit B12on 03-30-2024 Cobalamin (Vitamin B12) [Mass/Vol] pg/mL Normal 50-1500 [facility] Comment on above: Performed By: #### 2 [id number] #### [facility] [address] [place] [address] Vitamin D 25 Hydroxyon 03-30 25-hydroxyvitamin D3 [Mass/Vol] 34.5 ng/mL Normal 30.0-100.0 [facility] Comment on above: Performed By: #### 5 [id number] #### [facility] [address] [place] [address] Ambulatory Visit Summaryon 0 12-30-2023 Ambulatory Visit [...] 10:20 AM EDT With: Radha Poole Where: [facility] [place] Normal [address] [place] [address]- \.br\ Medications\.b r\ What How Much When Why Instructions\. br\ New alprazolam (alprazolam 0.25 mg Tab) 1 Tablets By Mouth At bedtime Insomnia BMI 22.0-22.9, adult Non-smoker Pickup at [email or web address]\.br\ Unchanged carbidopa-levo dopa (carbidopa-lev odopa 25 mg-100 mg Tab) 1 Tablets By Mouth 3 times a day\.br\ Unchanged polyethylene glycol 3350 (MiraLax) 17 Gram By Mouth Every day\.br\ Unchanged ropinirole (ropinirole 0.25 mg Tab) 1 Tablets By Mouth 3 times a day\.br\ Pharmacy Information\.b r\ [email or web address]: [address] [place], [place] [id number] [phone]\.br\ Allergies\.br\ No Known Allergies\.br\ No Known Medication [...] for choosing us for your care.\.br\ \.br\ [facility] Office/Clini c [place] [...] BNT-162b2 vax 12/28/2020 Recorded 2022-11-18: TPV65 Normal [facility] Comment on above: Result Comment: Elec tronically Signed By: Radha Poole\.br\Date and Time Signed: 12/30/23 11:13 EDT Medication Consenton 024 Medication Consent [id number]#1.00T IFF Normal [facility] CHEMISTRYOrdered By: SYSTEM SYSTEM on [...] used for this result was chemiluminescence using [employer]'s [employer] Hybrite[employer] PSA reagent. Protein [Mass/Vol] 6.7 g/dL [...] 10-31-2022 BASO # 0.1 103/ul Normal 0.0-0.1 [facility] Comment on above: Performed By: #### C BC #### [facility] [address] [place] [address] Dr. Abdoulaye Carey Basophils/100 WBC (Bld) 0.7 % Normal 0.2-2.0 [facility] Comment on above: Performed By: #### C BC #### [facility] [address] [place] [address] Dr. Abdoulaye Carey EO # 0.2 103/ul Normal 0.0-0.7 [facility] Comment on above: Performed By: #### C BC #### [facility] [address] [place] [address] Dr. Abdoulaye Carey Eosinophils/100 WBC (Bld) 1.7 % Normal 0.9-7.0 [facility] Comment on above: Performed By: #### C BC #### [facility] [address] [place] [address] Dr. Abdoulaye Carey Erythrocyte distribution width (RBC) [Ratio] 13.4 % Normal 11.0-15.0 [facility] Comment on above: Performed By: #### C BC #### [facility] [address] [place] [address] Dr. Abdoulaye Carey Hematocrit (Bld) [Volume fraction] 50.6 % Normal 42.0-54.0 [facility] Comment on above: Performed By: #### C BC #### [facility] [address] [place] [address] Dr. Abdoulaye Carey Hemoglobin (Bld) [Mass/Vol] 16.3 g/dL Normal 14.0-18.0 [facility] Comment on above: Performed By: #### C BC #### [facility] [address] [place] [address] Dr. Abdoulaye Carey IG # 0.04 10e3/ul Critically high 0.00-0.03 [facility] Comment on above: Performed By: #### C BC #### [facility] [address] [place] [address] Dr. Abdoulaye Carey IG % 0.5 % Normal 0.0-0.5 [facility] Comment on above: Performed By: #### C BC #### [facility] [address] [place] [address] Dr. Abdoulaye Carey LYMPH # 1.8 103/ul Normal 1.2-3.8 [facility] Comment on above: Performed By: #### C BC #### [facility] [address] [place] [address] Dr. Abdoulaye Carey Lymphocytes/100 WBC (Bld) 21.0 % Normal 20.5-60.0 [facility] Comment on above: Performed By: #### C BC #### [facility] [address] [place] [address] Dr. Abdoulaye Carey MANUAL DIFF REQ NO Normal [facility] Comment on above: Performed By: #### C BC #### [facility] [address] [place] [address] Dr. Abdoulaye Carey MCH (RBC) [Entitic mass] 29.8 pg Normal 25.9-34.0 [facility] Comment on above: Performed By: #### C BC #### [facility] [address] [place] [address] Dr. Abdoulaye Carey MCHC (RBC) [Mass/Vol] 32.2 g/dL Normal 29.9-35.2 [facility] Comment on above: Performed By: #### C BC #### [facility] [address] [place] [address] Dr. Abdoulaye Carey MCV (RBC) [Entitic vol] 92.5 fL Normal 80.0-94.0 [facility] Comment on above: Performed By: #### C BC #### [facility] [address] [place] [address] Dr. Abdoulaye Carey MONO # 0.6 103/ul Normal 0.3-0.8 [facility] Comment on above: Performed By: #### C BC #### [facility] [address] [place] [address] Dr. Abdoulaye Carey Monocytes/100 WBC (Bld) 7.1 % Normal 1.7-12.0 [facility] Comment on above: Performed By: #### C BC #### [facility] [address] [place] [address] Dr. Abdoulaye Carey NEUT # 6.1 103/ul Normal 1.4-6.5 [facility] Comment on above: Performed By: #### C BC #### [facility] [address] [place] [address] Dr. Abdoulaye Carey Neutrophils/100 WBC (Bld) 69.0 % Normal 43.0-75.0 [facility] Comment on above: Performed By: #### C BC #### [facility] [address] [place] [address] Dr. Abdoulaye Carey Platelet mean volume (Bld) [Entitic vol] 11.5 fL Normal 9.5-13.5 [facility] Comment on above: Performed By: #### C BC #### [facility] [address] [place] [address] Dr. Abdoulaye Carey PLT 150 103/ul Normal 150-450 [facility] Comment on above: Performed By: #### C BC #### [facility] [address] [place] [address] Dr. Abdoulaye Carey RBC 5.47 106/ul Normal 4.70-6.10 [facility] Comment on above: Performed By: #### C BC #### [facility] [address] [place] [address] Dr. Abdoulaye Carey WBC 8.8 103/ul Normal 4.0-11.0 [facility] Comment on above: Performed By: #### C BC #### [facility] [address] [address] [address] Abdoulaye Carey LIPID PROFILEon 10-31-2022 CHOL-HDL RATIO NORM SEE BELOW Normal [facility] Comment on above: Result Comment: 3.3 - 4.4 LOW RISK 4.4 - 7.1 AVERAGE RISK 7.1 - 11.0 MODERATE RISK >11.0 HIGH RISK Performed By: #### C MP, LIPID #### [facility] [address] [address] [address] Abdoulaye Carey Cholesterol [Mass/Vol] 199 mg/dL Normal <=200 [facility] Comment on above: Performed By: #### C MP, LIPID #### [facility] [address] [address] [address] Abdoulaye Carey Cholesterol in HDL [Mass/Vol] 37 mg/dL Critically low 40-60 [facility] Comment on above: Performed By: #### C MP, LIPID #### [facility] [address] [address] [address] Abdoulaye Carey Cholesterol in LDL [Mass/Vol] 136.2 mg/dL Normal [facility] Comment on above: Performed By: #### C MP, LIPID #### [facility] [address] [address] [address] Abdoulaye Carey Cholesterol.total/Ch olesterol in HDL [Mass ratio] 5.4 {ratio} Normal [facility] Comment on above: Performed By: #### C MP, LIPID #### [facility] [address] [address] [address] Abdoulaye Carey HDL NORMAL > or = 60 mg/dl - LO W CARDIOVASCULAR RISK <40 mg/dl - HIGH CARDIOVASCULAR RISK Normal [facility] Comment on above: Performed By: #### C MP, LIPID #### [facility] [address] [address] [address] Abdoulaye Carey LDL CALC NORMAL SEE BELOW Normal [facility] Comment on above: Result Comment: <100 mg/dl OPTIMAL 100 - 129 mg/dl NEAR OR ABOVE OPTIMAL 130 - 159 mg/dl BORDERLINE HIGH 160 - 189 mg/dl HIGH >190 mg/dl VERY HIGH Performed By: #### C MP, LIPID #### [facility] [address] [place] [address] Dr. Abdoulaye Carey Triglyceride [Mass/Vol] 129 mg/dL Normal <=150 [facility] Comment on above: Performed By: #### C MP, LIPID #### [facility] [address] [address] [address] Abdoulaye Carey VLDL CALC 25.8 mg/dL Normal [facility] Comment on above: Performed By: #### C MP, LIPID #### [facility] [address] [address] [address] Abdoulaye Carey PROF 14(COMP METB)on 023 Albumin [Mass/Vol] 4.5 g/dL Normal 3.4-5.0 [facility] Comment on above: Performed By: #### C MP, LIPID #### [facility] [address] [place] [address] Dr. Abdoulaye Carey Albumin/Globulin [Mass ratio] 1.6 {ratio} Normal [facility] Comment on above: Performed By: #### C MP, LIPID #### [facility] [address] [place] [address] Dr. Abdoulaye Carey ALP [Catalytic activity/Vol] 68 U/L Normal 46-116 [facility] Comment on above: Performed By: #### C MP, LIPID #### [facility] [address] [place] [address] Dr. Abdoulaye Carey ALT [Catalytic activity/Vol] 6 U/L Critically low 16-63 [facility] Comment on above: Performed By: #### C MP, LIPID #### [facility] [address] [place] [address] Dr. Abdoulaye Carey Anion gap [Moles/Vol] 14.2 mmol/L Normal [facility] Comment on above: Performed By: #### C MP, LIPID #### [facility] [address] [address] [address] Abdoulaye Carey AST [Catalytic activity/Vol] 18 U/L Normal 15-37 [facility] Comment on above: Performed By: #### C MP, LIPID #### [facility] [address] [place] [address] Dr. Abdoulaye Carey Bilirubin [Mass/Vol] 0.8 mg/dL Normal 0.2-1.0 [facility] Comment on above: Performed By: #### C MP, LIPID #### [facility] [address] [address] [address] Abdoulaye Carey Calcium [Mass/Vol] 9.3 mg/dL Normal 8.5-10.1 [facility] Comment on above: Performed By: #### C MP, LIPID #### [facility] [address] [place] [address] Dr. Abdoulaye Carey Chloride [Moles/Vol] 106 mmol/L Normal 98-107 [facility] Comment on above: Performed By: #### C MP, LIPID #### [facility] [address] [place] [address] Dr. Abdoulaye Carey CO2 [Moles/Vol] 26.6 mmol/L Normal 21.0-32.0 [facility] Comment on above: Performed By: #### C MP, LIPID #### [facility] [address] [place] [address] Dr. Abdoulaye Carey Creatinine [Mass/Vol] 1.08 mg/dL Normal 0.70-1.30 [facility] Comment on above: Performed By: #### C MP, LIPID #### [facility] [address] [place] [address] Dr. Abdoulaye Carey EGFR-AF MALAYSIAN >60 Normal >=60 [facility] Comment on above: Performed By: #### C MP, LIPID #### [facility] [address] [place] [address] Dr. Abdoulaye Carey EGFR-NON AF MALAYSIAN >60 Normal >=60 [facility] Comment on above: Performed By: #### C MP, LIPID #### [facility] [address] [place] [address] Dr. Abdoulaye Carey Globulin (S) [Mass/Vol] 2.9 g/dL Normal [facility] Comment on above: Performed By: #### C MP, LIPID #### [facility] [address] [address] [address] Abdoulaye Carey Glucose [Mass/Vol] 109 mg/dL Critically high 74-106 T [facility] Comment on above: Performed By: #### C MP, LIPID #### [facility] [address] [address] [address] Abdoulaye Carey Potassium [Moles/Vol] 3.8 mmol/L Normal 3.5-5.1 [facility] Comment on above: Performed By: #### C MP, LIPID #### [facility] [address] [address] [address] Abdoulaye Carey Protein [Mass/Vol] 7.4 g/dL Normal 6.4-8.2 [facility] Comment on above: Performed By: #### C MP, LIPID #### [facility] [address] [address] [address] Abdoulaye Carey Sodium [Moles/Vol] 143 mmol/L Normal 136-145 [facility] Comment on above: Performed By: #### C MP, LIPID #### [facility] [address] [address] [address] Abdoulaye Carey Urea nitrogen [Mass/Vol] 22.0 mg/dL Critically high 7.0-18.0 [facility] Comment on above: Performed By: #### C MP, LIPID #### [facility] [address] [address] [address] Abdoulaye Carey Urea nitrogen/Creatinine [Mass ratio] 20.4 mg/mg Normal [facility] Comment on above: Performed By: #### C MP, LIPID #### [facility] [address] [address] [address] Abdoulaye Carey Vital Signs Date Time Vital Sign Value Performing Clinician Sultanai shell 11-16-2024 09:24-0500 Body mass index (BMI) [Ratio] 23.49 kg/m2 [employer] Work Phone: [facility] 11-16-2024 09:24-0500 Body weight 68.04 kg Urbano Bro [employer] Work Phone: [facility] 11-16-2024 09:24-0500 Diastolic blood pressure 66 mm[Hg] Urbano [employer] Work Phone: [facility] 11-16-2024 09:24-0500 Heart rate 71 /min Urbano Bro [employer] Work Phone: [facility] 11-16-2024 09:24-0500 Systolic blood pressure 120 mm[Hg] Urbano Dieudonne AIR ANTISUBMARINE OFFICER Work Phone: [facility] 09-26-2024 09:11-0500 Body mass index (BMI) [Ratio] 22.71 kg/m2 Urbano Bro AIR ANTISUBMARINE OFFICER Work Phone: [facility] 09-26-2024 09:11-0500 Body weight 65.77 kg Urbano Bro AIR ANTISUBMARINE OFFICER Work Phone: [facility] 09-26-2024 09:11-0500 Diastolic blood pressure 86 mm[Hg] Urbano Dieudonne AIR ANTISUBMARINE OFFICER Work Phone: [facility] 09-26-2024 09:11-0500 Heart rate 79 /min Urbano Bro AIR ANTISUBMARINE OFFICER Work Phone: [facility] 09-26-2024 09:11-0500 Systolic blood pressure 139 mm[Hg] Urbano Dieudonne AIR ANTISUBMARINE OFFICER Work Phone: [facility] 08-31-2024 08:57-0500 Body height 170.2 cm Urbano Dieudonne AIR ANTISUBMARINE OFFICER Work Phone: [facility] 08-31-2024 08:57-0500 Body mass index (BMI) [Ratio] 21.77 kg/m2 Urbano Bro AIR ANTISUBMARINE OFFICER Work Phone: [facility] 08-31-2024 08:57-0500 Body weight 63.05 kg Urbano Bro AIR ANTISUBMARINE OFFICER Work Phone: [facility] 08-31-2024 08:57-0500 Diastolic blood pressure 70 mm[Hg] Urbano Dieudonne AIR ANTISUBMARINE OFFICER Work Phone: [facility] 08-31-2024 08:57-0500 Systolic blood pressure 114 mm[Hg] Urbano Dieudonne AIR ANTISUBMARINE OFFICER Work Phone: [facility] Healthcare Encounters Encounter Date Encounter Type Care Provider Facility Start: 12-25-2025 ambulatory Radha L Kellie Facility: [facility] [place] Start: 09-28-2025 ambulatory NEUROLOGY TECHNOLOGIST Radha L [place]ie Facil ity: [facility] [place] Start: 06-29-2025 End: 06-29-2025 ambulatory NEUROLOGY TECHNOLOGIST Radha L Kellie Facility: [facility] [place] Start: 03-29-2025 End: 03-29-2025 ambulatory NEUROLOGY TECHNOLOGIST Radha L Kellie Facility: [facility] [place] Start: 03-22-2025 End: 03-22-2025 ambulatory Radha L Kellie Facility: [facility] [place] Start: 03-02-2025 End: 03-02-2025 ambulatory MARTIN DIEGO Facility:[facility] Start: 12-26-2024 End: 12-26-2024 Lab Drop off Radha L Kellie [facility] Start: 12-26-2024 End: 12-26-2024 ambulatory Radha L Kellie Facility: [facility] [place] Start: 12-22-2024 End: 12-22-2024 ambulatory Radha L Kellie Facility: [facility] [place] Start: 11-17-2024 End: 11-17-2024 Telephone encounter Mariah Dumont MD Work Phone: Neurological Scientologist Comment on above: RNS/DBS Visit Start: 11-16-2024 End: 11-16-2024 Saroj Bro NP Work Phone: [facility] Start: 11-16-2024 End: 11-16-2024 Bamraheelo janet Bro AIR ANTISUBMARINE OFFICER Work Phone: [place] [facility] Start: 11-16-2024 End: [...] 09-26-2024 End: 09-26-2024 Bamboo flowsheet Urbano Bro AIR ANTISUBMARINE OFFICER Work Phone: [facility] [address] Start: 09-26-2024 End: 09-26-2024 Bamboo flowsheet Urbano Bro AIR ANTISUBMARINE OFFICER Work Phone: [facility] [address] Start: 09-26-2024 End: 09-26-2024 Office outpatient visit 25 minutes Urbano Bro AIR ANTISUBMARINE OFFICER Work Phone: [facility] [address] Comment on above: Parkinson's disease without dyskinesia or fluctuating manifestations (CMS/HCC) Start: 09-26-2024 End: 09-26-2024 ambulatory URBANO DIEUDONNE Not Available Start: 09-09-2024 End: 09-09-2024 ambulatory Radha L Kellie Facility:[facility] Start: 08-31-2024 End: 08-31-2024 Bamboo flowsheet Urbano Bro AIR ANTISUBMARINE OFFICER Work Phone: [facility] [address] Start: 08-31-2024 End: 08-31-2024 Bamboo flowsheet Urbano Bro AIR ANTISUBMARINE OFFICER Work Phone: [facility] [address] Start: 08-31-2024 End: 08-31-2024 Office outpatient visit 25 minutes Urbano Bro AIR ANTISUBMARINE OFFICER Work Phone: [facility] [address] Comment [...] 03-30-2024 Lab Drop off Radha L Kellie [facility] Start: 03-30-2024 End: 03-30-2024 ambulatory Radha L Ekllie Facility:[facility] [place] Start: 12-30-2023 End: 12-30-2023 ambulatory Radha L Kellie Facility:[facility] [place] Start: 12-23-2023 End: 12-23-2023 Lab Drop off Radha L Kellie [facility] Start: 12-26-2022 End: 12-26-2022 Patient encounter procedure [...] Visit [facility] [address] [place] [address] Urbano Bro NP [address] [place] [address] [facility] Start: 11-16-2024 End: 11-16-2024 Patient encounter procedure [facility] [address] Comment on above: Arrived Start: 09-26-2024 End: 09-26-2024 Patient encounter procedure 09/26/2024 9:20 AM EST [facility] [place] [phone] Urbano Bro NP [address] [place], [place] [phone] Arrived [facility] Comment on above: Arrived Start: 09-22-2024 End: 09-22-2024 Patient encounter procedure 09/22/2024 11:20 AM EST Office Visit [facility] [address] [place] [address] Urbano Bro NP [address] [place], [place] [id number] [facility] [address] Start: 06-19-2024 Influenza vaccination Influenza Vacc ine (#1) [facility] Start: 09-20-2021 Pneumococcal Vaccine : 65+ Years (2 of 2 - PPSV23 or PCV20) Pneumococcal Vaccine: 65+ Years (2 of 2 - PPSV23 or PCV20) [facility] Start: 1950 Screening for malign ant neoplasm of colon [facility] Immunizations Immunization Date Immunization Notes Care Provider Fa [facility] 10-06-2021 SARS-CoV-2 (COVID-19 ) mRNA BNT-162b2 vax Dianelys GRANT [facility] [place] 01-20-2021 SARS-CoV-2 (COVID-19 ) mRNA BNT-162b2 vax Dianelys TYL [facility] [place] 12-28-2020 SARS-CoV-2 (COVID-19 ) mRNA BNT-162b2 vax Dianelys [facility] [place] Comment on above: Result Comment: 2022: [id number] 09-20-2020 pneumococcal conjugate vaccine, 13 valent Urbano Bro NP Work Phone: [facility] NEGATED: Highlighted row has not occurred!12-22-2024 influenza virus vaccine, unspecified formulation Radha Hopkins [facility] [place] NEGATED: Highlighted row has not occurred!11-18-2022 influenza virus vaccine, unspecified formulation Dianelys [facility]AO [facility] [place] Payers Date Payer Category Payer Medicare (Managed Care) HUMANA M EDICARE ADVANTAGE [id number] 2017 Medicare HUMANA MEDICARE HU[employer]NA MEDICARE PPO [id number] 2017-Present [phone] [address] [place] [id number] PPO [id number] 1959 Medicare [id number] 1950 Unknown [id number] 2.840.1.473556.3.579. 2.593 1950 Unknown [id number] .840.1.524384.3.579. 2.593 1951 Unknown [id number] 2.840.1.435956.3.579. 2.1259 1951 Unknown [id number] 2.16840.1.811582.3.579. 2.1259 1951 Unknown [id number] 2.840.1.978939.3.579. 2.1259 1951 Unknown [id number] 2.840.1.057279.3.579. 2.1259 1951 Unknown [id number] 2.16.840.1.734871.3.579. 2.1259 1950 Unknown [id number] 2.16.840.1.191417.3.579. 2.727 1950 Unknown [id number] 2.16.840.1.300618.3.579. 2.727 1950 Unknown [id number] 2.16.840.1.906915.3.579. 2.72 1950 Unknown [id number] 2.16.840.1.979230.3.579. 2.72 1950 Unknown [id number] 2.16.840.1.662228.3.579. 2.72 1951 Unknown [id number] 2.840.1.218759.3.579. 2.72 1951 Unknown [id number] 2.840.1.930222.3.579. 2.72 1951 Unknown [id number] 2.840.1.929757.3.579. 2.72 1951 Unknown [id number] 2.16840.1.215294.3.579. 2.72 1951 Unknown [id number] 2.840.1.114247.3.579. 2.72 1951 Unknown [id number] 2.16.840.1.956918.3.579. 2.72 1951 Unknown [id number] 2.16.840.1.360794.3.579. 2.72 1950 Unknown [id number] 2.16.840.1.447460.3.579. 2.72 1950 Unknown [id number] 2.16.840.1.950234.3.579. 2.727 1950 Unknown [id number] 2.16.840.1.308360.3.579. 2.727 1950 Unknown [id number] 2.16.840.1.420494.3.579. 2.727 1950 Unknown [id number] 2.16.840.1.380202.3.579. 2.727 Social History Date Type Detail Facility Start: 11-18-2022 End: 12-22-2024 Tobacco smoking status Never smoked tobacco (finding) [facility] [place] Comment on above: never in lifetime denies use. Tobacco smoking status Never [facility] [place] Comment on above: never in lifetime Start: 05-31-2024 Sex Assigned At Male [facility] Start: 06-02-2024 End: 11-16-2024 Alcoholic beverage intake Lifetime non-drinker (finding) [facility] Start: 05-31-2024 History of Social function [facility] Start: 1950 Sex assigned at Not on file [facility] Tobacco smoking stat [facility] Tobacco smoking consumption unknown [facility] Clinical Notes 12-17-2022 to 03-02-2025 Telephone Encounter - Ayaan Paula RN - 11/17/2024 1:12 PM ESTTelephone Encounter - Ayaan Paula RN - 11/17/2024 1:12 PM ESTTelephone Encounter - Jeronimo Franklin - 11/17/2024 11:50 AM EST Note Date & Type Note Facility 03-02-2025 Note HNO ID: [id number] Author: MARTIN LAMAR, DO Service: ? Author Type: Physician Type: Progress Notes Filed: 03/09/2025 14:57 Note Text: [facility] - NEW PATIENT EVALUATION Recording using DataParenting software for draft documentation of the visit was discussed with the patient/authorized account executive sales representative; all questions welcomed and answered. Patient/authorized account executive sales representative agreed to proceed I had the [...] 1 capsule by mouth once daily. [employer] [place] Vitamin 1 capsule per mouth daily. carbidopa-levodopa [...] - Neurological: - Coordination: Mild dysmetria on amjmfg-on-nkfp testing. - Motor: Rigidity noted. - Strength: [...] Right DBS Left (more content not included)... [facility] 12-22-2024 Note Patient Education Preventive Care [...] of hard liquor (44 mL). Lifestyle ??? [place] your teeth every morning and night with [...] your health c (more content not included)... [facility] 11-17-2024 Telephone encounter Note Triaged, based off available medical records, diagnosis looks relatively new and consult with movement disorders recommended. Ayaan Paula RN [facility] Work Phone: 11-17-2024 Miscellaneous Notes Triaged, based off available medical records, diagnosis looks relatively new and consult with movement disorders recommended. Ayaan Paula RN Patient has been referred from an outside provider for DBS evaluation clinic. Medical records need to be triaged. Records have been uploaded to the chart under scanned documents. documented in this encounter [facility] 11-17-2024 Telephone encounter Note Patient has been referred from an outside provider for DBS evaluation clinic. Medical records need to be triaged. Records have been uploaded to the chart under scanned documents. [facility] 11-16-2024 History of Presen t illness Narrative [...] , wrist extensors , wrist flexor , water sponger strength 5/5. LUE Strength deltoid , biceps , triceps , wrist extensors , wrist flexor , water sponger strength 5/5. RLE Strength illopsoas, quadriceps, tibialis [...] knee reflex 0. Leone's Sign negative. Coordination: Ctiumv-mp-rpyl testing is normal Moderate bradykinesia bilaterally with [...] be reasonable. PLAN: - Referral to the [facility] movement clinic for consideration of DBS - [...] and return instructions documented in this encounter [facility] 09-26-2024 History of Presen t illness Narrative [...] , wrist extensors , wrist flexor , water sponger strength 5/5. LUE Strength deltoid , biceps , triceps , wrist extensors , wrist flexor , water sponger strength 5/5. RLE Strength illopsoas, quadriceps, tibialis [...] knee reflex 0. Leone's Sign negative. Coordination: Zegjzt-wq-vale testing is normal Moderate bradykinesia bilaterally with [...] and return instructions documented in this encounter [facility] 08-31-2024 History of Presen t illness Narrative [...] , wrist extensors , wrist flexor , water sponger strength 5/5. LUE Strength deltoid , biceps , triceps , wrist extensors , wrist flexor , water sponger strength 5/5. RLE Strength illopsoas, quadriceps, tibialis [...] knee reflex 0. Leone's Sign negative. Coordination: Lszfhc-ew-lbfz testing is normal Moderate bradykinesia bilaterally with [...] and return instructions documented in this encounter [facility] 12-17-2022 Note OPERATIVE NOTE OPERATION DATE: 12/17/2022 [...] pathology results. CC: Jose Villarreal M.D. [facility] Evaluation + Plan note No data available for this section [facility] [place] Evaluation + Plan note Future Appointments Appointment Date:12/30/2023 11:20:00 AM Scheduled Provider:Radha Poole Location:[facility] Appointment Type: Open Appointment Date:12/22/2024 11:00:00 AM Scheduled Provider: Location:[facility] Appointment Type:FM Medicare Wellness Subsequent Diagnostic Tests PendingHCV Antibody RFX to Quant PCR 12/23/23 [facility] Evaluation + Plan note Future Appointments Appointment Date:06/29/2024 11:20:00 AM Scheduled Provider:Radha Poole Location:[facility] Appointment Type: Open Appointment Date:12/22/2024 11:00:00 AM Scheduled Provider: Location:[facility] Appointment Type:FM Medicare Wellness Subsequent [facility] Evaluation + Plan note Future Appointments Appointment Date:03/22/2025 09:40:00 AM Scheduled Provider:Radha Poole Location:[facility] Appointment Type: Open Appointment Date:12/25/2025 11:00:00 AM Scheduled Provider: Location:[facility] Appointment Type:FM Medicare Wellness Subsequent [facility] Evaluation note Diagnosis Parkinson's disease without dyskinesia [...] data available for this section [facility] [place] Summary Purpose Family History No Family History [...] and content) DATE CREATED AUTHOR 12/26/2022 [facility] [place] [facility] DATE CREATED AUTHOR AUTHOR'S ORGANIZ ATION 04/01/2024 [facility] DATE CREATED AUTHOR AUTHOR'S ORGANIZ ATION 11/18/2024 [facility] DATE CREATED AUTHOR AUTHOR'S ORGANIZ ATION 12/28/2024 [facility] DATE CREATED AUTHOR AUTHOR'S ORGANIZ ATION 03/16/2025 [facility] DATE CREATED AUTHOR AUTHOR'S ORGANIZ ATION 03/24/2025 [facility] DATE CREATED AUTHOR AUTHOR'S ORGANIZ ATION 06/30/2025 [facility] DATE CREATED AUTHOR AUTHOR'S ORGANIZ ATION 07/02/2025 [facility] DATE CREATED AUTHOR AUTHOR'S ORGANIZ ATION 07/08/2025 [facility] Patient Care team informatio n (unrecognized section and content) 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 Start Date End Date Unallocated, Elder Jarvis MD [address] [place] [address] PCP - General Family Medicine 11/16/24 Murphy Guerin OD [address] [phone] Referring Physician Optometry 05/31/24 Urbano Bro NP [address] [phone] Nurse Practitioner Neurology 08/29/24 Wesly Schwartz DO [address] [phone] Referring Physician Neurology 08/29/24 Radha Hopkins MD [address] [place] [address] Referring Physician Family Medicine 08/31/24 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 Start Date End Date Unallocated, Elder Jarvis MD [address] [place] [address] PCP - General Family Medicine 11/16/24 Murphy Guerin OD [facility] [phone] Referring Physician Optometry 05/31/24 Urbano Bro NP [address] [place] [address] Nurse Practitioner Neurology 08/29/24 Wesly Schwartz DO [address] [phone] Referring Physician Neurology 08/29/24 Radha Hopkins MD [address] [place], [place] [phone] Referring Physician Family Medicine 08/31/24 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 [employer] [facility]. provides no warranty or guarantee of the accuracy or completeness of information in this document.
--- NOTE | 2025-07-21 19:43 | ECG_ITS ---
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 Measurements Intervals [place] Rate: 79 P: 21 VA: 199 QRS: -13 QRSD: 72 T: 40 QT: 356 QTc: 410 Interpretive Statements SINUS RHYTHM POSSIBLE LEFT ATRIAL ENLARGEMENT [-0.1mV P WAVE IN V1/V2] LOW QRS VOLTAGE IN PRECORDIAL LEADS [QRS DEFLECTION < 1.0 mV IN CHEST LEADS] POSSIBLE LEFT VENTRICULAR HYPERTROPHY [VOLTAGE CRITERIA PLUS LAE OR QRS WIDENING] Possible inferior myocardial infarction, probably old Abnormal ECG Compared to ECG 03/09/2018 22:52:13 Low QRS voltage now present Sinus rhythm is still present ST (T wave) deviation no longer present Electronically Signed On 07-22-2025 11:10:39 EDT by JACK DENTON M.D.
[2025-07-21 21:14] LABS: Glucose Urine UA NEGATIVE (NEGATIVE)
[2025-07-21] MEDS: CARBIDOPA/LEVODOPA 25 MG-100 MG TABLET 1 TAB PO (21:17)
[2025-07-21] MEDS: DOCUSATE SODIUM 100 MG CAPSULE 200 MG PO (21:17)
[2025-07-21] MEDS: ROPINIROLE HCL 1 MG TABLET PO (21:17)
[2025-07-21 21:25] LABS: Cast Seen? NONE SEEN #/LPF (NONE SEEN); Crystals Seen? None Seen #/HPF (None Seen)
[2025-07-21 21:26] LABS: Urine Culture Indicated NO
[2025-07-22] VITALS (15 sets, daily range): BP systolic 116–140; BP diastolic 74–76; PULSE 64–88; TEMP 36.4–36.8; O2SAT 92–94
[2025-07-22] MEDS: CARBIDOPA/LEVODOPA 25 MG-100 MG TABLET 1 TAB PO ×3 (06:05→21:19)
[2025-07-22] MEDS: ROPINIROLE HCL 1 MG TABLET PO ×3 (06:05→21:19)
[2025-07-22 07:16] LABS: Hematocrit 43.6 % (42.0-54.0); Hemoglobin 14.9 g/dL (14.0-18.0); Immature Granulocytes Abs Auto 0.05 10^3/uL (0.00-0.03); Immature Granulocytes Pct Auto 0.7 % (0.0-0.5); Lymphocytes Absolute Auto 1.5 10^3/uL (1.2-3.8); Mean Corpuscular HGB Conc 34.2 g/dL (29.9-35.2); Mean Corpuscular Hemoglobin 31.2 pg (25.9-34.0); Mean Corpuscular Volume 91.2 fL (80.0-94.0); Platelet Count 122 10^3/uL (150-450); Red Blood Count 4.78 10^6/uL (4.70-6.10); White Blood Count 7.7 10^3/uL (4.0-11.0)
[2025-07-22 07:34] LABS: Alanine Aminotransferase <6 U/L (16-63); Albumin Globulin Ratio 1.3; Albumin Level 3.8 g/dL (3.4-5.0); Alkaline Phosphatase 57 U/L (46-116); Anion Gap 14.3; Aspartate Amino Transferase 17 U/L (15-37); Blood Urea Nitrogen 23.0 mg/dL (7.0-18.0); Calcium 9.1 mg/dL (8.5-10.1); Carbon Dioxide 24.9 mmol/L (21.0-32.0); Chloride 106 mmol/L (98-107); Estimated GFR (African America >60 (>=60 mL/min/1.73m^2); Estimated GFR (Non-African Ame >60 (>=60 mL/min/1.73m^2); Globulin 3.0 g/dL; Glucose 107 mg/dL (74-106); Potassium 4.2 mmol/L (3.5-5.1); Sodium 141 mmol/L (136-145); Total Protein 6.8 g/dL (6.4-8.2)
[2025-07-22] MEDS: DOCUSATE SODIUM 100 MG CAPSULE 200 MG PO ×2 (08:53→21:19)
[2025-07-22] MEDS: ENOXAPARIN SODIUM 40 MG/0.4 ML SYRINGE SUBQ (08:53)
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
[2025-07-22] MEDS: MAGNESIUM HYDROXIDE 2,400 MG/10 ML ORAL.SUSP 2400 MG PO (13:08)
[2025-07-22] MEDS: SENNOSIDES/DOCUSATE SODIUM 1 TAB TABLET PO (13:08)
[2025-07-22] MEDS: POLYETHYLENE GLYCOL 3350 17 GM POWDER PACKET PO ×2 (13:08→21:16)
[2025-07-22] MEDS: ACETAMINOPHEN 325 MG TABLET 650 MG PO (13:08)
[2025-07-22] MEDS: BISACODYL 5 MG TABLET 10 MG PO (17:02)
[2025-07-22] MEDS: TAMSULOSIN HCL 0.4 MG CAPSULE PO (17:02)
[2025-07-22 18:46] LABS: Glucose Urine UA NEGATIVE (NEGATIVE)
[2025-07-22] MEDS: ENSURE ORIGINAL 237 ML BOTTLE PO (21:13)
[2025-07-22] MEDS: PROSTAT 15 GM PROTEIN/100 CAL 30 ML LIQUID PACKET PO (21:15)
[2025-07-22] MEDS: CHOLECALCIFEROL (VITAMIN D3) 25 MCG/1,000 UNITS TABLET PO (21:18)
[2025-07-22] MEDS: CALCIUM CARBONATE 600 MG/VITAMIN D3 400 IU TABLET 1 TAB PO (21:18)
[2025-07-22] MEDS: SENNOSIDES 8.6 MG TABLET 17.2 MG PO (21:19)
[2025-07-22] MEDS: ASCORBIC ACID 500 MG TABLET PO (21:19)
[2025-07-22] MEDS: ACETAMINOPHEN 500 MG TABLET 1000 MG PO (21:19)
[2025-07-22] MEDS: CELECOXIB 100 MG CAPSULE PO (21:19)
[2025-07-22] MEDS: ALPRAZOLAM 1 MG TABLET 0.5 MG PO (23:55)
[2025-07-23] VITALS: BP 142/80; PULSE 79; TEMP 36.6; O2SAT 92
[2025-07-23 04:23] VITALS: BP 152/80; PULSE 76; TEMP 36.5; O2SAT 94
[2025-07-23] MEDS: ACETAMINOPHEN 500 MG TABLET 1000 MG PO ×3 (06:26→21:04)
[2025-07-23] MEDS: CARBIDOPA/LEVODOPA 25 MG-100 MG TABLET 1 TAB PO ×3 (06:27→21:05)
[2025-07-23] MEDS: ROPINIROLE HCL 1 MG TABLET PO ×3 (06:27→21:04)
[2025-07-23 07:54] VITALS: BP 135/65; PULSE 64; TEMP 36.6; O2SAT 93
[2025-07-23] MEDS: ENOXAPARIN SODIUM 40 MG/0.4 ML SYRINGE SUBQ (09:17)
[2025-07-23] MEDS: ENSURE ORIGINAL 237 ML BOTTLE PO ×2 (09:17→21:03)
[2025-07-23] MEDS: POLYETHYLENE GLYCOL 3350 17 GM POWDER PACKET PO (09:17)
[2025-07-23] MEDS: PROSTAT 15 GM PROTEIN/100 CAL 30 ML LIQUID PACKET PO ×2 (09:17→21:03)
[2025-07-23] MEDS: DOCUSATE SODIUM 100 MG CAPSULE 200 MG PO ×2 (09:17→21:04)
[2025-07-23] MEDS: CALCIUM CARBONATE 600 MG/VITAMIN D3 400 IU TABLET 1 TAB PO ×2 (09:18→21:04)
[2025-07-23] MEDS: CELECOXIB 100 MG CAPSULE PO ×2 (09:18→21:05)
[2025-07-23] MEDS: ASCORBIC ACID 500 MG TABLET PO ×2 (09:18→21:05)
[2025-07-23] MEDS: TAMSULOSIN HCL 0.4 MG CAPSULE PO (09:18)
--- NOTE | 2025-07-23 14:00 | PM.PN ---
Progress Note: Subjective Subjective Interval history: Today the patient seems to be having a lot better pain control than he did when he was at home for a week with his inferior pubic ramus fracture. He has been on my schedule to Tylenol 1000 mg 3 times daily and Celebrex 100 mg twice daily and has not needed to use breakthrough IV Dilaudid or IV morphine and so far has not used the oral oxycodone. Yesterday he was having such frequent urination that the nursing staff thought that he had a UTI and that he might need a Dumas catheter. But postvoid bladder scans only showed about 150 mL in his bladder. This morning he had a large bowel movement. He seems to be passing urine better at this time. His urinalysis yesterday was not suggestive of a urinary tract infection but a urine culture was sent off just to be on the safe side. I met with the patient originally and discussed his feelings about DNR. He had discussed with the nursing staff that he had thoughts about a living well and a DNR. He tells me that he does have a medical power of attorney recruiter set up but he does not have a living will yet. We also discussed his resuscitation preferences. He is comfortable with the DNR CCA no intubation status. I discussed that he needs to tell everybody in his family about this including his girlfriend/caregiver and his stepdaughter who is a worker here at [facility]. And he needs to make sure that everybody is on the same page. But I have filled out a DNR CCA no intubation status State form for him while he is here. A later, his girlfriend/home caregiver was in the room. I discussed with her that it is difficult to tell whether the best place for him is [place] health versus [place] [facility] versus acute rehab unit. Given the severity of his longstanding Parkinson's disease I do think that the acute inpatient rehabilitation on the fifth floor at [facility] would be the best for him. Given that his pain has been reasonable I think he would be able to tolerate 3 hours of physical therapy 7 days a week. He normally is very active at home and can use a push mower to mow his grass when he is doing well. So they will think about it and decide on Thursday. The girlfriend asked if he could have something to stimulate his appetite. But I said that I am hesitant to start new medications at this time because appetite stimulants would interfere with his Parkinson's medicines. Patient uses NyQuil to help him sleep at night. 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 I advised him not to use Benadryl related medications such as NyQuil. Ideally I would like him to use melatonin at nighttime to help get into a good sleep pattern. His girlfriend said that they have been working on this a lot and she finally got him into a good pattern at home where he was starting to sleep through the night. Exam Narrative Exam Narrative: Neurologic: Awake and alert and oriented x 3. Large amount of tremor is present from the Parkinson's but really no cogwheeling. Psychiatric: Normal affect and participation in the interview. GI: Bowel sounds are still slightly hypoactive so I think he is still constipated. No pain or rebound tenderness to palpation on the abdomen. Cardiovascular: Regular Rate and Rhythm without murmur, gallop or rub. Respiratory: Clear to auscultation throughout without any wheezes or rhonchi or crackles. Lower extremities: No edema of the ankles. No swelling or knots or cords in the calves bilaterally. Constitutional Vital Signs, click to edit/add: Last Vital Signs Temp 97.8 F 07/23/25 07:54 Pulse 64 07/23/25 07:54 Resp 18 07/23/25 08:00 BP 135/65 07/23/25 07:54 Pulse Ox 93 L 07/23/25 07:54 O2 Del Method Room Air 07/23/25 07:54 Progress Note: Objective Labs Labs: Urine 07/22/25 Range/Units 18:25 Urine Color Lt. 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 Therefore inpatient status is appropriate. Parkinson's disease, with dyskinesia, and ataxia, which is fluctuating, and likely to be exacerbated by the current illness. Incidental finding of 1 cm stone on the right kidney in the UVJ region. This will require outpatient urologic intervention once the patient is recovered from this acute episode. Frequent urination likely exacerbated by constipation and suggestive of prostate hypertrophy. Constipation due to Parkinson's exacerbated by opiate medication. Plan: Ongoing work with physical therapy and Occupational Therapy. Pain management with scheduled Tylenol, scheduled Celebrex, and oxycodone for breakthrough pain as needed. Intensifying bowel regimen. Will use vitamin C and calcium and vitamin D for bone healing protocol. DVT prophylaxis with Lovenox 40 mg subcutaneously daily. Continue the Parkinson's medicines and his Xanax the way he takes them from home. On Thursday the case management and PT/OT team should give consideration for acute inpatient rehabilitation given his ataxia and Parkinson's disease and this acute fracture. I do declare that the patient can tolerate 3 hours a day of physical therapy and Occupational Therapy. Because of the risk of fluctuations from his Parkinson's disease he does require daily PM&R physician oversight.
[2025-07-23 16:33] VITALS: BP 143/75; PULSE 68; TEMP 36.8; O2SAT 95
[2025-07-23 19:37] VITALS: BP 123/85; PULSE 83; TEMP 36.3; O2SAT 95
[2025-07-23] MEDS: CHOLECALCIFEROL (VITAMIN D3) 25 MCG/1,000 UNITS TABLET PO (21:04)
[2025-07-23] MEDS: SENNOSIDES 8.6 MG TABLET 17.2 MG PO (21:05)
[2025-07-23] MEDS: TRAZODONE HCL 50 MG TABLET 25 MG PO (21:06)
[2025-07-23 23:12] VITALS: BP 157/76; PULSE 65; TEMP 36.5; O2SAT 97
[2025-07-24 03:53] VITALS: BP 142/77; PULSE 76; TEMP 36.6; O2SAT 95
[2025-07-24] MEDS: CARBIDOPA/LEVODOPA 25 MG-100 MG TABLET 1 TAB PO ×3 (05:23→21:29)
[2025-07-24] MEDS: ROPINIROLE HCL 1 MG TABLET PO ×3 (05:23→21:29)
--- NOTE | 2025-07-24 08:15 | CM.NOTE ---
Rounds made with Dr. Whitaker, discussed with pt plan of care. PT and OT will evaluate pt today for discharge planning.
[2025-07-24] MEDS: ENOXAPARIN SODIUM 40 MG/0.4 ML SYRINGE SUBQ (09:19)
[2025-07-24] MEDS: CALCIUM CARBONATE 600 MG/VITAMIN D3 400 IU TABLET 1 TAB PO ×2 (09:19→21:29)
[2025-07-24] MEDS: PROSTAT 15 GM PROTEIN/100 CAL 30 ML LIQUID PACKET PO ×2 (09:19→21:28)
[2025-07-24] MEDS: POLYETHYLENE GLYCOL 3350 17 GM POWDER PACKET PO ×2 (09:19→21:29)
[2025-07-24] MEDS: TAMSULOSIN HCL 0.4 MG CAPSULE PO (09:19)
[2025-07-24] MEDS: ASCORBIC ACID 500 MG TABLET PO ×2 (09:19→21:29)
[2025-07-24] MEDS: ENSURE ORIGINAL 237 ML BOTTLE PO ×2 (09:19→21:28)
[2025-07-24] MEDS: DOCUSATE SODIUM 100 MG CAPSULE 200 MG PO ×2 (09:19→21:29)
[2025-07-24] MEDS: CELECOXIB 100 MG CAPSULE PO (09:19)
--- NOTE | 2025-07-24 11:38 | PM.PN ---
Progress Note: Subjective Subjective Interval history: Today the patient seems to be having a lot better pain control than he did when he was at home for a week with his inferior pubic ramus fracture. He has been on my schedule to Tylenol 1000 mg 3 times daily and Celebrex 100 mg twice daily and has not needed to use breakthrough IV Dilaudid or IV morphine and so far has not used the oral oxycodone. Yesterday he was having such frequent urination that the nursing staff thought that he had a UTI and that he might need a Dumas catheter. But postvoid bladder scans only showed about 150 mL in his bladder. This morning he had a large bowel movement. He seems to be passing urine better at this time. His urinalysis yesterday was not suggestive of a urinary tract infection but a urine culture was sent off just to be on the safe side. I met with the patient originally and discussed his feelings about DNR. He had discussed with the nursing staff that he had thoughts about a living well and a DNR. He tells me that he does have a medical power of workers compensation attorney set up but he does not have a living will yet. We also discussed his resuscitation preferences. He is comfortable with the DNR CCA no intubation status. I discussed that he needs to tell everybody in his family about this including his girlfriend/caregiver and his stepdaughter who is a worker here at [facility]. And he needs to make sure that everybody is on the same page. But I have filled out a DNR CCA no intubation status State form for him while he is here. A later, his girlfriend/home caregiver was in the room. I discussed with her that it is difficult to tell whether the best place for him is home health versus detention facility versus acute rehab unit. Given the severity of his longstanding Parkinson's disease I do think that the acute inpatient rehabilitation on the fifth floor at [facility] would be the best for him. Given that his pain has been reasonable I think he would be able to tolerate 3 hours of physical therapy 7 days a week. He normally is very active at home and can use a push mower to mow his grass when he is doing well. So they will think about it and decide on Thursday. The girlfriend asked if he could have something to stimulate his appetite. But I said that I am hesitant to start new medications at this time because appetite stimulants would interfere with his Parkinson's medicines. Patient uses NyQuil to help him sleep at night. 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 I advised him not to use Benadryl related medications such as NyQuil. Ideally I would like him to use melatonin at nighttime to help get into a good sleep pattern. His girlfriend said that they have been working on this a lot and she finally got him into a good pattern at home where he was starting to sleep through the night. The aforementioned paragraph was documented by my colleague Patient is feeling well. He denies any abdominal pain. No chest pain. No pelvic pain. No hip pain. No knees or ankle pain. Exam Narrative Exam Narrative: Patient is lying in bed comfortably. Patient has resting tremor. No distress. Chest is clear, heart is regular. Abdomen soft, nontender. No pain or tenderness in both hips, knees or ankle with passive or active flexion and extension. 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 Recommend DEXA scan in the outpatient setting to be arranged by PCP. Functional impairment PT OT eval and treatment. Parkinson disease Resume preadmission medications. Patient to follow-up with his neurologist at [facility] stone Negative UA. No tenderness. No dysuria. Urology evaluation. Chronic, subacute medical conditions not listed above, abnormal labs and imaging. These would need to be addressed. Could be addressed later on or in the outpatient setting by PCP collaboration with other needed outpatient providers when time and condition are appropriate.
--- NOTE | 2025-07-24 12:01 | SWNOTE1 ---
Important Message from Medicare reviewed and discussed with patient. Pt. verbalized understanding and signed the form. Original given to patient and copy placed in patient?s chart.
--- NOTE | 2025-07-24 12:01 | SWNOTE1 ---
SW met with pt to discuss dc needs. Pt lives at home with his girlfriend. He has a few steps to get in to the home. Pt does have a walker to use at home. SW asked pt how therapy went? Pt did feel he did well and he was close to baseline. Pt and SW spoke about SNF vs Home Health. SW did advise that at this time therapy's recommendations are home with home health. SW did let pt know if we sent referral to retirement facility for rehab, it is likely they will deny due to pt doing well with therapy. He voiced understanding and he wants to return home with home health. He would like SW to come back once his girlfriend arrives to discuss home health companies.
--- NOTE | 2025-07-24 12:29 | SWNOTE1 ---
EDITH stopped back in and spoke with pt and his girlfriend. They are both in agreement that pt can return home with home health. She voiced she is ready for him to come home and the home is all set for him. Pt's girlfriend did review list from medicare.gov star rating list and she would like to try [facility] first. If they do not accept his insurance, she does not have a preference. EDITH to send referral. Case management did reach out to [facility] and for [employer] medicare it is a case by case and they requested referral to be sent. Referral sent to [facility]. Referral included face sheet, ED note, H&P, provider notes, case management report, and PT/OT notes.
--- NOTE | 2025-07-24 12:35 | CM.NOTE ---
Phone call placed to [facility] [phone] and they will review the case to determine if they will accept the patient for home health services.
--- NOTE | 2025-07-24 13:49 | SWNOTE1 ---
SW was consulted for Advanced Directives. SW did stop in and spoke with patient in regards to completing Health Care Power of Requirements Analyst and Living Will. Pt voiced he has already completed this and he has his 2 sons on it. Recommendation to bring in so we can put copy in chart.
--- NOTE | 2025-07-24 14:02 | SWNOTE1 ---
SW called [facility] and spoke to intake. They voiced they have received referral and are working on it.
--- NOTE | 2025-07-24 14:03 | SWNOTE1 ---
SW received an email from Radha at [facility] and they have accepted. SW updated pt's nurse.
[2025-07-24] MEDS: ACETAMINOPHEN 500 MG TABLET 1000 MG PO ×2 (14:06→21:30)
[2025-07-24 14:08] VITALS: BP 136/88; PULSE 82; TEMP 36.7; O2SAT 93
--- NOTE | 2025-07-24 15:36 | CT_ITS ---
The [address] [address] Patient Name: QUINTEN HUITRON MRN: [id number] date: 1950 Sex: M Assigned Patient Location: MS Current Patient Location: Accession/Order Number: [id number] Exam Date: 07/24/2025 16:36 Report Date: 07/24/2025 19:44 At the request of: KIANA PEREZ MD Procedure: CT abdomen pelvis wo con CT ABDOMEN AND PELVIS WITHOUT INTRAVENOUS CONTRAST: CLINICAL HISTORY: Right ureter stone COMPARISON: CT pelvis 07/21/2025 TECHNIQUE: Spiral images were obtained through the abdomen and pelvis without intravenous contrast. This CT exam was performed using one or more following dose reduction techniques: Automated exposure control, adjustment of the mA and/or kV according to patient size, or use of iterative reconstruction technique. FINDINGS: Lung Bases: [Hypoventilatory changes.] Organs:Right hepatic lobe cysts 5.3 x 4.7 cm in size. Left hepatic lobe evidence of the 1.4 cm in size likely a cyst. Otherwise the liver, spleen, adrenal glands, and pancreas and gallbladder unremarkable. [Kidneys symmetric in size. Bilateral nephrolithiasis, nonobstructive measuring up to 8 mm size right superior pole. Left-sided calculi up to 3 mm in size, nonobstructive. No left-sided hydronephrosis. There is there is evidence of a left ureteropelvic junction calculus 1 cm x 0.6 cm in size. No hydroureteronephrosis. GI: Moderate to large stool burden rectosigmoid junction. Moderate stool burden throughout the remainder of the colon. Appendix is not visualized. No pericecal inflammatory changes. Pelvis:[Enlarged prostate. Small fat-containing right inguinal hernia. Moderate wall thickening bladder possibly to under distention versus muscular hypertrophy. Prominence of seminal vesicles noted.] Peritoneum/Retroperitoneum:No free air or free fluid. Ntom-[id number]-[id number] plaque identified involving the nonaneurysmal aorta.[ Abd wall/Bones:Multilevel degenerative changes identified greatest lower lumbar spine. Nondisplaced rights inferior pubic ramus fracture again noted nonspecific change.[ CT/CT abdomen pelvis wo con IMPRESSION: Confirmation left ureteral pelvic junction calculus 1 cm in size. No evidence of left-sided hydroureteronephrosis. Stable appearance right inferior pubic ramus fractures, nondisplaced. Additional bilateral renal calculi noted, nonobstructive Impression dictated by: Leoadn Finch M.D. 07/24/2025 7:44 PM Dictation Location: [place] [address] Electronically authenticated by: [id number] Y Date: 07/24/2025 19:44
--- NOTE | 2025-07-24 16:22 | XR_ITS ---
The [address] [address] Patient Name: QUINTEN HUITRON MRN: [id number] date: 1950 Sex: M Assigned Patient Location: [place] Current Patient Location: Accession/Order Number: [id number] Exam Date: 07/24/2025 16:45 Report Date: 07/24/2025 20:39 At the request of: YOUSIF AVERY MD Procedure: XR abdomen 1V XR abdomen 1V 07/24/2025 4:57 PM SIGNS AND SYMPTOMS: ^1 cm right UPJ Stone PROTOCOL: Frontal radiographs of the abdomen and pelvis COMPARISON: 07/24/2025 FINDINGS: There is an 8 mm stone in the right renal collecting system. There is a 1 cm stone in the left hemipelvis near the left ureterovesical junction similar to the prior CT. Tiny 1 to 2 mm nonobstructing stones are noted in the left renal collecting system. XR/XR abdomen 1V IMPRESSION: Similar bilateral renal stones with a 1 cm stone in the left hemipelvis in the expected location of the left ureterovesical junction. Impression dictated by: Murphy Alcazar M.D. 07/24/2025 8:39 PM Dictation Location: [place] [address] Electronically authenticated by: [id number] Y Date: 07/24/2025 20:39
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
[2025-07-24 20:04] VITALS: BP 118/67; PULSE 54; TEMP 36.7; O2SAT 91
[2025-07-24] MEDS: TRAZODONE HCL 50 MG TABLET 25 MG PO (21:29)
[2025-07-24] MEDS: SENNOSIDES 8.6 MG TABLET 17.2 MG PO (21:29)
[2025-07-24] MEDS: CHOLECALCIFEROL (VITAMIN D3) 25 MCG/1,000 UNITS TABLET PO (21:29)
[2025-07-24] MEDS: ALPRAZOLAM 1 MG TABLET 0.5 MG PO (21:29)
[2025-07-24] MEDS: 0.9 % SODIUM CHLORIDE 1,000 ML 100 ML IV (21:30)
[2025-07-25 04:46] VITALS: BP 148/82; PULSE 80; TEMP 36.8; O2SAT 94
[2025-07-25] MEDS: ACETAMINOPHEN 500 MG TABLET 1000 MG PO ×2 (05:01→13:40)
[2025-07-25] MEDS: CARBIDOPA/LEVODOPA 25 MG-100 MG TABLET 1 TAB PO ×2 (05:01→13:40)
[2025-07-25] MEDS: ROPINIROLE HCL 1 MG TABLET PO ×2 (05:01→13:41)
[2025-07-25] MEDS: 0.9 % SODIUM CHLORIDE 1,000 ML 100 ML IV (06:39)
[2025-07-25] MEDS: CALCIUM CARBONATE 600 MG/VITAMIN D3 400 IU TABLET 1 TAB PO (09:20)
[2025-07-25] MEDS: POLYETHYLENE GLYCOL 3350 17 GM POWDER PACKET PO (09:20)
[2025-07-25] MEDS: PROSTAT 15 GM PROTEIN/100 CAL 30 ML LIQUID PACKET PO (09:20)
[2025-07-25] MEDS: TAMSULOSIN HCL 0.4 MG CAPSULE PO (09:21)
[2025-07-25] MEDS: DOCUSATE SODIUM 100 MG CAPSULE 200 MG PO (09:21)
[2025-07-25] MEDS: ASCORBIC ACID 500 MG TABLET PO (09:21)
--- NOTE | 2025-07-25 10:20 | CM.NOTE ---
Rounds made with . Plan is for discharge home with home health today. Pt to follow up with Urology and PCP.
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
--- NOTE | 2025-07-25 11:50 | SWNOTE1 ---
EDITH stopped in and let pt know that [facility] has accepted him and they will be reaching out usually within 48 hours of discharge. Pt requested they contact Maggie and provided her number. EDITH to notify [facility] . Pt has no further questions. EDITH faxed dc med rec, DNR order, CRF, urology consult, and PT/OT from today to [facility].
--- NOTE | 2025-07-27 13:15 | CM.DCFOLLOWU ---
1st attempt 07/27/25, no answer (phone line busy)
--- NOTE | 2025-07-28 12:34 | CM.DCFOLLOWU ---
2nd attempt 07/28/25, no answer
== END 2025-07-25 16:11 | disposition home health service (06) | DRG 536 ==
LOC: ER 17:47 → MS 18:34
PROVIDERS: Admitting Provider Hospitalist; Emergency Provider Emergency Medicine; Visit Provider Internal Medicine
DX: S32.591A Other specified fracture of right pubis, initial encounter for closed fracture (principal); N20.2 Calculus of kidney with calculus of ureter; W18.39XA Other fall on same level, initial encounter; N40.0 Benign prostatic hyperplasia without lower urinary tract symptoms; G20.B2 Parkinson's disease with dyskinesia, with fluctuations; K59.03 Drug induced constipation; R27.0 Ataxia, unspecified; T40.2X5A Adverse effect of other opioids, initial encounter; Z87.442 Personal history of urinary calculi; W20.8XXA Other cause of strike by thrown, projected or falling object, initial encounter; E55.9 Vitamin D deficiency, unspecified; Z66 Do not resuscitate
CPT/HCPCS: 36415; 51798; 72192; 74018; 74176; 76376; 80053; 81001; 81003; 82306; 85025; 87086; 93005; 96374; 96375; 97110; 97162; 97165; 97530; 97535; 99285; J1650; J1885; J2270

== ENCOUNTER 2025-08-07 10:10 | Outpatient (OUT) | payer MEDICARE, SELFPAY ==
--- NOTE | 2025-08-07 10:21 | XR_ITS ---
The [place] [id number] Patient Name: QUINTEN HUITRON MRN: [id number] date: 1950 Sex: M Assigned Patient Location: [facility] Current Patient Location: [facility] Accession/Order Number: [id number] Exam Date: 08/07/2025 10:36 Report Date: 08/07/2025 13:57 At the request of: YOUSIF AVERY MD Procedure: XR abdomen 1V SINGLE VIEW ABDOMEN CLINICAL DATA: Follow-up stones on CT. COMPARISON: CT 07/24/2025 Supine views of the abdomen and pelvis were obtained. There is air within small and large bowel loops. There is also colonic stool. Both kidneys are obscured. The right upper pole renal stone seen on CT is identified. It measures at least 7 mm in size. No other suspect renal stones are identified. There is a large left pelvic calcification measuring approximately 1 cm in size which correlates with the ureterovesical junction stone on the comparison. There are no soft tissue masses. There is slight dextroscoliotic curvature and degenerative changes at the spine. XR/XR abdomen 1V IMPRESSION: RIGHT RENAL AND LEFT DISTAL URETERAL STONES, ALSO SEEN ON RECENT CT. Impression dictated by: Estrellita Garcia M.D. 08/07/2025 1:57 PM Dictation Location: [place] [address] Electronically authenticated by: [id number] Y Date: 08/07/2025 13:57
--- OUTSIDE RECORDS SUMMARY | 2025-08-07 10:23 | XMS_ITS | CCD ---
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 [address] [id number] [phone] Allergies No Known Allergies No Known Medication [...] choosing us for your care. Normal [facility] Family Medicine Office/Clini c Noteon 12-22-2024 Family Medicine [...] appointment, # 12 tab(s), Refills(s) 0, Pharmacy: [facility], 169, cm, 12/22/24 14:54:00 EST, Height/Length [...] anxiety, # 40 tab(s), Refills(s) 0, Pharmacy: [facility], 169, cm, 09/28/24 10:16:00 EST, Height/Length Dosing, 65.7, kg, 09/28/24 10:16:00 EST, Weight Dosing alprazolam, 1 mg = 1 tab(s), Oral, BID, PRN for anxiety, # 60 tab(s), Refills(s) 0, Pharmacy: [facility], 169, cm, 12/22/24 14:54:00 EST, Height/Length [...] TPV65 pneumococcal 13-valent vaccine 09/20/2020 Recorded Normal [facility] Comment on above: Result Comment: Elec tronically Signed By: Radha Poole\.br\Date and Time Signed: 12/22/24 15:38 EST Vicky 11-17-2024 CNPN Telephone (NREUS2) QUINTEN HUITRON ([id number]) 1950 M Date Time Provider Department 11/17/24 [...] Status:Closed by JERONIMO FRANKLIN on 11/17/24 Normal [facility] Ambulatory Visit Summaryon 1 11-29-2023 Ambulatory Visit Summary Ambulatory Visit Summary [...] Appointments 2024 2:30 PM EST With: Where: [address] [id number]- 2024 3:20 PM EST With: Radha Poole Where: [address] [address]- Medications What How Much When Instructions Unchanged [...] choosing us for your care. 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, 169, cm, 09/28/24 10:16:00 EST, Height/Length Dosing, 65.7, kg, 09/28/24 10:16:00 EST, Weight Dosing lorazepam, See Instructions, 3 tabs 30 minutes prior to procedure., # 6 tab(s), Refills(s) 0, Pharmacy: [facility], 169, cm, 09/28/24 10:16:00 EST, Height/Length Dosing, 65.7, kg, 09/28/24 10:16:00 EST, Weight Dosing lorazepam, 0.5 mg = 1 tab(s), Oral, Bedtime, also can be taken 30 minutes prior to procedure, # 40 tab(s), Refills(s) 0, Pharmacy: [facility], 169, cm, 09/09/24 11:27:00 EST, Height/Length [...] vax 04 (more content not included)... Normal [facility] Comment on above: Result Comment: Elec [...] procedure, # 40 tab(s), Refills(s) 0, Pharmacy: [facility], 169, cm, 09/09/24 11:27:00 EST, Height/Length Dosing, 66, kg, 09/09/24 11:27:00 EST, Weight Dosing lorazepam, See Instructions, TAKE 3 TABLETS BY MOUTH 30 MINUTES PRIOR TO PROCEDURE, # 6 tab(s), Refills(s) 0, Pharmacy: [facility], 169, cm, 06/10/24 8:35:00 EDT, Height/Length [...] TPV65 pneumococcal 13-valent vaccine 09/20/2020 Recorded Normal [facility] Comment on above: Result Comment: Elec tronically Signed By: Radha Poole\.br\Date and Time Signed: 09/09/24 12:42 EST Ambulatory Visit Summaryon 0 06-10-2024 Ambulatory Visit Summary Ambulatory Visit Summary QUINTEN HUIRTON :1950 Visit Date:06/10/2024 Ambulatory Visit Instructions Your [...] 8:40 AM EST With: Radha Poole Where: [address] [address]- 2024 11:00 AM EST With: Where: [address] [address]- Medications What How Much When Instructions New alprazolam (alprazolam 0.5 mg Tab) 1 Tablets By Mouth At bedtime as needed for for anxiety Pickup at [facility] Unchanged carbidopa-levodopa (carbidopa-levodopa 25 mg-100 mg [...] Mouth 3 times a day Pharmacy Information [facility]: [address] [place], [place] [id number] [phone] Allergies No Known Allergies No Known Medication [...] choosing us for your care. Normal [facility] Family Medicine Office/Clini c Noteon 06-10-2024 [...] anxiety, # 90 tab(s), Refills(s) 0, Pharmacy: [facility], 169, cm, 06/10/24 8:35:00 EDT, Height/Length Dosing, 61.9, kg, 06/10/24 8:35:00 EDT, Weight Dosing alprazolam, 0.5 mg = 1 tab(s), Oral, TID, PRN for anxiety, # 30 tab(s), Refills(s) 0, Pharmacy: [facility], 169, cm, 03/30/24 10:19:00 EDT, Height/Length [...] TPV65 pneumococcal 13-valent vaccine 09/20/2020 Recorded Normal [facility] Comment on above: Result Comment: Elec [...] feel free to contact me at extension [phone]. Thank you! Katlin Reese LPN Clinical [employer] [place] [address] Extension: [phone] [email or web address] From: Radha Poole To: Katlin Reese; Sent: 06/09/2024 12:55:57 EDT Subject: RE: Pre-Visit Planning Caller Name: QUINTEN HUITRON; Caller Number: Kari , M thrombocytopenia Normal [facility] CBC w/ Auto Diffon 4 Basophils/100 WBC (Bld) 0.7 % Normal 0.0-2.0 [facility] Comment on above: Performed By: #### 2 [id number] #### [facility] [address] [place] [address] Basophils/Leukocytes Auto (Bld) [Pure # fraction] 0.0 E9/L Normal 0.0-0.2 [facility] Comment on above: Performed By: #### 2 [id number] #### [facility] [address] [place] [address] Eosinophils (Bld) [#/Vol] 0.1 E9/L Normal 0.0-0.5 [facility] Comment on above: Performed By: #### 2 [id number] #### [facility] [address] [place] [address] Eosinophils/100 WBC (Bld) 1.7 % Normal 0.0-8.0 [facility] Comment on above: Performed By: #### 2 [id number] #### [facility] [address] [place] [address] Erythrocyte distribution width (RBC) [Ratio] 14.1 % Normal 10.9-14.2 [facility] Comment on above: Performed By: #### 2 [id number] #### [facility] [address] [place] [address] Hematocrit (Bld) [Volume fraction] 44.8 % Normal 37.7-49.0 [facility] Comment on above: Performed By: #### 2 [id number] #### [facility] [address] [place] [address] Hemoglobin (Bld) [Mass/Vol] 15.5 g/dL Normal 13.5-17.5 [facility] Comment on above: Performed By: #### 2 [id number] #### [facility] [address] [place] [address] Lymphocytes (Bld) [#/Vol] 1.4 E9/L Normal 1.0-4.0 [facility] Comment on above: Performed By: #### 2 [id number] #### [facility] [address] [place] [address] Lymphocytes/100 WBC (Bld) 20.0 % Normal 14.0-50.0 [facility] Comment on above: Performed By: #### 2 [id number] #### [facility] [address] [place] [address] MCH (RBC) [Entitic mass] 31.3 pg Normal 27.0-34.0 [facility] Comment on above: Performed By: #### 2 [id number] #### [facility] [address] [place] [address] MCHC (RBC) [Mass/Vol] 34.5 g/dL Normal 31.4-36.0 [facility] Comment on above: Performed By: #### 2 [id number] #### [facility] [address] [place] [address] MCV (RBC) [Entitic vol] 90.8 fL Normal 80.0-100.0 [facility] Comment on above: Performed By: #### 2 296285 #### [facility] [address] [place] [address] Monocytes (Bld) [#/Vol] 0.6 E9/L Normal 0.2-1.0 [facility] Comment on above: Performed By: #### 2 [id number] #### [facility] [address] [place] [address] Neutrophils (Bld) [#/Vol] 4.8 E9/L Normal 2.0-7.5 [facility] Comment on above: Performed By: #### 2 [id number] #### [facility] [address] [place] [address] Neutrophils/100 WBC (Bld) 69.2 % Normal 36.0-75.0 [facility] Comment on above: Performed By: #### 2 [id number] #### [facility] [address] [place] [address] Platelet 136.0 E9/L Low 150.0-500.0 [facility] Comment on above: Performed By: #### 2 [id number] #### [facility] [address] [place] [address] Platelet mean volume (Bld) [Entitic vol] 10.3 fL Normal 6.4-10.8 [facility] Comment on above: Performed By: #### 2 [id number] #### [facility] [address] [place] [address] RBC (Bld) [#/Vol] 4.9 E12/L Normal 4.3-5.9 [facility] Comment on above: Performed By: #### 2 [id number] #### [facility] [address] [place] [address] WBC corrected for nucl RBC Auto (Bld) [#/Vol] 6.9 E9/L Normal 4.0-11.0 [facility] Comment on above: Performed By: #### 2 [id number] #### [facility] [address] [place] [address] CHEMISTRYOrdered By: SYSTEM SYSTEM on 03-30-2024 25-hydroxyvitamin [...] Bedtime, # 30 tab(s), Refills(s) 0, Pharmacy: [facility], 169, cm, 12/30/23 10:56:00 EDT, Height/Length Dosing, 66, kg, 12/30/23 10:56:00 EDT, Weight Dosing Lab Specimen Collect [id number] 2. Fatigue (R53.83: Other fatigue) c/o fatigue. has been giving him B12 and wonders if we could order injections. will check labs today Ordered: CBC w/ Auto Diff Iron Level Lab Specimen Collect [id number] Thyroid Stimulating Hormone Vitamin B12 Level Vitamin D 25 Hydroxy 3. Weakness (R53.1: Weakness) feeling more weak and tired. will check labs today Ordered: CBC w/ Auto Diff Iron Level Lab Specimen Collect [id number] Thyroid Stimulating Hormone Vitamin B12 Level Vitamin D 25 Hydroxy 4. BMI 21.0-21.9, adult (Z68.21: Body mass index [BMI] 21.0-21.9, adult) BMI education complete Ordered: CBC w/ Auto Diff Iron Level Lab Specimen Collect [id number] Thyroid Stimulating Hormone Vitamin B12 Level Vitamin D 25 Hydroxy 5. Non-smoker (Z78.9: Other specified health status) continue not smoking Ordered: alprazolam, 0.25 mg = 1 tab(s), Oral, Bedtime, # 30 tab(s), Refills(s) 0, Pharmacy: [facility], 169, cm, 12/30/23 10:56:00 EDT, Height/Length Dosing, 66, kg, 12/30/23 10:56:00 EDT, Weight Dosing CBC w/ Auto Diff Iron Level Lab Specimen Collect [id number] Thyroid Stimulating Hormone Vitamin B12 Level Vitamin D 25 Hydroxy Orders: alprazolam, 0.5 mg = 1 tab(s), Oral, TID, PRN for anxiety, # 30 tab(s), Refills(s) 0, Pharmacy: [facility], 169, cm, 03/30/24 10:19:00 EDT, Height/Length [...] BNT-162b2 vax 12/28/2020 Recorded 2022-11-18: TPV65 Normal [facility] Comment on above: Result Comment: Elec tronically Signed By: Radha Poole.br\Date and Time Signed: 03/30/24 12:41 EDT HEMATOLOGYOrdered [...] Normal 4.0 - 11.0 E9/L Remisol Heme Medication Consenton 024 Medication Consent [id number] IFF Normal [facility] TSHon 03-30-2024 TSH Qn 1.49 m[IU]/L Normal 0.34-5.60 [facility] Comment on above: Performed By: #### 2 [id number] #### [facility] [address] [place] [address] Vit B12on 03-30-2024 Cobalamin (Vitamin B12) [Mass/Vol] pg/mL Normal 50-1500 [facility] Comment on above: Performed By: #### 2 [id number] #### [facility] [address] [place] [address] Vitamin D 25 Hydroxyon 03-30 25-hydroxyvitamin D3 [Mass/Vol] 34.5 ng/mL Normal 30.0-100.0 [facility] Comment on above: Performed By: #### 5 [id number] #### [facility] [address] [place] [address] Ambulatory Visit Summaryon 0 12-30-2023 Ambulatory Visit Summary SUMMER HUITRONRuss Spicer :1950 Visit Date:12/30/2023 Ambulatory Visit Instructions Your [...] 10:20 AM EDT With: Radha Poole Where: [address] [address]- \.br\ Medications\.b r\ What How Much When Why Instructions\. br\ New alprazolam (alprazolam 0.25 mg Tab) 1 Tablets By Mouth At bedtime Insomnia BMI 22.0-22.9, adult Non-smoker Pickup at [facility]\.br\ Unchanged carbidopa-levo dopa (carbidopa-lev odopa 25 mg-100 mg Tab) 1 Tablets By Mouth 3 times a day\.br\ Unchanged polyethylene glycol 3350 (MiraLax) 17 Gram By Mouth Every day\.br\ Unchanged ropinirole (ropinirole 0.25 mg Tab) 1 Tablets By Mouth 3 times a day\.br\ Pharmacy Information\.b r\ [facility]: [address] [place], [place] [id number] [phone]\.br\ Allergies\.br\ No Known Allergies\.br\ No Known Medication [...] for choosing us for your care.\.br\ \.br\ [facility] Medicine Office/Clini c Noteon 12-30-2023 Family Medicine Office/Clinic Note HPI Staff Martins is a 73 year old male presenting [...] mRNA BNT-162b2 vax 12/28/2020 Recorded 2022-11-18: TPV65 [facility] Comment on above: Result Comment: Elec tronically Signed By: Radha Poole\.br\Date and Time Signed: 12/30/23 11:13 EDT Medication Consenton 024 Medication Consent [id number] IFF [facility] CHEMISTRYOrdered By: SYSTEM SYSTEM on 12-23-2023 Albumin [...] used for this result was chemiluminescence using [email or web address]'s Access [employer] PSA reagent. Protein [Mass/Vol] 6.7 g/dL [...] 10-31-2022 BASO # 0.1 103/ul Normal 0.0-0.[address] [facility] Comment on above: Performed By: #### C BC #### [facility] [address] [address] [address] Abdoulaye Carey Basophils/100 WBC (Bld) 0.7 % Normal 0.2-2.[address] [facility] Comment on above: Performed By: #### C BC #### [facility] [address] [address] [address] Abdoulaye Carey EO # 0.2 103/ul Normal 0.0-0.7 [facility] Comment on above: Performed By: #### C BC #### [facility] [address] [address] [address] Abdoulaye Carey Eosinophils/100 WBC (Bld) 1.7 % Normal 0.9-7.0 [facility] Comment on above: Performed By: #### C BC #### [facility] [address] [address] [address] Abdoulaye Carey Erythrocyte distribution width (RBC) [Ratio] 13.4 % Normal 11.0-15.0 [facility] Comment on above: Performed By: #### C BC #### [facility] [address] [place] [address] Dr. Abdoulaye Carey Hematocrit (Bld) [Volume fraction] 50.6 % Normal 42.0-54.[address] [facility] Comment on above: Performed By: #### C BC #### [facility] [address] [place] [address] Dr. Abdoulaye Carey Hemoglobin (Bld) [Mass/Vol] 16.3 g/dL Normal 14.0-18.[address] [facility] Comment on above: Performed By: #### C BC #### [facility] [address] [place] [address] Dr. Abdoulaye Carey IG # 0.04 10e3/ul Critically high 0.00-0.[address] [facility] Comment on above: Performed By: #### C BC #### [facility] [address] [place] [address] Dr. Abdoulaye Carey IG % 0.5 % Normal 0.0-0.[address] [facility] Comment on above: Performed By: #### C BC #### [facility] [address] [place] [address] Dr. Abdoulaye Carey LYMPH # 1.8 103/ul Normal 1.2-3.[address] [facility] Comment on above: Performed By: #### C BC #### [facility] [address] [place] [address] Dr. Abdoulaye Carey Lymphocytes/100 WBC (Bld) 21.0 % Normal 20.5-60.[address] [facility] Comment on above: Performed By: #### C BC #### [facility] [address] [place] [address] Dr. Abdoulaye Carey MANUAL DIFF REQ NO Normal [facility] Comment on above: Performed By: #### C BC #### [facility] [address] [place] [address] Dr. Abdoulaye Carey MCH (RBC) [Entitic mass] 29.8 pg Normal 25.9-34.[address] [facility] Comment on above: Performed By: #### C BC #### [facility] [address] [address] [address] Abdoulaye Carey MCHC (RBC) [Mass/Vol] 32.2 g/dL Normal 29.9-35.[address] [facility] Comment on above: Performed By: #### C BC #### [facility] [address] [address] [address] Abdoulaye Carey MCV (RBC) [Entitic vol] 92.5 fL Normal 80.0-94.[address] [facility] Comment on above: Performed By: #### C BC #### [facility] [address] [place] [address] Dr. Abdoulaye Carey MONO # 0.6 103/ul Normal 0.3-0.[address] [facility] Comment on above: Performed By: #### C BC #### [facility] [address] [place] [address] Dr. Abdoulaye Carey Monocytes/100 WBC (Bld) 7.1 % Normal 1.7-12.[address] [facility] Comment on above: Performed By: #### C BC #### [facility] [address] [place] [address] Dr. Abdoulaye Carey NEUT # 6.1 103/ul Normal 1.4-6.[address] [facility] Comment on above: Performed By: #### C BC #### [facility] [address] [place] [address] Dr. Abdoulaye Carey Neutrophils/100 WBC (Bld) 69.0 % Normal 43.0-75.0 [facility] Comment on above: Performed By: #### C BC #### [facility] [address] [place] [address] Dr. Abdoulaye Carey Platelet mean volume (Bld) [Entitic vol] 11.5 fL Normal 9.5-13.5 [facility] Comment on above: Performed By: #### C BC #### [facility] [address] [place] [address] Dr. Abdoulaye Carey PLT 150 103/ul Normal 150-450 [facility] Comment on above: Performed By: #### C BC #### [facility] [address] [address] [address] Abdoulaye Carey RBC 5.47 106/ul Normal 4.70-6.[address] [facility] Comment on above: Performed By: #### C BC #### [facility] [address] [address] [address] Abdoulaye Carey WBC 8.8 103/ul Normal 4.0-11.[address] [facility] Comment on above: Performed By: #### C BC #### [facility] [address] [place] [address] Dr. Abdoulaye Carey LIPID PROFILEon 10-31-2022 CHOL-HDL RATIO NORM SEE BELOW Normal [facility] Comment on above: Result Comment: 3.3 - 4.4 LOW RISK 4.4 - 7.1 AVERAGE RISK 7.1 - 11.0 MODERATE RISK >11.0 HIGH RISK Performed By: #### C MP, LIPID #### [facility] [address] [place] [address] Dr. Abdoulaye Carey Cholesterol [Mass/Vol] 199 mg/dL Normal <=200 [facility] Comment on above: Performed By: #### C MP, LIPID #### [facility] [address] [place] [address] Dr. Abdoulaye Carey Cholesterol in HDL [Mass/Vol] 37 mg/dL Critically low 40-[address] [facility] Comment on above: Performed By: #### C MP, LIPID #### [facility] [address] [place] [address] Dr. Abdoulaye Carey Cholesterol in LDL [Mass/Vol] 136.2 mg/dL Normal [facility] Comment on above: Performed By: #### C MP, LIPID #### [facility] [address] [place] [address] Dr. Abdoulaye Carey Cholesterol.total/Ch olesterol in HDL [Mass ratio] 5.4 {ratio} Normal [facility] Comment on above: Performed By: #### C MP, LIPID #### [facility] [address] [place] [address] Dr. Abdoulaye Carey HDL NORMAL > or = 60 mg/dl - LO W CARDIOVASCULAR RISK <40 mg/dl - HIGH CARDIOVASCULAR RISK Normal [facility] Comment on above: Performed By: #### C MP, LIPID #### [facility] [address] [address] [address] Abdoulaye Carey LDL CALC NORMAL SEE BELOW Normal [facility] Comment on above: Result Comment: <100 mg/dl OPTIMAL 100 - 129 mg/dl NEAR OR ABOVE OPTIMAL 130 - 159 mg/dl BORDERLINE HIGH 160 - 189 mg/dl HIGH >190 mg/dl VERY HIGH Performed By: #### C MP, LIPID #### [facility] [address] [place] [address] Dr. Abdoulaye Carey Triglyceride [Mass/Vol] 129 mg/dL Normal <=150 [facility] Comment on above: Performed By: #### C MP, LIPID #### [facility] [address] [place] [address] Dr. Abdoulaye Carey VLDL CALC 25.8 mg/dL Normal [facility] Comment on above: Performed By: #### C MP, LIPID #### [facility] [address] [place] [address] Dr. Abdoulaye Carey PROF 14(COMP METB)on 023 Albumin [Mass/Vol] 4.5 g/dL Normal 3.4-5.[address] [facility] Comment on above: Performed By: #### C MP, LIPID #### [facility] [address] [place] [address] Dr. Abdoulaye Carey Albumin/Globulin [Mass ratio] 1.6 {ratio} Normal [facility] Comment on above: Performed By: #### C MP, LIPID #### [facility] [address] [place] [address] Dr. Abdoulaye Carey ALP [Catalytic activity/Vol] 68 U/L Normal 46-116 [facility] Comment on above: Performed By: #### C MP, LIPID #### [facility] [address] [place] [address] Dr. Abdoulaye Carey ALT [Catalytic activity/Vol] 6 U/L Critically low 16-[address] [facility] Comment on above: Performed By: #### C MP, LIPID #### [facility] [address] [place] [address] Dr. Abdoulaye Carey Anion gap [Moles/Vol] 14.2 mmol/L Normal [facility] Comment on above: Performed By: #### C MP, LIPID #### [facility] [address] [place] [address] Dr. Abdoulaye Carey AST [Catalytic activity/Vol] 18 U/L Normal 15-37 [facility] Comment on above: Performed By: #### C MP, LIPID #### [facility] [address] [place] [address] Dr. Abdoulaye Carey Bilirubin [Mass/Vol] 0.8 mg/dL Normal 0.2-1.[address] [facility] Comment on above: Performed By: #### C MP, LIPID #### [facility] [address] [place] [address] Dr. Abdoulaye Carey Calcium [Mass/Vol] 9.3 mg/dL Normal 8.5-10.[address] [facility] Comment on above: Performed By: #### C MP, LIPID #### [facility] [address] [place] [address] Dr. Abdoulaye Carey Chloride [Moles/Vol] 106 mmol/L Normal 98-[address] [facility] Comment on above: Performed By: #### C MP, LIPID #### [facility] [address] [place] [address] Dr. Abdoulaye Carey CO2 [Moles/Vol] 26.6 mmol/L Normal 21.0-32.[address] [facility] Comment on above: Performed By: #### C MP, LIPID #### [facility] [address] [place] [address] Dr. Abdoulaye Carey Creatinine [Mass/Vol] 1.08 mg/dL Normal 0.70-1.30 [facility] Comment on above: Performed By: #### C MP, LIPID #### [facility] [address] [place] [address] Dr. Abdoulaye Carey EGFR-AF PALESTINIAN >60 Normal >=60 [facility] Comment on above: Performed By: #### C MP, LIPID #### [facility] [address] [place] [address] Dr. Abdoulaye Carey EGFR-NON AF PALESTINIAN >60 Normal >=[address] [facility] Comment on above: Performed By: #### C MP, LIPID #### [facility] [address] [address] [address] Abdoulaye Carey Globulin (S) [Mass/Vol] 2.9 g/dL Normal [facility] Comment on above: Performed By: #### C MP, LIPID #### [facility] [address] [place] [address] Dr. Abdoulaye Carey Glucose [Mass/Vol] 109 mg/dL Critically high 74-106 [facility] Comment on above: Performed By: #### C MP, LIPID #### [facility] [address] [place] [address] Dr. Abdoulaye Carey Potassium [Moles/Vol] 3.8 mmol/L Normal 3.5-5.[address] [facility] Comment on above: Performed By: #### C MP, LIPID #### [facility] [address] [place] [address] Dr. Abdoulaye Carey Protein [Mass/Vol] 7.4 g/dL Normal 6.4-8.[address] [facility] Comment on above: Performed By: #### C MP, LIPID #### [facility] [address] [place] [address] Dr. Abdoulaye Carey Sodium [Moles/Vol] 143 mmol/L Normal 136-[address] [facility] Comment on above: Performed By: #### C MP, LIPID #### [facility] [address] [place] [address] Dr. Abdoulaye Carey Urea nitrogen [Mass/Vol] 22.0 mg/dL Critically high 7.0-18.[address] [facility] Comment on above: Performed By: #### C MP, LIPID #### [facility] [address] [place] [address] Dr. Abdoulaye Carey Urea nitrogen/Creatinine [Mass ratio] 20.4 mg/mg Normal [facility] Comment on above: Performed By: #### C MP, LIPID #### [facility] [address] [place] [address] Dr. Abdoulaye Carey Vital Signs Date Time Vital Sign Value Performing Clinician Jaci goff 11-16-2024 09:24-0500 Body mass index (BMI) [Ratio] 23.49 kg/m2 Urbano Garrett CONTINUOUS MINING OPERATOR Work Phone: [facility] 11-16-2024 09:24-0500 Body weight 68.04 kg Urbano Garrett CONTINUOUS MINING OPERATOR Work Phone: [facility] 11-16-2024 09:24-0500 Diastolic blood pressure 66 mm[Hg] Urbano Garrett CONTINUOUS MINING OPERATOR Work Phone: [facility] 11-16-2024 09:24-0500 Heart rate 71 /min Urbano Garrett CONTINUOUS MINING OPERATOR Work Phone: [facility] 11-16-2024 09:24-0500 Systolic blood pressure 120 mm[Hg] Urbano Garrett CONTINUOUS MINING OPERATOR Work Phone: [facility] 09-26-2024 09:11-0500 Body mass index (BMI) [Ratio] 22.71 kg/m2 Urbano Garrett CONTINUOUS MINING OPERATOR Work Phone: [facility] 09-26-2024 09:11-0500 Body weight 65.77 kg Urbano Garrett CONTINUOUS MINING OPERATOR Work Phone: [facility] 09-26-2024 09:11-0500 Diastolic blood pressure 86 mm[Hg] Urbano Garrett CONTINUOUS MINING OPERATOR Work Phone: [facility] 09-26-2024 09:11-0500 Heart rate 79 /min Urbano Garrett CONTINUOUS MINING OPERATOR Work Phone: [facility] 09-26-2024 09:11-0500 Systolic blood pressure 139 mm[Hg] Urbano Garrett CONTINUOUS MINING OPERATOR Work Phone: [facility] 08-31-2024 08:57-0500 Body height 170.2 cm Urbano Garrett CONTINUOUS MINING OPERATOR Work Phone: [facility] 08-31-2024 08:57-0500 Body mass index (BMI) [Ratio] 21.77 kg/m2 Urbano Garrett CONTINUOUS MINING OPERATOR Work Phone: [facility] 08-31-2024 08:57-0500 Body weight 63.05 kg Urbano Garrett CONTINUOUS MINING OPERATOR Work Phone: [facility] 08-31-2024 08:57-0500 Diastolic blood pressure 70 mm[Hg] Urbano Bro CONTINUOUS MINING OPERATOR Work Phone: [facility] 08-31-2024 08:57-0500 Systolic blood pressure 114 mm[Hg] Urbano Bro CONTINUOUS MINING OPERATOR Work Phone: [facility] Healthcare Encounters Encounter Date Encounter Type Care Provider Facility Start: 12-25-2025 ambulatory Radha L [place] Facility: [facility] [place] Start: 09-28-2025 ambulatory Radha L [place] Facility: [facility] [place] Start: 07-31-2025 End: 07-31-2025 ambulatory Radha L [place] Facility:[facility] [place] Start: 07-26-2025 ambulatory Radha L [place] Facility: [id number] Start: 07-25-2025 ambulatory Radha [place] Facility:[facility] [place] Start: 07-24-2025 ambulatory JOSE Coffmani ty:[facility] [place] Start: 07-24-2025 End: 07-24-2025 ambulatory Judith Casper Facility:[id number] Start: 07-22-2025 End: 07-22-2025 ambulatory Shannan Whitaker [facility] Work Phone: Start: 07-22-2025 End: 07-22-2025 Departed Referred Shannan Whitaker MD -LAB [facility] [place] [facility] Start: 06-29-2025 End: 06-29-2025 ambulatory Radha L [place] Facility:[facility] [place] Start: 03-29-2025 End: 03-29-2025 ambulatory Radha L [place] Facility:[facility] [place] Start: 03-22-2025 End: 03-22-2025 ambulatory Radha L [place] Facility:[facility] [place] Start: 03-02-2025 End: 03-02-2025 ambulatory MARTIN LAMAR Facility:[facility] Start: 12-26-2024 End: 12-26-2024 Lab Drop off Radha L [place] [address] [place] [address] Start: 12-26-2024 End: 12-26-2024 ambulatory Radha L [place] Facility:[facility] Start: 12-22-2024 End: 12-22-2024 ambulatory Radha L [place] Facility:[facility] [place] Start: 11-17-2024 End: 11-17-2024 Telephone encounter Mariah Dumont MD Work Phone: [facility] Comment on above: RNS/DBS Visit Start: 11-16-2024 End: 11-16-2024 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 Work 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: [place] Start: 11-16-2024 End: 11-16-2024 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 Work Phone: [place] Start: 11-16-2024 End: 11-16-2024 Office outpatient visit 25 minutes Urbano Bro CONTINUOUS MINING OPERATOR Work Phone: [place] Comment on above: Parkinson's disease without dyskinesia or fluctuating manifestations (CMS/HCC) (Primary Dx); Dysphagia, unspecified type; Weight loss Start: 11-16-2024 End: 11-16-2024 ambulatory URBANO BRO Not Available Start: 09-28-2024 End: 09-28-2024 ambulatory Radha L [place] Facility:[facility] [place] Start: 09-26-2024 End: 09-26-2024 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 Work Phone: [facility] Start: 09-26-2024 End: 09-26-2024 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 Work Phone: [facility] Start: 09-26-2024 End: 09-26-2024 Office outpatient visit 25 minutes Urbano Bro CONTINUOUS MINING OPERATOR Work Phone: [facility] Comment on above: Parkinson's disease without dyskinesia or fluctuating manifestations (CMS/HCC) Start: 09-26-2024 End: 09-26-2024 ambulatory URBANO BRO Not Available Start: 09-09-2024 End: 09-09-2024 ambulatory Radha L [place] Facility:[facility] Start: 08-31-2024 End: 08-31-2024 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 [facility] Start: 08-31-2024 End: 08-31-2024 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 [facility] Start: 08-31-2024 End: 08-31-2024 Office outpatient visit 25 minutes Urbano Bro CONTINUOUS MINING OPERATOR [facility] Comment on above: Parkinson's disease without dyskinesia or fluctuating manifestations (CMS/HCC) (Primary Dx); Dysphagia, unspecified type; Weight loss Start: 08-31-2024 End: 08-31-2024 ambulatory URBANO BRO Not Available Start: 06-10-2024 End: 06-10-2024 ambulatory Radha L [place] Facility:[facility] Start: 06-02-2024 End: 06-02-2024 ambulatory URBANO BRO Not Available Start: 05-31-2024 End: 05-31-2024 ambulatory SHERYL HAM Not Available Start: 03-30-2024 End: 03-30-2024 Lab Drop off Radha L [place] [facility] Start: 03-30-2024 End: 03-30-2024 ambulatory Radha L [place] Facility:[facility] [place] Start: 12-30-2023 End: 12-30-2023 ambulatory Radha L [place] Facility:[facility] [place] Start: 12-23-2023 End: 12-23-2023 Lab Drop off Radha L [place] [facility] Start: 12-26-2022 End: 12-26-2022 Patient encounter procedure Dianelys GRANT [facility] [place] Start: 12-17-2022 End: 12-17-2022 ambulatory DIANELYS GRANT Facility:[facility] Start: 10-31-2022 End: 11-01-[address] JOSE VILLARREAL . Facility:[facility] Procedures Date Procedure Procedure Detail Performing Clinician Start: 12-17-2022 Colonoscopy Dianelys COVINGTON Start: 02-24-2017 Cataract Extraction with IOL placement - OD. Dianelys GRANT Start: 02-20-2011 Colonoscopy Dianelys COVINGTON Vasectomy Dianelys GRANT Plan of Treatment Date Care Activity Detail Author Start: 08-09-2025 ambulatory Ambulatory Facility:[facility] Start: 07-22-2025 Urine culture [facility] Start: 07-22-2025 Bacteria identified in Urine by Culture Urine Culture [facility] Start: 01-10-2025 End: 01-10-2025 Patient encounter procedure 01/10/2025 1:20 PM EDT Office Visit [place] [address] [place] [address] Urbano Bro NP [address] [place] [address] [place] Start: 11-16-2024 End: 11-16-2024 Patient encounter procedure [facility] [place] [facility] Comment on above: Arrived Start: 09-26-2024 End: 09-26-2024 Patient encounter procedure 09/26/2024 9:20 AM EST Office Visit [facility] [place] [facility] [address] [place] [address] Urbano Bro NP [address] [place], [place] [id number] Arrived [facility] [place] [facility] Comment on above: Arrived Start: 09-22-2024 End: 09-22-2024 Patient encounter procedure 09/22/2024 11:20 AM EST Office Visit [facility] [place] [facility] [address] [place] [address] Urbano Bro NP [address] [place] [address] [facility] Start: 06-19-2024 Influenza vaccination Influenza Vacc ine (#1) [facility] Start: 09-20-2021 Pneumococcal Vaccine : 65+ Years (2 of 2 - PPSV23 or PCV20) Pneumococcal Vaccine: 65+ Years (2 of 2 - PPSV23 or PCV20) [facility] Start: 1950 Screening for malign ant neoplasm of colon [facility] Immunizations Immunization Date Immunization Notes Care Provider Fa cility 10-06-2021 SARS-CoV-2 (COVID-19 ) mRNA BNT-162b2 vax Dianelys NILL [facility] [place] 01-20-2021 SARS-CoV-2 (COVID-19 ) mRNA BNT-162b2 vax Dianelys NILL [facility] [place] 12-28-2020 SARS-CoV-2 (COVID-19 ) mRNA BNT-162b2 vax Dianelys NILL [facility] Comment on above: Result Comment: 2022: [id number] 09-20-2020 pneumococcal conjugate vaccine, 13 valent Urbano Bro NP Work Phone: [facility] NEGATED: Highlighted row has not occurred!12-22-2024 influenza virus vaccine, unspecified formulation Radha [facility] [place] NEGATED: Highlighted row has not occurred!11-18-2022 influenza virus vaccine, unspecified formulation Dianelys NILL [facility] Payers Date Payer Category Payer Self-pay 2023 Medicare (Managed Care) [employer] [id number] 2017 Medicare HU[employer]NA MEDICARE HU[employer]NA MEDICARE PPO [id number] 2017-Present [phone] [address] [address] [place] [address] PPO [id number] 1959 Medicare [id number] 1950 Unknown [id number] 2.16840.1.630108.3.579. 2.593 1951 Unknown [id number] 2.16.840.1.367320.3.579. 2.593 1951 Unknown [id number] 2.16840.1.846468.3.579. 2.1259 1951 Unknown [id number] 2.16.840.1.220741.3.579. 2.1259 1951 Unknown [id number] 2.16.840.1.738553.3.579. 2.1259 1951 Unknown [id number] 2.16840.1.432786.3.579. 2.1259 1951 Unknown [id number] 2.16.840.1.675063.3.579. 2.1259 1951 Unknown [id number] 2.16.840.1.651061.3.579. 2.727 1951 Unknown [id number] 2.16.840.1.214265.3.579. 2.727 1951 Unknown [id number] 2.16.840.1.972023.3.579. 2.727 1951 Unknown [id number] 2.16.840.1.555513.3.579. 2.727 1951 Unknown [id number] 2.16.840.1.573822.3.579. 2.727 1951 Unknown [id number] 2.16.840.1.682784.3.579. 2.727 1951 Unknown [id number] 2.16.840.1.152360.3.579. 2.72 1951 Unknown [id number] 2.16.840.1.683989.3.579. 2.727 1951 Unknown [id number] 2.16.840.1.342261.3.579. 2.72 1951 Unknown [id number] 2.16.840.1.070048.3.579. 2.72 1951 Unknown [id number] 2.16.840.1.235779.3.579. 2.72 1951 Unknown [id number] 2.16.840.1.036317.3.579. 2.727 1951 Unknown [id number] 2.16.840.1.939760.3.579. 2.727 1951 Unknown [id number] 2.16.840.1.139987.3.579. 2.727 1951 Unknown [id number] 2.16.840.1.987390.3.579. 2.727 1951 Unknown [id number] 2.16.840.1.258331.3.579. 2.727 1951 Unknown [id number] 2.16.840.1.609331.3.579. 2.72 1951 Unknown [id number] 2.16.840.1.976425.3.579. 2.727 1951 Unknown [id number] 2.16.840.1.726815.3.579. 2.72 1951 Unknown [id number] 2.16.840.1.296624.3.579. 2.727 1951 Unknown [id number] 2.16.840.1.343735.3.579. 2.727 Unknown Regular Insurance [id number] Unknown [id number] 2.16.840.1.491506.3.579. 2.531 Social History Date Type Detail Facility Start: 11-18-2022 End: 12-22-2024 Tobacco smoking status Never smoked tobacco (finding) [facility] [place] Comment on above: never in lifetime denies use. Tobacco smoking status Never [facility] [place] Comment on above: never in lifetime Start: 05-31-2024 Sex Assigned At Male F [facility] Start: 06-02-2024 End: 11-16-2024 Alcoholic beverage intake Lifetime non-drinker (finding) [facility] Start: 05-31-2024 History of Social function [facility] Start: 1950 Sex assigned at Not on file [facility] Sex Male (finding) [facility] Start: 1950 Sex Assigned At Male F [facility] Clinical Notes 12-17-2022 to 03-02-2025 Telephone Encounter - Ayaan Paula RN - 11/17/2024 1:12 PM ESTTelephone Encounter - Ayaan Paula RN - 11/17/2024 1:12 PM ESTTelephone Encounter - Jeronimo Franklin - 11/17/2024 11:50 AM EST Note Date & Type Note Facility 03-02-2025 Note HNO ID: [id number] Author: MARTIN LAMAR, DO Service: ? Author Type: Physician Type: Progress Notes Filed: 03/09/2025 14:57 Note Text: [facility] - NEW PATIENT EVALUATION Recording using ambient Aquaspy software for draft documentation of the visit was discussed with the patient/authorized customer care representative; all questions welcomed and answered. Patient/authorized customer care representative agreed to proceed I had the [...] 1 capsule by mouth once daily. [employer] [place] Vitamin 1 capsule per mouth daily. carbidopa-levodopa [...] - Neurological: - Coordination: Mild dysmetria on wujujw-xa-oyhe testing. - Motor: Rigidity noted. - Strength: [...] Right DBS Left (more content not included)... [facility] 12-22-2024 Note Patient Education Preventive Care [...] of hard liquor (44 mL). Lifestyle ??? [place] your teeth every morning and night with [...] your health c (more content not included)... [facility] 11-17-2024 Telephone encounter Note Triaged, based off available medical records, diagnosis looks relatively new and consult with movement disorders recommended. Ayaan Paula RN [facility] Work Phone: 11-17-2024 Miscellaneous Notes Triaged, based off available medical records, diagnosis looks relatively new and consult with movement disorders recommended. Ayaan Paula RN Patient has been referred from an outside provider for DBS evaluation clinic. Medical records need to be triaged. Records have been uploaded to the chart under scanned documents. documented in this encounter [facility] 11-17-2024 Telephone encounter Note Patient has been referred from an outside provider for DBS evaluation clinic. Medical records need to be triaged. Records have been uploaded to the chart under scanned documents. [facility] 11-16-2024 History of Presen t illness Narrative Images from the original note were not included. Chief Complaint Patient presents with Parkinson's Disease Weight Loss Subjective Quinten M Henney, 74 y.o., male The patient is seen [...] , wrist extensors , wrist flexor , fan blade truer strength 5/5. LUE Strength deltoid , biceps , triceps , wrist extensors , wrist flexor , fan blade truer strength 5/5. RLE Strength illopsoas, quadriceps, tibialis [...] knee reflex 0. Leone's Sign negative. Coordination: Gkinnl-ru-pemm testing is normal Moderate bradykinesia bilaterally with [...] be reasonable. PLAN: - Referral to the [facility] movement clinic for consideration of DBS [...] and return instructions documented in this encounter [facility] 09-26-2024 History of Presen t illness [...] , wrist extensors , wrist flexor , fan blade truer strength 5/5. LUE Strength deltoid , biceps , triceps , wrist extensors , wrist flexor , fan blade truer strength 5/5. RLE Strength illopsoas, quadriceps, tibialis [...] knee reflex 0. Leone's Sign negative. Coordination: Weaprs-eq-yayq testing is normal Moderate bradykinesia bilaterally with [...] and return instructions documented in this encounter [facility] 08-31-2024 History of Presen t illness [...] , wrist extensors , wrist flexor , fan blade truer strength 5/5. LUE Strength deltoid , biceps , triceps , wrist extensors , wrist flexor , fan blade truer strength 5/5. RLE Strength illopsoas, quadriceps, tibialis [...] knee reflex 0. Leone's Sign negative. Coordination: Uuiqfq-rc-hgwn testing is normal Moderate bradykinesia bilaterally with [...] and return instructions documented in this encounter [facility] 12-17-2022 Note OPERATIVE NOTE OPERATION DATE: [...] pathology results. CC: Jose Villarreal M.D. [facility] Evaluation + Plan note No data available for this section [facility] [place] Evaluation + Plan note Future Appointments Appointment Date:12/30/2023 11:20:00 AM Scheduled Provider:Radha Poole Location:[facility] Appointment Type: Open Appointment Date:12/22/2024 11:00:00 AM Scheduled Provider: Location:[facility] Appointment Type:FM Medicare Wellness Subsequent Diagnostic Tests PendingHCV Antibody RFX to Quant PCR 12/23/23 [facility] Evaluation + Plan note Future Appointments Appointment Date:06/29/2024 11:20:00 AM Scheduled Provider:Radha Poole Location:[facility] Appointment Type: Open Appointment Date:12/22/2024 11:00:00 AM Scheduled Provider: Location:[facility] Appointment Type:FM Medicare Wellness Subsequent [facility] Evaluation + Plan note Future Appointments Appointment Date:03/22/2025 09:40:00 AM Scheduled Provider:Radha Poole Location:[facility] Appointment Type: Open Appointment Date:12/25/2025 11:00:00 AM [facility]uled [facility] Medicare Wellness Subsequent [facility] Evaluation note Diagnosis Parkinson's disease without dyskinesia or fluctuating manifestations (CMS/HCC)- Primary Dysphagia, unspecified type Weight loss Loss of weight documented in this encounter [facility]* Diagnosis Parkinson's disease without dyskinesia or fluctuating manifestations (CMS/HCC) documented in this encounter [facility]* Diagnosis Parkinson's disease without dyskinesia or fluctuating manifestations (CMS/HCC)- Primary Dysphagia, unspecified type Weight loss Loss of weight documented in this encounter [facility] HealthcareEvaluation noteNo assessment information available[facility] Work Phone: Hospital Discharge instructions No data available for this section [facility] [place] Progress note No data available for this section [facility] [place] Reason for referral (narrative)No reason for referral information availableC[facility] Work Phone: Summary Purpose Family History No Family History Records Found Relationship Condition Age at Onset Recorded Date/T hugo father Unknown mother Heart disease Unknown Unknown Advance Directives No Advanced Directives Records Found Advance Directive Response Recorded Date/ Time Advance Directives No March 17 8 9:02am Chief Complaint and Reason for Visit Chief Complaint Admit Date RT PELVIC FRACTURE July 22, 2025 5: 53pm Additional Source Comments (unrecognized sect ion and [...] and content) DATE CREATED AUTHOR 12/26/2022 [facility] DATE CREATED AUTHOR AUTHOR'S ORGANIZ ATION 04/01/2024 [facility] DATE CREATED AUTHOR AUTHOR'S ORGANIZ ATION 11/18/2024 [facility] EPIC DATE CREATED AUTHOR AUTHOR'S ORGANIZ ATION 12/28/2024 [facility] DATE CREATED AUTHOR AUTHOR'S ORGANIZ ATION 03/16/2025 [facility] DATE CREATED AUTHOR AUTHOR'S ORGANIZ ATION 07/02/2025 [facility] DATE CREATED AUTHOR AUTHOR'S ORGANIZ ATION 07/26/2025 [facility] DATE CREATED AUTHOR AUTHOR'S ORGANIZ ATION 07/30/2025 [facility] DATE CREATED AUTHOR AUTHOR'S ORGANIZ ATION 08/07/2025 [facility] Patient Care team informatio n (unrecognized section and content) Swedish Masseuse Relationship Specialty Start Date End Date Murphy Guerin OD [address] [id number] Referring Physician Optometry 05/31/24 Urbano Bro NP [address] [phone] Nurse Practitioner Neurology 08/29/24 Wesly Schwartz DO [address] [phone] Referring Physician Neurology 08/29/24 Radha Hopkins MD [address] [place] [address] [id number] Referring Physician Family Medicine 08/31/24 Swedish Masseuse Relationship Specialty Start Date End Date Murphy Guerin OD [address], [place] [id number] Referring Physician Optometry 05/31/24 Urbano Bro NP [address] [phone] Nurse Practitioner Neurology 08/29/24 Wesly Schwartz DO [address] [address] Referring Physician Neurology 08/29/24 Radha Hopkins MD [address] [place], [place] [phone] Referring Physician Family Medicine 08/31/24 Swedish Masseuse Relationship Specialty Start Date End Date Unallocated, Elder Jarvis MD [address] [place] [id number] PCP - General Family Medicine 11/16/24 Murphy Guerin OD [address] [place], [place] [phone] Referring Physician Optometry 05/31/24 Urbano Bro NP [address] [phone] Nurse Practitioner Neurology 08/29/24 Wesly Schwartz DO [address] [phone] Referring Physician Neurology 08/29/24 Radha Hopkins MD [address] [place] [address] Referring Physician Family Medicine 08/31/24 Swedish Masseuse Relationship Specialty Start Date End Date Unallocated, Elder Jarvis MD [facility] [place] [address] PCP - General Family Medicine 11/16/24 Murphy GuerinKARIN [address] [place] [address] Referring Physician Optometry 05/31/24 Urbano Bro NP [address] [place] [address] Nurse Practitioner Neurology 08/29/24 Wesly Schwartz DO [address] [place] [address] Referring Physician Neurology 08/29/24 Radha Hopkins MD [address] [phone] Referring Physician Family Medicine 08/31/24 Swedish Masseuse Relationship Specialty Start Date End Date Urbano Bro CNP [address] [phone] Referring Family Medicine 11/16/24 Team Status: Inactive Member Role Status Dates Shannan Whitaker MD Attending Provider Active Sta rt: July 22, 2025 End: July 22, 2025 Reason for Visit (unrecogniz ed section and [...] or prosecute any alcohol or drug abuse patient.[facility] Goals (unrecognized section and content) Goals may be documented in a n alternate section FOR RECORDS PERTAINING TO PATIENTS WHO ARE [...] BE BASED ON THE PRIMARY CLINICAL RECORDS. [facility]. provides no warranty or guarantee of the accuracy or completeness of information in this document.
== END 2025-08-07 10:11 | disposition home or self-care (01) ==
LOC: RAD 10:15
PROVIDERS: Visit Provider Urology
DX: N13.2 Hydronephrosis with renal and ureteral calculous obstruction (principal)
CPT/HCPCS: 74018

== ENCOUNTER 2025-10-03 15:49 | Observation (INO) | payer MEDICARE, SELFPAY ==
[2025-10-03] VITALS (31 sets, daily range): BP systolic 119–139; BP diastolic 74–81; PULSE 74–114; TEMP 36.5–36.6; O2SAT 87–98; BMI 21.9; BMI 20.2
--- NOTE | 2025-10-03 16:22 | ECG_ITS ---
[facility] Test Date: 2025-10-03 Pat Name: QUINTEN HUITRON Department: Room: - Gender: Male Pool Nurse: : 1950 Requested By: [id number] Order Number: [id number] Reading MD: SY SCHULTZ Measurements Intervals [place] Rate: 91 P: 41 MN: 168 QRS: -4 QRSD: 74 T: 31 QT: 346 QTc: 395 Interpretive Statements 1100 Sinus rhythm 99015 Inferior myocardial infarction with posterior extension, probably old 5211 Minimal voltage criteria for LVH, may be normal variant 8102 Low QRS voltage in chest leads 9150 abnormal ECG Compared to ECG 07/21/2025 20:27:42 No significant changes Electronically Signed On 10-03-2025 16:43:35 EST by SY SCHULTZ
--- NOTE | 2025-10-03 16:23 | XR_ITS ---
[address] [id number] Patient Name: QUINTEN HUITRON MRN: [id number] date: 1950 Sex: M Assigned Patient Location: ER Current Patient Location: ER Accession/Order Number: [id number] Exam Date: 10/03/2025 16:30 Report Date: 10/03/2025 16:47 At the request of: CHARLENE CASTILLO MD Procedure: XR chest 1V XR chest 1V 10/03/2025 4:34 PM SIGNS AND SYMPTOMS: ^ams PROTOCOL: Frontal radiograph of the chest COMPARISON: None FINDINGS: The trachea is midline. The heart and mediastinal structures are within normal limits. The lung parenchyma is clear. The bony thorax is intact. Degenerative changes are noted in the shoulders and thoracic spine. XR/XR chest 1V IMPRESSION: No acute cardiopulmonary pathology. Impression dictated by: Murphy Alcazar M.D. 10/03/2025 4:47 PM Dictation Location: [place] [address] Electronically authenticated by: [id number] Y Date: 10/03/2025 16:47
[2025-10-03 16:31] LABS: Hematocrit 42.5 % (42.0-54.0); Hemoglobin 13.9 g/dL (14.0-18.0); Immature Granulocytes Abs Auto 0.04 10^3/uL (0.00-0.03); Immature Granulocytes Pct Auto 0.4 % (0.0-0.5); Lymphocytes Absolute Auto 1.7 10^3/uL (1.2-3.8); Mean Corpuscular HGB Conc 32.7 g/dL (29.9-35.2); Mean Corpuscular Hemoglobin 30.3 pg (25.9-34.0); Mean Corpuscular Volume 92.8 fL (80.0-94.0); Platelet Count 208 10^3/uL (150-450); Red Blood Count 4.58 10^6/uL (4.70-6.10); White Blood Count 9.8 10^3/uL (4.0-11.0)
--- NOTE | 2025-10-03 16:35 | ED.GENADUL1 ---
HPI HPI - General Adult General Chief complaint: Neuro Symptoms/Deficit Stated complaint: PCP WANTS HIM CHECKED FOR POSSIBLE STROKE SYMPTOM Time Seen by Provider: 10/03/25 16:15 Source: caregiver Source information: caregiver Mode of arrival: Wheelchair History of Present Illness HPI narrative: The patient brought to us by the family for concern of an episode that has been getting very frequent where he gets tired and have no appetite, according to the caregiver at the bedside sometimes his blood pressure drops by by the time they come to the ER the patient blood pressure will go back up, they also mention that his primary care yesterday was informed of this episode that happened also yesterday when he was tired weak he did start mentioning old things and talking about that people in his family. Which could have been secondary to confusion. But the patient right now does not have any complain he does have tremors in his upper extremity mostly secondary to Parkinson. He have no weakness and he have no symptoms that is concerning at the moment, as per the family at the bedside apparently the patient was not brought yesterday because they were tired from him going to the ER and not finding anything wrong with him, that why he was not brought yesterday right away but after the primary care told him to bring him the put him here today But this apparently happened as well before Related Data Home Medications ?Medication ?Instructions ?Recorded ?Confirmed carbidopa 25 mg-levodopa 100 mg 2 tab PO TID 06/23/24 07/21/25 tablet ropinirole 0.5 mg tablet 1 mg PO TID 06/23/24 10/03/25 alprazolam 1 mg tablet 1 mg PO BID PRN anxiety 07/17/25 10/03/25 docusate sodium 100 mg capsule 200 mg PO BID 07/21/25 07/21/25 (Colace) bupropion HCl 100 mg tablet,12 hr 100 mg PO BID 10/03/25 10/03/25 sustained-release cholecalciferol (vitamin D3) 25 25 mcg PO DAILY 10/03/25 mcg (1,000 unit) tablet paroxetine HCl 20 mg tablet 20 mg PO DAILY 10/03/25 10/03/25 Previous Rx's ?Medication ?Instructions ?Recorded calcium 600 mg (as 1 tab PO BID #60 tabs 07/25/25 carbonate)-vitamin D3 10 mcg (400 unit) tablet sennosides 8.6 mg capsule (senna) 8.6 mg PO DAILY #14 caps 07/25/25 tamsulosin 0.4 mg capsule 0.4 mg PO QD #30 caps 07/25/25 Allergies Allergy/AdvReac Type Severity Reaction Status Date / Time No Known Drug Allergies Allergy Verified 10/03/25 16:01 Opioid HPI Opioid Management Most Recent Opioid Data: Last Pain Scale 0 07/26/25, 09:08 Last Pain Intensity 0 07/26/25, 09:08 Last ORT Total Score 0 07/21/25, 18:35 Last ORT Risk Category Low Risk 07/21/25, 18:35 Review of Systems ROS Status of ROS 10 or more systems reviewed and unremarkable except as noted in history and below [facility] Medical History (Updated 10/03/25 @ 18:38 by Joyce Solano MD) Constipation ?K59.00 - Constipation, unspecified (ICD-10) Enlarged prostate ?N40.0 - Benign prostatic hyperplasia without lower urinary tract symptoms (ICD-10) Parkinsons ?G20.A1 - Parkinson's disease without dyskinesia, without mention of fluctuations (ICD-10) History of kidney stones ?Z87.442 - Personal history of urinary calculi (ICD-10) Family History Mother Family history of myocardial infarction Father Family history of cancer Family history of COPD (chronic obstructive pulmonary disease) Social History Within the past year, how often did you have a drink containing alcohol: never Score interpretation: A score less than 4 is consistent with normal alcohol consumption. Smoking status: Never smoker Non-prescribed substance use: denies use Highest level of school completed/degree received: high school graduate Little interest or pleasure in doing things: not at all Feeling down, depressed, or hopeless: not at all Exam Narrative Exam Narrative: Nurses notes and vital signs reviewed and patient is not hypoxic. General: Well-appearing and in no apparent distress. Skin: Warm, dry, no pallor noted. No rash. Head: Normocephalic, atraumatic. Neck: Supple, non-tender. Eye: Pupils are equal, round and EOMI. No scleral icterus. Cardiovascular: Regular Rate and Rhythm without murmur, gallop or rub. Respiratory: No accessory muscle use or respiratory distress. Lungs are clear to auscultation, no wheezing, rales or rhonchi Chest Wall: no tenderness Back: No midline thoracic or lumbar vertebral tenderness. No CVA tenderness Musculoskeletal: normal ROM, no calf or popliteal tenderness, patient have tremors in his upper extremity GI: Abdomen is soft, non-distended. Normal bowel sounds. No masses appreciated. No tenderness to palpation. No rebound, guarding, or rigidity noted. Neurological: A&O x4. No cranial nerve dysfunction observed. No truncal ataxia. Moves all extremities. Sensation intact. Psychiatric: Cooperative and interactive. Normal mood and affect. Constitutional Vital Signs, click to edit/add: Last Vital Signs Temp 97.7 F 10/03/25 16:02 Pulse 100 H 10/03/25 16:02 Resp 16 10/03/25 16:02 BP 131/81 10/03/25 16:02 Pulse Ox 97 10/03/25 16:02 O2 Del Method Room Air 10/03/25 16:02 Course Vital Signs Vital signs: Vital Signs Temperature 97.7 F 10/03/25 16:02 Pulse Rate 100 H 10/03/25 16:02 Respiratory Rate 16 10/03/25 16:02 Blood Pressure 131/81 10/03/25 16:02 Pulse Oximetry 97 10/03/25 16:02 Oxygen Delivery Method Room Air 10/03/25 16:02 Temperature 97.7 F 10/03/25 16:02 Pulse Rate 100 H 10/03/25 16:02 Respiratory Rate 16 10/03/25 16:02 Blood Pressure 131/81 10/03/25 16:02 Pulse Oximetry 97 10/03/25 16:02 Oxygen Delivery Method Room Air 10/03/25 16:02 Medical Decision Making MDM Narrative Medical decision making narrative: The patient complete examination is benign and this recurring symptoms although it happened yesterday it does not seem to be yesterday with the first time it happened. His NIH score right now is 0 And this confusion is episodic with no elevated blood pressure but according to the family at the bedside he actually have sometimes low blood pressure It was noted when the patient presented to us initially that his rhythm was almost similar to V. tach and he also have a fixed tremors in his upper extremity that we had the EKG done while he is having the tremors and it was showing sinus rhythm with a heart rate of 91 This V. tach rhythm was discussed with the agricultural produce sorter on-call , and she mentioned that we need to make sure that we change the leads and reobserve this patient I did do a CBC and chemistry and the CT head that shows no acute pathology on the prelim reading The patient case discussed with and he agreed to admit the patient for further telemonitoring and possible change in his Parkinson treatment Lab Data Labs: Lab Results 10/03/25 10/03/25 Range/Units 16:17 18:12 WBC 9.8 (4.0-11.0) 10^3/uL RBC 4.58 L (4.70-6.10) 10^6/uL Hgb 13.9 L (14.0-18.0) g/dL Hct 42.5 (42.0-54.0) % MCV 92.8 (80.0-94.0) fL MCH 30.3 (25.9-34.0) pg MCHC 32.7 (29.9-35.2) g/dL RDW 13.2 (11.0-15.0) % Plt Count 208 (150-450) 10^3/uL MPV 11.1 (9.5-13.5) fL Neut % (Auto) 72.5 (43.0-75.0) % Lymph % (Auto) 17.2 L (20.5-60.0) % Douglas % (Auto) 7.6 (1.7-12.0) % Eos % (Auto) 1.6 (0.9-7.0) % Baso % (Auto) 0.7 (0.2-2.0) % Neut # (Auto) 7.1 H (1.4-6.5) 10^3/uL Lymph # (Auto) 1.7 (1.2-3.8) 10^3/uL Douglas # (Auto) 0.8 (0.3-0.8) 10^3/uL Eos # (Auto) 0.2 (0.0-0.7) 10^3/uL Baso # (Auto) 0.1 (0.0-0.1) 10^3/uL Abs Immat Gran (auto) 0.04 H (0.00-0.03) 10^3/uL Imm/Tot Granulo (auto) 0.4 (0.0-0.5) % PT 11.9 H (9.0-11.6) sec INR 1.14 Sodium 139 (136-145) mmol/L Potassium 4.7 (3.5-5.1) mmol/L Chloride 104 (98-107) mmol/L Carbon Dioxide 26.7 (21.0-32.0) mmol/L Anion Gap 13.0 BUN 27.0 H (7.0-18.0) mg/dL Creatinine 1.23 (0.70-1.30) mg/dL Est GFR ( Amer) >60 (>=60 mL/min/1.73m^2) Est GFR (Non-Af Amer) 58 L (>=60 mL/min/1.73m^2) BUN/Creatinine Ratio 22.0 Glucose 124 H (74-106) mg/dL Lactate 1.4 (0.4-2.0) mmol/L Calcium 9.1 (8.5-10.1) mg/dL Magnesium 2.5 H (1.8-2.4) mg/dL Total Bilirubin 0.7 (0.2-1.0) mg/dL AST 23 (15-37) U/L ALT 11 L (16-63) U/L Alkaline Phosphatase 78 (46-116) U/L Troponin I High Sens 5.1 (4.0-76.1) pg/mL Total Protein 6.8 (6.4-8.2) g/dL Albumin 3.8 (3.4-5.0) g/dL Globulin 3.0 g/dL Albumin/Globulin Ratio 1.3 Urine Color Lt. yellow (YELLOW) Urine Clarity Clear (CLEAR) Urine pH 6.0 (5.0-9.0) Ur Specific [place] 1.020 (1.005-1.025) Urine Protein Negative (NEG/TRACE) mg/dL Urine Glucose (UA) Negative (NEGATIVE) mg/dL Urine Ketones Trace A (NEGATIVE) mg/dL Urine Occult Blood Negative (NEGATIVE) Urine Nitrite Negative (NEGATIVE) Urine Bilirubin Negative (NEGATIVE) Urine Urobilinogen 0.2 (0.2-1.0) EU/dL Ur Leukocyte Esterase Trace A (NEGATIVE) Discharge Plan Discharge Chief Complaint: Neuro Symptoms/Deficit Clinical Impression: Episodic confusion, Abnormal heart rhythms Patient Disposition: Admitted as Observation Time of Disposition Decision: 18:38
[2025-10-03 16:48] LABS: INR 1.14; Prothrombin Time 11.9 sec (9.0-11.6)
[2025-10-03 16:56] LABS: Anion Gap 13.0
[2025-10-03 17:01] LABS: Alanine Aminotransferase 11 U/L (16-63); Albumin Globulin Ratio 1.3; Albumin Level 3.8 g/dL (3.4-5.0); Alkaline Phosphatase 78 U/L (46-116); Aspartate Amino Transferase 23 U/L (15-37); Blood Urea Nitrogen 27.0 mg/dL (7.0-18.0); Calcium 9.1 mg/dL (8.5-10.1); Carbon Dioxide 26.7 mmol/L (21.0-32.0); Chloride 104 mmol/L (98-107); Estimated GFR (African America >60 (>=60 mL/min/1.73m^2); Estimated GFR (Non-African Ame 58 (>=60 mL/min/1.73m^2); Globulin 3.0 g/dL; Glucose 124 mg/dL (74-106); Potassium 4.7 mmol/L (3.5-5.1); Sodium 139 mmol/L (136-145); Total Protein 6.8 g/dL (6.4-8.2)
[2025-10-03 17:02] LABS: Lactate/Lactic Acid 1.4 mmol/L (0.4-2.0)
[2025-10-03 17:04] LABS: Magnesium 2.5 mg/dL (1.8-2.4)
--- NOTE | 2025-10-03 17:06 | CT_ITS ---
The [address] [address] Patient Name: QUINTEN HUITRON MRN: [id number] date: 1950 Sex: M Assigned Patient Location: ED.MAIN Current Patient Location: ED.MAIN Accession/Order Number: [id number] Exam Date: 10/03/2025 17:17 Report Date: 10/03/2025 18:44 At the request of: CHARLENE CASTILLO MD Procedure: CT head/brain wo con CT head/brain wo con 10/03/2025 5:30 PM SIGNS AND SYMPTOMS: Altered mental status TECHNIQUE:Multi-detector CT axial slices of the brain were obtained without IV contrast. CT was performed with one or more of the following dose reduction techniques: Automated exposure control, adjustment of the mA and/or kV according to patient size, or use of iterative reconstruction technique. COMPARISON: None. FINDINGS: There is no shift of the midline structures, acute intracranial bleeding, mass effects, or evidence of acute ischemia. Atherosclerotic changes are noted in the intracranial segments of the internal carotid arteries in the V4 segments of the vertebral arteries. There is age-related cortical atrophy. There is periventricular white matter hypoattenuation. Benign-appearing mineralization is noted in the right deep howell nuclei. The ventricular system is normal in size. The brainstem and the cerebellum are unremarkable. The visualized intraorbital contents and the infratemporal soft tissues show no acute abnormality. Mild mucosal thickening is noted in the left maxillary sinus. The osseous structures in the skull base and the calvarium show no abnormality. CT/CT head/brain wo con IMPRESSION: No acute intracranial pathology. Chronic age-related neurodegenerative changes are noted as above. Impression dictated by: Murphy Alcazar M.D. 10/03/2025 6:44 PM Dictation Location: [place] [address] Electronically authenticated by: [id number] Y Date: 10/03/2025 18:44
--- OUTSIDE RECORDS SUMMARY | 2025-10-03 17:19 | XMS_ITS | Encounter Summary ---
Author Organization [facility] Address [address] [place] [address] Care Team Providers Care Skin Care Specialist Name Role Phone Madeline Tucker CNP Unavailable [phone] Radha Hopkins APRN.UTILITY OPERATOR YARN Primary Care Provider Source Comments In the event this information is protected by the Federal Confidentiality of Alcohol and Drug AbusePatient Records regulations: The Federal rules restrict any use of the information to criminally investigate or prosecute any alcohol or drug abuse patient.[facility] Reason for Visit * ReasonCommentsMedication Problem Encounter Details DateTypeDepartmentCare Team (Latest Contact Info)Otcsqzfwprr49/15/2025Telephone Neurology [address] [place] [address] Martin Lamar, DO [address] [place] [address] Medication Problem Social History Tobacco UseTypesPacks/DayYears UsedDateSmoking Tobacco: NeverPassive Smoke Exposure: NeverSmokeless Tobacco: NeverAlcohol UseStandard Drinks/WeekComments Never0 (1 standard drink = 0.6 oz pure alcohol)Area Deprivation IndexAnswerDate RecordedNational Score (1-100), lower number is lower sphe735503/02/2025State Score (1-10), lower number is lower bnrc33703/02/2025Data from: https://www.neighborhoodatlas.[facility]/. Last address used for [id number]/02/[birth year]25Sex and Gender InformationValueDate Recorded Sex Assigned at BirthNot on fileLegal KwmAmbx1905/10/2018 9:55 AM EDTGender IdentityNot on fileSexual OrientationNot on filedocumented as of this encounter Miscellaneous Notes * Telephone Encounter - Leeanna Jane RN - 10/03/2025 4:10 PM EST This Rn called and left message on identified VM. Advised the next step is to go to the ED to determine if something is acute. If there isn't anything, then the patient requires an appt with an ROSEANN laury to determine what is happening. Phone number provided to schedule. Encounter closed. Leeanna Jane RN October 03, 2025 4:12 PM * Telephone Encounter - Sharri Colin RN - 10/03/2025 3:22 PM EST Received call from Maggie. Patient verified by name and . Also spoke with patient, who gives permission for Maggie to discuss health care. Maggie states that patient started on paroxetine after prescribed 09/07/25. However, the bupropion was started about 4-5 days ago due to being sent to mail pharmacy. She states that once patient began taking bupropion, he began developing gradually increasing symptoms of tremors, body shaking, loss of appetite, weakness, inability to ambulate, imbalance, lightheadedness, hallucinations, slurred speech. States yesterday was very bad for patient. Hallucinating f requently yesterday. States he would not eat and was unable to stand at all. She states they spoke with the patient's daughter yesterday who is a nurse and she told them that patient should stop both medications. Reports that patient did stop both yesterday and is noticing an improvement in symptoms today. Spoke with patient. He states he is feeling much better today. Denies hallucinations today. States weakness is still present, but better than yesterday. He denies one sided weakness, numbness, tingling, changes in speech or changes in vision. Denies headache. He states he is able to ambulate today, though he admits his balance is not normal. He states that anxiety and depression have improved since stopping medications. Reports almost no anxiety today. Denies SI/HI. Reviewed message from Dr. Lamar below. Notified both patient and Maggie that due to above symptoms, ER recommended for further evaluation and treatment if necessary. Encouraged them to take medications with them to the hospital and review how and/or if patient should take the medications once further testing is completed and he can further review with Dr. Lamar. Discussed concerns of stopping medications abruptly which can lead to increased feelings of depression and anxiety. Advised ER now. Maggie states that patient's son should be back soon. Advised if he does not return now, would recommend 911 for transport. Both patient and Maggie are aware of recommendations and agreeable with plan. Please advise how you would like patient to proceed with paroxetine and bupropion. * Telephone Encounter - Martin Lamar DO - 10/03/2025 9:18 AM EST Agreed - weakness and incontinence are unlikley to be 2/2 to meds - he should see PCP or go to ED Martin Lamar DO October 03, 2025 9:19 AM * Telephone Encounter - Leeanna Jane RN - 10/02/2025 2:59 PM EST FYI: This RN called and left message on identified VM advising either call to urologist, PCP, or EDvisit due to patient's recent urological procedure and UTI at outside hospital. Advised that current symptoms not likely due from reaction to antidepressants. Will forward to Dr. Lamar for potential additional comments. Encounter closed. Leeanna Jane RN October 02, 2025 3:05 PM * Telephone Encounter - Rosemarie Clark RN - 10/02/2025 2:06 PM EST Patient's son Venancio Kaminski calling Dr. Lamar regarding patient having possible side effects from antidepressants since starting on wellbutrin and paxil on 09/07/25. Venancio reports patient has adecreased appetite, leg weakness causing him to need walker for ambulation and is incontinent of urine needing briefs since 09/07/25 Patient is not present senior internet sales consultant for further evaluation. Patient permission not documented to speak with anyone and no HCPOA documents present. Venancio reports brother is POA and will have papers brought in. Also, advised son to have his dad contact PCP for symptoms that may or may not be related to medication. Patient phone: [phone]. documented in this encounter Plan of Treatment DateTypeDepartmentCare Team (Latest Contact Info)Yocymypfcwg34/11/2026 1:30 PM EDTOffice Visit Neurology [address] [place] [address] Martin Lamar, DO [address] [place] [address] f/udocumented as of this encounter Visit Diagnoses Not on filedocumented in this encounter Care Teams Team MemberRelationshipSpecialtyStart DateEnd Date Radha Hopkins, KAREEN.UTILITY OPERATOR YARN [address] [place] [address] PCP - GeneralFamily Cnjoikcb55/20/25 Madeline Tucker CNP ReferringFamily Medicine11/16/24documented as of this encounter
--- OUTSIDE RECORDS SUMMARY | 2025-10-03 17:19 | XMS_ITS | Clinical Summary ---
Author Organization [facility] Address [address] [place] [address] Care Team Providers Care Offset Lithographic Press Operator Name Role Phone Murphy Guerin OD Unavailable Madeline Tucker ONLINE MERCHANDISING MANAGER Unavailable [phone] Wesly cShwartz DO Unavailable [phone] Radha Hopkins ONLINE MERCHANDISING MANAGER Unavailable Unallocated, [facility]oms Provider Primary Care Provi sagar Allergies No known active allergies Medications MedicationSigDispense QuantityRefillsLast FilledStart DateEnd DateStatus traMADol (Ultram) 50 MG tablet Take 50 mg by mouth DailyActive Cyanocobalamin (B-12 PO) Take by mouthActive ALPRAZolam (Xanax) 0.5 MG tablet Take 0.5 mg by mouth 3 (three) times a day as needed for vwrkpvx2305/23/2024ctive traZODone (Desyrel) 100 MG tablet Take 100 mg by mouth at mgnpxxj7709/19/2023ctive entacapone (Comtan) 200 MG tablet Indications:Parkinson's disease without dyskinesia or fluctuating manifestations (HCC)Take 1 tablet (200 mg) by mouth Daily 30 tablet ctive LORazepam (Ativan) 0.5 MG tablet TAKE 1 TABLET BY MOUTH AT BEDTIME also can be taken 30 MINUTES ptp09/09/2024 Active carbidopa-levodopa (Sinemet) 25-100 MG tablet Indications:Parkinson's disease without dyskinesia or fluctuating manifestations (HCC)Take 2 tablets by mouth 3 times per day (8 am, 12 pm, and 4 pm) 540 tablet ctive ALPRAZolam (Xanax) 1 MG tablet TAKE 1 TABLET BY MOUTH ONCE DAILY AT BEDTIME and NEEDED FOR SNXDELT1911/03/2024 Active rOPINIRole (Requip) 0.5 MG tablet Indications:Parkinson's disease without fluctuating manifestations, unspecified whether dyskinesia present (HCC)Take 1 tablet (0.5 mg) by mouth in the morning and 1 tablet (0.5 mg) in the evening and 1 tablet (0.5 mg) before bedtime. 270 tablet 5Active Active Problems ProblemNoted DateDiagnosed DateAge-related nuclear cataract of left eye 4Right posterior capsular ugaaojzuqgqzd71/13/2022Ktqmqnxjxwxr81/08/2024 Mkmvwp1105/26/2024arkinson kmuxxnn4405/26/2024 Overview (05/26/2024): It is my impression that the patient has Parkinson's disease. He meets major criteria as evident on clinical examination. Brain MRI in 2014 was generally unremarkable. The patient has had a beneficial response to dopaminergic therapy. He denies wearing off between doses. More recent increase in dose of Sinemet has been beneficial for his woresning tremoring. PLAN: - Continue Sinemet 1.5 tablets by mouth three times a day (at 8 AM, noon, and 4 PM). - Could consider amantadine in the future given his tremor predominant symptoms versus further Sinemet increase though the patient feels his symptoms are well controlled today and declines further medication adjustments at this time - Continue ropinirole 0.5 mg by mouth three times a day (at 8 AM, noon, and 4 pm) - Patient has declined referral to PT though he does admit to increasing physical activity at home - May continue pre-procedure Ativan 1.5 mg as needed; increase has been beneficial. OARRs reviewed. Side effects including sedation have been discussed in great detail. 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 (He is not taking Xanax any longer) Woaxmzgyd87/08/2024 Overview (05/26/2024): The patient reports mild difficulty swallowing without choking. This is potentially related to his Parkinson's disease. PLAN: - Recommended referral to speech therapy, but this has been declined by the patient. Overall he feels this is improved. We again discussed the potential risks including aspiration, pneumonia, and even . He verbalizes understanding and declines ST or additional work up. Immunizations ImmunizationAdministration DatesNext DuePneumococcal Conjugate PCV 13111/21/2019 Family History Medical HistoryRelationNameCommentsHeart diseaseMotherRelationNameStatusComments Mother Social History Tobacco UseTypesPacks/DayYears UsedDateSmoking Tobacco: Never Tobacco Cessation:Counseling Given: Not Answered Alcohol UseStandard Drinks/WeekCommentsNever0 (1 standard drink = 0.6 oz pure alcohol)Sex and Gender InformationValueDate RecordedSex Assigned at BirthNot on fileLegal IhxIzsc1102/16/2023 8:33 PM EDTGender IdentityNot on fileSexual OrientationNot on file Last Filed Vital Signs Vital SignReadingTime TakenCommentsBlood Utarvwnq250/66011/16/2024 9:24 AM EST Xtkzb071811/16/2024 9:24 AM ESTTemperature--Respiratory Rate--Oxygen Saturation-- Inhaled Oxygen Concentration--Burnav72 kg (150 lb)11/16/2024 9:24 AM ESTHeight 170.2 cm (5' 7 )08/31/2024 8:57 AM ESTBody Mass Index23.4908/31/2024 8:57 AM EST Plan of Treatment Health MaintenanceDue DateLast DoneCommentsCT Nmahmlzoeddk1951olonoscopy 1950olorectal Cancer Bbfzfjxqp1951FIT-DNA1950FIT1950 FOBT06/12/19510557Zzeqtnmlkmfaz1951neumococcal Vaccine: 65+ Years (2 of 2 - PCV20 or PCV21)COVID-19 Vaccine (4 - 2024- season) /, 01/20/2021, 12/28/2020Influenza Vaccine (#1)2025 Insurance Care Teams Team MemberRelationshipSpecialtyStart DateEnd Date Unallocated, Noms Provider, MD Krista KENNEDY [place], [place] [id number] PCP - GeneralFamily Medicine11/16/24 Murphy Guerin OD [address] [id number] Referring PhysicianOptometry05/31/24 Madeline Tucker NP [address] [id number] Nurse EktommrpdymxYyfgqbjrx16/11/24 Wesly Schwartz DO [address] [place], [place] [id number] Referring JxquxdfvbUapyyqdil71/11/24 Radha Hopkins NP [address] [place] [address] Referring PhysicianFamily Qoodneur63/13/24
--- OUTSIDE RECORDS SUMMARY | 2025-10-03 17:19 | XMS_ITS | Clinical Summary ---
Author Organization [facility] Address [facility] [id number] Care Team Providers Care Preventive Maintenance Coordinator Name Role Phone Madeline Tucker MENTAL HYGIENE CONSULTANT Unavailable [phone] Radha Hopkins APRN.MENTAL HYGIENE CONSULTANT Primary Care Provider Medications MedicationSigDispense QuantityRefillsLast FilledStart DateEnd DateStatus OTC NUTRITIONAL SUPPLEMENT Take 1 capsule by mouth once daily. April's Eden Vitamin 1 capsule per mouth daily.Active carbidopa-levodopa (SINEMET 25-100) 25-100 mg per tablet Indications:Parkinson's disease without dyskinesia or fluctuating manifestations (HCC)Take 2 tablets by mouth three times a day. 540 tablet //ctive ALPRAZolam (XANAX) 1 mg tablet Take 1 mg by mouth two times a day as needed for anxiety.5Active docusate sodium (JARAMILLO' LIQUI-GELS PO) Take 100 mg by mouth as directed.4Active tamsulosin (FLOMAX) 0.4 mg Take 0.4 mg by mouth once daily.5Active magnesium citrate 125 mg capsule Take 250 mg by mouth once daily.Active buPROPion SR (WELLBUTRIN SR) 100 mg 12 hr tablet Indications:Anxiety disorder due to general medical conditionTake 1 tablet by mouth every morning AND 1 tablet daily at bedtime. 180 tablet /ctive PARoxetine (PAXIL) 20 mg tablet Indications:Anxiety disorder due to general medical conditionTake 1 tablet by mouth every morning. 90 tablet ctive LORazepam (ATIVAN) 0.5 mg Take 0.5 mg by mouth as directed. TAKE 3 TABLETS BY MOUTH 30 MINUTES prior to procedure or ykgfxuqmzc12Discontinued(Changing Therapy/Dosage Form) Encounters DateTypeDepartmentCare WbrqSyvyhhijusg24/15/2025Telephone Neurology [address] [place] [address] Martin Lamar DO Medication Bpyodpq8909/07/2025 1:30 PM ESTOffice Visit Neurology [address] [place] [address] Martin Lamar, Parkinson's disease without dyskinesia or fluctuating manifestations (HCC) (Primary Dx); Anxiety disorder due to general medical conditionfrom Last 3 Months Social History Tobacco UseTypesPacks/DayYears UsedDateSmoking Tobacco: NeverPassive Smoke Exposure: NeverSmokeless Tobacco: NeverAlcohol UseStandard Drinks/WeekComments Never0 (1 standard drink = 0.6 oz pure alcohol)Area Deprivation IndexAnswerDate RecordedNational Score (1-100), lower number is lower lrfs557603/02/2025State Score (1-10), lower number is lower zfyk72003/02/2025Data from: https://www.neighborhoodatlas.[facility].edu/. Last address used for greodoyesjw[address]03/02/2025Sex and Gender InformationValueDate Recorded Sex Assigned at BirthNot on fileLegal OwmOhdo5905/10/2018 9:55 AM EDTGender IdentityNot on fileSexual OrientationNot on file Last Filed Vital Signs Vital SignReadingTime TakenCommentsBlood Uuxujgtw48/6211 1:04 PM EST Avfse862209/07/2025 1:04 PM ESTTemperature--Respiratory Rate--Oxygen Saturation-- Inhaled Oxygen Concentration--Weight--Height--Body Mass Index-- Plan of Treatment DateTypeDepartmentCare Team (Latest Contact Info)Ojaovtsusvj06/11/2026 1:30 PM EDTOffice Visit Neurology [address] [place] [address] Matrin Lamar DO [address] [place] [address] f/uHealth MaintenanceDue DateLast DoneCommentsAnxiety Dwxipbenx57/25/1969 Depression Qsjqmblvd66/25/1969Hepatitis C Lpjorpvzq07/25/1969DTaP,Tdap,Td Vaccine (1 - Tdap)1970Lipid Hzlccjtdp98/25/1986CT Spmxvrtlxdlx73/25/1996 Cologuard (FIT-DNA)06/12/19964152Tvpwpiffjjp59/25/1996Colorectal Cancer Screening 1996Diabetes Cgjwgmjau67/25/1996Fecal Occult Blood1996Sigmoidoscopy 1996Pneumococcal Vaccine: 50+ (2 of 2 - PCV20 or PCV21)09/20/2021 09/20/2020Advance Directive Ybsusufqrl07/01/2025Medicare Advantage Annual Wellness Visit10/19/2024ovid-19 Vaccine ( season)2025 10/06/2021, 01/20/2021, 12/28/2020Influenza Vaccine (#1)2025RSV Vaccine (1 - 1-dose 75+ series)2026Shingrix AqfkrnkHeiophlld52/18/2025, 01/22/2025 Insurance Care Teams Team MemberRelationshipSpecialtyStart DateEnd Date Radha Hopkins APRN.MENTAL HYGIENE CONSULTANT [address] [place] [address] PCP - GeneralFamily Symkavzh26/20/25 Madeline Tucker CNP [facility] Medicine11/16/24
[2025-10-03 18:20] LABS: Glucose Urine UA NEGATIVE (NEGATIVE)
--- NOTE | 2025-10-03 18:20 | PM.IMHP1 ---
Internal Medicine - H&P: HPI History of Present Illness Chief complaint: Abnormal rhythm, episodic confusion Narrative: Eliezer Kaminski is a 75 y/o M, h/o Parkinson's on Sinemet followed by [facility] neurology, presented to [facility] 10/03/25 after referred by PCP due to family concerns of mental status changes, tired and weak with confusion, found to have 40 second run of wide-complex appearing regular arrhythmia on telemetry in the emergency room, asymptomatic prompting request for observation overnight. On assessment at bedside on the regular nursing floor, patient resting comfortably in bed, does have resting tremor in bilateral upper extremities, patient's brother at bedside. Per patient has been having hallucinations and mental status changes since started on Paxil and bupropion on 09/07/2025 by [facility] neurologist, has persisted prompting family inquiry to primary care provider. Denies any hallucinations right now, no thoughts of hurting himself or others. Does feel tremors have not worsened since initiation of medication. Denies any chest pain, shortness of breath, loss of consciousness, nausea, vomiting, fevers, chills. Family does note intermittent low blood pressures as well. In emergency room, WBC 9.8, hemoglobin 13.9, platelet count 208, sodium 139, potassium 4.7, BUN 27, creatinine 1.23, glucose 124, lactate 1.4, troponin I 5.1. Emergency room staff did discuss rhythm strip with cardiology on-call, suspected artifact but recommended observing patient. Review of Systems ROS Status of ROS 10 or more systems reviewed and unremarkable except as noted in history and below PFSH [facility] Medical History Constipation ?K59.00 - Constipation, unspecified (ICD-10) Enlarged prostate ?N40.0 - Benign prostatic hyperplasia without lower urinary tract symptoms (ICD-10) Parkinsons ?G20.A1 - Parkinson's disease without dyskinesia, without mention of fluctuations (ICD-10) History of kidney stones ?Z87.442 - Personal history of urinary calculi (ICD-10) Family History Mother Family history of myocardial infarction Father Family history of cancer Family history of COPD (chronic obstructive pulmonary disease) Social History Within the past year, how often did you have a drink containing alcohol: never Score interpretation: A score less than 4 is consistent with normal alcohol consumption. Smoking status: Never smoker Non-prescribed substance use: denies use Highest level of school completed/degree received: Associate degree: occupational, technical, vocational program Little interest or pleasure in doing things: several days Feeling down, depressed, or hopeless: several days Meds Home Medications and Allergies Home Medications ?Medication ?Instructions ?Recorded ?Confirmed ?Type carbidopa 25 mg-levodopa 100 mg 2 tab PO TID 06/23/24 10/03/25 History tablet ropinirole 0.5 mg tablet 1 mg PO TID 06/23/24 10/03/25 History alprazolam 1 mg tablet 1 mg PO BID PRN anxiety 07/17/25 10/03/25 History docusate sodium 100 mg capsule 200 mg PO BID 07/21/25 10/03/25 History (Colace) calcium 600 mg (as 1 tab PO BID #60 tabs 07/25/25 10/03/25 Rx carbonate)-vitamin D3 10 mcg (400 unit) tablet sennosides 8.6 mg capsule (senna) 8.6 mg PO DAILY #14 caps 07/25/25 10/03/25 Rx tamsulosin 0.4 mg capsule 0.4 mg PO QD #30 caps 07/25/25 10/03/25 Rx cholecalciferol (vitamin D3) 25 25 mcg PO DAILY 10/03/25 10/03/25 History mcg (1,000 unit) tablet paroxetine HCl 20 mg tablet 20 mg PO DAILY 10/03/25 10/03/25 History Allergies Allergy/AdvReac Type Severity Reaction Status Date / Time No Known Drug Allergies Allergy Verified 10/03/25 16:01 Exam Narrative Exam Narrative: General: cooperative and tired appearing Orientation: alert, awake and oriented x3 Head: normal to inspection Neck: normal visual inspection Cardio: no JVD, regular rate, regular rhythm Chest palpation & inspection: normal inspection of the chest Resp Effort & Inspection: normal respiratory effort Abd: soft, non-tender, non-distended Extremities: Warm well perfused, no edema, bilateral resting tremor in upper extremities with cog wheel rigidity Constitutional Vital Signs, click to edit/add: Last Vital Signs Temp 97.7 F 10/03/25 16:02 Pulse 100 H 10/03/25 16:02 Resp 16 10/03/25 16:02 BP 131/81 10/03/25 16:02 Pulse Ox 97 10/03/25 16:02 O2 Del Method Room Air 10/03/25 16:02 Internal Medicine - H&P: Reslt Labs Labs: Short CBC 10/03/25 Range/Units 16:17 WBC 9.8 (4.0-11.0) 10^3/uL Hgb 13.9 L (14.0-18.0) g/dL Hct 42.5 (42.0-54.0) % Plt Count 208 (150-450) 10^3/uL BMP 10/03/25 16:17 Sodium 139 Potassium 4.7 Chloride 104 Carbon Dioxide 26.7 BUN 27.0 H Creatinine 1.23 Glucose 124 H Calcium 9.1 Liver Function 10/03/25 Range/Units 16:17 Total Bilirubin 0.7 (0.2-1.0) mg/dL AST 23 (15-37) U/L ALT 11 L (16-63) U/L Alkaline Phosphatase 78 (46-116) U/L Albumin 3.8 (3.4-5.0) g/dL Assessment and Plan Assessment and Plan (1) Abnormal heart rhythms: (2) Episodic confusion: (3) Parkinson disease with dyskinesia and fluctuating manifestations: Plan Eliezer Kaminski is a 75 y/o M, h/o Parkinson's on Sinemet followed by [facility] neurology, presented to [facility] 10/03/25 after referred by PCP due to family concerns of mental status changes, tired and weak with confusion, found to have 40 second run of wide-complex appearing regular arrhythmia on telemetry in the emergency room, asymptomatic prompting request for observation overnight. 1. Arrhythmia on telemetry - In emergency room, WBC 9.8, hemoglobin 13.9, platelet count 208, sodium 139, potassium 4.7, BUN 27, creatinine 1.23, glucose 124, lactate 1.4, troponin I 5.1. Emergency room staff did discuss rhythm strip with cardiology on-call, suspected artifact but recommended observing patient. - low concern for Vtach given duration and symptomatic however will consult cardiology to r/o need for event monitoring 2. Hallucinations in the setting of Parkinson's - will discontinue bupropion given patient reported association with worsening symptoms and hallucinations - will continue paroxetine for now given compliance for past 3 weeks, risk of discontinuation side effects - consult teleneurology for further recommendations regarding need for sinemet adjustment 3. h/o BPH - continue flomax Diet: regular Daily Labs: CBC, BMP Lines/Drains: PIV DVT ppx: sqh 5k q8h Code status: Full Status: observation for possible arrhythmia and neurology evaluation
[2025-10-03 18:49] LABS: Cast Seen? SEEN #/LPF (NONE SEEN); Crystals Seen? None Seen #/HPF (None Seen)
[2025-10-03] MEDS: CARBIDOPA/LEVODOPA 25 MG-100 MG TABLET 1 TAB PO (22:09)
[2025-10-03] MEDS: ROPINIROLE HCL 1 MG TABLET PO (22:09)
[2025-10-04] VITALS (11 sets, daily range): BP systolic 98–153; BP diastolic 62–79; PULSE 69–103; TEMP 36.4–37.5; O2SAT 91–94
[2025-10-04] MEDS: HEPARIN SODIUM (PORCINE) 5,000 UNIT/ML VIAL 5000 UNIT SUBQ ×2 (02:32→09:56)
[2025-10-04 05:35] LABS: Hematocrit 41.3 % (42.0-54.0); Hemoglobin 13.6 g/dL (14.0-18.0); Immature Granulocytes Abs Auto 0.04 10^3/uL (0.00-0.03); Immature Granulocytes Pct Auto 0.5 % (0.0-0.5); Lymphocytes Absolute Auto 2.0 10^3/uL (1.2-3.8); Mean Corpuscular HGB Conc 32.9 g/dL (29.9-35.2); Mean Corpuscular Hemoglobin 30.8 pg (25.9-34.0); Mean Corpuscular Volume 93.7 fL (80.0-94.0); Platelet Count 183 10^3/uL (150-450); Red Blood Count 4.41 10^6/uL (4.70-6.10); White Blood Count 7.3 10^3/uL (4.0-11.0)
[2025-10-04 05:55] LABS: Anion Gap 13.2; Blood Urea Nitrogen 23.0 mg/dL (7.0-18.0); Calcium 9.4 mg/dL (8.5-10.1); Carbon Dioxide 29.1 mmol/L (21.0-32.0); Chloride 103 mmol/L (98-107); Estimated GFR (African America >60 (>=60 mL/min/1.73m^2); Estimated GFR (Non-African Ame >60 (>=60 mL/min/1.73m^2); Glucose 82 mg/dL (74-106); Magnesium 2.6 mg/dL (1.8-2.4); Potassium 4.3 mmol/L (3.5-5.1); Sodium 141 mmol/L (136-145)
[2025-10-04] MEDS: CARBIDOPA/LEVODOPA 25 MG-100 MG TABLET 1 TAB PO (06:35)
[2025-10-04] MEDS: ROPINIROLE HCL 1 MG TABLET PO ×2 (06:35→13:36)
[2025-10-04] MEDS: SENNOSIDES 8.6 MG TABLET PO (08:14)
[2025-10-04] MEDS: TAMSULOSIN HCL 0.4 MG CAPSULE PO (08:15)
--- NOTE | 2025-10-04 10:30 | CM.NOTE ---
Rounds made with Dr. Light, discussed plan of care with pt. Consults placed to Cardiology and teleneuro for further recommendations. Possible discharge this afternoon or evening, pt will f/u with neurology and PCP.
--- NOTE | 2025-10-04 13:00 | SWNOTE1 ---
EDITH met with pt to discuss dc needs. Pt lives at home with his significant other. Pt does use a walker at home. Pt has therapy coming in to the home, but he thinks the home health companies just changed. He is not sure who it is. He advised to call his PCP. Pt also voiced he was doing well at home. Pt stated he was having issues with medications and that is what brought him in. He voiced his PCP was working on getting things straightened out. His plan is to return home at discharge. Pt has no other concerns/needs at this time. EDITH called [facility] and left message since pt had them in the past.
--- NOTE | 2025-10-04 13:16 | SWNOTE1 ---
EDITH called pt's PCP office and spoke to the loan secretary. She was able to pull up pt's chart and could see that pt has a nurse from [facility] coming in. She also could see on 10/02 the PCP did have speech therapy added to the home health order. EDITH to call [facility]. EDITH called [facility] and spoke to Mily. She voiced that pt is current with them and confirmed speech order and nurse. EDITH to send updates. EDITH did let her know that PT/OT will likely be added to the order as well. Updates sent to [facility]. Updates included face sheet, ED note, H&P, and OT note.
[2025-10-04] MEDS: CARBIDOPA/LEVODOPA 25 MG-100 MG TABLET 2 TAB PO (13:37)
--- NOTE | 2025-10-04 14:35 | CM.NOTE ---
Medicare Outpatient Observation Notice discussed with pt, pt verbalizes understanding and signs paper. Original given to pt and copy placed on pt's chart.
--- NOTE | 2025-10-04 15:06 | PM.CACN ---
History of Present Illness History of Present Illness Consult date: 10/04/25 Requesting physician: PARISA ROBISON Chief complaint: Abnormal rhythm, episodic confusion Narrative: Mr Kaminski is a 75 year old male admitted for episodic confusion. Recent change in medications that he relates to changes in mentation While on monitor he was noted to have a wide complex tachyarrythmia. I personally reviewed the strips which demonstrate QRS complexes that are regularly spaced on top of the rhythm consistent with artifact on top of a normal QRS with normal heart rate He lives at home with his female windlasser who helps with care Family history positive for OR in mother and brother with heart disease Review of Systems ROS Narrative Denies racing heart beats, palpitations, passing out. Occasionally can be a little dizzy PFSH PFSH Medical History Constipation ?K59.00 - Constipation, unspecified (ICD-10) Enlarged prostate ?N40.0 - Benign prostatic hyperplasia without lower urinary tract symptoms (ICD-10) Parkinsons ?G20.A1 - Parkinson's disease without dyskinesia, without mention of fluctuations (ICD-10) History of kidney stones ?Z87.442 - Personal history of urinary calculi (ICD-10) Family History Mother Family history of myocardial infarction Father Family history of cancer Family history of COPD (chronic obstructive pulmonary disease) Social History Within the past year, how often did you have a drink containing alcohol: never Score interpretation: A score less than 4 is consistent with normal alcohol consumption. Smoking status: Never smoker Non-prescribed substance use: denies use Highest level of school completed/degree received: Associate degree: occupational, technical, vocational program Little interest or pleasure in doing things: several days Feeling down, depressed, or hopeless: several days Meds Home Medications and Allergies Home Medications ?Medication ?Instructions ?Recorded ?Confirmed ?Type carbidopa 25 mg-levodopa 100 mg 2 tab PO TID 06/23/24 10/03/25 History tablet ropinirole 0.5 mg tablet 0.5 mg PO TID 06/23/24 10/04/25 History alprazolam 1 mg tablet 1 mg PO BID PRN anxiety 07/17/25 10/03/25 History docusate sodium 100 mg capsule 200 mg PO BID 07/21/25 10/03/25 History (Colace) calcium 600 mg (as 1 tab PO BID #60 tabs 07/25/25 10/03/25 Rx carbonate)-vitamin D3 10 mcg (400 unit) tablet sennosides 8.6 mg capsule (senna) 8.6 mg PO DAILY #14 caps 07/25/25 10/03/25 Rx tamsulosin 0.4 mg capsule 0.4 mg PO QD #30 caps 07/25/25 10/03/25 Rx cholecalciferol (vitamin D3) 25 25 mcg PO DAILY 10/03/25 10/03/25 History mcg (1,000 unit) tablet paroxetine HCl 20 mg tablet 20 mg PO DAILY 10/03/25 10/03/25 History Allergies Allergy/AdvReac Type Severity Reaction Status Date / Time No Known Drug Allergies Allergy Verified 10/03/25 16:01 Exam Constitutional Vital Signs, click to edit/add: Last Vital Signs Temp 98.0 F 10/04/25 12:00 Pulse 81 10/04/25 13:58 Resp 21 H 10/04/25 12:00 BP 110/69 10/04/25 12:00 Pulse Ox 91 L 10/04/25 12:00 O2 Del Method Room Air 10/04/25 07:57 Documenting provider has reviewed patient's vital signs: yes Common normals: no apparent distress General appearance: cooperative, comfortable and well kempt Other: prominent tremor which is constant and consistent, especially in L upper extremity Neck & C-Spine Common normals: supple General: normal visual inspection Carotids: normal carotid upstroke Respiratory Common normals: normal respiratory effort and no retractions Effort & inspection: able to speak in complete sentences Auscultation: clear to auscultation bilaterally Cardio Common normals: no JVD, regular rate, regular rhythm, S1 normal heart sound, S2 normal heart sound, no gallops, no murmurs and peripheral pulses 2+ throughout Extremity Common normals: normal to inspection, no calf tenderness and no pedal edema Psych Common normals: mental status grossly normal Results Labs and Meds Lab results: Cardiac Enzymes 10/03/25 Range/Units 16:17 AST 23 (15-37) U/L Coagulation 10/03/25 Range/Units 16:17 PT 11.9 H (9.0-11.6) sec CBC 10/03/25 10/04/25 Range/Units 16:17 05:18 WBC 9.8 7.3 (4.0-11.0) 10^3/uL RBC 4.58 L 4.41 L (4.70-6.10) 10^6/uL Hgb 13.9 L 13.6 L (14.0-18.0) g/dL Hct 42.5 41.3 L (42.0-54.0) % Plt Count 208 183 (150-450) 10^3/uL Neut # (Auto) 7.1 H 4.4 (1.4-6.5) 10^3/uL Lymph # (Auto) 1.7 2.0 (1.2-3.8) 10^3/uL [place] # (Auto) 0.8 0.7 (0.3-0.8) 10^3/uL Eos # (Auto) 0.2 0.1 (0.0-0.7) 10^3/uL Baso # (Auto) 0.1 0.1 (0.0-0.1) 10^3/uL Comprehensive Metabolic Panel 10/03/25 10/04/25 Range/Units 16:17 05:18 Sodium 139 141 (136-145) mmol/L Potassium 4.7 4.3 (3.5-5.1) mmol/L Chloride 104 103 (98-107) mmol/L Carbon Dioxide 26.7 29.1 (21.0-32.0) mmol/L BUN 27.0 H 23.0 H (7.0-18.0) mg/dL Creatinine 1.23 1.13 (0.70-1.30) mg/dL Glucose 124 H 82 (74-106) mg/dL Calcium 9.1 9.4 (8.5-10.1) mg/dL AST 23 (15-37) U/L ALT 11 L (16-63) U/L Alkaline Phosphatase 78 (46-116) U/L Total Protein 6.8 (6.4-8.2) g/dL Albumin 3.8 (3.4-5.0) g/dL Intake and Output 10/03/25 10/04/25 10/04/25 23:59 07:59 15:59 Output Total 200 / 200 300 / 300 Balance -200 / -200 -300 / -300 Output: Urine 200 / 200 300 / 300 Other: Weight 58.5 kg EKG Interpretation EKG: sinus rhythm (91 bpm, Inferior OR old, reversal of anterior R wave progression with possible old anterior OR, possible LVH) Assessment and Plan Assessment and Plan (1) Abnormal heart rhythms: (2) Episodic confusion: (3) 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 Kaminski's monitoring strips are conclusive for a normal heart rate underlying artifact that corresponds to his LUE tremor. I do not think this needs further evaluation. After discharge it would be reasonable to obtain an outpatient echo to assess the abnormal EKG which suggests an old inferior OR and possible anterior OR, especially given family history. However, I do not think this needs to be evaluated as an inpatient and I would be happy to see him in follow up to assess this. Thanks so much for the consult request
--- NOTE | 2025-10-04 17:02 | PM.DS1 ---
DS: Providers Provider Date of admission: 10/03/25 19:36 Primary care physician: Non-Staff Physician, Admitting clinician: PARISA ROBISON Attending physician on admission: PARISA ROBISON Consults: 10/03/25 18:15 Consult to Cardiology Routine Reason for consultation: arrhythmia on telemetry 10/04/25 Consult to TeleNeurology Routine Reason for consultation: Parkinsons and med management Occupational Therapy Eval and Treat Routine Reason for consultation: weakness Physical Therapy Eval and Treat Routine Reason for consultation: weakness Attending physician on discharge: PARISA ROBISON Discharging clinician: PARISA ROBISON DS: Diagnosis Discharge Diagnosis (1) Abnormal heart rhythms: (2) Episodic confusion: (3) 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 Per patient has been having hallucinations and mental status changes since started on Paxil and bupropion on 09/07/2025 by [facility] neurologist, has persisted prompting family inquiry to primary care provider. Evaluated by cardiology who determined arrhythmia was artifactual, recommended outpatient follow up for echo and cardiology evaluation. Evaluated by teleneurology service who agreed with discontinuation of bupropion and paxil, outpatient follow up for anxiety management. Discharged home with home health on 10/04/25 in stable condition. Time Spent with Patient Time attestation: Total time spent providing and/or coordinating discharge services: Exam Narrative Exam Narrative: Exam Narrative: General: cooperative and tired appearing Orientation: alert, awake and oriented x3 Head: normal to inspection Neck: normal visual inspection Cardio: no JVD, regular rate, regular rhythm Chest palpation & inspection: normal inspection of the chest Resp Effort & Inspection: normal respiratory effort Abd: soft, non-tender, non-distended Extremities: Warm well perfused, no edema, bilateral resting tremor in upper extremities with cog wheel rigidity Constitutional Vital Signs, click to edit/add: Last Vital Signs Temp 98.0 F 10/04/25 12:00 Pulse 81 10/04/25 16:00 Resp 21 H 10/04/25 12:00 BP 110/69 10/04/25 12:00 Pulse Ox 91 L 10/04/25 12:00 O2 Del Method Room Air 10/04/25 07:57 DS: Data Data Completed and Pending Labs on day of discharge: Labs from last 24 hours 10/04/25 10/03/25 10/03/25 05:18 18:12 16:17 WBC 7.3 RBC 4.41 L Hgb 13.6 L Hct 41.3 L MCV 93.7 MCH 30.8 MCHC 32.9 RDW 13.2 Plt Count 183 MPV 10.8 Neut % (Auto) 60.1 Lymph % (Auto) 27.3 Luna % (Auto) 9.6 Eos % (Auto) 1.8 Baso % (Auto) 0.7 Neut # (Auto) 4.4 Lymph # (Auto) 2.0 [place] # (Auto) 0.7 Eos # (Auto) 0.1 Baso # (Auto) 0.1 Abs Immat Gran (auto) 0.04 H Imm/Tot Granulo (auto) 0.5 Sodium 141 139 Potassium 4.3 4.7 Chloride 103 104 Carbon Dioxide 29.1 26.7 Anion Gap 13.2 13.0 BUN 23.0 H 27.0 H Creatinine 1.13 1.23 Est GFR ( Amer) >60 >60 Est GFR (Non-Af Amer) >60 58 L BUN/Creatinine Ratio 20.4 22.0 Glucose 82 124 H Lactate 1.4 Calcium 9.4 9.1 Magnesium 2.6 H 2.5 H Total Bilirubin 0.7 AST 23 ALT 11 L Alkaline Phosphatase 78 Troponin I High Sens 5.5 5.1 Total Protein 6.8 Albumin 3.8 Globulin 3.0 Albumin/Globulin Ratio 1.3 Urine Color Lt. yellow Urine Clarity Clear Urine pH 6.0 Ur Specific [place] 1.020 Urine Protein Negative Urine Glucose (UA) Negative Urine Ketones Trace A Urine Occult Blood Negative Urine Nitrite Negative Urine Bilirubin Negative Urine Urobilinogen 0.2 Ur Leukocyte Esterase Trace A Urine RBC 0-2 Urine WBC 0-2 A Ur Squamous Epith Cells Few A Urine Crystals None seen Urine Bacteria Trace A Urine Casts Seen A Hyaline Casts Few Urine Mucus Small A Discharge Plan Discharge Disposition: Home Health Service Discharge Medications: Continued carbidopa-levodopa 25-100 mg tablet 2 tab PO TID ropinirole 0.5 mg tablet 0.5 mg PO TID cholecalciferol (vitamin D3) 25 mcg (1,000 unit) Tablet 25 mcg PO DAILY alprazolam 1 mg tablet 1 mg PO BID PRN (Reason: anxiety) docusate sodium [Colace] 100 mg capsule 200 mg PO BID tamsulosin 0.4 mg Capsule 0.4 mg PO QD Qty: 30 0RF calcium carbonate-vitamin D3 600 mg-10 mcg (400 unit) Tablet 1 tab PO BID Qty: 60 1RF senna 8.6 mg capsule 8.6 mg PO DAILY Qty: 14 0RF Discontinued paroxetine HCl 20 mg tablet 20 mg PO DAILY Print Language: Syriac Activity Restrictions/Additional Instructions: - Outpatient Echocardiogram needs scheduled. - please follow up with your neurologist regarding management of your anxiety Forms: Portal Instructions Follow Up Appointments: Rdaha Hopkins October 06 at 1:40PM [facility] Neurology- Keep scheduled appt. Cardiology, Dr Prakash October 25 at 11:20 AM at [facility]
--- NOTE | 2025-10-05 10:45 | SWNOTE1 ---
Addendum entered by Sky Putnam 10/05/25 10:46: Correction on progress note, there was no PT note sent, just an OT note. Original Note: Pt was discharged last evening. SW sent dc summary, dc med rec, cardiology consult, and PT note to [facility]. Pt is resuming his [facility].
--- NOTE | 2025-10-05 13:48 | CM.DCFOLLOWU ---
1st attempt, no answer, 10/05
== END 2025-10-04 17:40 | disposition home health service (06) ==
LOC: ER 18:54 → MS 19:43
PROVIDERS: Admitting Provider Student in an Organized Health Care Education/Training Program; Emergency Provider Emergency Medicine; Visit Provider Student in an Organized Health Care Education/Training Program
DX: I49.9 Cardiac arrhythmia, unspecified (principal); G20.B2 Parkinson's disease with dyskinesia, with fluctuations; R41.0 Disorientation, unspecified; R94.31 Abnormal electrocardiogram [ECG] [EKG]; Z79.899 Other long term (current) drug therapy; R53.1 Weakness; R44.3 Hallucinations, unspecified; N40.0 Benign prostatic hyperplasia without lower urinary tract symptoms; F41.9 Anxiety disorder, unspecified; F32.A Depression, unspecified; G93.40 Encephalopathy, unspecified
CPT/HCPCS: 36415; 70450; 71045; 80048; 80053; 81001; 83605; 83735; 84484; 85025; 85610; 93005; 96372; 97165; 99285; G0378; J1644

== ENCOUNTER 2025-10-17 06:11 | Outpatient (OUT) | payer MEDICARE, SELFPAY ==
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
--- OUTSIDE RECORDS SUMMARY | 2025-10-06 23:59 | XMS_ITS | Continuity of Care Document ---
Author Organization [facility] Address [address] [place] [address] Care Team Providers [employer] Sales Representative Name Role Phone Radha Hopkins Primary Care Physician [phone] Encounter FT_AMBLUKE [id number] Date(s): 10/06/25 - 10/06/25 [facility] [address] [place] [address]- Encounter Diagnosis BMI 20.0-20.9, adult(Discharge Diagnosis) - 10/06/25 Weakness(Discharge Diagnosis) - 10/06/25 Confusion(Discharge Diagnosis) - 10/06/25 Low blood pressure(Discharge Diagnosis) - 10/06/25 Discharge Disposition: Home (Routine DC) Attending Physician: Radha Poole Encounter Type: Clinic Allergies, Adverse Reactions, Alerts No Known Allergies Treatment Plan Future Appointments Appointment Date:10/25/2025 11:00:00 AM Scheduled Provider:Tremayne LORD, Judith Gutierres Location:[facility] Appointment Type:URO Office Visit Appointment Date:12/25/2025 11:00:00 AM Scheduled Provider: Location:[facility] Appointment Type:FM Medicare Wellness Subsequent Future Scheduled Tests Radiology* CT Abdomen/Pelvis w/ + w/o Contrast 10/19/25 Functional Status 10/06/25 Symptomatic After Exposure to ContagionNoSymptomatic After Travel High-Risk Area NoDroplet, Contact Isolation VerificationN/AAirborne,Contact Isolation VerificationN/A Immunizations Given and Recorded VaccineDateStatusRefusal Reasonzoster vaccine, inactivated04/05/25Recordedzoster vaccine, inactivated01/22/2581AucsaxemKFBW-CzI-5 (COVID-19) mRNA BNT-162b2 vax 10/06/2182BvdhaujvZOGM-AaW-0 (COVID-19) mRNA BNT-162b2 vax4/02/0697DufafvhyBWQQ-HlN-2 (COVID-19) mRNA BNT-162b2 vax112/28/20Recordedpneumococcal 13-valent vaccine 09/20/20Recorded Not Given VaccineDateStatusRefusal Reasoninfluenza virus vaccine, ghwteyvcaoh98/13/25Not GivenPatient Refusesinfluenza virus vaccine, inactivated12/22/24Not GivenPatient Refusesinfluenza virus vaccine, inactivated11/18/22Not GivenPatient Refuses 1Result Comment: 2022-11-18: TPV65 Medications carbidopa-levodopa 25 mg-100 mg Tab 1 tab(s), Oral, TID, Refill(s) 0 Start Date: 11/12/22 Status: Ordered Medication Dispense Status: Completed Total Allowed Fills: 1 Fills Dispensed: 0 cefuroxime 250 mg Tab TAKE 1 TABLET BY MOUTH TWICE DAILY FOR 3 DAYS Start Date: 09/26/25 Status: Ordered Medication Dispense Status: Completed Total Allowed Fills: 1 Fills Dispensed: 0 midodrine 2.5 mg oral tablet 2.5 mg = 1 tab(s), Oral, TID, # 90 tab(s), Refills(s) 0, Pharmacy: [id number], 170,cm, 10/06/25 13:56:00 EST, Height/Length Dosing, 60.5, kg, 10/06/25 13:56:00 EST, Weight Dosing Start Date: 10/06/25 Status: Ordered Medication Dispense Status: Completed Quantity: 90.0 Unit: tab(s) Total Allowed Fills: 1 Fills Dispensed: 0 Indications: Disorientation, unspecified; Weakness; Hypotension, unspecified; organic lions andrea organic lions andrea Start Date: 12/22/24 Status: Ordered Medication Dispense Status: Completed Total Allowed Fills: 1 Fills Dispensed: 0 oxybutynin 5 mg Tab TAKE 1 TABLET BY MOUTH THREE TIMES DAILY NEEDED for urinary DISCOMFORT, FOR BLADDER SPASM, or stent pain Start Date: 09/26/25 Status: Ordered Medication Dispense Status: Completed Total Allowed Fills: 1 Fills Dispensed: 0 Benito Stool Softener 100 mg, Oral, Daily, Refills(s) 0, Constipation Start Date: 03/30/24 Status: Ordered Medication Dispense Status: Completed Total Allowed Fills: 1 Fills Dispensed: 0 tamsulosin 0.4 mg Cap 0.4 mg = 1 cap(s), Oral, Daily, TAKE 1 CAPSULE BY MOUTH DAILY, # 30 cap(s), Refills(s) 11, Pharmacy: [facility] #[id number], 168, cm, 08/14/25 6:22:00 EDT, Height/Length Dosing, 66.3, kg, 08/14/25 6:22:00 EDT, Weight Dosing Start Date: 08/16/25 Status: Ordered Medication Dispense Status: Completed Quantity: 30.0 Unit: cap(s) Total Allowed Fills: 12 Fills Dispensed: 0 Vitamin D Oral, Daily, Refills(s) 0, Prophylaxis Start Date: 09/12/25 Status: Ordered Medication Dispense Status: Completed Total Allowed Fills: 1 Fills Dispensed: 0 Problem List ConditionConfirmationCourseEffective DatesStatusHealth StatusInformantWeakness ConfirmedActiveTubular adenoma of colonConfirmedActiveBPH with urinary obstructionConfirmedActiveClosed fracture of pelvisConfirmedActiveConfusion CibwfegheAghenmNbijwpjtncqsZyjpifgqoTafmsoNffzUmmypxike64/3/25ActiveFractured pelvisConfirmedActiveFracture of pelvisConfirmedActiveGeneralized anxiety disorderConfirmedActiveHistory of kidney stonesConfirmedActiveInsomniaConfirmed ActiveKidney stonesConfirmedActiveLarge uqvkqkpcSpzadsdzb33/3/25ActiveLong-term current use of opiate analgesic ayml1Rkygllfuf47/22/24ActiveLow blood pressure ConfirmedActiveNot for kyejtwdwbtwdhIxnmuhlua93/3/25ActiveParkinson's disease ConfirmedActiveParkinsonian ataxiaConfirmedActiveProstate cancer screening ConfirmedActiveHospital discharge follow-upConfirmedActivePure hypercholesterolemiaConfirmedActiveMajor depressive disorder, recurrent episode, xpiw0DuhkvzttuUfezefSkknoqr retentionConfirmedActiveSlow transit constipation SivepqzkxSryyirKjunjcthxxqpfbni2JpyaccfmoCtckekLufvfajbd injuryConfirmedActive Urinary bladder stoneConfirmed07/17/25Active 1Added secondary to current Opioid Treatment Agreement 2added per 07/28/2025 query response. 3added per 06/09/2024 query response. Procedures ProcedureDateRelated DiagnosisBody SiteStatusCystoscopy, R ureteroscopy, left stent removal, R stent placement, flowers /25/25CompletedCystoscopy, laser, stent memowirpq49/29/23OibsjxhjtCbbfaqzcjnw5/1/23CompletedCataract Extraction with IOL placement - OD.02/24/1799YdamqhofzHtyyassbpcu7/5/11ompleted VasectomyCompleted Vital Signs Most recent to oldest [Reference Range]:1Temperature Temporal Artery [36.3-37.8 DegC]36.8 DegC (10/06/25 1:41 PM)Peripheral Pulse Rate [60-100 bpm]78 bpm (10/06/25 1:41 PM)Respiratory Rate [14-20 br/min]18 br/min (10/06/25 1:41 PM)Blood Pressure [89-139/59-89 mmHg]98/74mmHg (10/06/25 1:41 PM)Blood Pressure LocationLeft arm (10/06/25 1:41 PM)SpO2 [89 %]99 % (10/06/25 1:41 PM) Social History Social History TypeResponseSmoking StatusNever (less than 100 in lifetime);Never 1, 2 entered on: 10/06/25Birth SexMaleSex RepresentationMale (finding) 1denies use. 2never in lifetime Implantable Device List ProcedureProviderProcedure DateDevice TypeSiteCYSTOSCOPY RETROGRADE STENT INSERTIONJudith Casper MD09/12/25Marquise RDevice IdentifierSerial Number Lot or Batch NumberManufacturing DateExpiration DateDistinct Identification Code MRI SafetyImplantable StatusAssigning [id number] 04/10/30UnknownUnknownActiveUnknown ProcedureProviderProcedure DateDevice TypeSiteCYSTOSCOPY RETROGRADE STENT INSERTIONJudith Casper MD08/16/25Marquise LDevice IdentifierSerial Number Lot or Batch NumberManufacturing DateExpiration DateDistinct Identification Code MRI SafetyImplantable StatusAssigning [id number] 04/10/30UnknownUnknownActiveUnknown Reason for Referral Referred ByEffective DateStatusIndicationReasonReferred by: Radha Poole [id number]:22:50.000-05:00ActiveDisorientation, unspecified Weakness Hypotension, unspecified , echo ordered Patient Care team information Care Team Personnel Name: Tony Linares Position: FT Site Worker - Self Assign Member Role: Search Developer Name: Nedra Addison Position: [employer]: Claims Followup Rep (Advanced Practice Provider) Member Role: [employer]: Claims Followup Rep (Lucien) Name: Radha Poole Position: FT Ambulatory - Primary Care - ROSEANN Member Role: Primary Care Physician [address]: [address] [place] [address]- Telecom: Care Team Related Persons Name: JOAN BARKLEY Name: OSWALDO HUTIRON Name: JUANJO FERMIN Insurance Providers Guarantor name: QUINTEN HUITRON Health Plan Information #: 1 Payer: [employer] Payer Identifier: [id number] Member Number: [id number] Group Number: [id number] Subscriber Identifier: [id number] Relationship to Subscriber: self Coverage Type: MEDICARE Coverage Verification Date: 25 Telecom: [phone] Address: [place] [id number] [place] [address]
--- OUTSIDE RECORDS SUMMARY | 2025-10-17 06:14 | XMS_ITS | CCD ---
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 participate in your insurance network, please consult with your insurance company to find a nearby participating provider. Patient Education Materials: [place] Catheter Care, [place] Acute Urinary Retention, Male A MESSAGE TO ALL PATIENTS REGARDING OPIOIDS PRESCRIPTION OPIOIDS: WHAT YOU NEED TO KNOW Prescription opioids can be used to help relieve nnlhexcn-vc-qpqdyu pain and are often prescribed following a surgery or injury, or for certain health conditions. These medications can be an important part of the treatment but also come with serious risks. It is important to work with your healthcare provider to make sure you are getting the safest, most effective care. WHAT ARE THE RISKS AND SIDE EFFECTS OF OPIOID USE? Prescription opioids carry serious risks of addiction and overdose, especially with prolonged use. An opioid overdose, often marked by slowed breathing, can cause sudden . The use of prescription opioids can have a number of side effects as well, even when taken as directed: ??? Tolerance???meaning you might need to take more of the medication for the same pain relief ??? Physical dependence???meaning you have symptoms of withdrawal when a medication is stopped ??? Increased sensitivity to pain ??? Constipation ??? Nausea, vomiting, and dry mouth ??? Sleepiness and dizziness ??? Confusion ??? Depression ??? Low levels of testosterone that can result in lower sex drive, energy, and strength ??? Itching and sweating RISKS ARE GREATER WITH: ??? History of drug misuse, substance use disorder, or overdose ??? Mental health conditions (such as depression or anxiety) ??? Sleep apnea ??? Older age (65 years and older) ??? Avoid alcohol while taking prescription opioids. Also, unless specifically advised by your health care provider, medications to avoid include: ??? Benzodiazepines (such as Xanax or Valium) ??? Muscle relaxants (such as Soma or Flexeril) ??? Hypnotics (such as Ambien or Lunesta) ??? Other prescription opioids KNOW YOUR OPTIONS Talk to your health care provider about ways to manage your pain that don???t involve prescription opioids. Some of these options may actually work better and have fewer risks and side effects. Options may include: ??? Pain relievers such as acetaminophen, ibuprofen, and naproxen ??? Some medication that are also used for depression or seizures ??? Physical therapy and exercise ??? Cognitive behavioral therapy, a psychological, goal-directed approach, in which patients learn how to modify physical, behavioral, and emotional triggers of pain and stress. IF YOU ARE PRESCRIBED OPIOIDS FOR PAIN: ??? Never take opioids in greater amounts or more often than prescribed. ??? Follow up with your primary health care provider. o Work together to create a plan on how to manage your pain. o Talk about ways to help manage your pain that don???t involve prescription opioids. o Talk about any and all concerns and side effects. ??? Help prevent misuse and abuse o Never sell or share prescription opioids. o Never use another person???s prescription opioids. ??? Store prescription opioids in a secure place and out of reach of others (this may include visitors, children, friends, and family). ??? Safely dispose of unused prescription opioids: Find your community drug take-back program or your pharmacy mail-back program, or flush them down the toilet, following guidance from the Food and Drug Administration (www.fda.gov/Drugs/ResourcesForYou). ??? Visit www.cdc.gov/drugoverdose to learn about the risks of opioids abuse and overdose. (more content not included)...[facility] OR Intraoperative Recordon [id number] OR Intraoperative RecordMain OR Intraoperative Record IntraOp Document Type FT Summary Primary Physician: Judith Casper MD Finalized Date/Time: 08/17/25 13:02:41 Pt. Name: QUINTEN KAMINSKI /Sex: 1950 Male Med Rec #: [id number] Physician: Judith Casper MD Financial #: [id number] Pt. Type: A Room/Bed: [place] [address] Admit/Disch: 08/16/25 10:38:03 - 08/16/25 15:00:03 Institution: Case Times FT Entry 1 Patient Times In Room 08/16/25 11:55:00 Out Room 08/16/25 13:00:00 Procedure Times Start 08/16/25 12:10:00 Stop 08/16/25 12:50:00 Anesthesia Times Start 08/16/25 11:55:00 Stop 08/16/25 13:00:00 Last Modified By: Raciel AMARO, Jia Cornejo 08/16/25 13:00:16 Case Attendance FT Entry 1 Entry 2 Entry 3 Case Attendee Asia ANDREWS, FLOORWALKER, Queen Tremayne LORD, Judith Bazan RN, Lianna Bonilla Role Performed FLOORWALKER Surgeon - Primary Television Program Director - Primary Time In 08/16/25 11:55:00 08/16/25 11:55:00 08/16/25 11:55:00 Time Out 08/16/25 13:00:00 08/16/25 13:00:00 08/16/25 12:25:00 Procedure CYSTOSCOPY RETROGRADE CYSTOSCOPY RETROGRADE CYSTOSCOPY RETROGRADE STENT INSERTION(Left), STENT INSERTION(Left), STENT INSERTION(Left), CYSTOSCOPY W/ HOMIUM CYSTOSCOPY W/ HOMIUM CYSTOSCOPY W/ HOMIUM LASER(Left) LASER(Left) LASER(Left) Comments dr de la rosa supervising Last Modified By: Raciel RN, Jia Schrader RN, Jia Schrader RN, Jia Cornejo 08/16/25 Mirian P 08/16/25 Mirian P 08/16/25 13:00:18 13:00:18 13:00:18 Entry 4 Entry 5 Entry 6 Case Attendee Abdirashid GLASS, Lidia Bryson, Lianna Schrader RN, Jia Cornejo Role Performed Scrub - Primary Systems Management Consultant Television Program Director - Relief Time In 08/16/25 11:55:00 08/16/25 12:00:00 08/16/25 12:23:00 Time Out 08/16/25 13:00:00 08/16/25 13:00:00 08/16/25 13:00:00 Procedure CYSTOSCOPY RETROGRADE CYSTOSCOPY RETROGRADE CYSTOSCOPY RETROGRADE STENT INSERTION(Left), STENT INSERTION(Left), STENT INSERTION(Left), CYSTOSCOPY W/ HOMIUM CYSTOSCOPY W/ HOMIUM CYSTOSCOPY W/ HOMIUM LASER(Left) LASER(Left) LASER(Left) Comments lynne guerrero, scrub tech student, also in attendance Last Modified By: Raciel AMARO, Jia Schrader RN, Jia Schrader RN, Jia Cornejo 08/16/25 Mirian P 08/16/25 Mirian P 08/16/25 13:00:18 13:00:18 13:00:18 Entry 7 Case Attendee Vilma AMARO, Roxanne Hernandez Role Performed Television Program Director - Relief Time In 08/16/25 12:23:00 Time Out 08/16/25 13:00:00 Procedure CYSTOSCOPY W/ HOMIUM LASER(Left) Comments orientation Last Modified By: Raciel AMARO, Jia Cornejo 08/16/25 13:00:18 Perioperative Protocols FT Pre-Care Text: Implements protective measures prior to operative or invasive procedure, confirms identity before the operative or invasive procedure, verifies operative procedure, surgical site, and laterality Entry 1 Procedure(s) CYSTOSCOPY RETROGRADE Patient Identity Birthday, ID Band STENT INSERTION(Left), Verified (select at Check, Patient CYSTOSCOPY W/ HOMIUM least 2): Participation LASER(Left) Consents / H and P Anesthesia Consent, Operative Site N/A Verified H&P, Surgery/Procedure Marking Verified Consent Surgical Site Yes Laterality Verified n/a Verified Procedure Verified Yes Correct Patient Yes Position Verified Availability Equipment, Implant, Prep Dry n/a Verified (If Medication Applicable) PreOp Antibiotic Yes Time Out Tremayne LORD, Judith Gutierres, Asia Given Participants DNP, FLOORWALKER, Queen Chad, Beni AMARO, Lianna Schmidt, Abdirashid FRONT DESK, Lidia Sheikh Time Out Complete 08/16/25 12:09:00 Outcomes Met? Yes Last Modified By: Raciel AMARO, Jia Cornejo 08/16/25 12:32:53 Post-Care Text: The patient is free from signs and symptoms of injury caused by extraneous objects Allergy Information FT Pre-Care Text: Verifies allergies Entry 1 Allergies Reviewed? Yes Allergies Reviewed Self/Patient With Outcomes Met? Yes Last Modified By: Beni AMARO, Lianna Schmidt 08/16/25 12:19:48 Post-Care Text: The patient received appropriate medication(s) safely administered during the perioperative period Surgical Procedures FT Entry 1 Entry 2 Procedure Description Procedure CYSTOSCOPY RETROGRADE CYSTOSCOPY W/ HOMIUM STENT INSERTION LASER Modifiers Left Left Surgeon Description CYSTOSCOPY, LEFT CYSTOSCOPY, LEFT URETEROSCOPY, LASER URETEROSCOPY, LASER LITHOTRIPSY, STONE LITHOTRIPSY, STONE BASKET EXTRACTION, LEFT BASKET EXTRACTION, LEFT STENT PLACEMENT STENT PLACEMENT Primary Procedure Yes No Primary Surgeon Tremayne LORD, Judith Casper MD, Judith Gutierres Start 08/16/25 12:10:00 08/16/25 12:10:00 Stop 08/16/25 12:50:00 08/16/25 12:50:00 Anesthesia Type General General Surgical Service Urology Urology Wound Class 2 - Clean-Contaminated 2 - Clean-Contaminated Last Modified By: Raciel AMARO, Jia Schrader RN, Jia Cornejo 08/16/25 Mirian Cornejo 08/16/25 12:51:48 12:51:48 General Case Data FT Pre-Care Text: Classifies surgical wound, implements aseptic technique, initiates traffic control Entry 1 Case Information OR OR 1 FT Case Level (more content not included)...[facility] HospitalUA with Cult Rflxon [id number] (U)Dark-BrownAbnormalYellowSt. Francis HospitalComment on above:Order Comment: Added by Discern Expert Result Comment: Microscopic readings are only performed on those samples that meet specific criteria set forth by [facility]. Performed By: #### [id number] #### [facility] [address], [place] [address]Nnbpqoz (U) [Mass/Vol]NegativeNormalNegativeSt. Francis HospitalComment on above:Order Comment: Added by Pasquale ExpertPerformed By: #### [id number] #### [facility] [address], [place] [address]Ammjitw Ql (U)NegativeNormalNegSt. Anthony's Hospital Comment on above:Order Comment: Added by Pasquale ExpertPerformed By: #### [id number] #### [facility] [address], [place] [address]FX Blood3+ mg/dLAbnoCincinnati Shriners Hospital Comment on above:Order Comment: Added by Pasquale ExpertPerformed By: #### [id number] #### [facility] [address], [place] [address]TR Bacteria4+ /HPFAbnormalMercy Health Clermont HospitalceSt. Francis Hospital Comment on above:Order Comment: Added by Pasquale ExpertPerformed By: #### [id number] #### [facility] [address], [place] [address]SR ClarityEx.TurbidAbnormalCleKettering Health Hamilton Comment on above:Order Comment: Added by Pasquale ExpertPerformed By: #### [id number] #### [facility] [address], [place] [address]SS Leuk Est25 Nawaf/uLNormalNegSt. Anthony's Hospital Comment on above:Order Comment: Added by Pasquale ExpertPerformed By: #### [id number] #### [facility] [address], [place] [address]FX Mucous1+ CD:[id number] [facility]itus Medical CenterComment on above:Order Comment: Added by Pasquale ExpertPerformed By: #### [id number] #### [facility] [address], [place] [address]YS NitriteNegativeNormalNegativeSt. [facility] Hospital Comment on above:Order Comment: Added by Pasquale ExpertPerformed By: #### [id number] #### [facility] [address], [place] [address]GR pH6.0Invalid Interpretation Code5.0-9.0St. Francis HospitalComment on above:Order Comment: Added by Pasquale ExpertPerformed By: #### [id number] #### [facility] [address], [place] [address]GH Protein1+ mg/dLAbnormalNegSt. Anthony's Hospital Comment on above:Order Comment: Added by Pasquale ExpertPerformed By: #### [id number] #### [facility] [address], [place] [address]TL RBC>84Fqxvxlxa5-0HcubisKettering Memorial HospitalComment on above:Order Comment: Added by Pasquale ExpertPerformed By: #### [id number] #### [facility] [address], [place] [address]TV Spec Grav1.016Invalid Interpretation Code1.005-1.030St. Francis HospitalComment on above:Order Comment: Added by Discern Expert Performed By: #### [id number] #### [facility] [address], [place] [address]CR UrobilinogenNegativeNormalNegativeSt. Francis HospitalComment on above:Order Comment: Added by Pasquale ExpertPerformed By: #### [id number] #### [facility] [address], [place] [address]DB MSR83-13Dqqkkijv2-6Qzjcyq St[facility]nes HospitalComment on above:Order Comment: Added by Pasquale ExpertPerformed By: #### [id number] #### [facility] [address], [place] [address]Aqpcqwlhogxg (U) [Mass/Vol]NegativeNormalNegativeSt. Francis HospitalComment on above:Order Comment: Added by Discern ExpertPerformed By: #### [id number] #### [facility] [address], [place] [address]CQ with Cult Rflx SPon [id number] Spec DescFoleyNoAdena Health SystemComment on above:Result Comment: Updated to dumas cath specimen 08/17/2025 08:43 CSSPerformed By: #### [id number] #### [facility] [address], [place] [address]QR Spec DescClean CatchProMedica Flower HospitalComment on above:Performed By: #### [id number] #### [facility] [address], [place] [address]Txikvwxwx Instructionson [id number] Instructions Discharge Instructions QUINTEN KAMINSKI :1950 Visit Date:08/16/2025 Inpatient Discharge Instructions Your Care Team Admitting Physician - Judith Casper MD Referring Physician - Judith Casper MD Reason for Your Visit URETERAL STONE Your Diagnosis Kidney stones Left ureteral stone Tests Performed Calculi Analysis Urinary -- Results Pending -- XR Urography Retrograde Left -- Results Pending -- Please visit your patient portal for your results or contact your primary care physician. This Is Your Medications List Non-Formulary Medication (organic lions louis) alprazolam (alprazolam 1 mg Tab) carbidopa-levodopa (carbidopa-levodopa 25 mg-100 mg Tab) docusate (Benito Stool Softener) lorazepam (LORazepam 0.5 mg Tab) oxybutynin (oxybutynin 5 mg Tab) tamsulosin (tamsulosin 0.4 mg Cap) Procedure History Colonoscopy (12/17/2022), Cataract Extraction with IOL placement - OD. (02/24/2017), Colonoscopy (02/20/2011), Vasectomy. What to do next Instructions From Your Doctor Event Name Event Result Discharge Activity Ambulate as tolerated, Expect mild pain, Expect minimal amount of drainage and/or bleeding, Activity as tolerated Discharge Restrictions No driving for 24 hrs, Do not operate machinery or tools Discharge Diet(s) Regular Call Your Doctor For Persistent or heavy bleeding, Temperature above 101.5 degrees, Severe pain at the operative site, Persistent vomiting Discharge Instructions Discharge Instructions Previously Scheduled Follow-Up Appointments 2024 10:20 AM EST With: Radha Poole Where: [address] [address]- Thursday2025 11:00 AM EDT With: Where: [address] [address]- New Follow Up Appointments after Discharge Follow Up with Judith Casper When: Comments: Office will call to schedule your follow up: Right ureteroscopy, laser lithotripsy, stent placement, left stent removal if recovered well from surgery. If not, will schedule cystoscopy, left ureteralstent removal under local in office. Where: [facility], [address] [phone] Business (1) Medications What How Much When Why Instructions Next Dose New oxybutynin (oxybutynin 5 mg Tab) 1 Tablets By Mouth 3 times a day as needed for Urinary discomfort bladder spasms, stent pain Pickup at [facility] Changed tamsulosin (tamsulosin 0.4 mg Cap) 1 Capsules By Mouth Every day TAKE 1 CAPSULE BY MOUTH DAILY Pickup at [facility] Unchanged alprazolam (alprazolam 1 mg Tab) 1 [...] appointment Unchanged Non-Formulary Medication (organic lions louis) Pharmacy Information [facility]: [address] [place], [place] [id number] [phone] Allergies No Known Allergies No Known Medication Allergies Problems Ongoing - Any problem that you are currently receiving treatment for. BMI 23.0-23.9, adult BPH with urinary obstruction Fatigue Fractured pelvis Generalized anxiety disorder History of kidney stones Hospital discharge follow-up Insomnia Kidney stones Long-term current use of opiate analgesic drug Major depressive disorder, recurrent episode, mild Parkinson's disease Prostate cancer screening Pure hypercholesterolemia Slow transit constipation Thrombocytopenia Tubular adenoma of colon Weakness Devices Implanted/Removed This Visit Notice: You have devices implanted this visit that may not be MRI compatible. Implanted CYSTOSCOPY RETROGRADE STENT INSERTION Ureter L ARMANDO URETERAL STENT CASCADE 6FR 08/16/2025 Education Materials [facility] [place], [place] Post-operative Instructions for Ureteroscopy, Laser Lithotripsy, Stone Extraction and Stent Placement There are no incisions or dressings to be concerned with, as the procedure was performed inside theurinary system. For 24 hours after surgery: ??? No driving or operating machinery ??? Do not make important decisions ??? Do not consume alcohol, sleeping pills Stent Placement You may have a stent which spans the distance between your bladder and your kidney, allowing urine to pass through. It prevents blockage from swelling, kidney stones in ureter (tube connecting the kidney to the bladder), or scars. The presence of the stent may cause: ??? Back or side pain, especi (more content not included)...[facility] HospitalComment on above:Result Comment: Electronically Signed By: Yoseph AMARO, Elizabeth Spicer\.br\Date and Time Signed: 08/16/25 13:21 EDTH&P Updateon 08-16-2025H&P UpdateH&P Update Patient: QUINTEN KAMINSKI Age: 75 years Sex: Male : 1950 Associated Diagnoses: None Author: Judith Casper MD. Basic Information I have reviewed prior notes, spoke with patient, no changes to history. Patient elects to proceed with surgery as planned. Health Status Procedure history: Colonoscopy ([id number]) on 12/17/2022 at 72 Years. Cataract Extraction with IOL placement - OD. on 02/24/2017 at 66 Years. Colonoscopy ([id number]) on 02/20/2011 at 60 Years. Vasectomy ([id number]). Social History Social & Psychosocial Habits Alcohol 08/09/2025 Risk Assessment: Denies Alcohol Use 08/09/2025 Use: Never Comment: denies - 12/23/2023 11:00 - Tony Linares; denies use. - 12/22/2024 14:32 - Ling Champagne Substance Abuse 08/09/2025 Risk Assessment: Denies Substance Abuse 08/09/2025 Use: Never Tobacco 08/09/2025 Risk Assessment: No Risk Comment: denies use. - 12/22/2024 14:32 - Ling Champagne 08/09/2025 Tobacco Use: Never (less than 100 in l Smokeless tobacco use: Never Comment: never in lifetime - 12/23/2023 11:00 - Tony Linares; denies use. - 12/22/2024 14:32 - Ling Champagne . Allergies: Allergic Reactions (Selected) No Known Allergies No Known Medication Allergies Current medications: (Selected) Inpatient Medications Ordered Lactated Ringers IV Vane 1000 mL 1,000 mL: 1,000 mL, IV, 150 mL/hr, Routine, Start date 08/16/25 11:00:00 EDT, 6.7 hour(s), Total volume (mL): 1,000, 66.3 kg, 1.76, m2 cefazolin additive + Sodium Chloride 0.9% intravenous solution 50 mL: 2 gm = 1 EA, Powder-Inj, IV Piggyback, Once, Stop date 08/16/25 11:00:00 EDT, Routine, Start date 08/16/25 11:00:00 EDT, 100 mL/hr, Infuse over 30 minute(s), HOLD if patient has history of anaphylactic allergic reaction to Penicillin. Prescriptions Prescribed LORazepam 0.5 mg Tab: See Instructions, 3 tab(s) 30 minutes prior to procedure or appointment, # 21tab(s), Refills(s) 0, Pharmacy: [facility], 169, cm, 03/29/25 11:10:00 EDT, Height/Length Dosing, 66.4, kg, 03/29/25 11:10:00 EDT, Weight Dosing LORazepam 0.5 mg Tab: See Instructions, 3 tab(s) 30 minutes prior to procedure or appointment, # 9 tab(s), Refills(s) 0, Pharmacy: [facility], 169, cm, 03/29/25 11:10:00 EDT, Height/Length Dosing, 66.4, kg, 03/29/25 11:10:00 EDT, Weight Dosing alprazolam 1 mg Tab: 1 mg = 1 tab(s), Oral, BID, PRN for anxiety, # 60 tab(s), Refills(s) 0, Pharmacy: [facility], 169, cm, 06/29/25 9:57:00 EDT, Height/Length Dosing, 64.5, kg, 06/29/25 9:57:00 EDT, Weight Dosing Documented Medications Documented Benito Stool Softener: 100 mg, Oral, Daily, Refills(s) 0 carbidopa-levodopa 25 mg-100 mg Tab: 1 tab(s), Oral, TID, Refill(s) 0 organic lions louis: organic lions louis tamsulosin 0.4 mg Cap: TAKE 1 CAPSULE BY MOUTH DAILY Problem list: All Problems BMI 23.0-23.9, adult / SNOMED CT 2757494062 / Confirmed BPH with urinary obstruction / SNOMED CT 9356068377 / Confirmed Fatigue / SNOMED CT 587835119 / Confirmed Fractured pelvis / SNOMED CT 473724956 / Confirmed Generalized anxiety disorder / SNOMED CT 50004102 / Confirmed History of kidney stones / SNOMED CT 8541592319 / Confirmed Hospital discharge follow-up / SNOMED CT 4847875771 / Confirmed Insomnia / SNOMED CT 965495852 / Confirmed Kidney stones / SNOMED CT 104281584 / Confirmed Long-term current use of opiate analgesic drug / SNOMED CT 305316242238967 / Confirmed Added secondary to current Opioid Treatment Agreement Major depressive disorder, recurrent episode, mild / SNOMED CT 787729880 / Confirmed added per 07/28/2025 query response. Parkinson's disease / SNOMED CT 45615371 / Confirmed Prostate cancer screening / SNOMED CT 539765508 / Confirmed Pure hypercholesterolemia / SNOMED CT 641660085 / Confirmed Slow transit constipation / SNOMED CT 53656893 / Confirmed Thrombocytopenia / SNOMED CT 477507742 / Confirmed added per 06/09/2024 query response. Tubular adenoma of colon / SNOMED CT 300073324 / Confirmed Weakness / SNOMED CT 60724975 / Confirmed Canceled: Anxiety / SNOMED CT 10432793 Canceled: BMI 24.0-24.9, adult / SNOMED CT 9334147841 Canceled: Left ureteral stone / SNOMED CT 62204700 Canceled: Rectal bleeding / SNOMED CT 420956133 Canceled: Tremor / SNOMED CT 86547798 added per 03/21/2025 query response.[facility] HospitalComment on above:Result Comment: Electronically Signed By: Tremayne LORD, Judith Gutierres\.br\Date and Time Signed: 08/16/25 10:53EDTInpatient Patient Summaryon [id number] Patient SummaryInpatient Patient Summary [place] [id number] [facility] Clinical Discharge Instructions PERSON INFORMATION Name: QUINTEN KAMINSKI PHYSICIANS Admitting Physician: Judith Casper MD Attending Physician: Judith Casper MD PCP: Radha Poole Discharge Diagnosis: Kidney stones; Left ureteral stone Comment: PATIENT EDUCATION INFORMATION Instructions: Lue - Ureteroscopy, Laser Lithotripsy, Stone Extraction and Stent Placement Post-Op Instructions (CUSTOM) Medication Leaflets: Follow up: With: Address: When: Judith Casper [address] [place] [phone] Business (1) Comments: Office will call to schedule your follow up: Right ureteroscopy, laser lithotripsy, stent placement, left stent removal if recovered well from surgery. If not, will schedule cystoscopy, left ureteralstent removal under local in office. Type Location Start Finish State FM Open [facility] [place] 09/28/2025 10:20 AM 09/28/2025 10:40 AM Confirmed FM Medicare Wellness Subsequent [facility] [place] 12/25/2025 11:00 AM 12/25/2025 12:00 PM Confirmed MEDICATION LIST New Medications [facility], [address] [place] [id number], [phone] oxybutynin (oxybutynin 5 mg Tab) 1 Tablets By Mouth 3 times a day as needed Urinary discomfort. bladder spasms, stent pain. Refills: 0. Medications to Continue Taking That Have Changed [employer] [facility], [address] [place] [id number], [phone] START: tamsulosin (tamsulosin 0.4 mg Cap) 1 Capsules By Mouth every day. TAKE 1 CAPSULE BY MOUTH DAILY. Refills: 11. Medications to Continue with No Changes Other Medications alprazolam (alprazolam 1 mg Tab) 1 Tablets By Mouth 2 times a day as needed for anxiety. Refills: 0. carbidopa-levodopa (carbidopa-levodopa 25 mg-100 mg Tab) 1 Tablets By Mouth 3 times a day. docusate (Benito Stool Softener) 100 Milligram By Mouth every day. lorazepam (LORazepam 0.5 mg Tab) 3 tab(s) 30 minutes prior to procedure or appointment. Refills: 0. Non-Formulary Medication (organic lions louis) [facility] Recordon [id number] OR PACU I RecordMain OR PACU I Record PACU Phase I Document Type FT Summary Primary Physician: Judith Casper MD Finalized Date/Time: 08/16/25 13:54:43 Pt. Name: QUINTEN KAMINSKI/Sex: 1950 Male Med Rec #: [id number] Physician: Judith Casper MD Financial #: [id number] Pt. Type: A Room/Bed: [facility] Admit/Disch: 08/16/25 10:38:03 - Institution: Case Times PACU I FT Pre-Care Text: Identifies barriers to communication and implements measures to provide psychological support Develops individualized plan of care, and ensures continuity of care Maintains patient's dignity and privacy, and maintains patient confidentiality Identifies and reports philosophical, cultural, and spiritual beliefs and values Identifies individual values and wishes concerning care Implements aseptic technique, and administers prescribed antibiotic therapy and immunizing agents as ordered Evaluates postoperative tissue perfusion Implements thermoregulation measures, and monitors body temperature Evaluates postoperative respiratory status Evaluates postoperative cardiac status Evaluates postoperative neurological status Assesses pain control, collaborated in initiating patient-controlled analgesia and implements alternative methods of pain control Verifies allergies, administers prescribed medications and solutions, evaluates response to medications Entry 1 In PACU I 08/16/25 13:01:00 Discharge from PACU 08/16/25 13:31:00 I Outcomes Met? Yes Last Modified By: Anaid Tran RN 08/16/25 13:47:08 Post-Care Text: The patient demonstrates knowledge of the expected response to the operative or invasive procedure The patient's care is consistent with the individualized perioperative plan of care The patient's rightto privacy is maintained The patient's value system, lifestyle, ethnicity, and culture are considered, respected, and incorporated into the perioperative plan of care The patient participates in decisions affecting his or her perioperative plan of care The patient is free from signs and symptoms of infection The patient has wound/tissue perfusion consistent with or improved from baseline levels established preoperatively The patient is at or returning to normothermia at the conclusion of the immediate postoperative period The patient's respiratory function is consistent with or improved from baseline levels established preoperativelyThe patient's cardiovascular status is consistent with or improved from baseline levels established preoperatively The patient's cardiovascular status is consistent with or improved from baseline levels established preoperatively The patient demonstrates and/or reports adequate pain control throughout the perioperative period The patient received appropriate medication(s), safely administered during the perioperativeperiod Acuity Level PACU I FT Entry 1 Start Time 08/16/25 13:01:00 Stop Time 08/16/25 13:31:00 Acuity Level Acuity Level I Last Modified By: Anaid Tran RN 08/16/25 13:46:56 Finalized By: Anaid Tran RN Document Signatures Signed By: Anaid Tran RN 08/16/25 13:[facility] Recordon [id number] OR PACU II RecordMain OR PACU II Record PACU Phase II Document Type FT Summary Primary Physician: Judith Casper MD Finalized Date/Time: 08/16/25 15:01:41 Pt. Name: QUINTEN KAMINSKI /Sex: 1950 Male Med Rec #: [id number] Physician: Judith Casper MD Financial #: [id number] Pt. Type: A Room/Bed: [facility] Admit/Disch: 08/16/25 10:38:03 - Institution: Case Times PACU II FT Pre-Care Text: Identifies barriers to communication and implements measures to provide psychological support and determines knowledge level Develops individualized plan of care, and ensures continuity of care Maintains patient's dignity and privacy, and maintains patient confidentiality Identifies and reports philosophical, cultural, and spiritual beliefs and values Identifies individual values and wishes concerning care administers prescribed antibiotic therapy and immunizing agents as ordered, Evaluates postoperative tissue perfusion Implements thermoregulation measures, and monitors body temperature Evaluates postoperative respiratory statusEvaluates postoperative cardiac status Evaluates postoperative neurological status Assesses pain control, collaborated in initiating patient-controlled analgesia and implements alternative methods of pain control Verifies allergies, administers prescribed medications and solutions, evaluates response to medications Entry 1 In PACU II 08/16/25 13:35:00 Discharge from PACU 08/16/25 15:00:00 II Outcomes Met? Yes Last Modified By: Elizabeth Hameed RN 08/16/25 15:01:40 Post-Care Text: The patient demonstrates knowledge of the expected response to the operative or invasive procedure The patient's care is consistent with the individualized perioperative plan of care The patient's rightto privacy is maintained The patient's value system, lifestyle, ethnicity, and culture are considered, respected, and incorporated into the perioperative plan of care The patient participates in decisions affecting his or her perioperative plan of care. The patient is free from signs and symptoms of infection The patient has wound/tissue perfusion consistent with or improved from baseline levels established preoperatively The patient is at or returning to normothermia at the conclusion of the immediate postoperative period The patient's respiratory function is consistent with or improved from baseline levels established preoperativelyThe patient's cardiovascular status is consistent with or improved from baseline levels established preoperatively The patient's neurological status is consistent with or improved from baseline levels established preoperatively The patient demonstrates and/or reports adequate pain control throughout the perioperative period The patient received appropriate medication(s), safely administered during the perioperativeperiod Finalized By: Elizabeth Hameed RN Document Signatures Signed By: Elizabeth Hameed RN 08/16/25 15:01[facility] Reporton [id number] ReportOperative Report Patient: QUINTEN KAMINSKI Age: 75 years Sex: Male : 1950 Associated Diagnoses: None Author: Judith Casper MD Procedure Procedure Date: 08/16/2025. Confirmed: patient, procedure, side, site, safety procedures followed. Performed by: Judith Casper MD, anesthesiologist ([facility]). Type of procedure: 1. Cystoscopy, left retrograde pyelogram, left ureteroscopy with laser lithotripsy/stone basket extraction, ureteral stent placement 2. Left renoscopy with stone basket extraction. Informed consent: signed by patient. Indication: INDICATION FOR PROCEDURE: The patient is a 75-year-old male who was previously diagnosed with a 10x7mm left UVJ stone without hydronephrosis or pain. The patient presents today for definitive management of nephrolithiasis. Elevated risk of stricture given chronicity of stone being present and size. I discussed the risks, benefits, alternatives and complications associated with ureteroscopy with laser lithotripsy and stone extraction, including but not limited to bleeding, pain, infection, ureteral perforation, extravasation, stricture formation, sepsis, obstruction, inability to reach the stone, inability to fragment the stone, and inability to retrieve all stone fragments. The need for ancillary procedures such as stent placement and removal, retrograde urography, and percutaneous nephrostomy were also discussed. The patient also understood that a ureteral stent would likely be placed and removal of the stent is critical. Failure to follow up for stent removal can result in recurrent UTIs, encrustation of the stent, loss of kidney function and need for nephrectomy. . Findings: Radiopaque 10 mm left distal/UVJ stone underwent laser lithotripsy and basket extraction,very hard dark stone, impacted, ureteral mucosal impaction and thinning posteriorly. 2-3 mm left mid pole stone basket extracted. Lower pole stone within papilla unable to be removed. No hydronephrosis or extravasation. Moderate bilobar prostatomegaly, elevated bladder neck. 2+ trabeculations, smaller more spastic bladder.. Procedure tolerated: well. Specimen: sent to pathology, left ureteral and kidney stones. Complications: None. After the risks, benefits, indications, alternatives and expectations of the procedure were reviewed with the patient and informed consent was obtained, the patient was taken to operative suite and placed in the supine position. Sequential compression devices were placed on bilateral lower extremities. General anesthesia LMA was induced and the patient was transitioned to the lithotomy position and prepped and draped in the usual sterile fashion for cystoscopy. A preoperative dose of antibiotics was given. A timeout was observed prior to initiating the procedure. We began the procedure by inserting lidocaine gel into the urethra and using a 22.5 Cambodian rigid cystoscope with 30 degree lens and inserted this into the bladder without any issue. We noted a normalappearance of the urethra en route to the bladder. Once inside the bladder, a cystoscopic examination revealed no evidence of erythematous patches or plaques, foreign bodies, stones or papillary lesion. Spot fluoroscopy showed L UVJ stone. A hybrid guidewire was inserted into the ureter up to the kidney with fluoroscopic guidance, however coiling back out of UO despite multiple attempts. A semirigidureteroscope was inserted into the left UO, stone was encountered within a few mm, and a window wasfound to insert the wire up to the renal pelvis, confirmed on fluoroscopy. The semirigid ureteroscop e was inserted alongside the wire and a 270 micron Holmium laser fiber was used to break the stone into smaller pieces with difficulty due to impaction, mucosal edema and hard stone. Power did not exceed 6W. A 1.8-ZeroTip basket was used to extract all of the pieces. Next a complete ureteroscopy was performed to ensure us that there was no remaining stone burden. The semirigid ureteroscope was removed and a flexible ureteroscope was inserted over the wire up intothe renal pelvis on fluoroscopic and direct visualization. Contrast was injected through the ureteroscope to assist in mapping the renoscopy. Each calyx was inspected in systematic fashion and all remaining stones were removed via basket extraction. Once the kidney was cleared, we performed a pull-down ureteroscopy confirming no stones remained. A retrograde pyelogram was performed to highlight the collecting system and revealed no other stones or extravasation. The wire was backloaded over our cystoscope and we placed a 6F X 24cm double-J stent in the usual fashion and ensured an adequate curl both in the renal pelvis and the bladder using direct visualization and fluoroscopic guidance. Thereafter, any stones were irrigated from the bladder and collected and sent to pathology for analysis. The bladder was inspected one final time to ensure adequate positioning of the stent, but (more content not included)...[facility] on above: Result Comment: Electronically Signed By: Judith Casper MD\.br\Date and Time Signed: 08/16/25 13:12EDTOutpatient Surgery Discharge Instructionon 08-16-2025 Outpatient Surgery Discharge InstructionOutpatient Surgery Discharge Instruction [place] [id number] Patient Discharge Instructions PERSON INFORMATION Name: QUINTEN KAMINSKI Date of : 1950 Current Date: 08/16/2025 13:02:24 PHYSICIANS Admitting Physician: Judith Casper MD Discharge Diagnosis: Kidney stones; Left ureteral stone QUINTEN KAMINSKI has been given the following list of follow-up instructions, prescriptions, and patient education materials: PATIENT FOLLOW-UP INFORMATION Diet: Regular Discharge Activity: Ambulate as tolerated, Expect mild pain, Expect minimal amount of drainage and/or bleeding, Activity as tolerated Discharge Restrictions: No driving for 24 hrs, Do not operate machinery or tools Call Your Doctor For: Persistent or heavy bleeding, Temperature above 101.5 degrees, Severe pain atthe operative site, Persistent vomiting IF UNABLE TO CONTACT YOUR PHYSICIAN AND YOU FEEL IT IS AN EMERGENCY, GO TO THE NEAREST EMERGENCY ROOM OR CALL 911 I, QUINTEN KAMINSKI, have received the attached patient education materials/instructions and have verbalized understanding: May we do a follow up call? Yes No I was present when discharge instructions were given Patient Signature Date Clinican/Nurse Signature Date Follow up: With: Address: When: Judith Casper [address], [address], [address] [address] [phone] Business (1) Comments: Office will call to schedule your follow up: Right ureteroscopy, laser lithotripsy, stent placement, left stent removal if recovered well from surgery. If not, will schedule cystoscopy, left ureteralstent removal under local in office. Type Location Start Finish State [facility]/28/[facility] 10:20 AM 09/28/2025 10:40 AM Confirmed FM Medicare Wellness Subsequent [facility] Karen 12/25/2025 11:00 AM 12/25/2025 12:00 PM Confirmed Pharmacy Information: You may receive a survey from [employer] asking you to rate your care experience. Your feedback is important and will help us understand what we do well and how we can improve the quality of care we provide to you, your loved ones and our community. It???s an honor to serve you. Thank you for choosing [facility] HERE ARE THE MEDICATION CHANGES THAT OCCURRED DURING YOUR HOSPITAL STAY New Medications [facility] [address], [address] [place], [place] [id number], [phone] oxybutynin (oxybutynin 5 mg Tab) 1 Tablets By Mouth 3 times a day as needed Urinary discomfort. bladder spasms, stent pain. Refills: 0. Medications to Continue Taking That Have Changed [facility] [address], [address] [place], [place] [id number], [phone] START: tamsulosin (tamsulosin 0.4 mg Cap) 1 Capsules By Mouth every day. TAKE 1 CAPSULE BY MOUTH DAILY. Refills: 11. Medications to Continue with No Changes Other Medications alprazolam (alprazolam 1 mg Tab) 1 Tablets By Mouth 2 times a day as needed for anxiety. Refills: 0. carbidopa-levodopa (carbidopa-levodopa 25 mg-100 mg Tab) 1 Tablets By Mouth 3 times a day. docusate (Benito Stool Softener) 100 Milligram By Mouth every day. lorazepam (LORazepam 0.5 mg Tab) 3 tab(s) 30 minutes prior to procedure or appointment. Refills: 0. Non-Formulary Medication (organic lions louis) PATIENT EDUCATION INFORMATION Instructions: [facility] [place], [place] Post-operative Instructions for Ureteroscopy, Laser Lithotripsy, Stone Extraction and Stent Placement There are no incisions or dressings to be concerned with, as the procedure was performed inside theurinary system. For 24 hours after surgery: ??? No driving or operating machinery ??? Do not make important decisions ??? Do not consume alcohol, sleeping pills Stent Placement You may have a stent which spans the distance between your bladder and your kidney, allowing urine to pass through. It prevents blockage from swelling, kidney stones in ureter (tube connecting the kidney to the bladder), or scars. The presence of the stent may cause: ??? Back or side pain, especially with urination ??? Frequent or urgent urination ??? Bladder pressure or pain ??? Blood in urine You may pass stone debris or small blood clots, which is expected. Drinking plenty of water to dilute the urine may help. If there is a thread coming out of urinary channel, be careful not to accidently pull on this, as it is attached to the stent. If you accidentally pull on the string, check to see if the stent is coming out. If you see a smalltube coming out, lay on your back, knees bent and with c (more content not included)...NormalFisher St. Agnes HospitalXR Urography Retrograde Lefton [id number] Urography Retrograde LeftExam Date/Time: 08/16/2025 12:56 EDT Reason for Exam: Kidney stone Report IMPRESSION: INTEROPERATIVE FLUOROSCOPY DISCUSSED. CLINICAL HISTORY: Kidney stone COMPARISON: NONE. FINDINGS: 3 views. Imaging shows retrograde cystogram left kidney with placement of left double-J ureteral stent. Please review operative note for additional information. Technical Comments: shai Esteves in mGy = .80 DAP = 57.57 Ordering Provider: Judith Casper FINAL REPORT Dictated: 08/16/2025 4:24 pm Nando Coburn MD Signed (Electronic Signature): 08/16/2025 4:24 pm Signed by: Nando Coburn MD Transcribed by: MAMTA Technologist: Stefan GILMORE [facility] [id number] Health Case Information Case Priority: None Programs: -- Referral Source: [employer] Referral Reason: Care coordination Case Type: Transition Care Management Risk Score: -- Case Status: Enrolled (July 27, 2025) Date Assigned: July 26, 2025 Assigned By: Tony Linares Date Enrolled: July 27, 2025 Assigned Primary Personnel: Tony Linares Assigned Secondary Personnel: -- Case Physician: Radha Poole Problems Ongoing BMI 23.0-23.9, adult BPH with urinary obstruction Fatigue Fractured pelvis Generalized anxiety disorder History of kidney stones Hospital discharge follow-up Insomnia Kidney stones Long-term current use of opiate analgesic drug Major depressive disorder, recurrent episode, mild Parkinson's disease Prostate cancer screening Pure hypercholesterolemia Slow transit constipation Thrombocytopenia Tubular adenoma of colon Weakness Historical No qualifying data Procedure/Surgical History Colonoscopy (12/17/2022), Cataract Extraction with IOL placement - OD. (02/24/2017), Colonoscopy (02/20/2011), Vasectomy. Home Medications alprazolam 1 mg Tab, 1 mg= 1 tab(s), Oral, BID, PRN carbidopa-levodopa 25 mg-100 mg Tab, 1 tab(s), Oral, TID LORazepam 0.5 mg Tab, See Instructions LORazepam 0.5 mg Tab, See Instructions organic helena Benito Stool Softener, 100 mg, Oral, Daily tamsulosin 0.4 mg Cap Allergies No Known Allergies No Known Medication Allergies Social History Alcohol - Denies Alcohol Use, 11/18/2022 Never, 12/22/2024 Substance Abuse - Denies Substance Abuse, 11/18/2022 Never, 12/22/2024 Tobacco - No Risk, 12/23/2023 Never (less than 100 in lifetime) Tobacco Use:. Never Smokeless Tobacco Use:., 08/09/2025 Family History Brain tumor: Sister. Cardiac arrest: Mother. Heart disease: Brother. Primary malignant neoplasm of lung: Father. Screenings and Assessments 07/27/25 13:40:00 Result Name Value Comment Phone Call Monitoring Consent Agreed to continue call Phone Verification Patient Information Full name, street address and date of verified CM Program Enrollment Provides verbal consent for enrollment Goals and Interventions Care Plan Progress Note TCM#3- Spoke with patient/ caregiver- states patient is doing really good. Notes she is getting stronger each day, using walker sometimes. He is exercising using weights. His appetite has returned tonormal. He is scheduled this Thursday for stone removal. Bowel or urinary issues denied. Nothing further at this time. Communication Events Date: August 14, 2025 Method: Phone call Type: Outbound Duration (min): 3 Outcome: Case discussion Contact Type: Patient Contact Name: QUINTEN KAMINSKI Notes: TCM#3- See TCM note. Created By: Tony Linares Date: August 07, 2025 Method: Phone call Type: Inbound Duration (min): 5 Outcome: Case discussion Contact Type: Patient Contact Name: QUINTEN KAMINSKI Notes: TCM#2- See TCM note. Created By: Tony Linares Date: August 07, 2025 Method: Phone call Type: Outbound Duration (min): 1 Outcome: Left message-voicemail Contact Type: Patient Contact Name: QUINTEN KAMINSKI Notes: TCM#2- Left message for return call. Created By: Tony Linares Date: July 27, 2025 Method: Phone call Type: Outbound Duration (min): 15 Outcome: Case discussion Contact Type: Patient Contact Name: QUINTEN KAMINSKI Notes: TCM#1- See note. Created By: Tony Linares Date: July 26, 2025 Method: Phone call Type: Outbound Duration (min): 1 Outcome: Left message-voicemail Contact Type: Patient Contact Name: QUINTEN KAMINSKI Notes: TCM#1- Attempted to reach patient for initial TCM, no answer, left vm for return call. Created By: Tony Linares RNDelaware County HospitalBMPon 08-11-2025 Anion gap [Moles/Vol]10 mmol/LNormal6-16St. [facility] HospitalComment on above:Performed By: #### [id number] #### [facility] [address], [place] [address]XET/Creat Ratio26 No MoublGamw61-74AowsjeSt. Francis Hospital Comment on above:Performed By: #### [id number] #### [facility] [address], [place] [address]Lysbcpz [Mass/Vol]9.2 mg/dLNormal8.9-11.1FKettering Memorial HospitalComment on above:Performed By: #### [id number] #### [facility] [address], [place] [address]Utmeodkb [Moles/Vol]107 mmol/MKbdedi302-337OghsqnSt. Francis HospitalComment on above:Performed By: #### [id number] #### [facility] [address], [place] [address]QH2 [Moles/Vol]27 mmol/NPocvhi06-55FexefaSt. Francis Hospital Comment on above:Performed By: #### [id number] #### [facility] [address], [place] [address]Aijagtrbsd [Mass/Vol]0.9 mg/dLNormal0.5-1.3FKettering Memorial HospitalComment on above:Performed By: #### [id number] #### [facility] [address], [place] [address]Nbqkmff [Mass/Vol]90 mg/yGJhacyc14-732OvfqewSt. Francis HospitalComment on above:Performed By: #### [id number] #### [facility] [address], [place] [address]Vxgugfhqt [Moles/Vol]4.3 mmol/LNormal3.5-5.3FKettering Memorial HospitalComment on above:Performed By: #### [id number] #### [facility] [address], [place] [address]Xvxkar [Moles/Vol]140 mmol/CErhywm644-782TqaukxSt. Francis HospitalComment on above:Performed By: #### [id number] #### [facility] [address], [place] [address]Gpon nitrogen [Mass/Vol]23 mg/dLHigh5-21St. Francis HospitalComment on above:Performed By: #### [id number] #### [facility] [address], [place] [address]KPA w/ Auto Diffon [id number] Absolute0.0 E9/LNormal 0.0-0.2FKettering Memorial HospitalComment on above:Performed By: #### [id number] #### [facility] [address], [place] [address]Tnbjkopef/100 WBC (Bld)0.6 %Normal0.0-2.0St. Francis HospitalComment on above:Performed By: #### [id number] #### [facility] [address], [place] [address]Gog Absolute0.1 E9/LNormal0.0-0.5FKettering Memorial Hospital Comment on above:Performed By: #### [id number] #### [facility] [address], [place] [address]Rotgyeuarrp/100 WBC (Bld)1.9 %Normal0.0-8.0St. Francis HospitalComment on above:Performed By: #### [id number] #### [facility] [address], [place] [address]Fvsidrmqmfz distribution width (RBC) [Ratio]14.0 %Normal 10.9-14.2FKettering Memorial HospitalComment on above:Performed By: #### [id number] #### [facility] [address], [place] [address]Mqaqnfwjog (Bld) [Volume fraction]43.8 %Gzepnr04.7-49.0St. Francis HospitalComment on above:Performed By: #### [id number] #### [facility] [address] [place] [address]Fykyvdgdzm (Bld) [Mass/Vol]14.9 g/oDComeug60.5-17.5FKettering Memorial HospitalComment on above:Performed By: #### [id number] #### [facility] [address] [place] [address]Yqbaa Absolute1.4 E9/LNormal1.0-4.0[facility] Comment on above:Performed By: #### [id number] #### [facility] [address] [place] [address]Jhqvoyngdyd/100 WBC (Bld)17.7 %Wtwbpe30.0-50.0St. Francis HospitalComment on above:Performed By: #### [id number] #### [facility] [address] [place] [address]GZW (RBC) [Entitic mass]31.0 beQsxlbu24.0-34.0St[address] [facility] HospitalComment on above:Performed By: #### [id number] #### [facility] [address] [place] [address] 25314TJGX (RBC) [Mass/Vol]34.0 g/fXXdxuxl65.4-36.0St. [facility] HospitalComment on above:Performed By: #### [id number] #### [facility] [address] [place] [address] 73252JQJ (RBC) [Entitic vol]91.3 mKAoafae57.0-100.0[facility] HospitalComment on above:Performed By: #### [id number] #### [facility] [address] [place] [address] 78928Kbwa Absolute0.7 E9/LNormal0.2-1.0[facility] Comment on above:Performed By: #### [id number] #### [facility] [address], [place] [address]Tvnebrpdf/100 WBC (Bld)9.1 %Normal4.0-14.0St. [facility] HospitalComment on above:Performed By: #### [id number] #### [facility] [address], [place] [address]Enksfz Absolute5.5 E9/LNormal2.0-7.5FK[facility] Comment on above:Performed By: #### [id number] #### [facility] [address], [place] [address]Juxvrs Auto70.7 %Kdjygw96.0-75.0[facility] Comment on above:Performed By: #### [id number] #### [facility] [address] [place] [address] 16197Ypltkktj015.0 E9/PEvy557.0-500.0[facility] Comment on above:Performed By: #### [id number] #### [facility] [address] [place] [address] 28476Ibemygjp mean volume (Bld) [Entitic vol]9.5 fLNormal6.4-10.8 [facility] HospitalComment on above:Performed By: #### [id number] #### [facility] [address] [place] [address] 09879MXX5.8 E12/LNormal4.3-5.9[facility] HospitalComment on above:Performed By: #### [id number] #### [facility] [address] [place] [address] 38008RVU3.7 E9/LNormal4.0-11.0[facility] HospitalComment on above:Performed By: #### [id number] #### [facility] [address] [place] [address] 864[address]MO & PTTon 28-03-8081NDQ Coag (PPP) [Relative time]1.16 {INR} Invalid Interpretation CodeSt. Francis HospitalComment on above:Result Comment: INR results are specifically intended to assess patients stabilized on long-term Anticoagulation therapy suggested INR???s ???Less Intensive Anticoagulation??? 2.0 ??? 3.0 Conventional Range 3.0 ??? 4.5Performed By: #### [id number] #### [facility]rikanth [facility] [address] [place], [place] [address]YW77.0 second(s)High9.4-12.5FKettering Memorial HospitalComment on above:Result Comment: 15 days - 4 weeks 1 - 5 months 6 -11 months 1 ??? 5 years 6 ??? 10 years 11 -17 years Mean: 11.2 (9.5 ??? 12.6) Mean: 11.0 (9.7 ??? 12.8) Mean: 11.0 (9.8 ??? 13.0) Mean: 11.3 (9.9 ??? 13.4) Mean: 11.7 (10.0 ??? 14.6) Mean: 11.8 (10.0 - 14.1) Pediatric Reference ranges were obtained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 [facility] [address], [place] [address]RRB/Creat Ratio22 No PqowqVxln67-11ShpqozSt. Francis Hospital Comment on above:Performed By: #### [id number] #### [facility] [address], [place] [address]Zjwqpcj [Mass/Vol]9.6 mg/dLNormal8.9-11.1FKettering Memorial HospitalComment on above:Performed By: #### [id number] #### [facility] [address], [place] [address]Kqxpkjzd [Moles/Vol]108 mmol/PHwlquj787-223NmqiffSt. Francis HospitalComment on above:Performed By: #### [id number] #### [facility] [address], [place] [address]AI9 [Moles/Vol]25 mmol/QHrvjkw51-57FycqeiSt. Francis Hospital Comment on above:Performed By: #### [id number] #### [facility] [address], [place] [address]Bxggopqkki [Mass/Vol]1.0 mg/dLNormal0.5-1.3FKettering Memorial HospitalComment on above:Performed By: #### [id number] #### [facility] [address], [place] [address]Mmeszzku (S) [Mass/Vol]2.3 g/dLNormal1.4-4.0St. Francis HospitalComment on above:Performed By: #### [id number] #### [facility] [address], [place] [address]Yeetznl [Mass/Vol]98 mg/kJAaetcp28-785TvcijdSt. Francis HospitalComment on above:Performed By: #### [id number] #### [facility] [address], [place] [address]Tvlkyheyn [Moles/Vol]4.5 mmol/LNormal3.5-5.3Fisher St. Agnes HospitalComment on above:Performed By: #### [id number] #### [facility] [address], [place] [address]Yefdwwq [Mass/Vol]7.1 g/dLNormal6.0-7.8St. [facility] HospitalComment on above:Performed By: #### [id number] #### [facility] [address], [place] [address]Pknalo [Moles/Vol]139 mmol/AIuiezq421-362MklriwSt. Francis HospitalComment on above:Performed By: #### [id number] #### [facility] [address], [place] [address]Jnsg nitrogen [Mass/Vol]22 mg/dLHigh5-21St. Francis HospitalComment on above:Performed By: #### [id number] #### [facility] [address], [place] [address]Tvkxmc Medicine Office/Clinic Noteon 70-39-0238Tqjyiv Medicine Office/Clinic NoteFasaint joseph's hospital Medicine Office/Clinic Note HPI Staff Quinten is [...] anxiety, # 60 tab(s), Refills(s) 0, Pharmacy: [facility], 169, cm, 03/29/25 11:10:00 EDT, Height/Length Dosing, 66.4, kg, 03/29/25 11:10:00 EDT, Weight Dosing alprazolam, 1 mg = 1 tab(s), Oral, BID, PRN for anxiety, # 60 tab(s), Refills(s) 0, Pharmacy: [facility], 169, cm, 06/29/25 9:57:00 EDT, Height/Length [...] Recorded 2022-11-18: TPV65 pneumococcal 13-valent vaccine 09/20/[address] Agnes HospitalComment on above:Result Comment: Electronically Signed By: Radha Poole\Date and Time Signed: 06/29/25 10:26 EDTPSA Screen, Totalon 14-87-4742PEC Scrn Tot.3.9 ng/mLHigh0.1-3.5Fisher St. Agnes HospitalComment on above:Result Comment: The concentration of PSA determined by different manufacturers can vary due to differences in assay methods and reagent specificity. Values obtained from different assay methods cannot be used interchangeably. The methodology used for this result was chemiluminescence using [employer]'s Access Hybritech PSA reagent.Performed By: #### [id number] #### [facility] [address], [place] [address]IUDmo 08-51-1266VWY Qn0.99 m[IU]/LNormal0.34-5.60St. [facility] HospitalComment on above:Performed By: #### [id number] #### [facility] [address], [place] [address]Aof B12on 34-70-6974Qwafybvdo (Vitamin B12) [Mass/Vol]444 pg/mL Nztkvw51-7802ZwynegSt. Francis HospitalComment on above:Performed By: #### [id number] #### [facility] [address], [place] [address]nGDFzg 56-87-4930kWRZ59 mL/min/1.73 i4Hujqco>=59St[facility] Francis HospitalComment on above:Performed By: #### [id number] #### [facility] [address], [place] [address]Pxbptnutdo Visit Summaryon 34-57-6167Yhbiaqjzbe Visit Summary Ambulatory Visit Summary QUINTEN KAMINSKI :1950 Visit Date:03/29/2025 Ambulatory Visit Instructions Your [...] 9:40 AM EDT With: Radha Poole Where: [address] [address]- Thursday2025 11:00 AM EDT With: Where: [address] [address]- Medications What How Much When Why Instructions [...] you for choosing us for your care. [facility] Medicine Office/Clinic Noteon 01-90-2273Gkfhrx Medicine Office/Clinic NoteFasaint joseph's hospital Medicine Office/Clinic Note HPI Staff 3mth fu [...] appointment, # 21 tab(s), Refills(s) 0, Pharmacy: [facility], 169, cm, 03/29/25 11:10:00 EDT, Height/Length Dosing, 66.4, kg, 03/29/25 11:10:00 EDT, Weight Dosing lorazepam, See Instructions, 3 tab(s) 30 minutes prior to procedure or appointment, # 12 tab(s), Refills(s) 0, Pharmacy: [facility], 169, cm, 12/22/24 14:54:00 EST, Height/Length [...] 1.7 gm, Oral, TID, PRN organic helena mendez Benito Stool Softener, 100 mg, Oral, Daily [...] Recorded 2022-11-18: TPV65 pneumococcal 13-valent vaccine 09/20/2020 RecordedNoclaudioSt. Francis HospitalComment on above:Result Comment: Electronically Signed By: Radha Poole\.br\Date and Time Signed: 03/29/25 15:29 EDTPre-Visit Planningon 83-26-4508Lpz-Visit PlanningPre-Visit Planning From: Devika AMARO, Carmen To: Radha Poole; Sent: 03/21/2025 14:04:30 EDT Subject: Pre-Visit Planning Due Date/Time: 03/21/2025 14:04:00 EDT Caller Name: QUINTEN KAMINSKI; Caller Number: Kari , Nayan Kevin Garcia, [...] presenting with 3 month followup to taking XanaxQHS & prior to Neuro appts. Pt states [...] SHADI-7 screening completed today with a score of2. Follows with PCP as directed for management and symptom control. Denies any suicidal ideations at this time. Education provided, stress management and relaxation techniques reviewed. Will continueto follow with PCP and communicate any changes [...] feel free to contact me at extension [phone]. Thank you! Carmen Fortune, KAYLAN, RN, CCM, CCDS, CCDS-O CDI Simulation Analyst [address] [address] P: [phone] F: [phone] [email or web address] From: Radha Poole To: Devika AMARO, Carmen; Sent: 03/22/2025 11:40:20 EDT Subject: RE: Pre-Visit Planning Caller Name: QUINTEN KAMINSKI; Caller Number: Kari , M He was a no show today. But Generalized anxiety disorder, tremors and insomnia NormalFisher St. Agnes HospitalCNOVon 05-23-2893IBNJHoljit Visit (NRESAV) QUINTEN KAMINSKI ([id number]) 1950 M Date Time Provider Department 03/02/25 9:00 AM MARTIN LAMAR NRESAV During your visit today, we recorded the following information about you: Pulse Blood pressure 60/minute 104/62 Martin Lamar, 03/09/2025 2:57 PM Signed [facility] - NEW PATIENT EVALUATION Recording using [employer] software for draft documentation of the visit was discussed with the patient/authorized farm loan representative; all questions welcomed and answered. Patient/authorized farm loan representative agreed to proceed I had the pleasure of evaluating Mr. Kaminski in our clinic today. He is a [...] 30 MINUTES prior to procedure or appointmen OT NUTRITIONAL SUPPLEMENT Take 1 capsule by mouth once daily. [employer] [place] Vitamin 1 capsule per mouth daily. carbidopa-levodopa [...] - Neurological: - Coordination: Mild dysmetria on acohjb-sz-syoz testing. - Motor: Rigidity noted. - Strength: [...] difficulty with turns, dec (more content not included)...NormalCleveland Clinic Children'S Hospital For RehabilitationAmbulatory Visit Summaryon 59-27-6506Rxhnxixnyu Visit SummaryAmbulatory Visit Summary QUINTEN KAMINSKI :1950 Visit Date:12/22/2024 Ambulatory Visit Instructions Your [...] Appointments Thursday 10:00 AM EDT With: Where: [address] [address]- Thursday 9:40 AM EDT With: Radha Poole Where: [address] [address]- Thursday2025 11:00 AM EDT With: Where: [address] [address]- You Need to Complete the Following Lipid [...] do I need? Vacc (more content not included)...NormalSt. Francis HospitalCHEMISTRY Ordered By: SYSTEM SYSTEM on 23-12-6605Bbzmvdhdyor [Mass/Vol]185 mg/ySNcgrgm339 - 200 mg/dLRemisol ChemCholesterol in HDL [Mass/Vol]33 mg/dLInvalid Interpretation CodeRemisol ChemComment on above:Result Comment: '>= 60 LOW RISK' '<= 40 HIGH RISK'Cholesterol in LDL [Mass/Vol]135 mg/dLHigh<=129mg/dLRemisol ChemCholesterol in VLDL [Mass/Vol]35 mg/dLNormal7 - 40 mg/dLRemisol Chem Triglyceride [Mass/Vol]175 mg/dLHigh<=149mg/dLRemisol ChemWorcester County Hospital Medicine Office/Clinic Noteon 33-89-4436Ymegch Medicine Office/Clinic NoteWorcester County Hospital Medicine Office/Clinic Note Chief Complaint Subsequent Medicare [...] and all current CDC recommended immunizations, relevant riskrecommendations and the following patient brochures were given. [...] discussed Shingrix vaccine with educational handout and availability.2 COVID vaccines have been administered, with 1 Booster received. Allergies and medications reviewed and up to date. No concerns with taking medication as prescribed. Reviewed OTC medications, medication list up to date. Blood tests were reviewed: Discussed what tests need to be updated. Labs were ordered, will have completed prior to next PCP visit. [facility] [place] with [facility]. No concerns with bowel/ bladder. Colonoscopy last completed 12/17/[address] Guidry. Repeat 5 years. Reviewed pain symptoms: Patient [...] exercise regimen. When you are overweight our bodyproduces more lipids. Risk also increases with family history of hyperlipidemia and with monitoringalcohol use and avoid smoking. Pt voices understanding with importance of monitoring dietary intaketo reduce risk factors associated with CVA. Taking [...] their chosen representatives. Explained the role each farm loan representative would play, encouraged patient to select 2 people with one being the primary and the other for an alternate. Discussed importa (more content not included)...NormalSt. Francis HospitalComment on above:Result Comment: Electronically Signed By: Radha Poole\.br\Date and Time Signed: 12/26/24 13:04 EDT\.br\Electronically Co-Signed By: Ling Champagne\.br\Date and Time Co-Signed: 12/22/24 15:58 ESTLipid Panelon 28-29-4772Obeoekqzheh [Mass/Vol]185 mg/dLNormal 120-200St. Francis HospitalComment on above:Performed By: #### [id number] #### [facility] [address], [place] [address]Lrprdvgpkdm in HDL [Mass/Vol]33 mg/dLInvalid Interpretation CodeSt. Francis HospitalComment on above:Result Comment: '>= 60 LOW RISK' '<= 40 HIGH RISK'Performed By: #### [id number] #### [facility] [address], [place] [address]Fukuuuhmxbv in LDL [Mass/Vol]135 mg/dLHigh<=129St. Francis HospitalComment on above:Performed By: #### [id number] #### [facility] [address], [place] [address]Hcixtgseuma in VLDL [Mass/Vol]35 mg/dLNormal7-40St. Francis HospitalComment on above:Performed By: #### [id number] #### [facility] [address], [place] [address]Horpwyaaexiu [Mass/Vol]175 mg/dLHigh<=149St. Francis HospitalComment on above:Performed By: #### [id number] #### [facility] [address], [place] [address]Uwhiogtecc Visit Summaryon 06-81-6976Jmyqqozees Visit Summary Ambulatory Visit Summary QUINTEN KAMINSKI :1950 Visit Date:12/22/2024 Ambulatory Visit Instructions Your [...] Appointments Thursday 10:00 AM EDT With: Where: [address] [address]- Thursday 9:40 AM EDT With: Radha Poole Where: [address] [address]- Thursday2025 11:00 AM EDT With: Where: [address] [address]- You Need to Complete the Following Lipid Panel, Blood, Routine collect, 12/22/24, Order for future visit, Lab Collect, Pure hypercholesterolemia, Required & Missing, Print Label By Order Location Medications What How Much When Instructions New alprazolam (alprazolam 1 mg Tab) 1 Tablets By Mouth 2 times a day as needed for for anxiety Pickup at [facility] Unchanged carbidopa-levodopa (carbidopa-levodopa 25 mg-100 mg [...] Mouth 3 times a day Pharmacy Information [facility]: [address] [place], [place] [id number] [phone] Allergies No Known Allergies No Known Medication [...] you for choosing us for your care. [facility] Medicine Office/Clinic Noteon 63-98-4053Rscmlg Medicine Office/Clinic NoteWorcester County Hospital Medicine Office/Clinic Note HPI Staff Quinten is [...] appointment, # 12 tab(s), Refills(s) 0, Pharmacy: [facility], 169, cm, 12/22/24 14:54:00 EST, Height/Length [...] anxiety, # 40 tab(s), Refills(s) 0, Pharmacy: [facility], 169, cm, 09/28/24 10:16:00 EST, Height/Length Dosing, 65.7, kg, 09/28/24 10:16:00 EST, Weight Dosing alprazolam, 1 mg = 1 tab(s), Oral, BID, PRN for anxiety, # 60 tab(s), Refills(s) 0, Pharmacy: [facility], 169, cm, 12/22/24 14:54:00 EST, Height/Length [...] Recorded 2022-11-18: TPV65 pneumococcal 13-valent vaccine 09/20/2020 RecordedProMedica Flower HospitalComment on above:Result Comment: Electronically Signed By: Radha Poole\.nichole\Date and Time Signed: 12/22/24 15:38 ESTCNPNon 77-87-0892LZYI Telephone (NREUS2) QUINTEN KAMINSKI ([id number]) 1950 M Date Time Provider Department 11/17/24 [...] (None) Encounter Status:Closed by JERONIMO FRANKLIN on 11/17/24[facility]Amb[facility] Visit Summaryon 76-64-1351Ihzwwlvwmv Visit SummaryAmbulatory Visit Summary QUINTEN KAMINSKI :1950 Visit Date:09/28/2024 Ambulatory Visit Instructions Your [...] Appointments 2024 2:30 PM EST With: Where: [address] [address]- 2024 3:20 PM EST With: Radha Poole Where: [place] [id number]- Medications What How Much When Instructions Unchanged [...] you for choosing us for your care. [facility] Medicine Office/Clinic Noteon 40-00-2421Trqyip Medicine Office/Clinic NoteFasaint joseph's hospital Medicine Office/Clinic Note HPI Staff Quinten is a 74 year old male presenting with sleep med is not working daytime caregiver is with him today- states he hard [...] dental procedures. pt states the lorazepam is nothelping his sleep at all. it has made it worse. will d/c lorazepam at bedtime. and restart alprazolam 1mg at bedtime and as needed for anxiety. new medication agreement signed in office today. RTC 3 months 2. Anxiety (F41.9: Anxiety disorder, unspecified) will order lorazepam 3 times 30 minutes prior to dental procedures. they will call 2 weeks prior tonext dental visit for refill. 3. Non-smoker (Z78.9: [...] anxiety, # 40 tab(s), Refills(s) 0, Pharmacy: [facility], 169, cm, 09/28/24 10:16:00 EST, Height/Length Dosing, 65.7, kg, 09/28/24 10:16:00 EST, Weight Dosing lorazepam, See Instructions, 3 tabs 30 minutes prior to procedure., # 6 tab(s), Refills(s) 0, Pharmacy: [facility], 169, cm, 09/28/24 10:16:00 EST, Height/Length Dosing, 65.7, kg, 09/28/24 10:16:00 EST, Weight Dosing lorazepam, 0.5 mg = 1 tab(s), Oral, Bedtime, also can be taken 30 minutes prior to procedure, # 40 tab(s), Refills(s) 0, Pharmacy: [facility], 169, cm, 09/09/24 11:27:00 EST, Height/Length [...] mRNA BNT-162b2 vax 04 (more content not included)...Normal St. Francis HospitalComment on above:Result Comment: Electronically Signed By: Radha Poole\.br\Date and Time Signed: 09/28/24 12:56 [facility] Medicine Office/Clinic Noteon 05-18-5934Hrispj Medicine Office/Clinic Note Family Medicine Office/Clinic Note [...] procedure, # 40 tab(s), Refills(s) 0, Pharmacy: [facility], 169, cm, 09/09/24 11:27:00 EST, Height/Length Dosing, 66, kg, 09/09/24 11:27:00 EST, Weight Dosing lorazepam, See Instructions, TAKE 3 TABLETS BY MOUTH 30 MINUTES PRIOR TO PROCEDURE, # 6 tab(s), Refills(s) 0, Pharmacy: [facility], 169, cm, 06/10/24 8:35:00 EDT, Height/Length [...] Tobacco Use:. Never Smokeless Tobacco Use:. Cigarettes, Householdtobacco concerns: No. Yes, 09/09/2024 Family History Brain tumor: Sister. Cardiac arrest: Mother. Heart disease: Brother. Primary malignant neoplasm of lung: Father. Immunizations Vaccine Date Status Comments influenza virus vaccine, inactivated - Not Given Patient Refuses SARS-CoV-2 (COVID-19) mRNA BNT-162b2 vax 10/06/2021 Recorded SARS-CoV-2 (COVID-19) mRNA BNT-162b2 vax 01/20/2021 Recorded SARS-CoV-2 (COVID-19) mRNA BNT-162b2 vax 12/28/2020 Recorded 2022-11-18: TPV65 pneumococcal 13-valent vaccine 09/20/2020 RecordedProMedica Flower HospitalComment on above:Result Comment: Electronically Signed By: Radha Poole\.br\Date and Time Signed: 09/09/24 12:42 ESTAmbulatory Visit Summaryon 38-04-1156Hkykbtadiy Visit SummaryAmbulatory Visit Summary QUINTEN KAMINSKI :1950 Visit Date:06/10/2024 Ambulatory Visit Instructions Your [...] Follow-Up Appointments Thursday 8:40 AM EST With: Kellie ISBELL, Radha Hernandez Where: [address] [address]- 2024 11:00 AM EST With: Where: [address] [address]- Medications What How Much When Instructions New alprazolam (alprazolam 0.5 mg Tab) 1 Tablets By Mouth At bedtime as needed for for anxiety Pickup at [facility] Unchanged carbidopa-levodopa (carbidopa-levodopa 25 mg-100 mg [...] Mouth 3 times a day Pharmacy Information [facility]: [address] [place], [place] [id number] [phone] Allergies No Known Allergies No Known Medication [...] you for choosing us for your care. [facility] Medicine Office/Clinic Noteon 85-51-1078Wtcrvm Medicine Office/Clinic NoteFasaint joseph's hospital Medicine Office/Clinic Note HPI Staff Quinten is [...] prior to his appointment. he has been takingativan prior to appointments since 2021. Discussed that [...] for anxiety, # 90 tab(s), Refills(s) 0, Pharmacy:[facility], 169, cm, 06/10/24 8:35:00 EDT, Height/Length Dosing, 61.9, kg, 248:35:00 EDT, Weight Dosing alprazolam, 0.5 mg = 1 tab(s), Oral, TID, PRN for anxiety, # 30 tab(s), Refills(s) 0, Pharmacy: [facility], 169, cm, 03/30/24 10:19:00 EDT, Height/Length [...] Tobacco Use:. Never Smokeless Tobacco Use:. Cigarettes, Householdtobacco concerns: No., 06/10/2024 Family History Brain tumor: Sister. Cardiac arrest: Mother. Heart disease: Brother. Primary malignant neoplasm of lung: Father. Immunizations Vaccine Date Status Comments influenza virus vaccine, inactivated - Not Given Patient Refuses SARS-CoV-2 (COVID-19) mRNA BNT-162b2 vax 10/06/2021 Recorded SARS-CoV-2 (COVID-19) mRNA BNT-162b2 vax 01/20/2021 Recorded SARS-CoV-2 (COVID-19) mRNA BNT-162b2 vax 12/28/2020 Recorded 2022-11-18: TPV65 pneumococcal 13-valent vaccine 09/20/2020 RecordedNormsantaSt. Francis HospitalComment on above:Result Comment: Electronically Signed By: Radha Poole\.br\Date and Time Signed: 06/10/24 09:10 EDTPre-Visit Planningon 28-90-4809Eom-Visit PlanningPre-Visit Planning From: Katlin Reese To: Radha Poole; Sent: 06/09/2024 12:05:05 EDT Subject: Pre-Visit Planning Due Date/Time: 06/09/2024 12:05:00 EDT Caller Name: QUINTEN KAMINSKI; Caller Number: Kari , Dc Radha. During a pre-visit planning chart review, I noted the following abnormal lab value documented in the medical record: Platelets =136. In response to this query, please document the significance of the abnormal lab or clarify which diagnosis or condition this result may be associated with. I can update the Chronic Problem List with your response if you would like. -Thrombocytopenia -Additional Comments: In responding to this request, please exercise your independent professional judgment. The fact that a question is asked does not imply that any particular answer is desired or expected. If you have any questions, please feel free to contact me at extension [phone]. Thank you! Katlin Reese LPN Clinical Stand Up Comedian [place] [address] Extension: [phone] [email or web address] From: Radha Poole To: Katlin Reese; Sent: 06/09/2024 12:55:57 EDT Subject: RE: Pre-Visit Planning Caller Name: QUINTEN KAMINSKI; Caller Number: Kari , M thrombocytopeniaNormalSt. Francis HospitalCBC w/ Auto Diffon 03-30-2024 Basophils/100 WBC (Bld)0.7 %Normal0.0-2.0St. Francis HospitalComment on above:Performed By: #### [id number] #### [facility] [address] [place], [place] [address]Zfrtpykoz/Leukocytes Auto (Bld) [Pure # fraction]0.0 E9/LNormal 0.0-0.2FKettering Memorial HospitalComment on above:Performed By: #### [id number] #### [facility] [address] [place] [address]Yspvoftybvh (Bld) [#/Vol]0.1 E9/LNormal0.0-0.5FKettering Memorial HospitalComment on above:Performed By: #### [id number] #### [facility] [address] [place], [place] [address]Jzvgxgnbjti/100 WBC (Bld)1.7 %Normal0.0-8.0St. Francis HospitalComment on above:Performed By: #### [id number] #### [facility] [address] [place] [address] 32[address]Jjvoebewicc distribution width (RBC) [Ratio]14.1 %Normal 10.9-14.2FKettering Memorial HospitalComment on above:Performed By: #### [id number] #### [facility] [address] [place], [place] [address]Lcsstxrxto (Bld) [Volume fraction]44.8 %Efzisd86.7-49.0St. Francis HospitalComment on above:Performed By: #### [id number] #### [facility] [address] [place], [place] [address]Fqqtdmcexm (Bld) [Mass/Vol]15.5 g/bGEakczw66.5-17.5Fisher St. Agnes HospitalComment on above:Performed By: #### [id number] #### [facility] [address] [place] [address]Ivqhxixglko (Bld) [#/Vol]1.4 E9/LNormal1.0-4.0St. [facility] HospitalComment on above:Performed By: #### [id number] #### [facility] [address] [place] [address] 511[address]Ambuqcnrrhh/100 WBC (Bld)20.0 %Xzkpdc92.0-50.0St. [facility] HospitalComment on above:Performed By: #### [id number] #### [facility] [address] [place] [address] 53[address]ZTH (RBC) [Entitic mass]31.3 ubRpjoth97.0-34.0St. [facility] HospitalComment on above:Performed By: #### [id number] #### [facility] [address] [place] [address]VWYS (RBC) [Mass/Vol]34.5 g/gXTilokk01.4-36.0St. [facility] HospitalComment on above:Performed By: #### [id number] #### [facility] [address] [place] [address] 59[address]WYB (RBC) [Entitic vol]90.8 hONgkrjl86.0-100.0St. [facility] HospitalComment on above:Performed By: #### [id number] #### [facility] [address] [place] [address] 74792Trwwirlgj (Bld) [#/Vol]0.6 E9/LNormal0.2-1.0St. [facility] HospitalComment on above:Performed By: #### [id number] #### [facility] [address] [place] [address] 347[address]Utxpkghliyd (Bld) [#/Vol]4.8 E9/LNormal2.0-7.5FKettering Memorial HospitalComment on above:Performed By: #### [id number] #### [facility] [address] [place], [place] [address]Cawvhiufguy/100 WBC (Bld)69.2 %Hamehc78.0-75.0St. [facility] HospitalComment on above:Performed By: #### [id number] #### [facility] [address] [place], [place] [address]Ivbhlcrt857.0 E9/SQoo513.0-500.0[facility] Comment on above:Performed By: #### [id number] #### [facility] [address] [place], [place] [address]Pjzsrlik mean volume (Bld) [Entitic vol]10.3 fLNormal6.4-10.8 [facility] HospitalComment on above:Performed By: #### [id number] #### [facility] [address] [place] [address] 17473MZD (Bld) [#/Vol]4.9 E12/LNormal4.3-5.9St. [facility] HospitalComment on above:Performed By: #### [id number] #### [facility] [address] [place] [address] 79691FUN corrected for nucl RBC Auto (Bld) [#/Vol]6.9 E9/LNormal 4.0-11.0St. [facility] HospitalComment on above:Performed By: #### [id number] #### [facility] [address] [place] [address]VQEJUCZVUDazlmyl By: SYSTEM SYSTEM on - hydroxyvitamin D3 [Mass/Vol]34.5 ng/mTBuilpm89.0 - 100.0 ng/mLRemisol Chem Cobalamin (Vitamin B12) [Mass/Vol]pg/eUWeqyvz72 - 1500 pg/mLRemisol ChemIron [Mass/Vol]133 ug/qXJktisf03 - 153 mcg/dLRemisol ChemTSH Qn1.49 m[IU]/LNormal0.34 - 5.60 mcIU/mLRemisol ChemFamily Medicine Office/Clinic Noteon 16-07-5016Zufvmt Medicine Office/Clinic NoteHPI Staff Quinten is a 73 year old male presenting for 3 month follow up BOB 12/30/23 started xanax Insomnia: Medication agreement UTD Pt states the Xanax hasn't helped him with sleeping. He has also tried nyqil sleep its still takinghim 1-2 hours before he can fall asleep. Pt continues to have constipation he has been doing Metamucil daily with sometimes forget to take it. He currently now is going on 5 days without bowel movement. When he does have go to have a BM hisstool is very hard and usually large amount. [...] Bedtime, # 30 tab(s), Refills(s) 0, Pharmacy: [facility], 169, cm, 12/30/23 10:56:00 EDT, Height/Length Dosing, 66, kg, 12/30/23 10:56:00 EDT, Weight Dosing Lab Specimen Collect [id number] 2. Fatigue (R53.83: Other fatigue) c/o fatigue. has been giving him B12 and wonders if we could order injections. will check labstoday Ordered: CBC w/ Auto Diff Iron Level Lab Specimen Collect [id number] Thyroid Stimulating Hormone Vitamin B12 Level Vitamin D 25 Hydroxy 3. Weakness (R53.1: Weakness) feeling more weak and tired. will check labs today Ordered: CBC w/ Auto Diff Iron Level Lab Specimen Collect 40100 Thyroid Stimulating Hormone Vitamin B12 Level Vitamin D 25 Hydroxy 4. BMI 21.0-21.9, adult (Z68.21: Body mass index [BMI] 21.0-21.9, adult) BMI education complete Ordered: CBC w/ Auto Diff Iron Level Lab Specimen Collect 22685 Thyroid Stimulating Hormone Vitamin B12 Level Vitamin D 25 Hydroxy 5. Non-smoker (Z78.9: Other specified health status) continue not smoking Ordered: alprazolam, 0.25 mg = 1 tab(s), Oral, Bedtime, # 30 tab(s), Refills(s) 0, Pharmacy: [facility], 169, cm, 12/30/23 10:56:00 EDT, Height/Length Dosing, 66, kg, 12/30/23 10:56:00 EDT, Weight Dosing CBC w/ Auto Diff Iron Level Lab Specimen Collect 29198 Thyroid Stimulating Hormone Vitamin B12 Level Vitamin D 25 Hydroxy Orders: alprazolam, 0.5 mg = 1 tab(s), Oral, TID, PRN for anxiety, # 30 tab(s), Refills(s) 0, Pharmacy: [facility], 169, cm, 03/30/24 10:19:00 EDT, Height/Length [...] mRNA BNT-162b2 vax 12/28/2020 Recorded 2022-11-18: [id number] [facility] HospitalComment on above:Result Comment: Electronically Signed By: Radha Poole\.br\Date and Time Signed: 03/30/24 12:41 EDT HEMATOLOGYOrdered By: SYSTEM SYSTEM on 95-61-8402Ghxnmffgv/100 WBC (Bld)0.7 % Normal0.0 - 2.0 %Remisol HemeBasophils/Leukocytes Auto (Bld) [Pure # fraction] 0.0 E9/LNormal0.0 - 0.2 E9/LRemisol HemeEosinophils (Bld) [#/Vol]0.1 E9/LNormal 0.0 - 0.5 E9/LRemisol HemeEosinophils/100 WBC (Bld)1.7 %Normal0.0 - 8.0 %Remisol HemeErythrocyte distribution width (RBC) [Ratio]14.1 %Ptjchp38.9 - 14.2 % Remisol HemeHematocrit (Bld) [Volume fraction]44.8 %Pjcxbq72.7 - 49.0 %Remisol HemeHemoglobin (Bld) [Mass/Vol]15.5 g/xCDnlxts43.5 - 17.5 gm/dLRemisol Heme Lymphocytes (Bld) [#/Vol]1.4 E9/LNormal1.0 - 4.0 E9/LRemisol HemeLymphocytes/100 WBC (Bld)20.0 %Wtdutv19.0 - 50.0 %Remisol HemeMCH (RBC) [Entitic mass]31.3 pg Aguqom89.0 - 34.0 pgRemisol HemeMCHC (RBC) [Mass/Vol]34.5 g/gRWwuaxy41.4 - 36.0 gm/dLRemisol HemeMCV (RBC) [Entitic vol]90.8 rNQeuxia65.0 - 100.0 fLRemisol Heme Monocytes (Bld) [#/Vol]0.6 E9/LNormal0.2 - 1.0 E9/LRemisol HemeMonocytes/100 WBC (Bld)8.4 %Normal4.0 - 14.0 %Remisol HemeNeutrophils (Bld) [#/Vol]4.8 E9/LNormal 2.0 - 7.5 E9/LRemisol HemeNeutrophils/100 WBC (Bld)69.2 %Igzpmp88.0 - 75.0 % Remisol ZhdiEgjrgdlj458.0 E9/EHml816.0 - 500.0 E9/LRemisol HemePlatelet mean volume (Bld) [Entitic vol]10.3 fLNormal6.4 - 10.8 fLRemisol HemeRBC (Bld) [#/Vol]4.9 E12/LNormal4.3 - 5.9 E12/LRemisol HemeWBC corrected for nucl RBC Auto (Bld) [#/Vol]6.9 E9/LNormal4.0 - 11.0 E9/LRemisol HemeMedication Consenton 43-95-4257Eyhkitwtkq [id number]#1.00TIFF NormalSt. Francis HospitalTSHon 32-27-6349BIZ Qn1.49 m[IU]/LNormal 0.34-5.60St. [facility] HospitalComment on above:Performed By: #### [id number] #### [facility] [address] [place], [place] [address]Pmc B12on 09-43-8308Bitqjpeuj (Vitamin B12) [Mass/Vol]pg/mL Itaudz00-8117GjbtxeSt. Francis HospitalComment on above:Performed By: #### [id number] #### [facility] [address] [place], [place] [address]Plndzif D 25 Hydroxyon 33-46-503451838717-wlttntaqsuiitv D3 [Mass/Vol]34.5 ng/iBCexclc10.0-100.0St. [facility] HospitalComment on above: Performed By: #### [id number] #### [facility] [address] [place], [place] [address]Mbkuzzudnu Visit Summaryon 35-93-7790Twuwhsvzzs Visit Summary QUINTEN KAMINSKI :1950 Visit Date:12/30/2023 Ambulatory Visit Instructions Your [...] 10:20 AM EDT With: Radha Poole Where: [facility] [address] [place] [address]- \.br\ Medications\.br\ What How Much When Why Instructions\.br\ New alprazolam (alprazolam 0.25 mg Tab) 1 Tablets By Mouth At bedtime Insomnia BMI 22.0-22.9, adult Non-smoker Pickup at [facility]\.br\ Unchanged carbidopa-levodopa (carbidopa-levodopa 25 mg-100 mg Tab) 1 Tablets By Mouth 3 times a day\.br\ Unchanged polyethylene glycol 3350 (MiraLax) 17 Gram By Mouth Every day\.br\ Unchanged ropinirole (ropinirole 0.25 mg Tab) 1 Tablets By Mouth 3 times a day\.br\ Pharmacy Information\.br\ [facility]: [address] [facility] [place], [place] [id number] [phone]\.br\ Allergies\.br\ No Known Allergies\.br\ No Known Medication Allergies\.br\ Problems\.br\ Ongoing - Any problem that you are currently receiving treatment for.\.br\ BMI 24.0-24.9, adult\.br\ Insomnia\.br\ Parkinson's disease\.br\ Pure hypercholesterolemia\.br\ Rectal bleeding\.br\ Slow transit constipation\.br\ Tubular adenoma of colon\.br\ Patient Survey\.br\ You may receive a survey via text or e-mail asking about your office visit. Pleaseshare your experience with us by completing your survey. We appreciate your feedback and thank you for choosing us for your care.\.br\ \.br\[facility] Medicine Office/Clinic Noteon 16-84-0060Fsocdm Medicine Office/Clinic NoteHPI Staff Martins is a 73 year old male presenting to [facility] care Establish Care: History: Any previous diagnosis: [...] help her sleep and he would like totry that. History of Present Illness pt presents [...] mRNA BNT-162b2 vax 12/28/2020 Recorded 2022-11-18: [id number] [facility] HospitalComment on above:Result Comment: Electronically Signed By: Radha Poole\.br\Date and Time Signed: 12/30/23 11:13 EDT Medication Consenton 53-08-2582Bprokzutpi Consent [id number]#1.00TIFMetroHealth Parma Medical CenterCHEMISTRYOrdered By: SYSTEM SYSTEM on 40-88-1992Adkzbvn [Mass/Vol]4.6 g/dL Normal3.3 - 5.0 gm/dLRemisol ChemAlbumin/Globulin [Mass ratio]2.2 {ratio}Normal 1.1 - 2.2Remisol ChemALP [Catalytic activity/Vol]52 [iU]/fVtjfee72 - 98 Int._Unit/LRemisol ChemALT No additional P-5'-P [Catalytic activity/Vol][iU]/d Low6 - 46 Int._Unit/LRemisol ChemAnion gap [Moles/Vol]11 mmol/LNormal6 - 16 mEq/LRemisol ChemAST [Catalytic activity/Vol]15 [iU]/dNormal5 - 43 Int._Unit/L Remisol ChemBilirubin [Mass/Vol]1.0 mg/dLNormal0.0 - 1.1 mg/dLRemisol Chem Calcium [Mass/Vol]9.5 mg/dLNormal8.9 - 11.1 mg/dLRemisol ChemChloride [Moles/Vol]108 mmol/BWmhyzf392 - 111 mmol/LRemisol ChemCholesterol [Mass/Vol]200 mg/fMDumwke616 - 200 mg/dLRemisol ChemCholesterol in HDL [Mass/Vol]40 mg/dL Invalid Interpretation CodeRemisol ChemComment on above:Result Comment: '>= 60 LOW RISK' '<= 40 HIGH RISK'Cholesterol in LDL [Mass/Vol]143 mg/dLHigh<=129mg/dLRemisol ChemCholesterol in VLDL [Mass/Vol]21 mg/dLNormal7 - 40 mg/dLRemisol ChemCO2 [Moles/Vol]26 mmol/QMohuze54 - 31 mmol/LRemisol ChemCreatinine [Mass/Vol]1.0 mg/dLNormal0.5 - 1.3 mg/dLRemisol GtyajFDO59 mL/min/1.73 s5Umlrsm>=59mL/min/1.73 b6Zlieqdw ChemGlobulin (S) [Mass/Vol]2.1 g/dLNormal1.4 - 4.0 gm/dLRemisol Chem Glucose [Mass/Vol]98 mg/lMGvuxgk76 - 199 mg/dLRemisol ChemPotassium [Moles/Vol] 4.3 mmol/LNormal3.5 - 5.3 mmol/LRemisol ChemProstate specific Ag [Mass/Vol]3.0 ng/mLNormal0.1 - 3.5 ng/mLRemisol ChemComment on above:Interpretive Data: The concentration of PSA determined by different manufacturers can vary due to di fferences in assay methods and reagent specificity. Values obtained from different assay methods cannot be used interchangeably. The methodology used for this result was chemiluminescence using [employer]'s Access Hybritech PSA reagent.Protein [Mass/Vol]6.7 g/dLNormal6.0 - 7.8 gm/dLRemisol ChemSodium [Moles/Vol]141 mmol/CJmeije492 - 145 mmol/LRemisol ChemTriglyceride [Mass/Vol] 104 mg/dLNormal<=149mg/dLRemisol ChemUrea nitrogen [Mass/Vol]17 mg/dLNormal5 - 21 mg/dLRemisol ChemUrea nitrogen/Creatinine [Mass ratio]17 mg/ilOgbyhb44 - 20 Remisol ChemCBC AUTO DIFFon 89-71-2836HCML #0.1 103/ulNormal0.0-0.1The [facility] HospitalComment on above:Performed By: #### CBC #### [facility] [address] [place] [address] [address] Abdoulaye CareyBasophils/100 WBC (Bld)0.7 %Normal0.2-2.0The [facility] Comment on above:Performed By: #### CBC #### [facility] [address] [place] [address] [address] Abdoulaye Arvizu #0.2 103/ulNormal0.0-0.7The [facility] HospitalComment on above: Performed By: #### CBC #### [facility] [address] [address] [address] Abdoulaye Francoosinophils/100 WBC (Bld)1.7 %Normal0.9-7.0The [facility] Comment on above:Performed By: #### CBC #### [facility] [address] [address] [address] Abdoulaye Francorythrocyte distribution width (RBC) [Ratio]13.4 %Ajuvhq84.0-15.0 The [facility] HospitalComment on above:Performed By: #### CBC #### [facility] [address] [address] [address] Abdoulaye CareyHematocrit (Bld) [Volume fraction]50.6 %Blmnng82.0-54.0The [facility] HospitalComment on above:Performed By: #### CBC #### [facility] [address] [address] [address] Abdoulaye CareyHemoglobin (Bld) [Mass/Vol]16.3 g/aCSpxdve67.0-18.0The [facility] HospitalComment on above:Performed By: #### CBC #### [facility] [address] [address] [address] Abdoulaye Burton #0.04 10e3/ulCritically high0.00-0.03The [facility] Comment on above:Performed By: #### CBC #### [facility] [address] [address] [address] Abdoulaye Burton %0.5 %Normal0.0-0.5The [facility] HospitalComment on above: Performed By: #### CBC #### [facility] [address] [place] [address] Dr. Abdoulaye Martinez #1.8 103/ulNormal1.2-3.8The [facility] HospitalComment on above:Performed By: #### CBC #### [facility] [address] [place] [address] Dr. Abdoulaye Ramirezhocytes/100 WBC (Bld)21.0 %Mrjeos51.5-60.0The [facility] Hospitalment on above:Performed By: #### CBC #### [facility] [address] [place] [address] Dr. Abdoulaye BeyUAL DIFF REQNONormalThe [facility] Hospitalment on above: Performed By: #### CBC #### [facility] [address] [place] [address] Dr. Abdoulaye Boyer (RBC) [Entitic mass]29.8 oiKxcexf10.9-34.0The [facility] Hospitalment on above:Performed By: #### CBC #### [facility] [address] [place] [address] Dr. Abdoulaye Boyer (RBC) [Mass/Vol]32.2 g/uKNvpubb16.9-35.2The [facility] on above:Performed By: #### CBC #### [facility] [address] [place] [address] Dr. Abdoulaye Boyer (RBC) [Entitic vol]92.5 zJCnobgb34.0-94.0The [facility] Hospitalment on above:Performed By: #### CBC #### [facility] [address] [address] [address] Abdoulaye Faria #0.6 103/ulNormal0.3-0.8The [facility] HospitalComment on above:Performed By: #### CBC #### [facility] [address] [address] [address] Abdoulaye Smithocytes/100 WBC (Bld)7.1 %Normal1.7-12.0The [facility] on above:Performed By: #### CBC #### [facility] [address] [place] [address] Dr. Abdoulaye Gilbert #6.1 103/ulNormal1.4-6.5The [facility] HospitalComment on above:Performed By: #### CBC #### [facility] [address] [place] [address] Dr. Abdoulaye Weaverutrophils/100 WBC (Bld)69.0 %Uegmoc14.0-75.0The [facility] HospitalComment on above:Performed By: #### CBC #### [facility] [address] [place] [address] Dr. Abdoulaye Zelayalet mean volume (Bld) [Entitic vol]11.5 fLNormal9.5-13.5The [facility] Hospitalment on above:Performed By: #### CBC #### [facility] [address] [place] [address] Dr. Abdoulaye CareyPLT150 103/ztCcyedp649-429Bdt [facility] HospitalComment on above: Performed By: #### CBC #### [facility] [address] [place] [address] Dr. Abdoulaye CareyRBC5.47 106/ulNormal4.70-6.10The [facility] HospitalComment on above:Performed By: #### CBC #### [facility] [address] [place] [address] Dr. Abdoulaye CareyWBC8.8 103/ulNormal4.0-11.0The Karen HospitalComment on above: Performed By: #### CBC #### [facility] [address] [address] [address] Abdoulaye BallesterosID PROFILEon 98-10-6737XZOR-HDL RATIO NORMSCrystal Clinic Orthopedic CenterCommarshfield medical center on above:Result Comment: 3.3 - 4.4 LOW RISK 4.4 - 7.1 AVERAGE RISK 7.1 - 11.0 MODERATE RISK >11.0 HIGH RISKPerformed By: #### CMP, LIPID #### [facility] [address] [address] [address] Abdoulaye CareyCholesterol [Mass/Vol]199 mg/dLNormal<=200[facility] Comment on above:Performed By: #### CMP, LIPID #### [facility] [address] [address] [address] Abdoulaye CareyCholesterol in HDL [Mass/Vol]37 mg/dLCritically una21-23Dkt [facility] HospitalCommarshfield medical center on above:Performed By: #### CMP, LIPID #### [facility] [address] [address] [address] Abdoulaye CareyCholesterol in LDL [Mass/Vol]136.2 mg/dLUniversity Hospitals Health SystemCommarshfield medical center on above:Performed By: #### CMP, LIPID #### [facility] [address] [address] [address] Abdoulaye Pedersenestermichelle.total/Cholesterol in HDL [Mass ratio]5.4 {ratio} NormalAultman HospitalComment on above:Performed By: #### CMP, LIPID #### [facility] [address] [address] [address] Abdoulaye CareyHDL NORMAL> or = 60 mg/dl - LOW CARDIOVASCULAR RISK <40 mg/dl - HIGH CARDIOVASCULAR RISKUniversity Hospitals Health SystemCommarshfield medical center on above:Performed By: #### CMP, LIPID #### [facility] [address] [address] [address] Abdoulaye CareyLDL CALC NORMALSEE [facility] HospitalCommarshfield medical center on above:Result Comment: <100 mg/dl OPTIMAL 100 - 129 mg/dl NEAR OR ABOVE OPTIMAL 130 - 159 mg/dl BORDERLINE HIGH 160 - 189 mg/dl HIGH >190 mg/dl VERY HIGH Performed By: #### CMP, LIPID #### [facility] [address] [place] [address] Dr. Abdoulaye CareyTriglyceride [Mass/Vol]129 mg/dLNormal<=150The [facility] Comment on above:Performed By: #### CMP, LIPID #### [facility] [address] [place] [address] Dr. Abdoulaye CareyVLDL CALC25.8 mg/dLNormalThe [facility] HospitalComment on above: Performed By: #### CMP, LIPID #### [facility] [address] [place] [address] Dr. Abdoulaye Thibodeaux 14(COMP METB)on 21-94-9484Pgigktv [Mass/Vol]4.5 g/dLNormal 3.4-5.0The [facility] HospitalComment on above:Performed By: #### CMP, LIPID #### [facility] [address] [place] [address] Dr. Abdoulaye CareyAlbumin/Globulin [Mass ratio]1.6 {ratio}NormalThe [facility]rbana HospitalComment on above:Performed By: #### CMP, LIPID #### [facility] [address] [place] [address] Dr. Abdoulaye Vazquez [Catalytic activity/Vol]68 U/PQxwscu71-458Imu [facility] HospitalComment on above:Performed By: #### CMP, LIPID #### [facility] [address] [place] [address] Dr. Abdoulaye Hutton [Catalytic activity/Vol]6 U/LCritically gzi10-90Vbm [facility] HospitalComment on above:Performed By: #### CMP, LIPID #### [facility] [address] [place] [address] Dr. Abdoulaye Donald gap [Moles/Vol]14.2 mmol/LNormalThe [facility] Comment on above:Performed By: #### CMP, LIPID #### [facility] [address] [place] [address] Dr. Yilan ChangAST [Catalytic activity/Vol]18 U/LMnwkps25-92Zvd [facility] HospitalComment on above:Performed By: #### CMP, LIPID #### [facility] [address] [place] [address] Dr. Abdoulaye CareyBilirubin [Mass/Vol]0.8 mg/dLNormal0.2-1.0The [facility] Comment on above:Performed By: #### CMP, LIPID #### [facility] [address] [place] [address] Dr. Abdoulaye CareyCalcium [Mass/Vol]9.3 mg/dLNormal8.5-10.1The [facility] Comment on above:Performed By: #### CMP, LIPID #### [facility] [address] [place] [address] Dr. Abdoulaye CareyChloride [Moles/Vol]106 mmol/MHcjjgy57-090Vtf [facility] Comment on above:Performed By: #### CMP, LIPID #### [facility] [address] [place] [address] Dr. Abdoulaye CareyCO2 [Moles/Vol]26.6 mmol/LHgijsw04.0-32.0The [facility] Comment on above:Performed By: #### CMP, LIPID #### [facility] [address] [place] [address] Dr. Abdoulaye CareyCreatinine [Mass/Vol]1.08 mg/dLNormal0.70-1.30The [facility] HospitalComment on above:Performed By: #### CMP, LIPID #### [facility] [address] [place] [address] Dr. Abdoulaye FrancoGFR-AF SWEDISH>60Normal>=60The [facility] HospitalComment on above:Performed By: #### CMP, LIPID #### [facility] [address] [place] [address] Dr. Abdoulaye FrancoGFR-NON AF SWEDISH>60Normal>=60The [facility] HospitalComment on above:Performed By: #### CMP, LIPID #### [facility] [address] [place] [address] Dr. Abdoulaye CareyGlobulin (S) [Mass/Vol]2.9 g/dLNormAshtabula County Medical CenterComment on above:Performed By: #### CMP, LIPID #### [facility] [address] [address] [address] Abdoulaye CareyGlucose [Mass/Vol]109 mg/dLCritically dfts49-296Deq [facility] HospitalComment on above:Performed By: #### CMP, LIPID #### [facility] [address] [address] [address] Abdoulaye CareyPotassium [Moles/Vol]3.8 mmol/LNormal3.5-5.1The [facility] Comment on above:Performed By: #### CMP, LIPID #### [facility] [address] [place] [address] Dr. Abdoulaye CareyProtein [Mass/Vol]7.4 g/dLNormal6.4-8.2The [facility] Comment on above:Performed By: #### CMP, LIPID #### [facility] [address] [place] [address] Dr. Abdoulaye CareySodium [Moles/Vol]143 mmol/ZFvqnoy560-118Jaz [facility] Comment on above:Performed By: #### CMP, LIPID #### [facility] [address] [place] [address] Dr. Abdoulaye CareyUrea nitrogen [Mass/Vol]22.0 mg/dLCritically high7.0-18.0The [facility] HospitalComment on above:Performed By: #### CMP, LIPID #### [facility] [address] [place] [address] Dr. Abdoulaye CareyUrea nitrogen/Creatinine [Mass ratio]20.4 mg/mgNoCleveland Clinic Mercy HospitalComment on above:Performed By: #### CMP, LIPID #### [facility] [address] [place] [address] Dr. Abdoulaye Carey Vital Signs Date TimeVital SignValuePerforming FnldkkfegIdrwtuqw79-71-8946 09:24-0500Body mass index (BMI) [Ratio]23.49 kg/i4Vlndvo Dieudonne [employer] SQL DEVELOPER Work Phone: [facility] SpringsVfkfkvzgtg29-08-8204 09:24-0500Body hcocpf20.04 kgUrbano Bro SAS SQL DEVELOPER Work Phone: [phone] [place], [place] [address]Vpsxmqltnt30-42-6791 09:24-0500Diastolic blood xdjaxcrx31 mm[Hg]Urbano Bro [employer] SQL DEVELOPER Work Phone: [phone] [place], [place] [address]Cpuyxjdozh47-55-0041 09:24-0500Heart rate71 /min Urbano Bro [employer] SQL DEVELOPER Work Phone: [phone] [place], [place] [address]Uykpwemcrq73-33-9947 09:24-0500Systolic blood ytjixapn330 mm[Hg]Urbano Bro [employer] SQL DEVELOPER Work Phone: [phone] [place], [place] [address]Sawvlxxpni20-54-4305 09:11-0500Body mass index (BMI) [Ratio]22.71 kg/s2LerhjlUrbano Bro SAS SQL DEVELOPER Work Phone: [phone] [place], [place] [address]Idarowcbqy38-95-1145 09:11-0500Body wuwaqb68.77 kgUrbano Bro SAS SQL DEVELOPER Work Phone: [phone] [place], [place] [address]Jetbjlgpif24-23-3389 09:11-0500Diastolic blood jqwialom73 mm[Hg]Urbano Bro SAS SQL DEVELOPER Work Phone: [phone] [place], [place] [address]Gqnrkxhmrg23-83-1745 09:11-0500Heart rate79 /min Urbano Bro SAS SQL DEVELOPER Work Phone: [phone] SpringsJalevpyqfs04-63-8905 09:11-0500Systolic blood nucrtmoj312 mm[Hg]Urbano Bro SAS SQL DEVELOPER Work Phone: [phone] [place], [place] [address]Lykdtyyzss67-42-6610 08:57-0500Body hjdkgo143.2 cmUrbano Bro SAS SQL DEVELOPER Work Phone: [phone] [place], [place] [address]Ndiwunzfqk35-03-0450 08:57-0500Body mass index (BMI) [Ratio]21.77 kg/l1MffsiyUrbano Bro SAS SQL DEVELOPER Work Phone: [phone] [place] [address]-13-2024 08:57-0500Body .05 kgUrbano Bro SAS SQL DEVELOPER Work Phone: [phone] [place], [place] [address]Qkpjmexmqw30-64-9512 08:57-0500Diastolic blood mm[Hg]Urbano Bro SAS SQL DEVELOPER Work Phone: [facility] Veqpzjlvzf64-13-2996 08:57-0500Systolic blood mm[Hg]Urbano Bro SAS SQL DEVELOPER Work Phone: [facility] Encounters Encounter DateEncounter TypeCare ProviderFacilityStart: 36-38-5489rtqsnecigbDniy L SchwabFacility:[facility] BellevueStart: 74-54-2966yfkgxpubsbKxxl L Kellie Facility:[facility] BellevueStart: 08-24-2025 End: 31-67-2124ofsiejrzwrLiicvx X OrzechFacility:EU ueStart: 08-24-2025 End: 81-36-3643Zlnpiuw encounter procedureAurora X Orzech [facility] start: 08-17-2025 End: 55-26-9526Cxrwqvwqi department patient Heidy BanksFacility:[facility] Start: 08-16-2025 End: 62-27-5567dgrgwlclgzOrpgt M. LueFacility:[facility]Start: 08-11-2025 End: 99-30-6336qjhlzkesmtGjsre M. LueFacility:[facility]ICEStart: 08-09-2025 End: 30-55-1772bpaeqbcigjBssta M. LueFacility:EU tart: 08-09-2025 End: 75-73-3820Csvkmwk encounter procedureJudith Casper [facility] start: 07-31-2025 End: 96-86-9832hzlxxsxgfmKTJ Jodi L SchwabFacility:[facility] BellevueStart: 07-26-2025 End: 39-69-4697hjboelbvikGGU Radha L SchwabFacility:CD:[id number]: 83-72-2000vbycdngpzaBthic LueFacility:EU BellevueStart: 52-13-3262tnozdmgwis JOSE A LEHMANNFacility:FT FM BellevueStart: 07-24-2025 End: 72-08-8765oybpsmmuwdLhney M. LueFacility:CD:[id number]: 07-22-2025 End: 75-56-6793gatfvbmsjiLeqcp [facility] Work Phone: Start: 07-22-2025 End: 39-79-2325Mgnqjter ReferredAscension Standish Hospitalyuliya Whitaker MD-LAB [facility] Start: 06-29-2025 End: 39-91-8332weihpvssbnWtrm L SchwabFacility:[facility] FM BellevueStart: 03-29-2025 End: 51-83-4724dvbqsqfehvKqve L SchwabFacility:[facility] FM BellevueStart: 03-22-2025 End: 56-84-7762yenzzibfpzGvnw L SchwabFacility:[facility] FM BellevueStart: 03-02-2025 End: 91-66-2900ijbxmqmwqwRCTSOL T GOSTKOWSKIFacility:[facility] Start: 12-26-2024 End: 42-84-6041Wpx Drop offJodi L Kellie [facility] Start: 12-26-2024 End: 04-11-4431gkaaagkbnoIarf L SchwabFacility:FT FM BellevueStart: 12-22-2024 End: 52-98-3389ayvwptzmynHwhz L SchwabFacility:FT FM BellevueStart: 11-17-2024 End: 37-19-2115Isrhrprtl encounterMariah Dumont MD Work Phone: Neurological RestorationComment on above:RNS/DBS Visit Start: 11-16-2024 End: 39-26-8431Vawfwk Akua Bro NP Work Phone: aNA [place]UEStart: 11-16-2024 End: 15-52-9558Fztzxaakash Bro SAS SQL DEVELOPER Work Phone: ana [place]UEStart: 11-16-2024 End: 33-36-7851Sffyxt outpatient visit 25 minutesUrbano Bro SAS SQL DEVELOPER Work Phone: aNA BELLEVUEComment on above:Parkinson's disease without dyskinesia or fluctuating manifestations (CMS/HCC) (Primary Dx); Dysphagia, unspecified type; Weight lossStart: 11-16-2024 End: 77-77-1834sadnvzpadkIFBQZN MORRISNot AvailableStart: 09-28-2024 End: 26-46-7042fztfuewzlfCsem L SchwabFacility:FT FM BellevueStart: 09-26-2024 End: 39-09-7453Ebonbc Akua Bor SAS SQL DEVELOPER Work Phone: [facility] [place] [facility]TEStart: 09-26-2024 End: 04-51-2931Ndcrqp Akua Bro SAS SQL DEVELOPER Work Phone: [facility] [place] [facility] R[facility]TEStart: 09-26-2024 End: 33-22-3883Ubllml outpatient visit 25 minutesUrbano Bro SAS SQL DEVELOPER Work Phone: [facility] [place] STATE ROUTEComment on above:Parkinson's disease without dyskinesia or fluctuating manifestations (CMS/HCC)Start: 09-26-2024 End: 96-90-6639uamxtesqedDIEURV MORRISNeville AvailableStart: 09-09-2024 End: 13-13-2629ddldohgqzxYjcy L SchwabFacility:FT FM BellevueStart: 08-31-2024 End: 59-86-5675Eaaddj Akua Bro SAS SQL DEVELOPER Work Phone: [facility] [place] [facility] R[facility]TEStart: 08-31-2024 End: 36-55-9179Vnvnay Akua Bro SAS SQL DEVELOPER Work Phone: [facility] [place] [facility]TEStart: 08-31-2024 End: 98-61-6665Emnfwk outpatient visit 25 minutesUrbano Bro SAS SQL DEVELOPER Work Phone: [facility] [place] STATE ROUTEComment on above:Parkinson's disease without dyskinesia or fluctuating manifestations (CMS/HCC) (Primary Dx); Dysphagia, unspecified type; Weight lossStart: 08-31-2024 End: 00-28-9583sgmvuucxchQNPUNT MORRISNeville AvailableStart: 06-10-2024 End: 23-98-4486srfxgoflbeZyaz L SchwabFacility:FT FM BellevueStart: 06-02-2024 End: 43-19-9558jeevactsoeBCUQBT DIEUDONNENeville AvailableStart: 05-31-2024 End: 83-86-3807ryjlklorvqVSBULAKG D ZAHLERNot AvailableStart: 03-30-2024 End: 63-55-7021Ozq Drop offJodi L [place] [facility] Start: 03-30-2024 End: 97-65-2366qerqhifnjlRpli L SchwabFacility:FT BellevueStart: 12-30-2023 End: 51-55-5081dadartuzlqQfry L SchwabFacility:FT BellevueStart: 12-23-2023 End: 06-56-3167Vai Drop offJodi L [place] [facility] Start: 12-26-2022 End: 09-41-0605Pievqtb encounter procedureMichael R NILL General Surgery Nill[facility] [place] Start: 12-17-2022 End: 09-92-7542bdghpoksqjNPHFJEK NILLFacility:K3Xmtdr: 10-31-2022 End: 54-85-2515gheivpinxfLH JOSE [place]ILLARREAL .Facility: Procedures DateProcedureProcedure DetailPerforming ClinicianStart: 00-99-8671Qpqmusyjjw Gabby Orzech Start: 38-50-3260UetttddtvwzIqocfdq NILL Start: 49-60-8149Gtvqaoxn Extraction with IOL placement - OD.Dianelys GUIDRY Start: 49-47-5426OvglxsulhykVrrhqod NILL VasectomyDianelys CRAWFORDL Plan of Treatment DateCare ActivityDetailAuthorStart: 24-70-6119UfkwvOhioHealth Grant Medical Centertart: 87-62-9221Galpgjvz identified in Urine by CultureUrine [facility] Centertart: 01-10-2025 End: 36-28-4704Dpekssl encounter /25/2025 1:20 PM EDT Office Visit KAREN JONES [address] [place] [address] Urbano Bro NP [address] [place], [place] [id number] KAREN RENOZAIDUEStart: 11-16-2024 End: 61-83-3389Gbkonzg encounter procedureNOPR [place] [facility] ROUTEComment on above:ArrivedStart: 09-26-2024 End: 78-58-9840Uxvaxwi encounter nulfkmszm37/09/2024 9:20 AM EST Office Visit NOMCecelia JONES [facility] [address] [address] [place] [address] Urbano Bro NP [address] [place], [place] [id number] ArrivedPEACEHEALTHEVUE [facility] ROUTEComment on above:ArrivedStart: 09-22-2024 End: 37-03-5345Ayhdvri encounter ydwndtxgm92/05/2024 11:20 AM EST Office Visit NOMCecelia JONES [facility] [address] [address] [place] [address] Urbano Bro NP [address] [place] [address] [facility] ROUTEStart: 06-19-2024 Influenza vaccinationInfluenza Vaccine (#1)[facility] HealthcareStart: 09-20-2021 Pneumococcal Vaccine: 65+ Years (2 of 2 - PPSV23 or PCV20)Pneumococcal Vaccine: 65+ Years (2 of 2 - PPSV23 or PCV20)[facility] HealthcareStart: 65-65-7571Aralncwnl for malignant neoplasm of colonT[facility]ELE [facility] Healthcare Immunizations Immunization DateImmunizationNotesCare ZrxmdlriKgjetjlc26-22-3079goeezf vaccine recombinantKathy Lue 897-5266Hqtfcx-MyewySt. Anthony'S Hospital 20-73-6109zrcvem vaccine recombinantKathy Lue 034-5094Nrwbee-MridtSt. Anthony'S Hospital 74-67-9386NKOO-CoV-2 (COVID-19) mRNA BNT-162b2 vaxMichael NILL GenePalo Verde HospitalZligcpsy90-12-2399VQEK-TtA-2 (COVID-19) mRNA BNT-162b2 vaxMichael NILL GenePalo Verde HospitalAzlpknmw09-19-1847GMSY-XyH-1 (COVID-19) mRNA BNT-162b2 vaxMichael NILL [facility] CenterComment on above:Result Comment: 2022-11-18: SXV2172-97-1414irdppcqrkwzy conjugate vaccine, 13 valent Urbano Dieudonne CHRIS Work Phone: [facility] HealthcareNEGATED: Highlighted row has not occurred!38-86-6403isgcemafx virus vaccine, unspecified formulationKathy Lue 550-0882Dadtaa-CezifSt. Anthony'S Hospital NEGATED: Highlighted row has not occurred!14-71-8790rcsnwfhai virus vaccine, unspecified formulationJodi [place] 520-6019Vxgkhb-AxfqsSt. Anthony'S Hospital NEGATED: Highlighted row has not occurred!33-77-0686xnvtilzrh virus vaccine, unspecified formulationMichael NILL [facility] Payers DatePayer CategoryPayerPolicy [id number]-pay2024Medicare (Managed Care)[facility] MEDIC[facility]VANT[facility] Member Subscriber Plan / Payer (Effective 2023-Present) Name: Quinten Kaminski Relation to Subscriber: Self Name: Quinten Kaminski Payer ID: [id number] ([facility]) Type: Not on file Address: [address] [id number] 2018Medicare [id number] [id number] 1950 [id number] 2..1.631336.3.57[id number] 2..1.458357.3.579.2.40763-24-1479Eocqsju7924700 2..1.031981.3.579.2.942354-20-6562Qfxnqmi0720945 2..1.614637.3.579.2.823690-20-0029Jghpiuj7565007 2..1.398423.3.579.2.531278-09-4633Dpjnoxb9482478 2..1.799482.3.579.2.820416-87-8518Apjhkfg3977169 2..1.369144.3.579.2.[id number] 2..1.826111.3.579.2.27271-11-8605Ijfzrif42007901 2.16.840.1.724147.3.579.2.42035-42-5025Hghiayw12595425 2.16840.1.713908.3.579.2.67753-22-3068Rxsnqce38354495 2.16840.1.381690.3.57[id number] 2.16840.1.718739.3.579.2.41413-39-0896Ceicwlq47923204 2.0.1.666211.3.579.2.13408-47-6783Kkhxtik73764054 2.840.1.839894.3.579.2.88686-51-7810Psdytrb28037694 2.840.1.376787.3.579.2.05290-35-4338Qnygjeo69364298 2.840.1.610207.3.579.2.73472-64-9557Gdoqyxi46903952 2.840.1.078641.3.579.2.05595-22-5093Bdujsvd04947555 2.0.1.008047.3.579.2.26114-57-4171Rwdnpqe61957306 2.840.1.933964.3.579.2.91717-43-3856Xghswgi73565405 2.840.1.162956.3.579.2.20387-64-8650Zeanmnj95125918 2.16840.1.189620.3.579.2.69488-72-3761Fhcqaqj79331064 2.16840.1.176529.3.579.2.17648-92-0159Xywgpla92871350 2.16.840.1.758604.3.579.2.50411-34-9949Sndumzo22804328 2.16.840.1.753517.3.579.2.15493-41-4455Tcneybr94890116 2.16.840.1.284172.3.579.2.51553-43-8312Wynikiu70170263 2.16.840.1.463425.3.579.2.75231-44-2559Mourucx43847081 2.16.840.1.245323.3.579.2.98687-04-0583Lcbwzjj66335915 2.16.840.1.910642.3.579.2.82386-95-6130Tcuzfiy17822683 2.16.840.1.246542.3.579.2.91939-95-9587Ywigyys91597481 2.16.840.1.045328.3.579.2.75765-21-9891Qzsyojs15031165 2.16.840.1.329657.3.579.2.96339-49-6446Erxbxgp79374813 2.16.840.1.678347.3.579.2.12332-29-5416Aguhiad82592847 2.840.1.401942.3.579.2.76244-70-5927Foejjkb19831284 2.16.840.1.032316.3.579.2.727UnknownRegular Erqrlawyo310F1C016058 wz1w669f-f6gl-28og-a1u9-3l273od55947Yfkxtdi12943692 2.16.840.1.957850.3.579.2.531 Social History DateTypeDetailFacilityStart: 11-18-2022 End: 92-82-5015Uedsgww smoking statusNever smoked tobacco (finding)General Surgery [place]ortComment on above:never in lifetimedenies use.Tobacco smoking statusNeverGeneral Surgery [facility] HospitalueComment on above:never in lifetimedenies use. Start: 03-33-5033Xzf Assigned At BirthThe University of Toledo Medical Centertart: 06-02-2024 End: 68-16-6826Qwjjmvdfm beverage intakeLifetime non-drinker (finding)[facility] HealthcareStart: 48-90-8054Barsccj of Social functionNOMS HealthcareStart: 16-85-8418Xsl assigned at birthNot on fileSaint Mary's Hospital of Blue SpringsTobacco smoking status NHISTobacco smoking consumption unknownKettering Health Washington Townshiptart: 11-12-1768OwdPykk (finding)[facility] Centertart: 21-58-0347Odf Assigned At [facility] Centerexual OrientationExec[facility] Medical Equipment Procedure CodeEquipment CodeEquipment Original TextEquipment IdentifierDates CYSTOSCOPY RETROGRADE STENT INSERTION Tremayne LORD, Judith Spicer. 08/16/25 Unknown Ureter L FDAStart: 08-16-2025 Clinical Notes 12-17-2022 to 08-24-2025 Note Date & LsldLlrlCbvsgbkn19-15-1109 Hospital Discharge instructions Patient Education 08/24/2025 10:07:22 Acute Urinary Retention, Male Acute Urinary Retention, Male Acute urinary retention is a condition in which a person is unable to pass urine or can only pass alittle urine. This condition can happen suddenly and last for a short time. If left untreated, it can become long-term (chronic) and result in kidney damage or other serious complications. What are the causes? This condition may be caused by: Obstruction or narrowing of the tube that drains the bladder (urethra). This may be caused by surgery, problems with nearby organs, or injury to the bladder or urethra. Problems with the nerves in the bladder. Tumors in the area of the pelvis, bladder, or urethra. Certain medicines. Bladder or urinary tract infection. Constipation. What increases the risk? This condition is more likely to develop in older men. As men age, their prostate may become largerand may start to press or squeeze on the bladder or the urethra. Other chronic health conditions can increase the risk of acute urinary retention. These include: Diseases such as multiple sclerosis. Spinal cord injuries. Diabetes. Degenerative cognitive conditions, such as delirium or dementia. Psychological conditions. A man may hold his urine due to trauma or because he does not want to usethe bathroom. What are the signs or symptoms? Symptoms of this condition include: Trouble urinating. Pain in the lower abdomen. How is this diagnosed? This condition is diagnosed based on a physical exam and your medical history. You may also have other tests, including: An ultrasound of the bladder or kidneys or both. Blood tests. A urine analysis. Additional tests may be needed, such as a CT scan, MRI, and kidney or bladder function tests. How is this treated? Treatment for this condition may include: Medicines. Placing a thin, sterile tube (catheter) into the bladder to drain urine out of the body. This is called an indwelling urinary catheter. After it is inserted, the catheter is held in place with a small balloon that is filled with sterile water. Urine drains from the catheter into a collection bag outside of the body. Behavioral therapy. Treatment for other conditions. If needed, you may be treated in the hospital for kidney function problems or to manage other complications. Follow these instructions at home: Medicines Take sbpa-cir-svjoksg and prescription medicines only as told by your health care provider. Avoid certain medicines, such as decongestants, antihistamines, and some prescription medicines. Do not take any medicine unless your health care provider approves. If you were prescribed an antibiotic medicine, take it as told by your health care provider. Do notstop using the antibiotic even if you start to feel better. General instructions Do not use any products that contain nicotine or tobacco. These products include cigarettes, chewing tobacco, and vaping devices, such as e-cigarettes. If you need help quitting, ask your health careprovider. Drink enough fluid to keep your urine pale yellow. If you have an indwelling urinary catheter, follow the instructions from your health care provider. Monitor any changes in your symptoms. Tell your health care provider about any changes. If instructed, monitor your blood pressure at home. Report changes as told by your health care provider. Keep all follow-up visits. This is important. Contact a health care provider if: You have uncomfortable bladder contractions that you cannot control (spasms). You leak urine with the spasms. Get help right away if: You have chills or a fever. You have blood in your urine. You have a catheter and the following happens: ?Your catheter stops draining urine. ?Your catheter falls out. Summary Acute urinary retention is a condition in which a person is unable to pass urine or can only pass alittle urine. If left untreated, this condition can result in kidney damage or other serious complications. An enlarged prostate may cause this condition. As men age, their prostate gland may become larger and may press or squeeze on the bladder or the urethra. Treatment for this condition may include medicines and placement of an indwelling urinary catheter. Monitor any changes in your symptoms. Tell your health care provider about any changes. This information is not intended to replace advice given to you by your health care provider. Make sure you discuss any questions you have with your health care provider. Document Revised: 06/26/2021 Document Reviewed: 06/26/2021 Umbrella Here Patient Education 2023 [employer]. Follow Up Care 08/17/2025 09:54:16 With:FAYE Cordero APRN, CHRISTIN Diaz, URL Address: When: Unknown [facility] 11-06-2025 NotePatient Education Urology Acute Urinary Retention, Male Acute urinary retention is a condition in which a person is unable to pass urine or can only pass alittle urine. This condition can happen suddenly and last for a short time. If left untreated, it can become long-term (chronic) and result in kidney damage or other serious complications. What are the causes? This condition may be caused by: ??? Obstruction or narrowing of the tube that drains the bladder (urethra). This may be caused by surgery, problems with nearby organs, or injury to the bladder or urethra. ??? Problems with the nerves in the bladder. ??? Tumors in the area of the pelvis, bladder, or urethra. ??? Certain medicines. ??? Bladder or urinary tract infection. ??? Constipation. What increases the risk? This condition is more likely to develop in older men. As men age, their prostate may become largerand may start to press or squeeze on the bladder or the urethra. Other chronic health conditions can increase the risk of acute urinary retention. These include: ??? Diseases such as multiple sclerosis. ??? Spinal cord injuries. ??? Diabetes. ??? Degenerative cognitive conditions, such as delirium or dementia. ??? Psychological conditions. A man may hold his urine due to trauma or because he does not want touse the bathroom. What are the signs or symptoms? Symptoms of this condition include: ??? Trouble urinating. ??? Pain in the lower abdomen. How is this diagnosed? This condition is diagnosed based on a physical exam and your medical history. You may also have other tests, including: ??? An ultrasound of the bladder or kidneys or both. ??? Blood tests. ??? A urine analysis. ??? Additional tests may be needed, such as a CT scan, MRI, and kidney or bladder function tests. How is this treated? Treatment for this condition may include: ??? Medicines. ??? Placing a thin, sterile tube (catheter) into the bladder to drain urine out of the body. This is called an indwelling urinary catheter. After it is inserted, the catheter is held in place with a small balloon that is filled with sterile water. Urine drains from the catheter into a collection bag outside of the body. ??? Behavioral therapy. ??? Treatment for other conditions. If needed, you may be treated in the hospital for kidney function problems or to manage other complications. Follow these instructions at home: Medicines ??? Take gzar-jea-plitbqc and prescription medicines only as told by your health care provider. Avoid certain medicines, such as decongestants, antihistamines, and some prescription medicines. Do nottake any medicine unless your health care provider approves. ??? If you were prescribed an antibiotic medicine, take it as told by your health care provider. Donot stop using the antibiotic even if you start to feel better. General instructions ??? Do not use any products that contain nicotine or tobacco. These products include cigarettes, chewing tobacco, and vaping devices, such as e-cigarettes. If you need help quitting, ask your health care provider. ??? Drink enough fluid to keep your urine pale yellow. ??? If you have an indwelling urinary catheter, follow the instructions from your health care provider. ??? Monitor any changes in your symptoms. Tell your health care provider about any changes. ??? If instructed, monitor your blood pressure at home. Report changes as told by your health care provider. ??? Keep all follow-up visits. This is important. Contact a health care provider if: ??? You have uncomfortable bladder contractions that you cannot control (spasms). ??? You leak urine with the spasms. Get help right away if: ??? You have chills or a fever. ??? You have blood in your urine. ??? You have a catheter and the following happens: ? Your catheter stops draining urine. ? Your catheter falls out. Summary ??? Acute urinary retention is a condition in which a person is unable to pass urine or can only pass a little urine. If left untreated, this condition can result in kidney damage or other serious complications. ??? An enlarged prostate may cause this condition. As men age, their prostate gland may become larger and may press or squeeze on the bladder or the urethra. ??? Treatment for this condition may include medicines and placement of an indwelling urinary catheter. ??? Monitor any changes in your symptoms. Tell your health care provider about any changes. This information is not intended to replace advice given to you by your health care provider. Make sure you discuss any questions you have with your health care provider. Document Revised: 06/26/2021 Document Reviewed: 06/26/2021 Umbrella Here Patient Education ? 20[address] [employer].[facility] 08-17-2025 NoteED Patient Education Note Dumas Catheter Care, Male A Dumas catheter is a soft, flexible tube that is placed into the bladder to drain urine. The catheter has a balloon to hold it inside the bladder. A Dumas catheter may be inserted if: ??? You leak urine or are not able to control when you urinate (urinary incontinence). ??? You are not able to urinate when you need to (urinary retention). ??? You had prostate surgery or surgery on the genitals. ??? You have certain medical conditions, such as multiple sclerosis, dementia, or a spinal cord injury. To Prevent Infection: 1. Wash your hands with soap and water before and after handling your catheter. 2. Using mild soap and warm water on a clean washcloth; twice a day. ??? Clean the area on your body closest to the catheter insertion site using a circular motion, moving away from the catheter. Never wipe toward the catheter because this could sweep bacteria up intothe urethra and cause infection. ??? Remove all traces of soap. Pat the area dry with a clean towel and reposition the foreskin. No tub baths. No lotions, powders, or sprays unless directed by your physician. 3. Keep the tube secure. Do not let the tube pull or catch when you are moving around. ??? Attach the catheter to your leg so there is no tension on the catheter. Use adhesive tape or a leg strap. If you are using adhesive tape, remove any sticky residue left behind by the previous tape you used. 4. Replace wet leg straps with dry ones. 5. Wear cotton underwear to absorb moisture and keep steam drier tender. 6. Keep the drainage bag below the level of the bladder, but keep it off the floor. 7. Check throughout the day to be sure the catheter is working and urine is draining freely. Make sure the tubing does not become kinked or looped. 8. Do not pull on the catheter or try to remove it. Pulling could damage internal tissues. TAKING CARE OF THE DRAINAGE BAGS You will be given two drainage bags to take home. One is a large overnight drainage bag, and the other is a smaller leg bag that fits underneath clothing. You may wear the overnight bag at any time, but you should never wear the smaller leg bag at night, unless directed by your physician. Follow the instructions below for how to empty and change your drainage bags. Emptying the Drainage Bag You must empty your drainage bag when it is ? full. 1. Wash your hands with soap and water before and after handling your catheter. 2. Keep the drainage bag below your hips, below the level of your bladder. This stops urine from going back into the tubing and into your bladder. 3. Hold the dirty bag over the toilet or a clean container. 4. Open the pour spout at the bottom of the bag and empty the urine into the toilet or container. Do not let the pour spout touch the toilet, container, or any other surface. Doing so can place bacteria on the bag, which can cause an infection. 5. Clean the pour spout with a gauze pad or cotton ball that has rubbing alcohol on it. 6. Close the pour spout. 7. Attach the bag to your leg with adhesive tape or a leg strap. Changing the Drainage Bag 1. Wash your hands with soap and water before and after handling your catheter. 2. Pinch off the rubber catheter so that urine does not spill out. 3. Disconnect the catheter tube from the drainage tube at the connection valve. Do not let the tubes touch any surface. 4. Clean the end of the catheter tube with an alcohol wipe. Use a different alcohol wipe to clean the end of the drainage tube. 5. Connect the catheter tube to the drainage tube of the clean drainage bag. 6. Attach the new bag to the leg with adhesive tape or a leg strap. Avoid attaching the new bag tootightly. 7. Place a cap on the drainage bag not in use and store in a clean towel. SEEK MEDICAL CARE IF: ??? Your urine is cloudy or smells. ??? Your catheter starts to leak. ??? Your catheter falls out or is pulled out. ??? You have pain, swelling, redness, or pus where the catheter enters the body. ??? You have pain in the abdomen, legs, lower back, or bladder. ??? You have a fever of 100.4 F (38 C) or higher ??? You see pink, red, dark, coffee colored, or pus-like urine. ??? You have nausea, vomiting, or chills. ??? You are not feeling better in 2 to 3 days or you are feeling worse. ??? You are not draining urine into the bag or your bladder feels full. MAKE SURE YOU: ??? Understand the reason you have the catheter. ??? Understand and follow these instructions to care for the catheter. ??? Will watch your condition. ??? Drink 6-8 glasses of water or liquids per day to keep your urine clear. ??? Avoid Caffeinated drinks. They can irritate the bladder and cause bladder spasms. ??? Keep your follow up appointments and call with any concerns. Obstetrics and Gynecology Urinary Tract Infection, Adult A urinary tract infection (UTI) is an (more content not included)...[facility]10-30-2025 NoteED Patient Education Note Dumas Catheter Care, Male A Dumas catheter is a soft, flexible tube that is placed into the bladder to drain urine. The catheter has a balloon to hold it inside the bladder. A Dumas catheter may be inserted if: ??? You leak urine or are not able to control when you urinate (urinary incontinence). ??? You are not able to urinate when you need to (urinary retention). ??? You had prostate surgery or surgery on the genitals. ??? You have certain medical conditions, such as multiple sclerosis, dementia, or a spinal cord injury. To Prevent Infection: 1. Wash your hands with soap and water before and after handling your catheter. 2. Using mild soap and warm water on a clean washcloth; twice a day. ??? Clean the area on your body closest to the catheter insertion site using a circular motion, moving away from the catheter. Never wipe toward the catheter because this could sweep bacteria up intothe urethra and cause infection. ??? Remove all traces of soap. Pat the area dry with a clean towel and reposition the foreskin. No tub baths. No lotions, powders, or sprays unless directed by your physician. 3. Keep the tube secure. Do not let the tube pull or catch when you are moving around. ??? Attach the catheter to your leg so there is no tension on the catheter. Use adhesive tape or a leg strap. If you are using adhesive tape, remove any sticky residue left behind by the previous tape you used. 4. Replace wet leg straps with dry ones. 5. Wear cotton underwear to absorb moisture and keep steam drier tender. 6. Keep the drainage bag below the level of the bladder, but keep it off the floor. 7. Check throughout the day to be sure the catheter is working and urine is draining freely. Make sure the tubing does not become kinked or looped. 8. Do not pull on the catheter or try to remove it. Pulling could damage internal tissues. TAKING CARE OF THE DRAINAGE BAGS You will be given two drainage bags to take home. One is a large overnight drainage bag, and the other is a smaller leg bag that fits underneath clothing. You may wear the overnight bag at any time, but you should never wear the smaller leg bag at night, unless directed by your physician. Follow the instructions below for how to empty and change your drainage bags. Emptying the Drainage Bag You must empty your drainage bag when it is ? full. 1. Wash your hands with soap and water before and after handling your catheter. 2. Keep the drainage bag below your hips, below the level of your bladder. This stops urine from going back into the tubing and into your bladder. 3. Hold the dirty bag over the toilet or a clean container. 4. Open the pour spout at the bottom of the bag and empty the urine into the toilet or container. Do not let the pour spout touch the toilet, container, or any other surface. Doing so can place bacteria on the bag, which can cause an infection. 5. Clean the pour spout with a gauze pad or cotton ball that has rubbing alcohol on it. 6. Close the pour spout. 7. Attach the bag to your leg with adhesive tape or a leg strap. Changing the Drainage Bag 1. Wash your hands with soap and water before and after handling your catheter. 2. Pinch off the rubber catheter so that urine does not spill out. 3. Disconnect the catheter tube from the drainage tube at the connection valve. Do not let the tubes touch any surface. 4. Clean the end of the catheter tube with an alcohol wipe. Use a different alcohol wipe to clean the end of the drainage tube. 5. Connect the catheter tube to the drainage tube of the clean drainage bag. 6. Attach the new bag to the leg with adhesive tape or a leg strap. Avoid attaching the new bag tootightly. 7. Place a cap on the drainage bag not in use and store in a clean towel. SEEK MEDICAL CARE IF: ??? Your urine is cloudy or smells. ??? Your catheter starts to leak. ??? Your catheter falls out or is pulled out. ??? You have pain, swelling, redness, or pus where the catheter enters the body. ??? You have pain in the abdomen, legs, lower back, or bladder. ??? You have a fever of 100.4 F (38 C) or higher ??? You see pink, red, dark, coffee colored, or pus-like urine. ??? You have nausea, vomiting, or chills. ??? You are not feeling better in 2 to 3 days or you are feeling worse. ??? You are not draining urine into the bag or your bladder feels full. MAKE SURE YOU: ??? Understand the reason you have the catheter. ??? Understand and follow these instructions to care for the catheter. ??? Will watch your condition. ??? Drink 6-8 glasses of water or liquids per day to keep your urine clear. ??? Avoid Caffeinated drinks. They can irritate the bladder and cause bladder spasms. ??? Keep your follow up appointments and call with any concerns. Urology Acute Urinary Retention, Male Acute urinary retention is a condition in which a person (more content not included)...[facility]10-29-2025 NoteProgress Note-Physician Patient: QUINTEN KAMINSKI Age: 75 years Sex: Male : 1950 Associated Diagnoses: None Author: Sabra LORD, Raegan Nassar Postoperative Information Postoperative disposition: Postoperative disposition: Home. Optimetrix number: Optimetrix number [id number]. Anesthetic utilized: General. Health Status Allergies: Allergic Reactions (Selected) No Known Allergies No Known Medication Allergies Current medications: (Selected) Inpatient Medications Ordered Lactated Ringers IV Vane 1000 mL 1,000 mL: 1,000 mL, IV, 150 mL/hr, Routine, Start date 08/16/25 11:00:00 EDT, 6.7 hour(s), Total volume (mL): 1,000, 66.3 kg, 1.76, m2 Prescriptions Prescribed LORazepam 0.5 mg Tab: See Instructions, 3 tab(s) 30 minutes prior to procedure or appointment, # 21tab(s), Refills(s) 0, Pharmacy: [facility], 169, cm, 03/29/25 11:10:00 EDT, Height/Length Dosing, 66.4, kg, 03/29/25 11:10:00 EDT, Weight Dosing alprazolam 1 mg Tab: 1 mg = 1 tab(s), Oral, BID, PRN for anxiety, # 60 tab(s), Refills(s) 0, Pharmacy: [facility], 169, cm, 06/29/25 9:57:00 EDT, Height/Length Dosing, 64.5, kg, 06/29/25 9:57:00 EDT, Weight Dosing oxybutynin 5 mg Tab: 5 mg = 1 tab(s), Oral, TID, PRN Urinary discomfort, bladder spasms, stent pain, # 60 tab(s), Refills(s) 0, Pharmacy: [facility], 168, cm, 08/14/25 6:22:00 EDT, Height/Length Dosing, 66.3, kg, 08/14/25 6:22:00 EDT, Weight Dosing tamsulosin 0.4 mg Cap: 0.4 mg = 1 cap(s), Oral, Daily, TAKE 1 CAPSULE BY MOUTH DAILY, # 30 cap(s), Refills(s) 11, Pharmacy: [facility], 168, cm, 08/14/25 6:22:00 EDT, Height/Length Dosing, 66.3, kg, 08/14/25 6:22:00 EDT, Weight Dosing Documented Medications Documented Benito Stool Softener: 100 mg, Oral, Daily, Refills(s) 0, Constipation carbidopa-levodopa 25 mg-100 mg Tab: 1 tab(s), Oral, TID, Refill(s) 0 organic lions louis: organic lions louis, Home Medications (7) Active alprazolam 1 mg Tab 1 mg = 1 tab(s), PRN, Oral, BID carbidopa-levodopa 25 mg-100 mg Tab 1 tab(s), Oral, TID LORazepam 0.5 mg Tab See Instructions organic lions [place]is oxybutynin 5 mg Tab 5 mg = 1 tab(s), PRN, Oral, TID Benito Stool Softener 100 mg, Oral, Daily tamsulosin 0.4 mg Cap 0.4 mg = 1 cap(s), Oral, Daily Problem list: All Problems BMI 23.0-23.9, adult / SNOMED CT 4414951638 / Confirmed BPH with urinary obstruction / SNOMED CT 1497014426 / Confirmed Fatigue / SNOMED CT 412257254 / Confirmed Fractured pelvis / SNOMED CT 850336338 / Confirmed Generalized anxiety disorder / SNOMED CT 88385977 / Confirmed History of kidney stones / SNOMED CT 7265787959 / Confirmed Hospital discharge follow-up / SNOMED CT 0949237289 / Confirmed Insomnia / SNOMED CT 449028081 / Confirmed Kidney stones / SNOMED CT 656994817 / Confirmed Long-term current use of opiate analgesic drug / SNOMED CT 983576683916224 / Confirmed Added secondary to current Opioid Treatment Agreement Major depressive disorder, recurrent episode, mild / SNOMED CT 308237688 / Confirmed added per 07/28/2025 query response. Parkinson's disease / SNOMED CT 55201832 / Confirmed Prostate cancer screening / SNOMED CT 849255711 / Confirmed Pure hypercholesterolemia / SNOMED CT 313011963 / Confirmed Slow transit constipation / SNOMED CT 97575974 / Confirmed Thrombocytopenia / SNOMED CT 302388694 / Confirmed added per 06/09/2024 query response. Tubular adenoma of colon / SNOMED CT 203401143 / Confirmed Weakness / SNOMED CT 05712190 / Confirmed Physical Examination Vital Signs 08/16/2025 13:35 EDT Heart Rate Monitored 98 bpm Respiratory Rate Monitored 18 br/min Systolic Blood Pressure 133 mmHg Diastolic Blood Pressure 72 mmHg Blood Pressure Location Right arm SpO2 94 % 08/16/2025 13:26 EDT SpO2 94 % 08/16/2025 13:26 EDT Respiratory Rate Monitored 18 br/min 08/16/2025 13:26 EDT Heart Rate Monitored 93 bpm 08/16/2025 13:26 EDT Temperature Temporal Artery 36.5 DegC Systolic Blood Pressure 127 mmHg Diastolic Blood Pressure 73 mmHg Blood Pressure Location Left arm Mean Arterial Pressure, Cuff 91 mmHg 08/16/2025 13:15 EDT SpO2 100 % 08/16/2025 13:15 EDT Respiratory Rate Monitored 12 br/min 08/16/2025 13:15 EDT Heart Rate Monitored 90 bpm 08/16/2025 13:15 EDT Systolic Blood Pressure 122 mmHg Diastolic Blood Pressure 74 mmHg Mean Arterial Pressure, Cuff 90 mmHg 08/16/2025 13:10 EDT SpO2 99 % 08/16/2025 13:10 EDT Heart Rate Monitored 75 bpm 08/16/2025 13:10 EDT Respiratory Rate Monitored 16 br/min 08/16/2025 13:10 EDT Systolic Blood Pressure 118 mmHg Diastolic Blood Pressure 65 mmHg Blood Pressure Location Left arm Mean Arterial Pressure, Cuff 83 mmHg 08/16/2025 13:05 EDT Respiratory Rate Monitored 13 br/min 08/16/2025 13:05 EDT SpO2 99 % 08/16/2025 13:05 EDT Heart Rate Monitored 81 bpm 08/16/2025 13:05 EDT Systolic Blood Pressure 123 mmHg Diastolic Blood Pressure 66 mm (more content not included)...[facility]Result Comment: Electronically Signed By: Sabra LORD, Raegan Nassar\.br\Date and Time Signed: 08/16/25 16:39 [id number] NotePatient Education - Text [facility] [place], [place] Post-operative Instructions for Ureteroscopy, Laser Lithotripsy, Stone Extraction and Stent Placement There are no incisions or dressings to be concerned with, as the procedure was performed inside theurinary system. For 24 hours after surgery: ??? No driving or operating machinery ??? Do not make important decisions ??? Do not consume alcohol, sleeping pills Stent Placement You may have a stent which spans the distance between your bladder and your kidney, allowing urine to pass through. It prevents blockage from swelling, kidney stones in ureter (tube connecting the kidney to the bladder), or scars. The presence of the stent may cause: ??? Back or side pain, especially with urination ??? Frequent or urgent urination ??? Bladder pressure or pain ??? Blood in urine You may pass stone debris or small blood clots, which is expected. Drinking plenty of water to dilute the urine may help. If there is a thread coming out of urinary channel, be careful not to accidently pull on this, as it is attached to the stent. If you accidentally pull on the string, check to see if the stent is coming out. If you see a smalltube coming out, lay on your back, knees bent and with clean hands try to push stent back in. Rub your lower belly and see if the stent will return inside. If this is unsuccessful, please call the office or go to the ER. If you elect to remove the stent at home after discussion with your doctor: -Take prophylactic antibiotic the morning of stent removal (time determined by your doctor) -Wash your hands with soap and water -Pull off the clear tape and pull on the string in a steady motion while trying to urinate on the toilet or in the shower. The string is attached to the stent which is a long tube with curls at each end. Otherwise, the stent will most likely be removed in the office during a short procedure in which a scope is placed into the bladder, the stent is grasped and removed. At other times the stent may need to stay longer, either in preparation for other procedures or for other reasons. If it is to remain fpc, however, changes of the stent are required (about every 3-4 months). Diet You may resume your normal diet, but you may want to start slowly and avoid spicy food, caffeine, carbonated beverages and alcohol, especially if you have a stent. Your diet and fluid intake may makeirritation from the stent worse. Activity You may resume your normal activities, although you should take it easy on the day of the procedure. Minimizing activity may decrease the back discomfort and irritation from the stent, if present. Medications ??? You may resume your home medications unless instructed otherwise. ??? After 24 hours, you may restart aspirin, Coumadin (warfarin) and other blood thinners unless told otherwise. ??? Take your prescribed medications as directed, including your antibiotics. ??? You may also be given a prescription for pain medicine or medicines to help with the bladder irritation from stent, if present. -Tamsulosin daily for stent pain. If you get dizzy or lightheaded, take at night or stop taking -Oxybutynin three times a day as needed for bladder spasms/stent pain. This may cause dry mouth, dry eyes and constipation. Drink plenty of fluids and take stool softeners (Colace, MiraLAX). STOP if unable to void. -AZO (phenazopyridine) for urinary discomfort can be purchased over the counter for burning with urination. This will make your urine orange. -Alternate Tylenol 500-1000 mg every 6 hours, alternate in between with ibuprofen 400-800 mg every 6 hours as needed for pain. Things to watch for which would require an Emergency Room Visit (or call 911) (This is not a complete list) ??? Fever over 101.5 degrees, with or without chills ??? Severe bleeding ??? Severe drug reactions with itching, hives, rash, or severe flank pain ??? Tenderness or swelling or the calves, chest pain, or shortness of breath Please call the office to arrange for your post-operative appointment if you do not hear from us within 2 weeks [phone]. [facility]10[facility] NoteProgress Note-Physician Patient: QUINTEN KAMINSKI Age: 75 years Sex: Male : 1950 Associated Diagnoses: None Author: Raegan De La Rosa MD Preoperative Information Anesthesia Preop Info: Time patient last ate or drank 08/16/2025 00:00:00. Anesthesia history: Patient history: None. Family history+: None. Anesthesia results: Anesthesia results from flowsheet : Results 08/16/2025 11:09 EDT Heart Rate Monitored 76 bpm SpO2 95 % 08/16/2025 11:09 EDT Temperature Oral 36.8 DegC 08/16/2025 11:09 EDT Systolic Blood Pressure 130 mmHg Diastolic Blood Pressure 81 mmHg Mean Arterial Pressure, Cuff 97 mmHg 08/16/2025 11:09 EDT Respiratory Rate 16 br/min . Informed consent: Signed by patient. Including risks, benefits, and alternatives related to the: Anesthetic plan, Postoperative pain management plan. Re-evaluation prior to induction: Initial evaluation reviewed: No significant change. Review of Systems Eye: Negative except as documented in history of present illness. Ear/Nose/Mouth/Throat: Negative except as documented in history of present illness. Respiratory: Negative except as documented in history of present illness. Cardiovascular: Negative except as documented in history of present illness. Musculoskeletal: Negative except as documented in history of present illness. Neurologic: Negative except as documented in history of present illness. Health Status Allergies: Allergic Reactions (Selected) No Known Allergies No Known Medication Allergies, Allergies (2) Active Severity Reaction No Known Allergies None Documented No Known Medication Allergies None Documented Current medications: (Selected) Inpatient Medications Ordered Lactated Ringers IV Vane 1000 mL 1,000 mL: 1,000 mL, IV, 150 mL/hr, Routine, Start date 08/16/25 11:00:00 EDT, 6.7 hour(s), Total volume (mL): 1,000, 66.3 kg, 1.76, m2 Prescriptions Prescribed LORazepam 0.5 mg Tab: See Instructions, 3 tab(s) 30 minutes prior to procedure or appointment, # 21tab(s), Refills(s) 0, Pharmacy: [facility], 169, cm, 03/29/25 11:10:00 EDT, Height/Length Dosing, 66.4, kg, 03/29/25 11:10:00 EDT, Weight Dosing alprazolam 1 mg Tab: 1 mg = 1 tab(s), Oral, BID, PRN for anxiety, # 60 tab(s), Refills(s) 0, Pharmacy: [facility], 169, cm, 06/29/25 9:57:00 EDT, Height/Length Dosing, 64.5, kg, 06/29/25 9:57:00 EDT, Weight Dosing Documented Medications Documented Benito Stool Softener: 100 mg, Oral, Daily, Refills(s) 0, Constipation carbidopa-levodopa 25 mg-100 mg Tab: 1 tab(s), Oral, TID, Refill(s) 0 organic [facility] [place]: organic [facility] [place] tamsulosin 0.4 mg Cap: 0.4 mg = 1 cap(s), Oral, Daily, TAKE 1 CAPSULE BY MOUTH DAILY, Urinary discomfort, Home Medications (6) Active alprazolam 1 mg Tab 1 mg = 1 tab(s), PRN, Oral, BID carbidopa-levodopa 25 mg-100 mg Tab 1 tab(s), Oral, TID LORazepam 0.5 mg Tab See Instructions organic helena mendez Benito Stool Softener 100 mg, Oral, Daily tamsulosin 0.4 mg Cap 0.4 mg = 1 cap(s), Oral, Daily , Medications (1) Active Scheduled: (0) Continuous: (1) Lactated Ringers 1,000 mL 1,000 mL, IV, 150 mL/hr PRN: (0) Problem list: All Problems BMI 23.0-23.9, adult / SNOMED CT 5824099763 / Confirmed BPH with urinary obstruction / SNOMED CT 6796231756 / Confirmed Fatigue / SNOMED CT 678682727 / Confirmed Fractured pelvis / SNOMED CT 251073136 / Confirmed Generalized anxiety disorder / SNOMED CT 13954963 / Confirmed History of kidney stones / SNOMED CT 8661093335 / Confirmed Hospital discharge follow-up / SNOMED CT 4242329733 / Confirmed Insomnia / SNOMED CT 579219301 / Confirmed Kidney stones / SNOMED CT 321937341 / Confirmed Long-term current use of opiate analgesic drug / SNOMED CT 899388922850459 / Confirmed Added secondary to current Opioid Treatment Agreement Major depressive disorder, recurrent episode, mild / SNOMED CT 052277301 / Confirmed added per 07/28/2025 query response. Parkinson's disease / SNOMED CT 12135138 / Confirmed Prostate cancer screening / SNOMED CT 901243114 / Confirmed Pure hypercholesterolemia / SNOMED CT 720359032 / Confirmed Slow transit constipation / SNOMED CT 12031811 / Confirmed Thrombocytopenia / SNOMED CT 757496368 / Confirmed added per 06/09/2024 query response. Tubular adenoma of colon / SNOMED CT 827310035 / Confirmed Weakness / SNOMED CT 40426794 / Confirmed Canceled: Anxiety / SNOMED CT 59074402 Canceled: BMI 24.0-24.9, adult / SNOMED CT 3969073197 Canceled: Left ureteral stone / SNOMED CT 26606398 Canceled: Rectal bleeding / SNOMED CT 202381665 Canceled: Tremor / SNOMED CT 56583151 added per 03/21/2025 query response., Active Problems (18) BMI 23.0-23.9, adult BPH with urinary obstruction Fatigue Fractured pelvis Generalized anxiety disorder History of kidney stones Hospital discharge follow-up Insomnia Kidney stones Long-term current use of opi (more content not included)...[facility]:Result Comment: Electronically Signed By: Sabra LORD, Raegan Melton.\.br\Date and Time Signed: 08/16/25 12:38 [id number] Hospital Discharge instructions Patient Education 08/09/2025 10:58:56 Ureteral Stent Implantation Ureteral Stent Implantation Ureteral stent implantation is a procedure to insert (implant) a flexible, soft, plastic tube (stent) into a ureter. Ureters are the tubelike parts of the body that drain urine from the kidneys. A ureteral stent may be implanted: After a procedure to remove a blockage from the ureter (ureterolysis or pyeloplasty). To open the flow of urine when a blockage is caused by a kidney stone, tumor, blood clot, or infection. You have two ureters, one on each side of your body. The ureters connect your kidneys to your bladder. The stent is placed so that one end is in your kidney, and one end is in your bladder. The stentsupports the ureter while it heals and helps to drain urine. The stent is usually taken out after your ureter has healed. Depending on your condition, you may have a stent for just a few weeks, or you may have a long-term stent that will need to be replaced every few months. Tell a health care provider about: Any allergies you have. All medicines you are taking, including vitamins, herbs, eye drops, creams, and [id number] medicines. Any problems you or family members have had with anesthetic medicines. Any bleeding problems you have. Any surgeries you have had. Any medical conditions you have. Whether you are or may be . What are the risks? Generally, this is a safe procedure. However, problems may occur, including: Infection. Bleeding. Allergic reactions to medicines. Damage to nearby structures or organs, such as tearing (perforation) of the ureter. Movement of the stent away from where it is placed during surgery (migration). Buildup of a crust or hard coating (encrustation) on the stent. This happens when bacteria in the body form crystals on the stent, causing it to weaken. What happens before the procedure? Medicines Ask your health care provider about: Changing or stopping your regular medicines. These include any diabetes medicines or blood thinnersyou take. Taking medicines such as aspirin and ibuprofen. These medicines can thin your blood. Do not take them unless your health care provider tells you to. Taking stjp-xtk-ghbtxrn medicines, vitamins, herbs, and supplements. When to stop eating and drinking Follow instructions from your health care provider about what you may eat and drink. These may include: 8 hours before your procedure ?Stop eating most foods. Do not eat meat, fried foods, or fatty foods. ?Eat only light foods, such as toast or crackers. ?All liquids are okay except energy drinks and alcohol. 6 hours before your procedure ?Stop eating. ? Drink only clear liquids, such as water, clear fruit juice, black coffee, plain tea, and sports drinks. ?Do not drink energy drinks or alcohol. 2 hours before your procedure ?Stop drinking all liquids. ?You may be allowed to take medicines with small sips of water. If you do not follow your health care provider's instructions, your procedure may be delayed or canceled. General instructions Do not use any products that contain nicotine or tobacco for at least 4 weeks before the procedure.These products include cigarettes, chewing tobacco, and vaping devices, such as e-cigarettes. If you need help quitting, ask your health care provider. You may have an exam or testing, such as imaging or blood tests. If you will be going home right after the procedure, plan to have a responsible adult: ?Take you home from the hospital or clinic. You will not be allowed to drive. ?Care for you for the time you are told. Ask your health care provider what steps will be taken to help prevent infection. These steps may include: ?Removing hair at the surgery site. ?Washing skin with a soap that kills germs. ?Taking antibiotic medicine. What happens during the procedure? An IV will be inserted into one of your veins. You may be given: ?A medicine to help you relax (sedative). ?A medicine to make you fall asleep (general anesthetic). A thin, tube-shaped instrument with a light and tiny camera at the end (cystoscope) will be inserted into your urethra. The urethra is the part of your body that drains urine from the bladder. The urethra opens at the end of the penis or in front of the vaginal opening. The cystoscope will be passed into your bladder. Guided imagery using X-ray may be used to pass a thin wire (guide wire) through your bladder and into your ureter. This wire is used to guide the stent into your ureter. The stent will be inserted into your ureter. The guide wire and the cystoscope will be removed. A thin, flexible tube (catheter) may be put through your urethra so that one end is in your bladder. This helps to drain urine from your bladder. The procedure may vary among hospitals and health care providers. What happens after the procedure? Your blood pressure, heart rate, breathing rate, and blood oxygen level will be monitored until youleave the hospital or clinic. You may continue to get medicine and fluids through an IV. You may have some soreness or pain in your abdomen and urethra. You may be given medicines for this. You will be encouraged to get up and walk around as soon as you can. You may have a catheter draining your urine. Summary Ureteral stent implantation is a procedure to insert a flexible, soft, plastic tube (stent) into a ureter. You may have a stent implanted to support the ureter while it heals after a procedure or to open the flow of urine if there is a blockage. You may have a stent for just a few weeks, or you may have a long-term stent that will need to be replaced every few months. Follow instructions from your health care provider about taking medicines and about eating and drinking before the procedure. This information is not intended to replace advice given to you by your health care provider. Make sure you discuss any questions you have with your health care provider. Document Revised: 11/10/2022 Document Reviewed: 11/10/2022 [employer] Patient Education 2023 [employer]. 08/09/2025 10:57:00 Ureteroscopy Ureteroscopy Ureteroscopy is a procedure to check for and treat problems inside part of the urinary tract. In this procedure, a long rigid or flexible tube with a lens and light at the end (ureteroscope) is used to look at the inside of the kidneys and the ureters. The ureters are the tubes that carry urine from the kidneys to the bladder. The ureteroscope is inserted into one or both of the ureters. You may need this procedure if you have frequent urinary tract infections (UTIs), blood in your urine, or a stone in one or both of your ureters. A ureteroscopy can be done: To find the cause of urine blockage in a ureter and to evaluate other abnormalities inside the ureters or kidneys. To remove stones. To remove or treat growths of tissue (polyps), abnormal tissue, and some types of tumors. To remove a tissue sample and check it for disease under a microscope (biopsy). Tell a health care provider about: Any allergies you have. All medicines you are taking, including vitamins, herbs, eye drops, creams, and yqiy-nar-dynjqci medicines. Any problems you or family members have had with anesthetic medicines. Any bleeding problems you have. Any surgeries you have had. Any medical conditions you have. Whether you are or may be . What are the risks? Your health care provider will talk with you about risks. These may include: Abdominal pain or a burning feeling or pain while urinating. Abnormal bleeding. A UTI. Allergic reactions to medicines. Scarring that narrows the ureter (stricture) or swelling. Creating a hole (perforation) in the ureter. Damage to other structures or organs, such as the part of your body that drains urine from your bladder (urethra), your bladder, or your uterus. What happens before the procedure? When to stop eating and drinking 8 hours before your procedure ?Stop eating most foods. Do not eat meat, fried foods, or fatty foods. ?Eat only light foods, such as toast or crackers. ?All liquids are okay except energy drinks and alcohol. 6 hours before your procedure ?Stop eating. ?Drink only clear liquids, such as water, clear fruit juice, black coffee, plain tea, and sports drinks. ?Do not drink energy drinks or alcohol. 2 hours before your procedure ?Stop drinking all liquids. ?You may be allowed to take medicines with small sips of water. Medicines Ask your health care provider about: Changing or stopping your regular medicines. These include any diabetes medicines or blood thinnersyou take. Taking medicines such as aspirin and ibuprofen. These medicines can thin your blood. Do not take these medicines unless your health care provider tells you to. Taking lgry-qye-hkvntgn medicines, vitamins, herbs, and supplements. General instructions Do not use any products that contain nicotine or tobacco for at least 4 weeks before the procedure.These products include cigarettes, chewing tobacco, and vaping devices, such as e-cigarettes. If you need help quitting, ask your health care provider. If you will be going home right after the procedure, plan to have a responsible adult: ?Take you home from the hospital or clinic. You will not be allowed to drive. ?Care for you for the time you are told. Ask your health care provider what steps will be taken to help prevent infection. These may include: ?Washing skin with a soap that kills germs. ?Receiving antibiotic medicine. Tests You may have an exam or testing. ?You may have a urine sample taken to check for infection. What happens during the procedure? An IV will be inserted into one of your veins. You may be given: ?A sedative. This helps you relax. ?Anesthesia. This will: ?Numb certain areas of your body. ?Make you fall asleep for surgery. Your urethra will be cleaned with a germ-killing solution. The ureteroscope will be passed through your urethra into your bladder. A salt-water solution will be sent through the ureteroscope to fill your bladder. This will help the health care provider see the openings of your ureters more clearly. The ureteroscope will be passed into your ureter. ?If a growth is found, a biopsy may be done. ?If a stone is found, it may be removed through the ureteroscope, or the stone may be broken up using a laser, shock waves, or electrical energy. ?In some cases, if the ureter is too small, a tube may be inserted that keeps the ureter open (ureteral stent). The stent may be left in place for 1 or 2 weeks, and then the ureteroscopy procedure will be done again. The scope will be removed, and your bladder will be emptied. The procedure may vary among health care providers and hospitals. What happens after the procedure? Your blood pressure, heart rate, breathing rate, and blood oxygen level will be monitored until youleave the hospital or clinic. It is up to you to get the results of your procedure. Ask your health care provider, or the department that is doing the procedure, when your results will be ready. Summary Ureteroscopy is a procedure used to look at the inside of the kidneys and the ureters. You may need this procedure if you have frequent urinary tract infections (UTIs), blood in your urine, or a stone in one or both of your ureters. Follow instructions from your health care provider about eating and drinking. In some cases, if the ureter is too small, a tube may be inserted that keeps the ureter open (ureteral stent). The stent may be left in place for 1 or 2 weeks to keep the ureter open, and then the ureteroscopy procedure will be done again. This information is not intended to replace advice given to you by your health care provider. Make sure you discuss any questions you have with your health care provider. Document Revised: 09/07/2023 Document Reviewed: 09/07/2023 [employer] Patient Education 2023 [employer] 08/09/2025 10:56:58 Laser Therapy for Kidney Stones Laser Therapy for Kidney Stones Laser therapy for kidney stones is a procedure to break up rock-like masses that form inside the kidneys (kidney stones). It is done using a device that beams a strong light (laser) on the kidney stones. This breaks the stones up into small pieces. These small pieces may leave your body when you pee (urinate) or may be taken out during the procedure. You may need laser therapy if you have kidney stones that are painful or that are stopping you frombeing able to pee. Tell a health care provider about: Any allergies you have. All medicines you are taking, including vitamins, herbs, eye drops, creams, and hray-mij-eglkysn medicines. Any problems you or family members have had with anesthesia. Any bleeding problems you have. Any surgeries you have had. Any medical conditions you have. Whether you are or may be . What are the risks? Your health care provider will talk with you about risks. These may include: Infection. Bleeding. Allergic reactions to medicines. Damage to: ?The part of your body that drains pee (urine) from the bladder (urethra). ?The bladder. ?The tube that connects the bladder to the kidneys (ureter). Urinary tract infection (UTI). Urethral stricture. This is when the urethra is narrowed by scarring. Trouble peeing. Blockage of the kidney. This may be caused by a piece of kidney stone. What happens before the procedure? When to stop eating and drinking Follow instructions from your provider about what you may eat and drink. These may include: 8 hours before the procedure ?Stop eating most foods. Do not eat meat, fried foods, or fatty foods. ?Eat only light foods, such as toast or crackers. ?All liquids are okay except energy drinks and alcohol. 6 hours before the procedure ?Stop eating. ?Drink only clear liquids, such as water, clear fruit juice, black coffee, plain tea, and sports drinks. ?Do not drink energy drinks or alcohol. 2 hours before the procedure ?Stop drinking all liquids. ?You may be allowed to take medicines with small sips of water. If you do not follow your provider's instructions, your procedure may be delayed or canceled. Medicines Ask your provider about: ?Changing or stopping your regular medicines. These include any diabetes medicines or blood thinners you take. ?Taking medicines such as aspirin and ibuprofen. These medicines can thin your blood. Do not take them unless your provider tells you to. ?Taking gyii-zqi-cigyend medicines, vitamins, herbs, and supplements. Tests You may have a physical exam before the procedure. You may also have tests done. These may include: ?Imaging tests. ?Blood or pee tests. Surgery safety Ask your provider: ?How your surgery site will be marked. ?What steps will be taken to help prevent infection. These steps may include: ?Removing hair at the surgery site. ?Washing skin with a soap that kills germs. ?Taking antibiotics. General instructions Do not use any products that contain nicotine or tobacco for at least 4 weeks before the procedure.These products include cigarettes, chewing tobacco, and vaping devices, such as e-cigarettes. If you need help quitting, ask your provider. If you will be going home right after the procedure, plan to have a responsible adult: ?Take you home from the hospital or clinic. You will not be allowed to drive. ?Care for you for the time you are told. What happens during the procedure? An IV will be inserted into one of your veins. You will be given: ?A sedative. This helps you relax. ?Anesthesia. This keeps you from feeling pain. It will make you fall asleep for surgery. A tool with a camera on the end (ureteroscope) will be put into your urethra. It will be moved through your bladder to your kidney. It will send pictures to a screen in the operating room. This will show what parts of your kidney need to be treated. A tube will be put through the ureteroscope. It will be moved into your kidney. The laser device will be put into your kidney through the tube. The laser will be used to break up the kidney stones. A tool with a tiny wire basket may be put through the tube into your kidney. This can help remove the small pieces of the kidney stone. A small mesh tube (stent) may be placed to allow your kidney to drain. The tube and ureteroscope will be taken out at the end of the surgery. The procedure may vary among providers and hospitals. What happens after the procedure? Your blood pressure, heart rate, breathing rate, and blood oxygen level will be monitored until youleave the hospital or clinic. If you had a stent placed, it may have a string that will be secured to your skin. This helps your provider remove the stent. You may be given a strainer to collect any stone pieces that you pass in your pee. Your provider may have these tested. This information is not intended to replace advice given to you by your health care provider. Make sure you discuss any questions you have with your health care provider. Document Revised: 06/05/2023 Document Reviewed: 06/05/2023 [employer] Patient Education 2023 [employer]. Follow Up Care 07/25/2025 10:07:51 With:Tremayne LORD, GARRETT Black, URO Address: [address], [place] [address] [phone] When: Unknown Comments:sched cysto, URS, laser litho/basket extraction, stent placement (L then R) [facility] Karen 10-22-2025 NotePatient Education Nephrology Laser Therapy for Kidney Stones Laser therapy for kidney stones is a procedure to break up rock-like masses that form inside the kidneys (kidney stones). It is done using a device that beams a strong light (laser) on the kidney stones. This breaks the stones up into small pieces. These small pieces may leave your body when you pee (urinate) or may be taken out during the procedure. You may need laser therapy if you have kidney stones that are painful or that are stopping you frombeing able to pee. Tell a health care provider about: ??? Any allergies you have. ??? All medicines you are taking, including vitamins, herbs, eye drops, creams, and ecal-ihk-wqcwfzd medicines. ??? Any problems you or family members have had with anesthesia. ??? Any bleeding problems you have. ??? Any surgeries you have had. ??? Any medical conditions you have. ??? Whether you are or may be . What are the risks? Your health care provider will talk with you about risks. These may include: ??? Infection. ??? Bleeding. ??? Allergic reactions to medicines. ??? Damage to: ? The part of your body that drains pee (urine) from the bladder (urethra). ? The bladder. ? The tube that connects the bladder to the kidneys (ureter). ??? Urinary tract infection (UTI). ??? Urethral stricture. This is when the urethra is narrowed by scarring. ??? Trouble peeing. ??? Blockage of the kidney. This may be caused by a piece of kidney stone. What happens before the procedure? When to stop eating and drinking Follow instructions from your provider about what you may eat and drink. These may include: ??? 8 hours before the procedure ? Stop eating most foods. Do not eat meat, fried foods, or fatty foods. ? Eat only light foods, such as toast or crackers. ? All liquids are okay except energy drinks and alcohol. ??? 6 hours before the procedure ? Stop eating. ? Drink only clear liquids, such as water, clear fruit juice, black coffee, plain tea, and sports drinks. ? Do not drink energy drinks or alcohol. ??? 2 hours before the procedure ? Stop drinking all liquids. ? You may be allowed to take medicines with small sips of water. ??? If you do not follow your provider's instructions, your procedure may be delayed or canceled. Medicines ??? Ask your provider about: ? Changing or stopping your regular medicines. These include any diabetes medicines or blood thinners you take. ? Taking medicines such as aspirin and ibuprofen. These medicines can thin your blood. Do not take them unless your provider tells you to. ? Taking hiql-fek-jgxfaci medicines, vitamins, herbs, and supplements. Tests ??? You may have a physical exam before the procedure. You may also have tests done. These may include: ? Imaging tests. ? Blood or pee tests. Surgery safety ??? Ask your provider: ? How your surgery site will be marked. ? What steps will be taken to help prevent infection. These steps may include: ? Removing hair at the surgery site. ? Washing skin with a soap that kills germs. ? Taking antibiotics. General instructions ??? Do not use any products that contain nicotine or tobacco for at least 4 weeks before the procedure. These products include cigarettes, chewing tobacco, and vaping devices, such as e-cigarettes. If you need help quitting, ask your provider. ??? If you will be going home right after the procedure, plan to have a responsible adult: ? Take you home from the hospital or clinic. You will not be allowed to drive. ? Care for you for the time you are told. What happens during the procedure? An IV will be inserted into one of your veins. ??? You will be given: ? A sedative. This helps you relax. ? Anesthesia. This keeps you from feeling pain. It will make you fall asleep for surgery. ??? A tool with a camera on the end (ureteroscope) will be put into your urethra. It will be moved through your bladder to your kidney. It will send pictures to a screen in the operating room. This will show what parts of your kidney need to be treated. ??? A tube will be put through the ureteroscope. It will be moved into your kidney. ??? The laser device will be put into your kidney through the tube. The laser will be used to breakup the kidney stones. ??? A tool with a tiny wire basket may be put through the tube into your kidney. This can help remove the small pieces of the kidney stone. ??? A small mesh tube (stent) may be placed to allow your kidney to drain. ??? The tube and ureteroscope will be taken out at the end of the surgery. The procedure may vary among providers and hospitals. What happens after the procedure? Your blood pressure, heart rate, breathing rate, and blood oxygen level will be monitored untilyou leave the hospital or clinic. ??? If you had a stent placed, it may have a string that will be secured to your skin. This helps yo (more content not included)...[facility] 03-02-2025 NoteHNO ID: [id number] Author: MARTIN LAMAR, DO Service: ? Author Type: Physician Type: Progress Notes Filed: 03/09/2025 14:57 Note Text: [facility] - NEW PATIENT EVALUATION Recording using [employer] software for draft documentation of the visit was discussed with the patient/authorized farm loan representative; all questions welcomed and answered. Patient/authorized farm loan representative agreed to proceed I had the pleasure of evaluating Mr. Kaminski in our clinic today. He is a [...] - Neurological: - Coordination: Mild dysmetria on ewqczd-gn-nmjc testing. - Motor: Rigidity noted. - Strength: [...] DBS Right DBS Left (more content not included)...[facility]03-06-2025 Note Patient Education Preventive Care 66 Years [...] to a schedule. Your health care provider willrecommend vaccines for you based on your age, medical history, and lifestyle or other factors, suchas travel or where you work. What tests [...] of hard liquor (44 mL). Lifestyle ??? [place] your teeth every morning and night with [...] Ask your health c (more content not included)...[facility] 11-17-2024 Telephone encounter Note* Telephone Encounter - Ayaan Paula RN - 11/17/2024 1:12 PM EST Triaged, based off available medical records, diagnosis looks relatively new and consult with movement disorders recommended. Ayaan Paula RN [facility] Work Phone: [phone]) 731-814801-30-2025 Miscellaneous Notes* Telephone Encounter - Ayaan Paula RN - 11/17/2024 1:12 PM EST Triaged, based off available medical records, diagnosis looks relatively new and consult with movement disorders recommended. Ayaan Paula RN * Telephone Encounter - Jeronimo Franklin - 11/17/2024 11:50 AM EST Patient has been referred from an outside provider for DBS evaluation clinic. Medical records need to be triaged. Records have been uploaded to the chart under scanned documents. [facility] Tele[facility] encounter Note * Telephone Encounter - Jeronimo Franklin - 11/17/2024 11:50 AM EST Patient has been referred from an outside provider for DBS evaluation clinic. Medical records need to be triaged. Records have been uploaded to the chart under scanned documents. [facility]01-29-2025 History of Present illness Narrative* Urbano Bro NP - 11/16/2024 9:40 AM EST Images from the original note were not included. Chief Complaint Patient presents with Parkinson's Disease Weight Loss Subjective Quinten Kaminski, 74 y.o., male The patient is seen [...] and unexpected weight change. Negative for fatigue andfever. 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 RLE Strength illopsoas, quadriceps, tibialis [...] knee reflex 0. Leone's Sign negative. Coordination: Jovnqe-ym-uwmj testing is normal Moderate bradykinesia bilaterally with [...] disease. He meets major criteria as evident onclinical examination. Brain MRI in 2014 was generally [...] be reasonable. PLAN: - Referral to the [facility] movement clinic for consideration of DBS [...] not unexplained given his decreased appetite and overallintake. He denies depression. He and his admits [...] consult or sooner if symptoms worsen, fail toimprove, or should a new neurological concern arise. Pt has been fully educated on their diagnosis, treatment options, follow up plan, and return instructions documented in this encounterSaint Mary's Hospital of Blue [id number] History of Present illness Narrative* Urbano Bro NP - 09/26/2024 9:20 AM EST Images from the original note were not included. Chief Complaint Patient presents with Parkinson's Disease Dysphagia Weight Loss Subjective Quinten Kaminski, 74 y.o., male The patient is seen today to follow-up on Parkinson's Disease and dysphagia. He is accompanied by his . He was started on Entacapone at his last visit and has tolerated this well. Denies noticinga difference in tremor symptoms. He states he [...] difficulty has not worsened, he has been drinkingwater with food which helps. His has been preparing softer foods. Denies any choking. Review of Systems Constitutional: Positive for appetite change and unexpected weight change. Negative for fatigue andfever. 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 RLE Strength illopsoas, quadriceps, tibialis [...] knee reflex 0. Leone's Sign negative. Coordination: Qqaulc-tw-uepr testing is normal Moderate bradykinesia bilaterally with [...] disease. He meets major criteria as evident onclinical examination. Brain MRI in 2014 was generally unremarkable. The patient has had a beneficial response to dopaminergic therapy. He presents today with what seems to be some worsening of symptoms especially his tremor which he reports is functionally limiting for him and states that his medication seems to wear off between doses. Although tolerated, the addition of entacapone has not seemedto provide any meaningful benefit thus far. PLAN: [...] not unexplained given his decreased appetite and overallintake. He denies depression. He and his admits [...] fail to improve, or should a new neurologicalconcern arise. Pt has been fully educated on their diagnosis, treatment options, follow up plan, and return instructions documented in this encounterSaint Mary's Hospital of Blue SpringsEzhukpioul07-28-1200 History of Present illness Narrative* Urbano Bro NP - 08/31/2024 9:00 AM EST Images from the original note were not included. Chief Complaint Patient presents with Parkinson's Disease Dysphagia Subjective Quinten Kaminski, 74 y.o., male The patient is seen [...] and unexpected weight change. Negative for fatigue andfever. 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 RLE Strength illopsoas, quadriceps, tibialis [...] knee reflex 0. Leone's Sign negative. Coordination: Foohox-ta-nwzu testing is normal Moderate bradykinesia bilaterally with [...] disease. He meets major criteria as evident onclinical examination. Brain MRI in 2015 was generally [...] not unexplained given his decreased appetite and overallintake. He denies depression. He and his admits [...] plan, and return instructions documented in this encounterSaint Mary's Hospital of Blue [id number] NoteOPERATIVE NOTE OPERATION DATE: 12/17/2022 PREOPERATIVE DIAGNOSIS: Intermittent rectal bleeding. POSTOPERATIVE DIAGNOSIS: Ascending colon polyp. PROCEDURE: Colonoscopy to cecum with cold snare polypectomy x1. SURGEON: Dianelys Guidry M.D. ANESTHESIA: Monitored anesthesia care. INDICATIONS AND [...] on the pathology results. CC: Jose Villarreal M.D.[facility] No data available for this section General Surgery [place] Evaluation + Plan note Future Appointments Appointment Date:12/30/2023 11:20:00 AM Scheduled Provider:Radha Poole Location:[facility] Appointment Type: Open Appointment Date:12/22/2024 11:00:00 AM Scheduled Provider: Location:[facility] Appointment Type:FM Medicare Wellness Subsequent Diagnostic Tests Pending * HCV Antibody RFX to Quant PCR [facility]ments Appointment Date:06/29/2024 11:20:00 AM Scheduled Provider:Radha Poole Location:[facility] Appointment Type: Open Appointment Date:12/22/2024 11:00:00 AM Scheduled Provider: Location:[facility] Appointment Type:FM Medicare Wellness Subsequent [facility] Future Appointments Appointment Date:03/22/2025 09:40:00 AM Scheduled Provider:Radha Poole Location:[facility] Appointment Type:FM Open Appointment Date:12/25/2025 11:00:00 AM Scheduled Provider: [facility] Type: [facility] Wellness [facility] + Plan note Future Appointments Appointment Date:08/11/2025 01:30:00 PM Scheduled Provider: Location:[facility] Appointment Type:Surgical PAT FT Appointment Date:08/16/2025 01:00:00 PM Scheduled Provider: Location:[facility] Appointment Type:Surgery FT Appointment Date:09/28/2025 10:20:00 AM Scheduled Provider:Radha Poole [facility] Type:FM Open Appointment Date:12/25/2025 11:00:00 AM Scheduled [facility] Medicare Wellness Subsequent [facility] evaluation note* Diagnosis Parkinson's disease without dyskinesia or [...] weight documented in this encounter [facility]Evaluation noteNo assessment information availableMercy Health St. [facility] Work Phone: Hospital Discharge instructions No data available for this section General Surgery [place] Progress note No data available for this section General Surgery [place] Reason for referral (narrative)No reason for referral information availableMercy Health St. [facility] Work Phone: Summary Purpose Family History No Family History Records Found Relationship Condition Age at Onset Recorded Date/T hugo father Unknown motherHeart diseaseUnknownDeceasedUnknown Advance Directives No Advanced Directives Records Found Advance Directive Response Recorded Date/ Time Advance Directives No March 17 9:02am Chief Complaint and Reason for Visit [...] section and content) DATE CREATED AUTHOR 12/26/2022 [facility] DATE CREATED AUTHOR AUTHOR'S ORGANIZ ATION 04/01/2024 [facility] DATE CREATED AUTHOR AUTHOR'S ORGANIZ ATION 11/18/2024 [facility] DATE CREATED AUTHOR AUTHOR'S ORGANIZ ATION 12/28/2024 [facility] DATE CREATED AUTHOR AUTHOR'S ORGANIZ ATION 03/16/2025 [facility] DATE CREATED AUTHOR AUTHOR'S ORGANIZ ATION 07/02/2025 [facility] DATE CREATED AUTHOR AUTHOR'S ORGANIZ ATION 07/26/2025 [facility] DATE CREATED AUTHOR AUTHOR'S ORGANIZ ATION 08/10/2025 [facility] DATE CREATED AUTHOR AUTHOR'S ORGANIZ ATION 08/13/2025 [facility] DATE CREATED AUTHOR AUTHOR'S ORGANIZ ATION 08/18/2025 [facility] DATE CREATED AUTHOR AUTHOR'S ORGANIZ ATION 08/20/2025 [facility] DATE CREATED AUTHOR AUTHOR'S ORGANIZ ATION 08/22/2025 [facility] DATE CREATED AUTHOR AUTHOR'S ORGANIZ ATION 08/25/2025 [facility] DATE CREATED AUTHOR AUTHOR'S ORGANIZ ATION 08/27/2025 [facility] DATE CREATED AUTHOR AUTHOR'S ORGANIZ ATION 08/29/2025 [facility] Patient Care team informatio n (unrecognized section and content) Team MemberRelationshipSpecialtyStart DateEnd Date Murphy Guerin OD [address] [place] [address] Referring PhysicianOptometry05/31/24 Urbano Bro NP [address] [address] Nurse JxglckfqbsbtYazjxtsmj56/11/24 Wesly Schwartz DO [address] [place] [phone] Referring QyeuzguadGdjbkjnga68/11/24 Radha Hopkins MD [address] [place], [place] [phone] Referring PhysicianFamily Wstfstru06/13/24Team MemberRelationshipSpecialtyStart DateEnd Date Murphy Guerin OD [address] [place] [address] Referring PhysicianOptometry05/31/24 Urbano Bro NP [address] [address] Nurse GxumacxpbttkQggydgrnu65/11/24 Wesly Schwartz DO [address] [address] Referring AacbzxnobRosliraab40/11/24 Radha Hopkins MD [address] [place] [address] Referring PhysicianFamily Iuywlcuc60/13/24Team MemberRelationshipSpecialtyStart DateEnd Date Unallocated, Noms ProviderMD [address] [place] [address] PCP - GeneralFamily Medicine11/16/24 Murphy Guerin, OD [address] [place] [address] Referring PhysicianOptometry05/31/24 Urbano Bro NP [address] [address] Nurse MyqywpzbntmwCxakzugas05/11/24 Wesly Schwartz DO [address] [place] [phone] Referring UdghqrksdIeibvrzjk07/11/24 Radha Hopkins MD [address] [place] [address] Referring PhysicianFasaint joseph's hospital Lblqivxk16/13/24Team MemberRelationshipSpecialtyStart DateEnd Date Unallocated, Noms ProviderMD [address] [place] [address] PCP - Generalmily Medicine11/16/24 Murphy Guerin, OD [address] [place] [address] Referring PhysicianOptometry05/31/24 Urbano Bro NP [address] [address] Nurse PvxmggpprifdQyfndeesx21/11/24 Wesly Schwartz DO [address] [address] Referring BiximgsnrHkngxugbq43/11/24 Radha Hopkins MD [address] [place] [address] Referring PhysicianFamily Avfmwgoj91/13/24Team MemberRelationshipSpecialtyStart DateEnd Date Urbano Bro CNP [address] [address] ReferringFanhly Medicine11/16/24 Team Status: Inactive Member Role Status Dates Shannan Whitaker MD Attending Provider Active Sta rt: July 22, 2025 End: July 22, 2025 Reason for Visit (unrecogniz ed section and content) ReasonCommentsParkinson's DiseaseDysphagiaReasonCommentsParkinson's Disease DysphagiaWeight LossReasonCommentsParkinson's DiseaseWeight LossReasonComments RNS/DBS Visit Source Comments (unrecognize d section and content) In the event this informatio n is protected by the Federal Confidentiality of Alcohol and Drug Abuse Patient Records regulations: The Federal rules restrict any use of the information to criminally investigate or prosecute any alcohol or drug abuse patient.[facility] Goals (unrecognized section and content) Goals may [...] BE BASED ON THE PRIMARY CLINICAL RECORDS. [facility] [employer] [facility]. provides no warranty or guarantee of the accuracy or completeness of information in this document.
--- OUTSIDE RECORDS SUMMARY | 2025-10-17 06:15 | XMS_ITS | Encounter Summary ---
Author Organization [facility] Address [address] [place] [address] Care Team Providers Care Daycare Worker Name Role Phone Unavailable Primary Care Provider Unavailabl e Reason for Referral * Imaging (Routine) - Pending ReviewSpecialtyDiagnoses / ProceduresReferred By ContactReferred To ContactCardiology Diagnoses Abnormal EKG Procedures Transthoracic echo (TTE) complete Wesly Prakash MD [address] [place] [address] Phone: tel: fax: Referral IDStatusReasonStart DateExpiration DateVisits RequestedVisits [id number] Review Perform Procedure Encounter Details DateTypeDepartmentCare Team (Latest Contact Info)Sexjnbgyyay00/17/2025Orders Only [facility] Cardiovascular [address] [place] [address] [facility] HospitalJoseah [place] Abnormal EKG (Primary Dx) Social History Tobacco UseTypesPacks/DayYears UsedDateSmoking Tobacco: Never AssessedSex and Gender InformationValueDate RecordedSex Assigned at BirthNot on fileLegal Sex Male08/23/2025 2:55 PM ESTGender IdentityNot on fileSexual OrientationNot on filedocumented as of this encounter Plan of Treatment DateTypeDepartmentCare Team (Latest Contact Info)Rpacrdyftqj76/07/2026 11:20 AM ESTOffice Visit [facility] [address] [place] [address] Wesly Prakash MD [address] [place] [address] NameTypePriorityAssociated DiagnosesOrder ScheduleTransthoracic echo (TTE) completeEchocardiographyRoutine Abnormal EKG Expected: 10/04/2025 (Approximate), Expires: 10/04/2027documented as of this encounter Visit Diagnoses Diagnosis Abnormal EKG- Primary Nonspecific abnormal electrocardiogram (ECG) (EKG) documented in this encounter
--- OUTSIDE RECORDS SUMMARY | 2025-10-17 06:15 | XMS_ITS | Clinical Summary ---
Author Organization [employer] Address [id number] [address] [place] [address] Care Team Providers Care Coffee Sampler Name Role Phone Unavailable Primary Care Provider Unavailabl e Encounters DateTypeDepartmentCare FisxOddzaftwxpo09/17/2025 11:04 AM EST - 10/04/2025 4:12 PM ESTEmergency [facility] St[facility] [address] [place] [address] Discharge Disposition: Telemedicine Dischargefrom Last 3 Months Social History Tobacco UseTypesPacks/DayYears UsedDateSmoking Tobacco: Never AssessedChildcare AnswerDate PnrugsucCmwqeycerPpalzot55/11/2019EmploymentAnswerDate Recorded EvsxnvbcprRortuqf54/11/2019Sex and Gender InformationValueDate RecordedSex Assigned at BirthNot on fileLegal VbfYasd5605/22/2015 9:14 PM EDTGender Identity Not on fileSexual OrientationNot on file Plan of Treatment Health MaintenanceDue DateLast DoneCommentsDepression Ioisfqqxk56/25/1963Tobacco Tqjrzohlm45/25/1963Adult BMI Uyppzieuo79/25/1969DTaP,Tdap and Td Vaccines (1 - Tdap)1970Fall Risk Hustchgig76/25/2016COVID-19 Vaccine ( - 2024- season)512/, 01/20/2021, 12/28/2020Influenza Wfpmedl7406/19/2025 RSV ( or age 60+ yrs) (1 - 1-dose 75+ series)2026Zoster (Shingles) XwzhtrlCzhxjtxqj15/18/2025, 01/22/2025 Medical Devices Not on file
--- OUTSIDE RECORDS SUMMARY | 2025-10-17 06:15 | XMS_ITS | Clinical Summary ---
Author Organization [facility] Address [address] [place] [address] Care Team Providers Care Warp Splitter Name Role Phone Murphy Guerin OD Unavailable Madeline Tucker MANAGEMENT ANALYST Unavailable Wesly Schwartz DO Unavailable [phone] Radha Hopkins MANAGEMENT ANALYST Unavailable Unallocated, Noms Provider Primary Care Provi sagar Allergies No known active allergies Medications MedicationSigDispense QuantityRefillsLast FilledStart DateEnd DateStatus traMADol (Ultram) 50 MG tablet Take 50 mg by mouth DailyActive Cyanocobalamin (B-12 PO) Take by mouthActive ALPRAZolam (Xanax) 0.5 MG tablet Take 0.5 mg by mouth 3 (three) times a day as needed for ygrmcch0605/23/2024ctive traZODone (Desyrel) 100 MG tablet Take 100 mg by mouth at skoqery8809/19/2023ctive entacapone (Comtan) 200 MG tablet Indications:Parkinson's disease [...] ONCE DAILY AT BEDTIME and NEEDED FOR RSACATR3011/03/2024 Active rOPINIRole (Requip) 0.5 MG tablet Indications:Parkinson's disease without fluctuating manifestations, unspecified whether dyskinesia present (HCC)Take 1 tablet (0.5 mg) by mouth in the morning and 1 tablet (0.5 mg) in the evening and 1 tablet (0.5 mg) before bedtime. 270 tablet 5Active Active Problems ProblemNoted DateDiagnosed DateAge-related nuclear cataract of left eye 4Right posterior capsular wdrlramzmcudq74/13/0866Sfvhbxtswlgh42/08/2024 Tcasyn0405/26/2024arkinson tstkfns3505/26/2024 Overview (05/26/2024): It is my impression that [...] great detail. 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 (He is not taking Xanax any longer) Owjuvmmyp80/08/2024 Overview (05/26/2024): The patient reports mild difficulty [...] InformationValueDate RecordedSex Assigned at BirthNot on fileLegal WhqCbqq3502/16/2023 8:33 PM EDTGender IdentityNot on fileSexual OrientationNot on file Last Filed Vital Signs Vital SignReadingTime TakenCommentsBlood Dpkxcoit691/66011/16/2024 9:24 AM EST Kivpw550211/16/2024 9:24 AM ESTTemperature--Respiratory Rate--Oxygen Saturation-- Inhaled Oxygen Concentration--Fsgcfg98 kg (150 lb)11/16/2024 9:24 AM ESTHeight 170.2 cm (5' 7 )08/31/2024 8:57 AM ESTBody Mass Index23.4908/31/2024 8:57 AM EST Plan of Treatment Health MaintenanceDue DateLast DoneCommentsCT Dgybuqsfpyfp1951olonoscopy 1951olorectal Cancer Ovxqbzgpm1951FIT-DNA1951FIT1950 FOBT06/12/19519293Dgqxazjnzvfbk1951neumococcal Vaccine: 65+ Years (2 of 2 - PCV20 or PCV21)Influenza Vaccine (#1)2025 Insurance Care Teams Team MemberRelationshipSpecialtyStart DateEnd Date Unallocated, Noms Matheus, [address] [place] [address] PCP - GeneralFamily Medicine11/16/24 Murphy Guerin OD [address] [place] [address] Referring PhysicianOptometry05/31/24 Madeline Tucker NP [address] [place] [phone] Nurse QkyplwekhfmaVtrotqsgl49/11/24 Wesly Schwartz DO [address] [place] [phone] Referring FvxpuqlflMzmrsfmfy63/11/24 Radha Hopkins NP [address] [place], [place] [address] Referring PhysicianFamily Mzrjyvym98/13/24
--- OUTSIDE RECORDS SUMMARY | 2025-10-17 06:15 | XMS_ITS | Clinical Summary ---
Author Organization [facility] Address [facility] [id number] Care Team Providers Care Product Marketing Executive Name Role Phone Madeline Tucker PACK ROOM OPERATOR Unavailable [phone] Radha Hopkins APRN.PACK ROOM OPERATOR Primary Care Provider Medications MedicationSigDispense QuantityRefillsLast FilledStart DateEnd DateStatus OTC NUTRITIONAL SUPPLEMENT Take 1 capsule by mouth once daily. April's Eden Vitamin 1 capsule per mouth daily.Active carbidopa-levodopa (SINEMET 25-100) 25-100 mg per tablet Indications:Parkinson's disease without dyskinesia or fluctuating manifestations (HCC)Take 2 tablets by mouth three times a day. 540 tablet ctive ALPRAZolam (XANAX) 1 mg tablet Take 1 [...] by mouth every morning. 90 tablet ctive Encounters DateTypeDepartmentCare CgufUhcxjyjbkpd78/15/2025Telephone Neurology [address] [place] [address] Martin Lamar DO Medication Sgmiwgu8309/07/2025 1:30 PM ESTOffice Visit Neurology [address] [place] [address] Martin Lamar, Parkinson's disease without dyskinesia or fluctuating manifestations (HCC) (Primary Dx); Anxiety disorder due to general medical conditionfrom Last 3 Months Social History Tobacco UseTypesPacks/DayYears UsedDateSmoking Tobacco: NeverPassive Smoke Exposure: NeverSmokeless Tobacco: NeverAlcohol UseStandard Drinks/WeekComments Never0 (1 standard drink = 0.6 oz pure alcohol)Area Deprivation IndexAnswerDate RecordedNational Score (1-100), lower number is lower glgy821103/02/2025State Score (1-10), lower number is lower slbw08903/02/2025Data from: https://www.neighborhoodatlas.medicine.[facility].edu/. Last address used for [address]/02/2025Sex and Gender InformationValueDate Recorded Sex Assigned at BirthNot on fileLegal DzeTzyj1705/10/2018 9:55 AM EDTGender IdentityNot on fileSexual OrientationNot on file Last Filed Vital Signs Vital SignReadingTime TakenCommentsBlood Fbuwggoc32/6211 1:04 PM EST Mvwxl602909/07/2025 1:04 PM ESTTemperature--Respiratory Rate--Oxygen Saturation-- Inhaled Oxygen Concentration--Weight--Height--Body Mass Index-- Plan of Treatment DateTypeDepartmentCare Team (Latest Contact Info)Ncldgmxukkk95/11/2026 1:30 PM EDTOffice Visit Neurology [address] [place] [address] Martin Lamar DO [address] [place], [place] [address] f/uHealth MaintenanceDue DateLast DoneCommentsAnxiety Lpmueutln50/25/1969 Depression Nxfheqgdb11/25/1969Hepatitis C Bhfbrlcox32/25/1969DTaP,Tdap,Td Vaccine (1 - Tdap)1970Lipid Bytzueyes84/25/1986CT Tjlvhfjkpbsd70/25/1996 Cologuard (FIT-DNA)06/12/19962829Xergblpgzku26/25/1996Colorectal Cancer Screening 1996Diabetes Xxuduewvf81/25/1996Fecal Occult Blood1996Sigmoidoscopy 1996Pneumococcal Vaccine: 50+ (2 of 2 - PCV20 or PCV21)09/20/2021 09/20/2020Advance Directive Yfgwhsitxp31/01/2025Medicare Advantage Annual Wellness Visit10/19/2024ovid-19 Vaccine (2024- season)2025 10/06/2021, 01/20/2021, 12/28/2020Influenza Vaccine (#1)2025RSV Vaccine (1 - 1-dose 75+ series)2026Shingrix LbbpiocModkypbuz85/18/2025, 01/22/2025 Insurance Care Teams Team MemberRelationshipSpecialtyStart DateEnd Date Radha Hopkins APRN.AL [address] [place] [address] PCP - GeneralFamily Rrfpqgds28/20/25 Madeline Tucker CNP [facility]11/16/24
--- OUTSIDE RECORDS SUMMARY | 2025-10-17 06:15 | XMS_ITS | Clinical Summary ---
Author Organization [facility] Address [address] [place] [address] Care Team Providers Care Rare/Endangered Species Specialist Name Role Phone Unavailable Primary Care Provider Unavailabl e Encounters DateTypeDepartmentCare AvooVptlodvxqda58/17/2025Orders Only [facility] Cardiovascular [address] [place] [address] Candi Norwood MA Abnormal EKG (Primary Dx)from Last 3 Months Social History Tobacco UseTypesPacks/DayYears UsedDateSmoking Tobacco: Never AssessedSex and Gender InformationValueDate RecordedSex Assigned at BirthNot on fileLegal Sex Male08/23/2025 2:55 PM ESTGender IdentityNot on fileSexual OrientationNot on file Plan of Treatment DateTypeDepartmentCare Team (Latest Contact Info)Dwewgsmdvrq22/07/2026 11:20 AM ESTOffice Visit [facility] Cardiovascular [address] [place] [address] Wesly Prakash MD [address] [address] Health MaintenanceDue DateLast DoneCommentsCT Wpkdrbpsywqr1951Colonoscopy 1951olorectal Cancer Zdbvjfzud1951FIT-DNA1951FIT1951 FOBT1951Medicare Annual Wellness (AWV)06/12/19515746Hhvbyydjbfmoy1951 Depression Drrhievyh36/25/1963Adult Abnzoth1206/12/1973Fall Risk Screening 2016Pneumococcal Vaccine: 50+ Years (2 of 2 - PPSV23, PCV20, or PCV21) /12/2019COVID-19 Vaccine (2024- season), 01/20/2021, 12/28/2020Influenza Vaccine (#1)2025Zoster VaccinesCompleted 04/05/2025, 01/22/2025HIB VaccinesAged OutNo longer eligible based on patient's age to complete this topicHPV VaccinesAged OutNo longer eligible based on patient's age to complete this topicIPV VaccinesAged OutNo longer eligible based on patient's age to complete this topicMeningococcal B VaccineAged OutNo longer eligible based on patient's age to complete this topicMeningococcal VaccineAged OutNo longer eligible based on patient's age to complete this topicRotavirus VaccinesAged OutNo longer eligible based on patient's age to complete this topic Insurance
--- OUTSIDE RECORDS SUMMARY | 2025-10-17 06:15 | XMS_ITS | Encounter Summary ---
Author Organization [facility] Address [address] [place] [address] Care Team Providers Care Scheduling Administrator Name Role Phone Madeline Tucker CNP Unavailable [phone] Radha Hopkins APRN.[employer]ER Primary Care Provider Source Comments In the event this information is protected by the Federal Confidentiality of Alcohol and Drug AbusePatient Records regulations: The Federal rules restrict any use of the information to criminally investigate or prosecute any alcohol or drug abuse patient.[facility] Reason for Visit * ReasonCommentsMedication Problem Encounter Details DateTypeDepartmentCare Team (Latest Contact Info)Cxtwprwubot35/15/2025Telephone Neurology [address] [place] [address] Martin Lamar, DO [address] [place] [address] Medication Problem Social History Tobacco UseTypesPacks/DayYears UsedDateSmoking Tobacco: NeverPassive Smoke Exposure: NeverSmokeless Tobacco: NeverAlcohol UseStandard Drinks/WeekComments Never0 (1 standard drink = 0.6 oz pure alcohol)Area Deprivation IndexAnswerDate RecordedNational Score (1-100), lower number is lower phrg273303/02/2025State Score (1-10), lower number is lower qqgu93103/02/2025Data from: https://www.neighborhoodatlas.[facility]/. Last address used for ucmbinxmljh[address]03/02/2024Sex and Gender InformationValueDate Recorded Sex Assigned at BirthNot on fileLegal DitRrwo2605/10/2018 9:55 AM EDTGender IdentityNot on fileSexual OrientationNot [...] briefs since 09/07/25 Patient is not present information systems architect for further evaluation. Patient permission not documented to speak with anyone and no HCPOA documents present. Veanncio reports brother is POA and will have papers brought in. Also, advised son to have his dad contact PCP for symptoms that may or may not be related to medication. Patient phone: [phone]. documented in this encounter Plan of Treatment DateTypeDepartmentCare Team (Latest Contact Info)Iwnwymqezyg75/11/2026 1:30 PM EDTOffice Visit Neurology [address] [place] [address] Martin Lamar, DO [address] [place] [address] f/udocumented as of this encounter Visit Diagnoses Not on filedocumented in this encounter Care Teams Team MemberRelationshipSpecialtyStart DateEnd Date Radha Hopkins, KAREEN.[employer] W[employer]ER [address] [place] [address] PCP - GeneralFamily Suotweva24/20/25 Madeline Tucker CNP ReferringFamily Medicine11/16/24documented as of this encounter
--- NOTE | 2025-10-17 07:03 | US_ITS ---
The [address] [address] Patient Name: QUINTEN HUITRON MRN: [id number] date: 1950 Sex: M Assigned Patient Location: [place] Current Patient Location: [place] Accession/Order Number: [id number] Exam Date: 10/17/2025 07:04 Report Date: 10/17/2025 11:04 At the request of: YOUSIF AVERY MD Procedure: US renal BI BILATERAL RENAL AND BLADDER ULTRASOUND CLINICAL HISTORY: History of kidney stones and surgical removal COMPARISON: CT 07/24/2025 Estimation of renal size is approximately 9.1 cm on the right and 10.3 cm on the left. No shadowing calculi or hydronephrosis are identified. No renal mass lesions were imaged. There is no perinephric fluid. The urinary bladder is partially distended with a volume of 86 mL. There is an enlarged, lobulated prostate with mass effect at the bladder trigone. US/US renal BI IMPRESSION: NO OBSTRUCTIVE UROPATHY. PROSTATE HYPERTROPHY. Impression dictated by: Estrellita Garcia M.D. 10/17/2025 11:04 AM Dictation Location: [place] [address] Electronically authenticated by: [id number] Y Date: 10/17/2025 11:04
== END 2025-10-17 06:12 | disposition home or self-care (01) ==
LOC: US 06:12
PROVIDERS: PCP Nurse Practitioner; Visit Provider Urology
DX: N20.0 Calculus of kidney (principal)
CPT/HCPCS: 76775